=== PATIENT | female | born 1935 | race Caucasian/White ===

== ENCOUNTER 2016-09-24 09:23 | Inpatient (IN) | payer MEDICARE, BC ==
--- NOTE | 2016-09-24 09:38 | EDM.PDOC ---
ED HPI GENERAL MEDICAL PROBLEM - General Chief Complaint: Abdominal Pain Stated Complaint: VOMITING/ABDOMINAL PAIN Time Seen by Provider: 09/24/16 09:36 - History of Present Illness INITIAL COMMENTS - FREE TEXT/NARRATIVE: 80-year-old female presents to the emergency room with nausea and vomiting. This started this morning. Patient tried eating breakfast and this did not go too well and she vomited she had one or 2 episodes of what the caregiver believes is dry heaves. 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 Yesterday the patient was doing fine the caregiver reports the patient had some moaning and groaning earlier in the morning before attempting breakfast so she is assuming the patient had some pain before the nausea and vomiting started. At this point the patient wants the nausea and vomiting better , and at this moment is declining pain. Abdominal Pain Score (Numeric/FACES): 5 - Related Data Allergies Allergy/AdvReac Type Severity Reaction Status Date / Time cefadroxil hydrate Allergy Rash Verified 09/24/16 09:39 [From [facility]] venom-honey bee Allergy Swelling Verified 09/24/16 09:39 [bee venom (honey bee)] Home Meds: Home Meds Aspirin [Halfprin] 81 mg PO ACDINNER 09/16/15 [History] Donepezil HCl [Aricept] 10 mg PO BEDTIME 09/16/15 [History] Escitalopram Oxalate 20 mg PO DAILY 09/16/15 [History] Fenofibrate Nanocrystallized [Fenofibrate] 48 mg PO DAILY 09/16/15 [History] Methadone 0.5 tab PO DAILY 09/16/15 [History] Omeprazole 20 mg PO BID 09/16/15 [History] Rosuvastatin [Crestor] 10 mg PO BEDTIME 09/16/15 [History] amLODIPine [Norvasc] 1 tab PO DAILY 09/16/15 [History] metFORMIN [Glucophage XR] 500 mg PO ACDINNER 09/16/15 [History] Metoprolol/Hydrochlorothiazide [Metoprolol-HCTZ 50-25 MG] 1 tab PO DAILY [History] Potassium Chloride 40 meq PO DAILY 09/24/16 [History] Past Medical History HEENT History: Reports: Cataract Cardiovascular History: Reports: High Cholesterol Respiratory History: Reports: Bronchitis, Recurrent Other Respiratory History: finished julian 09/16/2015 Gastrointestinal History: Reports: Gastritis, GERD Genitourinary History: Reports: None 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 OB/BYN History: 4 pregnancies Musculoskeletal History: Reports: Arthritis, Osteoporosis Neurological History: Reports: Other (See Below) Other Neuro History: Dementia Psychiatric History: Reports: Dementia Endocrine/Metabolic History: Reports: Diabetes, Type II Oncologic (Cancer) History: Reports: Squamous Cell Carcinoma Other Oncologic History: chin lip area - Infectious Disease History Infectious Disease History: Reports: Measles, Mumps - Past Surgical History HEENT Surgical History: Reports: Adenoidectomy, Cataract Surgery, Tonsillectomy Female Surgical History: Reports: Hysterectomy, Salpingo-Oophorectomy Dermatological Surgical History: Reports: Skin Graft Social & Family History - Family History Family Medical History: Noncontributory HEENT: Reports: Cataract, Hearing Impairment, Impaired Vision Cardiac: Reports: None, Bypass Respiratory: Reports: Sleep Apnea GI: Reports: GERD Musculoskeletal: Reports: Arthritis, Osteoarthritis, Osteoporosis Psychiatric: Reports: Suicide Attempt, Other (See Below) Other Psychiatric Family History: son Endocrine/Metabolic: Reports: Diabetes, type II, Osteoporosis Oncologic: Reports: Lymphoma Other Oncologic Family History: dad and grandpa - Tobacco Use Smoking Status *Q: Former Smoker Used Tobacco, but Quit: Yes Month Tobacco Last Used: 1995 Second Hand Smoke Exposure: No - Recreational Drug Use Recreational Drug Use: No ED ROS GENERAL - Review of Systems Review Of Systems: See Below Constitutional: Reports: No Symptoms HEENT: Reports: No Symptoms Respiratory: Reports: No Symptoms Cardiovascular: Reports: No Symptoms GI/Abdominal: Reports: Abdominal Pain, Nausea, Vomiting. Denies: Constipation, Diarrhea : Reports: No Symptoms Musculoskeletal: Reports: No Symptoms Neurological: Reports: No Symptoms ED EXAM, GI/ABD - Physical Exam Exam: See Below Exam Limited By: No Limitations General Appearance: Alert, No Apparent Distress, Other (Her O2 saturation was noted to be a little bit low 88-92%) Head: Atraumatic, Normocephalic Neck: Normal Inspection, Supple, Non-Tender, Full Range of Motion. No: Lymphadenopathy (L), Lymphadenopathy (R) Respiratory/Chest: No Respiratory Distress, Lungs Clear Cardiovascular: Regular Rate, Rhythm, No Edema, Systolic Murmur, Other (She has a 2/6 systolic murmur heard best along the left upper sternal border) GI/Abdominal: Normal Bowel Sounds, Soft, Other (Patient has some upper abdominal discomfort no rigidity rebound or guarding noted) Rectal (Female) Exam: Normal Rectal Tone, Other (She has some scarring no prolapsed rectum no active hemorrhoids at this point stool no normal consistency and color) Back Exam: Normal Inspection. No: CVA Tenderness (L), CVA Tenderness (R) Extremities: Normal Inspection, No Pedal Edema Course - Vital Signs Last Recorded V/S: Last Vital Signs Temp 36.2 C 09/24/16 09:33 Pulse 84 09/24/16 09:33 Resp 13 09/24/16 09:33 BP 163/62 H 09/24/16 09:33 Pulse Ox 88 L 09/24/16 09:33 - Orders/Labs/Meds Orders: Active Orders 24 hr Category Date Time Status EKG Documentation Completion [RC] STAT Care 09/24/16 09:55 Active Sodium Chloride 0.9% [Normal Saline] 1,000 ml Med 09/24/16 10:00 Active IV ASDIRECTED Sodium Chloride 0.9% [Saline Flush] Med 09/24/16 12:35 Active 10 ml FLUSH ONETIME PRN Medication Orders Sodium Chloride (Normal Saline) 1,000 mls @ 125 mls/hr IV ASDIRECTED DEONNA Last Admin: 09/24/16 10:22 Dose: 125 mls/hr Sodium Chloride (Saline Flush) 10 ml FLUSH ONETIME PRN PRN Reason: IV FLUSH Last Admin: 09/24/16 13:17 Dose: 10 ml Labs: Laboratory Tests 09/24/16 09/24/16 09/24/16 Range/Units 10:05 10:05 10:17 WBC 9.92 (3.98-10.04) K/mm3 RBC 4.31 (3.98-5.22) M/mm3 Hgb 12.7 (11.2-15.7) gm/L Hct 37.3 (34.1-44.9) % MCV 86.5 (79.4-94.8) fl MCH 29.5 (25.6-32.2) pg MCHC 34.0 (32.2-35.5) g/dl RDW Std Deviation 40.9 (36.4-46.3) fL Plt Count 301 (182-369) K/mm3 MPV 9.2 L (9.4-12.3) fl Neutrophils % (Manual) 85 H (40-60) % Band Neutrophils % 2 (0-10) % Lymphocytes % (Manual) 12 L (20-40) % Atypical Lymphs % 0 % Monocytes % (Manual) 1 L (2-10) % Eosinophils % (Manual) 0 L (0.7-5.8) % Basophils % (Manual) 0 L (0.1-1.2) Platelet Estimate Adequate RBC Morph Comment Normal Sodium 139 (136-145) mEq/L Potassium 4.0 (3.5-5.1) mEq/L Chloride 102 (98-107) mEq/L Carbon Dioxide 28 (21-32) mEq/L Anion Gap 13.0 (5-15) BUN 17 (7-18) mg/dL Creatinine 0.8 (0.55-1.02) mg/dL Est Cr Clr Drug Dosing 38.94 mL/min Estimated GFR (MDRD) > 60 (>60) mL/min BUN/Creatinine Ratio 21.3 H (14-18) Glucose 149 H (83-115) mg/dL Calcium 9.1 (8.5-10.1) mg/dL Total Bilirubin 0.6 (0.2-1.0) mg/dL AST 44 H (15-37) U/L ALT 52 (14-59) U/L Alkaline Phosphatase 29 L (46-116) U/L Troponin I < 0.017 (0.00-0.056) ng/mL Total Protein 7.8 (6.4-8.2) g/dl Albumin 3.8 (3.4-5.0) g/dl Globulin 4.0 gm/dL Albumin/Globulin Ratio 1.0 (1-2) Lipase 114 (73-393) U/L Urine Color Yellow (Yellow) Urine Appearance Clear (Clear) Urine pH 6.0 (5.0-8.0) Ur Specific [place] 1.015 (1.005-1.030) Urine Protein 1+ H (Negative) Urine Glucose (UA) Negative (Negative) Urine Ketones Negative (Negative) Urine Occult Blood Negative (Negative) Urine Nitrite Negative (Negative) Urine Bilirubin Negative (Negative) Urine Urobilinogen 0.2 (0.2-1.0) Ur Leukocyte Esterase Trace H (Negative) Urine RBC Not seen (0-5) /hpf Urine WBC 0-5 (0-5) /hpf Ur Epithelial Cells 0-5 (0-5) /hpf Urine Bacteria Few (FEW) /hpf Urine Mucus Not seen (FEW) /hpf Meds: Medications Generic Name Dose Route Start Last Admin Trade Name Freq PRN Reason Stop Dose Admin Sodium Chloride 1,000 mls @ 125 mls/hr 09/24/16 10:00 09/24/16 10:22 Normal Saline IV 125 mls/hr ASDIRECTED DEONNA Administration Sodium Chloride 10 ml 09/24/16 12:35 09/24/16 13:17 Saline Flush FLUSH 10 ml ONETIME PRN Administration IV FLUSH Discontinued Medications Generic Name Dose Route Start Last Admin Trade Name Freq PRN Reason Stop Dose Admin Diatrizoate Meglum/Diatrizoate Sod 90 ml 09/24/16 12:35 09/24/16 13:16 Gastrografin 37% PO 09/24/16 12:36 90 ml ONETIME ONE Administration Sodium Chloride 500 mls @ 500 mls/hr 09/24/16 11:34 Normal Saline IV 09/24/16 12:33 .BOLUS ONE Iopamidol 100 ml 09/24/16 12:35 09/24/16 13:17 Isovue-300 (61%) IVPUSH 09/24/16 12:36 100 ml ONETIME ONE Administration Morphine Sulfate 2 mg 09/24/16 10:31 09/24/16 10:40 Morphine IVPUSH 09/24/16 10:32 2 mg ONETIME ONE Administration Morphine Sulfate Confirm 09/24/16 10:36 09/24/16 11:03 Morphine Administered 09/24/16 10:37 Not Given Dose 2 mg .ROUTE .STK-MED ONE Ondansetron HCl 4 mg 09/24/16 09:54 09/24/16 10:22 Zofran IVPUSH 09/24/16 09:55 4 mg ONETIME ONE Administration - Re-Assessments/Exams Free Text/Narrative Re-Assessment/Exam: 09/24/16 10:01 Labs ordered will start normal saline anticipating a possible abdominal pelvic CT. We'll check plain films KUB upright and an AP chest. We'll watch her O2 saturation. The patient has a heart murmur but no prior history. 09/24/16 11:33 Labs reviewed does far nondiagnostic exercise no free under the diaphragm no acute changes on the AP chest abdominal films show some stool in the right and left upper quadrants no obstruction at this point the patient still having some abdominal discomfort we'll check a CT scan 09/24/16 15:13 Patient has done well and is doing better however she still has some mild decreased O2 saturation. We are investigating possibilities of getting her discharged with some home O2 at times and room air she would drop to 80% at rest. Did do a rectal exam is a risk some concerns about prolapsed rectum that the nurse observed when the patient was having a BM. Patient has had a couple of BMs here normal consistency no blood noted. 09/24/16 15:36 At this time working on admission or observation for hypoxia 09/24/16 15:55 Case reviewed with our hospitalist the patient will be admitted for hypoxia. Departure - Departure Time of Disposition: 15:55 Disposition: Admitted As Inpatient 64 Clinical Impression: Hypoxia, COPD (chronic obstructive pulmonary disease), Abdominal pain - Discharge Information Referrals: Maxwell Smith MD [Primary Care Provider] - Forms: ED Department Discharge Additional Instructions: Return to the emergency room with any questions problems or worsening symptoms. Follow-up with your regular physician in the next week or so. Recheck heart murmur and oxygen saturation. - My Orders Last 24 Hours: My Active Orders 09/24/16 09:55 EKG Documentation Completion [RC] STAT 09/24/16 10:00 Sodium Chloride 0.9% [Normal Saline] 1,000 ml IV ASDIRECTED 09/24/16 12:35 Sodium Chloride 0.9% [Saline Flush] 10 ml FLUSH ONETIME PRN - Assessment/Plan Last 24 Hours: My Active Orders 09/24/16 09:55 EKG Documentation Completion [RC] STAT 09/24/16 10:00 Sodium Chloride 0.9% [Normal Saline] 1,000 ml IV ASDIRECTED 09/24/16 12:35 Sodium Chloride 0.9% [Saline Flush] 10 ml FLUSH ONETIME PRN
[2016-09-24] MEDS ORDERED: Ondansetron 4 MG/2 ML SDV IVPUSH ONE (09:54)
[2016-09-24] MEDS ORDERED: Sodium Chloride 0.9% 1,000 ML IV SCH (10:00)
[2016-09-24] MEDS ORDERED: Morphine 2 MG/ML Syringe IVPUSH ONE (10:31)
[2016-09-24] MEDS ORDERED: Morphine 2 MG/ML Syringe ONE (10:36)
[2016-09-24] MEDS ORDERED: Sodium Chloride 0.9% 500 ML IV ONE (11:34)
--- NOTE | 2016-09-24 12:13 | CR ---
Abdominal series: Supine and upright views of the abdomen were obtained as well as frontal view of the chest. Comparison: Previous chest x-ray of 09/17/15 is available [address] previous CT abdomen and pelvis exam of 09/17/13 is available. Heart size is slightly enlarged. Tortuous thoracic aorta is seen. Lungs are clear with no acute infiltrates. No free air is seen. Scattered gas within small bowel and colon is seen which at this point appears nonspecific. Calcifications are seen within the pelvis which are likely due to phleboliths. Mild degenerative change and scoliosis are present within the spine. Impression: 1. Findings as noted above. Nothing acute is appreciated. Diagnostic code #2
[2016-09-24] MEDS ORDERED: Diatrizoate Meglumine/Diatrizoate Sodium 37% 120 ML Bottle PO ONE (12:35)
[2016-09-24] MEDS ORDERED: Sodium Chloride 0.9% 10 ML Syringe FLUSH PRN (12:35)
[2016-09-24] MEDS ORDERED: Iopamidol 612 MG/ML 100 ML Bottle IVPUSH ONE (12:35)
--- NOTE | 2016-09-24 13:44 | CT ---
CT abdomen and pelvis Technique: Multiple axial sections were obtained from above the dome of the diaphragm inferiorly through the pubic symphysis. Intravenous and oral contrast was utilized. Delayed images were obtained through the bladder. Comparison: Previous abdominal series performed earlier on the same day. Previous abdominal CT of 09/17/13 is available. Findings: Dense calcification is seen within the upper right lobe of the liver in 2 locations. This is similar to prior exam. Atelectasis is noted posteriorly within both lung bases. Spleen appears within normal limits. Adrenal glands show no nodule. Kidneys show symmetric contrast enhancement without hydronephrosis or mass. Pancreas appears within normal limits. Gallbladder shows no calcified gallstones. Aorta shows atherosclerotic calcification which continues into the iliac vessels. No aneurysm is seen. No retroperitoneal adenopathy or mesenteric abnormalities are seen. No pelvic mass or adenopathy is seen. Loop of bowel within the left upper abdomen is slightly prominent in wall thickness but this is felt to be due to lack of distention and is incidental. Delayed images shows contrast within the distal ureters and within the bladder. Appendix is not definitely visualized. Bone window settings were reviewed showing diffuse degenerative change within the spine. Impression: 1. Incidental findings as noted above. Nothing acute is appreciated. Diagnostic code #2
--- NOTE | 2016-09-24 17:14 | PCM.HP ---
H&P History of Present Illness - General Date of Service: 09/24/16 Admit Problem/Dx: Admission Diagnosis/Problem Admission Diagnosis/Problem Hypoxia Source of Information: Patient, Family, Old Records, Provider, RN Notes Reviewed History Limitations: Reports: Other (Impaired Memory and Hearing) - History of Present Illness Initial Comments - Free Text/Narative: This is an 80-year-old elderly white female with past medical history of hearing and vision impairment, hyperlipidemia, gastritis, GERD, arthritis, osteoporosis, dementia, emphysema, history of obstructive sleep apnea and type 2 diabetes who comes in for evaluation of abdominal pain associated with nausea and vomiting and was found to be hypoxic with oxygen saturation as low as 80% at rest. Patient GI complaints started this morning. Patient also has a history of chronic constipation. She used to take stool softener but not anymore. Her last bowel movement was while she was in the emergency department. Patient is a poor historian given due to her underlying memory impairment. Her initial workup in the emergency department shows a fairly unremarkable CBC. Her chemistry is significant for glucose of 149, AST of 44, and alkaline phosphatase of 29. Her UA is unimpressive for urinary tract infection. Abdominal chest x-ray report reads nothing acute is appreciated. Abdominal/ pelvic CT scan shows no acute abnormal findings. Patient received initial treatment in the emergency department and her GI complaints seemed to have improved. However her O2 sat dropped to the low 80s on room air and therefore she is being admitted for hypoxia. Of note, the patient received morphine in the emergency department for pain management. Patient is DNR/DNI. Abdominal Pain Score (Numeric/FACES): 5 - Related Data Allergies/Adverse Reactions: Allergies Allergy/AdvReac Type Severity Reaction Status Date / Time cefadroxil hydrate Allergy Rash Verified 09/24/16 09:39 [place] [facility] [place] venom-honey bee Allergy Swelling Verified 09/24/16 09:39 [bee venom (honey bee)] Home Medications: Home Meds Aspirin [Halfprin] 81 mg PO ACDINNER 09/16/15 [History] Donepezil HCl [Aricept] 10 mg PO BEDTIME 09/16/15 [History] Escitalopram Oxalate 20 mg PO DAILY 09/16/15 [History] Fenofibrate Nanocrystallized [Fenofibrate] 48 mg PO DAILY 09/16/15 [History] Methadone 0.5 - 1 tab PO BEDTIME 09/16/15 [History] Omeprazole 20 mg PO BID 09/16/15 [History] Rosuvastatin [Crestor] 10 mg PO BEDTIME 09/16/15 [History] amLODIPine [Norvasc] 10 mg PO DAILY 09/16/15 [History] metFORMIN [Glucophage XR] 500 mg PO ACDINNER 09/16/15 [History] Budesonide/Formoterol Fumarate [Symbicort 80-4.5 Mcg Inhaler] 2 puff INH DAILY 09/24/16 [History] Docusate Sodium [Colace] 1 tab PO DAILY 09/24/16 [History] Lutein/Minerals/Vit A,C & E [Ocuvite] 1 mg PO DAILY 09/24/16 [History] Metoprolol/Hydrochlorothiazide [Metoprolol-HCTZ 50-25 MG] 1 tab PO BEDTIME 09/24 [History] Multivitamin [Multivitamins] 1 mg PO DAILY 09/24/16 [History] Potassium Chloride 2 tab PO DAILY 09/24/16 [History] Past Medical History HEENT History: Reports: Cataract Cardiovascular History: Reports: High Cholesterol Respiratory History: Reports: Bronchitis, Recurrent Other Respiratory History: finished [email or web address] 09/16/2015 Gastrointestinal History: Reports: Gastritis, GERD Genitourinary History: Reports: None 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 OB/BYN History: 4 pregnancies Musculoskeletal History: Reports: Arthritis, Osteoporosis Neurological History: Reports: Other (See Below) Other Neuro History: Dementia Psychiatric History: Reports: Dementia Endocrine/Metabolic History: Reports: Diabetes, Type II Oncologic (Cancer) History: Reports: Squamous Cell Carcinoma Other Oncologic History: chin lip area - Infectious Disease History Infectious Disease History: Reports: Measles, Mumps - Past Surgical History HEENT Surgical History: Reports: Adenoidectomy, Cataract Surgery, Tonsillectomy Female Surgical History: Reports: Hysterectomy, Salpingo-Oophorectomy Dermatological Surgical History: Reports: Skin Graft Social & Family History - Family History Family Medical History: Noncontributory HEENT: Reports: Cataract, Hearing Impairment, Impaired Vision Cardiac: Reports: None, Bypass Respiratory: Reports: Sleep Apnea GI: Reports: GERD Musculoskeletal: Reports: Arthritis, Osteoarthritis, Osteoporosis Psychiatric: Reports: Suicide Attempt, Other (See Below) Other Psychiatric Family History: son Endocrine/Metabolic: Reports: Diabetes, type II, Osteoporosis Oncologic: Reports: Lymphoma Other Oncologic Family History: dad and grandpa - Tobacco Use Smoking Status *Q: Former Smoker Used Tobacco, but Quit: Yes Month Tobacco Last Used: 1995 Second Hand Smoke Exposure: No - Caffeine Use Caffeine Use: Reports: Coffee Other Caffeine Use: daily - Recreational Drug Use Recreational Drug Use: No H&P Review of Systems - Review of Systems: Review Of Systems: See Below General: Denies: Fever, Chills, Malaise, Weakness, Fatigue HEENT: Reports: No Symptoms Pulmonary: Denies: Shortness of Breath Cardiovascular: Reports: No Symptoms Gastrointestinal: Reports: Abdominal Pain, Constipation, Nausea, Vomiting Genitourinary: Reports: No Symptoms Musculoskeletal: Reports: No Symptoms Skin: Denies: Cyanosis, Mottled, Pallor, Rash, Erythema, Wound Psychiatric: Denies: Depression, Anxiety, Agitation, Hallucinations, Suicidal Ideation Neurological: Reports: Confusion, Pre-Existing Deficit. Denies: Weakness, Gait Disturbance Hematologic/Lymphatic: Reports: No Symptoms Immunologic: Reports: No Symptoms Exam - Exam Exam: See Below - Vital Signs Vital Signs: Last Vital Signs Temp 36.2 C 09/24/16 09:33 Pulse 84 09/24/16 09:33 Resp 13 09/24/16 09:33 BP 163/62 H 09/24/16 09:33 Pulse Ox 88 L 09/24/16 09:33 Weight: 68.039 kg - Exam Quality Assessment: Supplemental Oxygen General: Alert, Cooperative. No: Mild Distress HEENT: Conjunctiva Clear, EACs Clear, EOMI, Hearing Intact, Mucosa Moist & [place] , Nares Patent, Normal Nasal Septum, Posterior Pharynx Clear, Pupils Equal, Contact Lenses Neck: Supple, Trachea Midline, +2 Carotid Pulse wo Bruit, Full Range of Motion Lungs: Clear to Auscultation, Normal Respiratory Effort Cardiovascular: Regular Rate, Regular Rhythm, Systolic Murmur Abdomen: Normal Bowel Sounds, Soft. No: Organomegaly, Tenderness (Female) Exam: Deferred Rectal (Female) Exam: Deferred Back Exam: Normal Inspection, Decreased Range of Motion Extremities: Normal Inspection, Normal Pulses. No: Edema Peripheral Pulses: 2+: Posterior Tibial (L), Posterior Tibial (R), Dorsalis Pedis (L), Dorsalis Pedis (R) Skin: Warm, Dry, Intact Neuro Extensive - Mental Status: Slow Response to Commands. No: Oriented x3, Normal Cognition, Memory Intact Neuro Extensive - Motor, Sensory, Reflexes: CN II-XII Intact (limited due to auditory impairment), Abnormal Gait Psychiatric: Alert, Normal Affect, Normal Mood - Patient Data Result Diagrams: 09/25/16 05:21 09/25/16 05:21 *Q Meaningful Use (ADM) - VTE *Q VTE Criteria *Q: - Stroke *Q Stroke Criteria *Q: - AMI *Q AMI Criteria *Q: Problem List Initiated/Reviewed/Updated: Yes Orders Last 24hrs: Medication Orders Sodium Chloride (Normal Saline) 1,000 mls @ 125 mls/hr IV ASDIRECTED DEONNA Last Admin: 09/24/16 10:22 Dose: 125 mls/hr Sodium Chloride (Saline Flush) 10 ml FLUSH ONETIME PRN PRN Reason: IV FLUSH Last Admin: 09/24/16 13:17 Dose: 10 ml Assessment/Plan Comment:: Assessment/Plan: Acute: Hypoxia - Not O2 home dependent - Risk Factors: Hx/o YAS and Emphysema (former smoker per family) - O2 dropped to low 80s in ED - Currently on supplemental O2 - She received IV Morphine in ED S/p Abdominal Associated with N/V - Now resolved - Abdominal CT scan showed no acute abnormal findings - Hx/o Constipation, she had a bowel movement in ED - Received IV Zofran and Morphine - She was having supper at the time of my examination in ED Chronic: HTN HLD GERD DM2 Dementia Depression ? Hx/o Emphysema (could not appreciate on CXR) ? Hx/o YAS Plan: Admit to the floor Routine AM Labs Resume Home Meds Colace 100 mg po daily Monitor Pulse Ox RT for hypoxia assessment: Asses O2 sat resting/ambulating and overnight if indicated PT/OT consult Fall Precaution SW/CM for d/c planning Additional orders as above Code Status: DNR/DNI
[2016-09-24] MEDS ORDERED: Metoprolol Tartrate 5 MG/5 ML SDV IVPUSH PRN (17:26)
[2016-09-24] MEDS ORDERED: hydrALAZINE 20 MG/ML SDV IVPUSH PRN (17:26)
[2016-09-24] MEDS ORDERED: Promethazine 12.5 MG in Sodium Chloride 0.9% 50 ML IV PRN (17:27)
[2016-09-24] MEDS ORDERED: HYDROmorphone 0.5 MG/0.5 ML Syringe IVPUSH PRN (17:27)
[2016-09-24] MEDS ORDERED: Polyethylene Glycol 3350 Powder 17 GM Packet PO PRN (17:27)
[2016-09-24] MEDS ORDERED: LORazepam 2 MG/ML MDV IV PRN (17:27)
[2016-09-24] MEDS ORDERED: Acetaminophen 325 MG Tab PO PRN (17:27)
[2016-09-24] MEDS ORDERED: Acetaminophen/HYDROcodone 325-5 MG Tab PO PRN (17:27)
[2016-09-24] MEDS ORDERED: Albuterol 0.083% 2.5 MG/3 ML Neb Soln NEB PRN (17:27)
[2016-09-24] MEDS ORDERED: Temazepam 7.5 MG Cap PO PRN (17:27)
[2016-09-24] MEDS ORDERED: Bisacodyl 5 MG Tab PO PRN (17:27)
[2016-09-24] MEDS ORDERED: Ondansetron 4 MG/2 ML SDV IV PRN (17:27)
[2016-09-24] MEDS ORDERED: Magnesium Sulfate/Water 2 GM in Premix Bag 1 BAG IV ONE (18:00)
[2016-09-24] MEDS ORDERED: Pneumococcal Polyvalent-23 Vaccine 0.5 ML SDV IM ONE (19:51)
[2016-09-24] MEDS ORDERED: Docusate Sodium 100 MG Cap PO SCH (21:00)
[2016-09-24] MEDS ORDERED: Methadone 10 MG Tab PO SCH (21:00)
[2016-09-24] MEDS ORDERED: Loperamide 2 MG Cap PO PRN (21:55)
[2016-09-24] MEDS: Pantoprazole 40 MG Tab.CR PO SCH (22:15)
[2016-09-24] MEDS: Donepezil 10 MG Tab PO SCH (22:16)
[2016-09-24] MEDS: Rosuvastatin 10 MG Tab PO SCH (22:16)
[2016-09-24] MEDS: Hydrochlorothiazide 25 MG Tab PO SCH (22:19)
[2016-09-24] MEDS: Metoprolol Succinate 50 MG Tab.ER PO SCH (22:19)
[2016-09-25] MEDS ORDERED: Docusate Sodium 100 MG Cap PO SCH (09:00)
[2016-09-25] MEDS ORDERED: Rosuvastatin 10 MG Tab PO SCH (09:00)
[2016-09-25] MEDS ORDERED: Hydrochlorothiazide 25 MG Tab PO SCH (09:00)
[2016-09-25] MEDS ORDERED: Metoprolol Succinate 50 MG Tab.ER PO SCH (09:00)
[2016-09-25] MEDS: Potassium Chloride 20 MEQ Tab.ER PO SCH (10:41)
[2016-09-25] MEDS: Pantoprazole 40 MG Tab.CR PO SCH ×2 (10:41→20:52)
[2016-09-25] MEDS: Fenofibrate 54 MG Tab PO SCH (10:42)
[2016-09-25] MEDS: amLODIPine 10 MG Tab PO SCH (10:42)
[2016-09-25] MEDS: Citalopram 20 MG Tab PO SCH (10:42)
[2016-09-25] MEDS ORDERED: Magnesium Sulfate/Water 50 ML ONE (11:07)
--- NOTE | 2016-09-25 11:08 | PCM.PN ---
- General Info Date of Service: 09/25/16 Admission Dx/Problem (Free Text): Admission Diagnosis/Problem Admission Diagnosis/Problem Hypoxia Subjective Update: Follow Up Functional Status: Reports: pain controlled, tolerating diet, ambulating, urinating. Denies: new symptoms - Review of Systems General: Denies: Fever, Weakness, Fatigue, Malaise, Chills HEENT: Reports: no symptoms Pulmonary: Denies: shortness of breath Cardiovascular: Denies: Chest Pain, Palpitations Gastrointestinal: Denies: Abdominal pain, Nausea, Vomiting Genitourinary: Reports: no symptoms Musculoskeletal: Reports: no symptoms Skin: Denies: cyanosis, jaundice, pruritis, rash Neurological: Reports: Confusion (baseline). Denies: Dizziness, Gait Disturbance Psychiatric: Denies: depression, anxiety, agitation, hallucinations Systems Review Comment:: No overnight or acute issues. She is relatively well. Her O2 sat is at 92% on RA. She has no new complaints. - Patient Data Vitals - most recent: Last Vital Signs Temp 36.8 C 09/25/16 09:09 Pulse 57 L 09/25/16 09:09 Resp 20 09/25/16 09:09 BP 135/53 L 09/25/16 09:09 Pulse Ox 92 L 09/25/16 09:09 Weight - most recent: 69.989 kg I&O - last 24 hours: Intake & Output 09/24/16 09/25/16 09/25/16 22:59 06:59 14:59 Intake Total 120 1100 Output Total 700 Balance 120 400 Lab Results last 24 hrs: Laboratory Results - last 24 hr 09/25/16 09/25/16 Range/Units 05:21 05:21 WBC 6.62 (3.98-10.04) K/mm3 RBC 3.96 L (3.98-5.22) M/mm3 Hgb 11.5 (11.2-15.7) gm/L Hct 35.6 (34.1-44.9) % MCV 89.9 (79.4-94.8) fl MCH 29.0 (25.6-32.2) pg MCHC 32.3 (32.2-35.5) g/dl RDW Std Deviation 43.3 (36.4-46.3) fL Plt Count 254 (182-369) K/mm3 MPV 9.2 L (9.4-12.3) fl Neut % (Auto) 53.5 (34.0-71.1) % Lymph % (Auto) 30.2 (19.3-51.7) % [place] % (Auto) 12.7 H (4.7-12.5) % Eos % (Auto) 2.9 (0.7-5.8) Baso % (Auto) 0.5 (0.1-1.2) % Neut # (Auto) 3.55 (1.56-6.13) K/mm3 Lymph # (Auto) 2.00 (1.18-3.74) K/mm3 [place] # (Auto) 0.84 H (0.24-0.36) K/mm3 Eos # (Auto) 0.19 (0.04-0.36) K/mm3 Baso # (Auto) 0.03 (0.01-0.08) K/mm3 Sodium 141 (136-145) mEq/L Potassium 3.8 (3.5-5.1) mEq/L Chloride 104 (98-107) mEq/L Carbon Dioxide 32 (21-32) mEq/L Anion Gap 8.8 (5-15) BUN 12 (7-18) mg/dL Creatinine 0.8 (0.55-1.02) mg/dL Est Cr Clr Drug Dosing 38.94 mL/min Estimated GFR (MDRD) > 60 (>60) mL/min BUN/Creatinine Ratio 15.0 (14-18) Glucose 114 (83-115) mg/dL Calcium 8.2 L (8.5-10.1) mg/dL Magnesium 1.8 (1.8-2.4) mg/dl Med Orders - Current: Current Medications Acetaminophen (Tylenol) 650 mg PO Q4H PRN PRN Reason: Pain (Mild 1-3)/fever Hydrocodone Bitart/Acetaminophen ([place] 325-5 Mg) 1 tab PO Q4H PRN PRN Reason: Pain (moderate 4-6) Albuterol (Proventil Neb Soln) 2.5 mg NEB Q2H PRN PRN Reason: Shortness Of Breath/wheezing Amlodipine Besylate (Norvasc) 10 mg PO DAILY [facility] Last Admin: 09/25/16 10:42 Dose: 10 mg Aspirin (Halfprin) 81 mg PO ACDINLAURA [facility] Bisacodyl (Dulcolax) 5 mg PO DAILY PRN PRN Reason: Constipation Citalopram Hydrobromide (Celexa) 40 mg PO DAILY [facility] Last Admin: 09/25/16 10:42 Dose: 40 mg Donepezil HCl (Aricept) 10 mg PO BEDTIME [facility] Last Admin: 09/24/16 22:16 Dose: 10 mg Fenofibrate (Fenofibrate) 54 mg PO DAILY [facility] Last Admin: 09/25/16 10:42 Dose: 54 mg Hydralazine HCl (Apresoline) 20 mg IVPUSH Q4H PRN PRN Reason: Hypertension Hydrochlorothiazide (Hydrochlorothiazide) 25 mg PO BEDTIME [facility] Last Admin: 09/24/16 22:19 Dose: 25 mg Hydromorphone HCl (Dilaudid) 0.25 mg IVPUSH Q4H PRN PRN Reason: Pain (severe 7-10) Promethazine HCl 12.5 mg/ (Sodium Chloride) 50.5 mls @ 100 mls/hr IV Q6H PRN PRN Reason: Nausea/Vomiting Loperamide HCl (Imodium) 4 mg PO Q6H PRN PRN Reason: Diarrhea Last Admin: 09/24/16 22:16 Dose: 4 mg Lorazepam (Ativan) 0.25 mg IV Q6H PRN PRN Reason: Anxiety Magnesium Sulfate (Pharmacy To Dose - Magnesium Replacement) 0 dose .XX ASDIRECTED PRN PRN Reason: RX TO MONITOR MAG LEVELS Metformin HCl (Glucophage) 250 mg PO BIDMEALS [facility] Methadone HCl (Methadone) 5 - 10 mg PO BEDTIME [facility] Metoprolol Succinate (Toprol Xl) 50 mg PO BEDTIME [facility] Last Admin: 09/24/16 22:19 Dose: 50 mg Metoprolol Tartrate (Lopressor) 5 mg IVPUSH Q4H PRN PRN Reason: Tachycardia Ondansetron HCl (Zofran) 4 mg IV Q6H PRN PRN Reason: Nausea/Vomiting Pantoprazole Sodium (Protonix) 40 mg PO BID [facility] Last Admin: 09/25/16 10:41 Dose: 40 mg Polyethylene Glycol (Miralax) 17 gm PO DAILY PRN PRN Reason: Constipation Potassium Chloride (Klor-Con M20) 40 meq PO DAILY [facility] Last Admin: 09/25/16 10:41 Dose: 40 meq Potassium Chloride (Pharmacy To Dose - Potassium Replacement) 0 dose .XX ASDIRECTED PRN PRN Reason: RX TO MONITOR K LEVELS Rosuvastatin Calcium (Crestor) 10 mg PO BEDTIME [facility] Last Admin: 09/24/16 22:16 Dose: 10 mg Senna/Docusate Sodium (Senna Plus) 1 tab PO BID PRN PRN Reason: Constipation Sodium Chloride (Saline Flush) 10 ml FLUSH ONETIME PRN PRN Reason: IV FLUSH Last Admin: 09/24/16 13:17 Dose: 10 ml Temazepam (Restoril) 7.5 mg PO BEDTIME PRN PRN Reason: Sleep Discontinued Medications Diatrizoate Meglum/Diatrizoate Sod (Gastrografin 37%) 90 ml PO ONETIME ONE Stop: 09/24/16 12:36 Last Admin: 09/24/16 13:16 Dose: 90 ml Docusate Sodium (Colace) 100 mg PO BID [facility] Docusate Sodium (Colace) 100 mg PO DAILY [facility] Sodium Chloride (Normal Saline) 1,000 mls @ 125 mls/hr IV ASDIRECTED [facility] Last Admin: 09/24/16 10:22 Dose: 125 mls/hr Sodium Chloride (Normal Saline) 500 mls @ 500 mls/hr IV .BOLUS ONE Stop: 09/24/16 12:33 Last Admin: 09/24/16 22:20 Dose: Not Given Magnesium Sulfate 2 gm/ Premix 50 mls @ 50 mls/hr IV ONETIME ONE Stop: 09/25/16 08:59 Iopamidol (Isovue-300 (61%)) 100 ml IVPUSH ONETIME ONE Stop: 09/24/16 12:36 Last Admin: 09/24/16 13:17 Dose: 100 ml Methadone HCl (Methadone) 5 - 10 mg PO BEDTIME [facility] Last Admin: 09/24/16 22:17 Dose: 5 mg Morphine Sulfate (Morphine) 2 mg IVPUSH ONETIME ONE Stop: 09/24/16 10:32 Last Admin: 09/24/16 10:40 Dose: 2 mg Morphine Sulfate (Morphine) Confirm Administered Dose 2 mg .ROUTE .STK-MED ONE Stop: 09/24/16 10:37 Last Admin: 09/24/16 11:03 Dose: Not Given Ondansetron HCl (Zofran) 4 mg IVPUSH ONETIME ONE Stop: 09/24/16 09:55 Last Admin: 09/24/16 10:22 Dose: 4 mg Pneumococcal Polyvalent Vaccine (Pneumovax 23) 0.5 ml IM .ONCE ONE Stop: 09/24/16 19:52 - Exam Quality Assessment: supplemental oxygen General: alert, cooperative, no acute distress HEENT: Pupils equal, Pupils reactive, EOMI, Mucous membr. moist/pink, Other ( Hard of Hearing) Neck: supple, trachea midline, no JVD, no thyromegaly Lungs: Normal respiratory effort, Decreased breath sounds Cardiovascular: Regular Rate, Regular Rhythm Abdomen: bowel sounds present, soft, no tenderness, no distension (Female) Exam: Deferred Back Exam: Normal Inspection, Decreased Range of Motion Extremities: no edema, normal pulses, no tenderness/swelling, no clubbing, no cyanosis, no calf tenderness Skin: warm, dry, intact Neurological: no new focal deficit Psy/Mental Status: alert, normal affect, normal mood - Problem List Review Problem List Initiated/Reviewed/Updated: Yes - My Orders Last 24 Hours: My Active Orders 09/24/16 17:26 Metoprolol Tartrate [Lopressor] 5 mg IVPUSH Q4H PRN hydrALAZINE [Apresoline] 20 mg IVPUSH Q4H PRN 09/24/16 17:27 Intake and Output [RC] 04,16 Oxygen Therapy [RC] PRN Pulse Oximetry [RC] CONTINUOUS Up With Assistance [RC] ASDIRECTED Up ad Sue [RC] ASDIRECTED VTE/DVT Education [RC] 09,21 Vital Signs [RC] Q6HR Consult to Case Management [CONS] Routine Consult to Medical Imaging Director [CONS] Routine Consult to Spiritual Care [CONS] Routine OT Evaluation and Treatment [CONS] Routine PT Evaluation and Treatment [CONS] Routine Respiratory Care Assess and Treatment [CONS] Routine Acetaminophen [Tylenol] 650 mg PO Q4H PRN Acetaminophen/HYDROcodone [[place] 325-5 MG] 1 tab PO Q4H PRN Albuterol [Proventil Neb Soln] 2.5 mg NEB Q2H PRN Bisacodyl [Dulcolax] 5 mg PO DAILY PRN Docusate Sodium/Sennosides [Senna Plus] 1 tab PO BID PRN HYDROmorphone [Dilaudid] 0.25 mg IVPUSH Q4H PRN LORazepam [Ativan] 0.25 mg IV Q6H PRN Ondansetron [Zofran] 4 mg IV Q6H PRN Polyethylene Glycol 3350 [MiraLAX] 17 gm PO DAILY PRN Promethazine [Phenergan] 12.5 mg Sodium Chloride 0.9% [Normal Saline] 50 ml IV Q6H Temazepam [Restoril] 7.5 mg PO BEDTIME PRN Sequential Compression Device [OM.PC] Per Unit Routine Resuscitation Status Routine 09/24/16 17:28 Antiembolic Devices [RC] QSHIFT 09/24/16 17:29 RT Aerosol Therapy [RC] ASDIRECTED 09/24/16 17:30 Magnesium Rep Pharmacy to Dose [Pharmacy to Dose - Magnesium Replacement] 0 dose .XX ASDIRECTED PRN Potassium Rep Pharmacy to Dose [Pharmacy to Dose - Potassium Replacement] 0 dose .XX ASDIRECTED PRN 09/24/16 20:55 Overnight Pulse Oximetry [Overnight Pulse Oximetry] [RC] Click To Edit 09/24/16 21:00 Donepezil [Aricept] 10 mg PO BEDTIME Hydrochlorothiazide 25 mg PO BEDTIME Metoprolol Succinate [Toprol XL] 50 mg PO BEDTIME Pantoprazole [ProTONIX] 40 mg PO BID Rosuvastatin [Crestor] 10 mg PO BEDTIME 09/24/16 21:55 Loperamide [Imodium] 4 mg PO Q6H PRN 09/24/16 Dinner Regular Diet [DIET] 09/25/16 09:00 Citalopram [Celexa] 40 mg PO DAILY Fenofibrate 54 mg PO DAILY Potassium Chloride [Klor-Con M20] 40 meq PO DAILY amLODIPine [Norvasc] 10 mg PO DAILY 09/25/16 16:00 Aspirin [Halfprin] 81 mg PO ACDINNER 09/25/16 21:00 Methadone 5 - 10 mg PO BEDTIME 09/26/16 07:00 metFORMIN [Glucophage] 250 mg PO BIDMEALS - Plan Plan:: Assessment/Plan: Acute: Hypoxia - Not O2 home dependent - Risk Factors: Hx/o YAS and Emphysema (former smoker per family) - O2 dropped to low 80s in ED - Currently on supplemental O2 at 2L NC - She received IV Morphine in ED - RT O2 study will be done either today or tonight Resolved: S/p Abdominal Associated with N/V - Now resolved - Abdominal CT scan showed no acute abnormal findings - Hx/o Constipation, she had a bowel movement in ED - Received IV Zofran and Morphine - She was having supper at the time of my examination in ED Chronic: HTN HLD GERD DM2 Dementia Depression ? Hx/o Emphysema (could not appreciate on CXR) ? Hx/o YAS Plan: She is clinically stable Routine AM Labs Monitor Pulse Ox RT for hypoxia assessment: Asses O2 sat resting/ambulating and overnight if indicated- will be done today and or tonight Continue PT/OT Fall Precaution SW/CM for d/c planning Additional orders as above Code Status: DNR/DNI Possible discontinue in AM
[2016-09-25] MEDS: Magnesium Sulfate/Water 2 GM in Premix Bag 1 BAG IV ONE ×3 (11:11→11:53)
[2016-09-25] MEDS ORDERED: Aspirin 81 MG Tab.EC PO SCH (16:00)
[2016-09-25] MEDS: Donepezil 10 MG Tab PO SCH (20:52)
[2016-09-25] MEDS: Rosuvastatin 10 MG Tab PO SCH (20:52)
[2016-09-25] MEDS: Hydrochlorothiazide 25 MG Tab PO SCH (20:53)
[2016-09-25] MEDS: Metoprolol Succinate 50 MG Tab.ER PO SCH (20:53)
[2016-09-25] MEDS ORDERED: METHADONE 10 MG PO SCH (21:00)
[2016-09-26] MEDS ORDERED: metFORMIN 500 MG Tab PO SCH (07:00)
--- NOTE | 2016-09-26 08:01 | PCM.DCSUM1 ---
Discharge Summary - Hospital Course Brief History: This is an 80-year-old elderly white female with past medical history of hearing and vision impairment, hyperlipidemia, gastritis, GERD, arthritis, osteoporosis, dementia, emphysema, history of obstructive sleep apnea and type 2 diabetes who comes in for evaluation of abdominal pain associated with nausea and vomiting and was found to be hypoxic with oxygen saturation as low as 80% at rest. - Discharge Data Discharge Date: 09/26/16 Discharge Disposition: Home, Self-Care 01 Condition: Good - Discharge Diagnosis/Problem(s) (1) Hypoxia SNOMED Code(s): 237600737, 912596247 ICD Code: R09.02 - HYPOXEMIA Status: Chronic (2) Abdominal pain SNOMED Code(s): 19277492 ICD Code: R10.9 - UNSPECIFIED ABDOMINAL PAIN Status: Resolved Qualifiers: Abdominal location: generalized Qualified Code(s): R10.84 - Generalized abdominal pain (3) Constipation SNOMED Code(s): 44977317 ICD Code: K59.00 - CONSTIPATION, UNSPECIFIED Status: Resolved Qualifiers: Constipation type: slow transit constipation Qualified Code(s): K59.01 - Slow transit constipation - Patient Summary/Data Operative Procedure(s) Performed: None Complications: None Consults: Consultations 09/24/16 17:27 Consult to Case Management [CONS] Routine Consult to Title Checker [CONS] Routine Consult to Spiritual Care [CONS] Routine OT Evaluation and Treatment [CONS] Routine PT Evaluation and Treatment [CONS] Routine Respiratory Care Assess and Treatment [CONS] Routine Recommended Follow-up Testing/Procedures: None Hospital Course: She was primarily admitted for medical management of hypoxemia. She presented to the emergency department with complaint of a abdominal pain. Her chief complaints resolved after she had a bowel movement. However she developed acute hypoxia with O2 sat in the low 80s as she was getting ready to leave the emergency department. Therefore she was admitted for further evaluation all her low O2 saturation. We felt this may be related to narcotics she received in the emergency department on top of her home maintenance dose of methadone . However she was admitted for further respiratory testing an observation. Her hospital course was uncomplicated. The rest of her medical illness remained stable during this admission. Patient is now stable for discharge. She will be discharged with supplemental O2 continuous 3-4 L: 3 L at rest and 4 L with ambulation/activity. She will also be discharged with Narcan to use when necessary for narcotic overdose. Instructions on how to use was given to her caregiver. Patient was advised to come off with her methadone therapy. She is to follow-up with your primary care assess scheduled. on the day of discharge, her PCP was called and updated regarding discharge care plan. - Patient Instructions Diet: Usual Diet as Tolerated, Diabetic Diet Activity: As Tolerated Driving: Do Not Drive Showering/Bathing: May Shower Notify Provider of: Fever, Nausea and/or Vomiting Other/Special Instructions: - Please take all medications as directed. - Use your supplemental O2 as directed. - Follow up with your family doctor as scheduled. - Call your doctor for any questions or concerns - Discharge Plan Prescriptions/Med Rec: Bisacodyl 10 mg RC BID PRN #15 supp.rect PRN Reason: Constipation Guaifenesin/Pseudoephedrne HCl [Mucinex D ER Tablet] 1 each PO BID PRN #60 tab.er.12h PRN Reason: Other Naloxone [Narcan] 0.4 mg IM ASDIRECTED #6 syringe Home Medications: Home Meds Aspirin [Halfprin] 81 mg PO ACDINNER 09/16/15 [History] Donepezil HCl [Aricept] 10 mg PO BEDTIME 09/16/15 [History] Escitalopram Oxalate 20 mg PO DAILY 09/16/15 [History] Fenofibrate Nanocrystallized [Fenofibrate] 48 mg PO DAILY 09/16/15 [History] Methadone 0.5 - 1 tab PO BEDTIME 09/16/15 [History] Omeprazole 20 mg PO BID 09/16/15 [History] Rosuvastatin [Crestor] 10 mg PO BEDTIME 09/16/15 [History] amLODIPine [Norvasc] 10 mg PO DAILY 09/16/15 [History] metFORMIN [Glucophage XR] 500 mg PO ACDINNER 09/16/15 [History] Budesonide/Formoterol Fumarate [Symbicort 80-4.5 Mcg Inhaler] 2 puff INH DAILY 09/24/16 [History] Lutein/Minerals/Vit A,C & E [Ocuvite] 1 mg PO DAILY 09/24/16 [History] Metoprolol/Hydrochlorothiazide [Metoprolol-HCTZ 50-25 MG] 1 tab PO BEDTIME 09/24 [History] Multivitamin [Multivitamins] 1 mg PO DAILY 09/24/16 [History] Potassium Chloride 2 tab PO DAILY 09/24/16 [History] Bisacodyl 10 mg RC BID PRN #15 supp.rect 09/26/16 [Rx] Docusate Sodium [Colace] 1 tab PO BID #0 09/26/16 [Rx] Guaifenesin/Pseudoephedrne HCl [Mucinex D ER Tablet] 1 each PO BID PRN #60 tab.er.12h 09/26/16 [Rx] Naloxone [Narcan] 0.4 mg IM ASDIRECTED #6 syringe 09/26/16 [Rx] Patient Handouts: Hypoxemia, Methadone tablets Referrals: Maxwell Smith MD [Primary Care Provider] - 10/03/16 11:00 am - Discharge Summary/Plan Comment DC Time >30 min.: No Discharge Summary/Plan Comment: Discharge to Home - General Info Date of Service: 09/26/16 Admission Dx/Problem (Free Text: Admission Diagnosis/Problem Admission Diagnosis/Problem Hypoxia Subjective Update: Follow Up Functional Status: Reports: pain controlled, tolerating diet, ambulating, urinating. Denies: new symptoms - Review of Systems General: Denies: Fever, Weakness, Fatigue, Malaise, Chills HEENT: Reports: no symptoms, other (Hard of Hearing) Pulmonary: Denies: shortness of breath Cardiovascular: Denies: Chest Pain, Palpitations, Dyspnea on Exertion Gastrointestinal: Denies: Abdominal pain, Nausea, Vomiting Genitourinary: Reports: no symptoms Musculoskeletal: Reports: no symptoms Skin: Reports: no symptoms Neurological: Reports: Confusion (baseline). Denies: Difficulty Walking, Weakness, Gait Disturbance Psychiatric: Denies: depression, anxiety, agitation, hallucinations Systems Review Comment: No overnight or acute issues. She is essentially well. She has no new complaints. - Patient Data Vitals - Most Recent: Last Vital Signs Temp 36.4 C 09/26/16 05:47 Pulse 55 L 09/26/16 05:57 Resp 18 09/26/16 05:47 BP 147/52 H 09/26/16 05:47 Pulse Ox 91 L 09/26/16 06:00 Weight - Most Recent: 69.717 kg I&O - Last 24 hours: Intake & Output 09/25/16 09/26/16 09/26/16 22:59 06:59 14:59 Intake Total 570 550 Output Total 650 6511 Balance -80 -9924 Med Orders - Current: Current Medications Acetaminophen (Tylenol) 650 mg PO Q4H PRN PRN Reason: Pain (Mild 1-3)/fever Hydrocodone Bitart/Acetaminophen ([place] 325-5 Mg) 1 tab PO Q4H PRN PRN Reason: Pain (moderate 4-6) Albuterol (Proventil Neb Soln) 2.5 mg NEB Q2H PRN PRN Reason: Shortness Of Breath/wheezing Amlodipine Besylate (Norvasc) 10 mg PO DAILY [facility] Last Admin: 09/25/16 10:42 Dose: 10 mg Aspirin (Halfprin) 81 mg PO ACDINNER [facility] Last Admin: 09/25/16 15:41 Dose: 81 mg Bisacodyl (Dulcolax) 5 mg PO DAILY PRN PRN Reason: Constipation Citalopram Hydrobromide (Celexa) 40 mg PO DAILY [facility] Last Admin: 09/25/16 10:42 Dose: 40 mg Donepezil HCl (Aricept) 10 mg PO BEDTIME [facility] Last Admin: 09/25/16 20:52 Dose: 10 mg Fenofibrate (Fenofibrate) 54 mg PO DAILY [facility] Last Admin: 09/25/16 10:42 Dose: 54 mg Hydralazine HCl (Apresoline) 20 mg IVPUSH Q4H PRN PRN Reason: Hypertension Hydrochlorothiazide (Hydrochlorothiazide) 25 mg PO BEDTIME [facility] Last Admin: 09/25/16 20:53 Dose: 25 mg Hydromorphone HCl (Dilaudid) 0.25 mg IVPUSH Q4H PRN PRN Reason: Pain (severe 7-10) Promethazine HCl 12.5 mg/ (Sodium Chloride) 50.5 mls @ 100 mls/hr IV Q6H PRN PRN Reason: Nausea/Vomiting Loperamide HCl (Imodium) 4 mg PO Q6H PRN PRN Reason: Diarrhea Last Admin: 09/24/16 22:16 Dose: 4 mg Lorazepam (Ativan) 0.25 mg IV Q6H PRN PRN Reason: Anxiety Magnesium Sulfate (Pharmacy To Dose - Magnesium Replacement) 0 dose .XX ASDIRECTED PRN PRN Reason: RX TO MONITOR MAG LEVELS Metformin HCl (Glucophage) 250 mg PO BIDMEALS [facility] Last Admin: 09/26/16 07:27 Dose: 250 mg Methadone HCl (Methadone) 5 - 10 mg PO BEDTIME [facility] Last Admin: 09/25/16 20:54 Dose: 5 mg Metoprolol Succinate (Toprol Xl) 50 mg PO BEDTIME [facility] Last Admin: 09/25/16 20:53 Dose: 50 mg Metoprolol Tartrate (Lopressor) 5 mg IVPUSH Q4H PRN PRN Reason: Tachycardia Ondansetron HCl (Zofran) 4 mg IV Q6H PRN PRN Reason: Nausea/Vomiting Pantoprazole Sodium (Protonix) 40 mg PO BID [facility] Last Admin: 09/25/16 20:52 Dose: 40 mg Polyethylene Glycol (Miralax) 17 gm PO DAILY PRN PRN Reason: Constipation Potassium Chloride (Klor-Con M20) 40 meq PO DAILY [facility] Last Admin: 09/25/16 10:41 Dose: 40 meq Potassium Chloride (Pharmacy To Dose - Potassium Replacement) 0 dose .XX ASDIRECTED PRN PRN Reason: RX TO MONITOR K LEVELS Rosuvastatin Calcium (Crestor) 10 mg PO BEDTIME [facility] Last Admin: 09/25/16 20:52 Dose: 10 mg Senna/Docusate Sodium (Senna Plus) 1 tab PO BID PRN PRN Reason: Constipation Sodium Chloride (Saline Flush) 10 ml FLUSH ONETIME PRN PRN Reason: IV FLUSH Last Admin: 09/24/16 13:17 Dose: 10 ml Temazepam (Restoril) 7.5 mg PO BEDTIME PRN PRN Reason: Sleep Discontinued Medications Diatrizoate Meglum/Diatrizoate Sod (Gastrografin 37%) 90 ml PO ONETIME ONE Stop: 09/24/16 12:36 Last Admin: 09/24/16 13:16 Dose: 90 ml Docusate Sodium (Colace) 100 mg PO BID [facility] Docusate Sodium (Colace) 100 mg PO DAILY [facility] Sodium Chloride (Normal Saline) 1,000 mls @ 125 mls/hr IV ASDIRECTED [facility] Last Admin: 09/24/16 10:22 Dose: 125 mls/hr Sodium Chloride (Normal Saline) 500 mls @ 500 mls/hr IV .BOLUS ONE Stop: 09/24/16 12:33 Last Admin: 09/24/16 22:20 Dose: Not Given Magnesium Sulfate 2 gm/ Premix 50 mls @ 50 mls/hr IV ONETIME ONE Stop: 09/25/16 08:59 Last Admin: 09/25/16 11:53 Dose: 50 mls/hr Magnesium Sulfate (Magnesium Sulfate 2 Gm In Water 50 Ml) Confirm Administered Dose 50 mls @ as directed .ROUTE .STK-MED ONE Stop: 09/25/16 11:08 Last Admin: 09/25/16 11:51 Dose: Not Given Iopamidol (Isovue-300 (61%)) 100 ml IVPUSH ONETIME ONE Stop: 09/24/16 12:36 Last Admin: 09/24/16 13:17 Dose: 100 ml Methadone HCl (Methadone) 5 - 10 mg PO BEDTIME [facility] Last Admin: 09/24/16 22:17 Dose: 5 mg Morphine Sulfate (Morphine) 2 mg IVPUSH ONETIME ONE Stop: 09/24/16 10:32 Last Admin: 09/24/16 10:40 Dose: 2 mg Morphine Sulfate (Morphine) Confirm Administered Dose 2 mg .ROUTE .STK-MED ONE Stop: 09/24/16 10:37 Last Admin: 09/24/16 11:03 Dose: Not Given Ondansetron HCl (Zofran) 4 mg IVPUSH ONETIME ONE Stop: 09/24/16 09:55 Last Admin: 09/24/16 10:22 Dose: 4 mg Pneumococcal Polyvalent Vaccine (Pneumovax 23) 0.5 ml IM .ONCE ONE Stop: 09/24/16 19:52 - Exam Quality Assessment: Reports: supplemental oxygen General: Reports: alert, oriented, cooperative, no acute distress HEENT: Reports: Pupils equal, Pupils reactive, EOMI, Mucous membr. moist/pink Neck: Reports: supple, trachea midline, no JVD Lungs: Reports: Clear to auscultation, Normal respiratory effort Cardiovascular: Reports: Regular Rate, Regular Rhythm Abdomen: Reports: bowel sounds present, soft, no tenderness, no distension (Female) Exam: Deferred Rectal (Female) Exam: Deferred Back Exam: Reports: Normal Inspection, Decreased Range of Motion Extremities: Reports: no edema, normal pulses, no tenderness/swelling, no clubbing, no cyanosis, no calf tenderness Skin: Reports: warm, dry, intact Neurological: Reports: no new focal deficit Psy/Mental Status: Reports: alert, normal affect, normal mood *Q Meaningful Use (DIS) - VTE *Q VTE Criteria *Q: - Stroke *Q Stroke Criteria *Q: - AMI *Q AMI Criteria *Q:
[2016-09-26 08:40] VITALS: BP 121/51
[2016-09-26] MEDS: Citalopram 20 MG Tab PO SCH (09:19)
[2016-09-26] MEDS: Potassium Chloride 20 MEQ Tab.ER PO SCH (09:19)
[2016-09-26] MEDS: Fenofibrate 54 MG Tab PO SCH (09:19)
[2016-09-26] MEDS: Pantoprazole 40 MG Tab.CR PO SCH (09:20)
[2016-09-26] MEDS: amLODIPine 10 MG Tab PO SCH (09:20)
== END 2016-09-26 12:55 | disposition home or self-care (01) | DRG 206 ==
LOC: JD.ED 09:23 → JD.MS 15:56
PROVIDERS: ADMIT Internal Medicine; ATTEND Internal Medicine
DX: R09.02 Hypoxemia (principal); J44.9 Chronic obstructive pulmonary disease, unspecified; R10.9 Unspecified abdominal pain; R11.2 Nausea with vomiting, unspecified; E78.00 Pure hypercholesterolemia, unspecified; I10 Essential (primary) hypertension; E78.5 Hyperlipidemia, unspecified; K21.9 Gastro-esophageal reflux disease without esophagitis; E11.9 Type 2 diabetes mellitus without complications; Z79.84 Long term (current) use of oral hypoglycemic drugs; K59.00 Constipation, unspecified; F03.90 Unspecified dementia, unspecified severity, without behavioral disturbance, psychotic disturbance, mood disturbance, and anxiety; F32.9 Major depressive disorder, single episode, unspecified; H91.90 Unspecified hearing loss, unspecified ear; M19.90 Unspecified osteoarthritis, unspecified site; M81.0 Age-related osteoporosis without current pathological fracture; Z66 Do not resuscitate; Z87.891 Personal history of nicotine dependence; Z79.82 Long term (current) use of aspirin; Z79.899 Other long term (current) drug therapy; Z88.1 Allergy status to other antibiotic agents; Z91.030 Bee allergy status
CPT/HCPCS: 36415; 74022; 74177; 80053; 81001; 83690; 84484; 85025; 93005; 96361; 96374; 96375; 99285; J2270; J2405; J7040; J7050; Q9963; Q9967; 80048; 83735; 94761; 94762; 97162-GP; 97165-GO; 97535-GO; 99284; A9270-GY; J3475

== ENCOUNTER 2016-10-14 22:17 | Emergency (ER) | payer MEDICARE, BC ==
[2016-10-14] MEDS ORDERED: Ondansetron 4 MG/2 ML SDV IVPUSH ONE (23:24)
[2016-10-14] MEDS ORDERED: Sodium Chloride 0.9% 1,000 ML IV ONE (23:24)
[2016-10-14] MEDS ORDERED: fentaNYL 100 MCG/2 ML SDV IVPUSH ONE (23:24)
--- NOTE | 2016-10-14 23:28 | EDM.PDOC ---
ED HPI GENERAL MEDICAL PROBLEM - General Chief Complaint: Abdominal Pain Stated Complaint: [facility] Time Seen by Provider: 10/14/16 22:29 Source of Information: Reports: Patient History Limitations: Reports: Altered Mental Status, Other (dementia) - History of Present Illness INITIAL COMMENTS - FREE TEXT/NARRATIVE: The patient is an 81-year-old female with chief complaint of abdominal pain, vomiting, and diarrhea for one day. She is here with her u.s. representative. According to her u.s. representative, she's been complaining of abdominal pain today. Her u.s. representative isn't sure how episodes of vomiting or diarrhea the patient has had. She was fine yesterday. No fever. She's been complaining of abdominal discomfort this evening. She's also had several loose stools. No urinary symptoms. No cough or difficulty breathing. The patient has dementia and is not able to provide any additional history for me. 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 She is currently taking 2.5 mg daily. Abdominal Pain Score (Numeric/FACES): 5 - Related Data Allergies Allergy/AdvReac Type Severity Reaction Status Date / Time cefadroxil hydrate Allergy Rash Verified 09/24/16 09:39 [From Duricef] venom-honey bee Allergy Swelling Verified 09/24/16 09:39 [bee venom (honey bee)] Home Meds: Home Meds Aspirin [Halfprin] 81 mg PO ACDINNER 09/16/15 [History] Donepezil HCl [Aricept] 10 mg PO BEDTIME 09/16/15 [History] Escitalopram Oxalate 20 mg PO DAILY 09/16/15 [History] Fenofibrate Nanocrystallized [Fenofibrate] 48 mg PO DAILY 09/16/15 [History] Methadone 0.5 - 1 tab PO BEDTIME 09/16/15 [History] Omeprazole 20 mg PO BID 09/16/15 [History] Rosuvastatin [Crestor] 10 mg PO BEDTIME 09/16/15 [History] amLODIPine [Norvasc] 10 mg PO DAILY 09/16/15 [History] metFORMIN [Glucophage XR] 500 mg PO ACDINNER 09/16/15 [History] Budesonide/Formoterol Fumarate [Symbicort 80-4.5 Mcg Inhaler] 2 puff INH DAILY 09/24/16 [History] Lutein/Minerals/Vit A,C & E [Ocuvite] 1 mg PO DAILY 09/24/16 [History] Metoprolol/Hydrochlorothiazide [Metoprolol-HCTZ 50-25 MG] 1 tab PO BEDTIME 09/24 [History] Multivitamin [Multivitamins] 1 mg PO DAILY 09/24/16 [History] Potassium Chloride 2 tab PO DAILY 09/24/16 [History] Bisacodyl 10 mg RC BID PRN #15 supp.rect 09/26/16 [Rx] Docusate Sodium [Colace] 1 tab PO BID #0 09/26/16 [Rx] Guaifenesin/Pseudoephedrne HCl [Mucinex D ER Tablet] 1 each PO BID PRN #60 tab.er.12h 09/26/16 [Rx] Naloxone [Narcan] 0.4 mg IM ASDIRECTED #6 syringe 09/26/16 [Rx] Past Medical History - Past Health History Medical/Surgical History: Denies Medical/Surgical History HEENT History: Reports: Cataract Other 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 OB/BYN History: 4 pregnancies Musculoskeletal History: Reports: Arthritis, Osteoporosis Neurological History: Reports: Other (See Below) Other Neuro History: Dementia Psychiatric History: Reports: Dementia Endocrine/Metabolic History: Reports: Diabetes, Type II Oncologic (Cancer) History: Reports: Squamous Cell Carcinoma Other Oncologic History: chin lip area - Infectious Disease History Infectious Disease History: Reports: Measles, Mumps - Past Surgical History HEENT Surgical History: Reports: Adenoidectomy, Cataract Surgery, Tonsillectomy Female Surgical History: Reports: Hysterectomy, Salpingo-Oophorectomy Dermatological Surgical History: Reports: Skin Graft Social & Family History - Family History Family Medical History: Noncontributory HEENT: Reports: Cataract, Hearing Impairment, Impaired Vision Cardiac: Reports: None, Bypass Respiratory: Reports: Sleep Apnea GI: Reports: GERD Musculoskeletal: Reports: Arthritis, Osteoarthritis, Osteoporosis Psychiatric: Reports: Suicide Attempt, Other (See Below) Other Psychiatric Family History: son Endocrine/Metabolic: Reports: Diabetes, type II, Osteoporosis Oncologic: Reports: Lymphoma Other Oncologic Family History: dad and grandpa - Tobacco Use Smoking Status *Q: Former Smoker Used Tobacco, but Quit: Yes Month Tobacco Last Used: 1995 Second Hand Smoke Exposure: No - Caffeine Use Caffeine Use: Reports: Coffee Other Caffeine Use: daily - Recreational Drug Use Recreational Drug Use: No ED ROS GENERAL - Review of Systems Review Of Systems: Unable To Obtain (dementia, not able to answer many of my questions) Constitutional: Denies: Fever Respiratory: Denies: Cough GI/Abdominal: Reports: Abdominal Pain, Diarrhea, Nausea, Vomiting ED EXAM, GI/ABD - Physical Exam Exam: See Below Exam Limited By: No Limitations General Appearance: Alert, Moderate Distress Ears: Normal External Exam Nose: Normal Inspection Throat/Mouth: Normal Inspection Head: Atraumatic, Normocephalic Neck: Normal Inspection, Supple, Non-Tender, Full Range of Motion Respiratory/Chest: No Respiratory Distress, Lungs Clear, Normal Breath Sounds, Chest Non-Tender Cardiovascular: Normal Peripheral Pulses, Regular Rate, Rhythm, No Murmur GI/Abdominal Exam: Soft, Other (diffusely tender, no rebound/guarding). No: Rebound Back Exam: Normal Inspection. No: CVA Tenderness (L), CVA Tenderness (R) Neurological: Alert, Disoriented Psychiatric: Anxious Skin Exam: Warm, Dry, Intact, Normal Color, No Rash Course - Vital Signs Last Recorded V/S: Last Vital Signs Temp 37.1 C 10/14/16 22:20 Pulse 86 10/14/16 22:20 Resp 18 10/14/16 22:20 BP 161/65 H 10/14/16 22:20 Pulse Ox 96 10/14/16 22:20 - Orders/Labs/Meds Orders: Active Orders 24 hr Category Date Time Status EKG 12 Lead [EKG Documentation Completion] [RC] STAT Care 10/14/16 23:28 Active Abdomen Pelvis w Cont [CT] Stat Exams 10/14/16 23:23 Taken Abdomen Series w Chest 1V [CR] Stat Exams 10/14/16 22:29 Taken CULTURE BLOOD [BC] Stat Lab 10/14/16 23:50 Received CULTURE BLOOD [BC] Stat Lab 10/14/16 23:59 Received Sodium Chloride 0.9% [Normal Saline] 100 ml Med 10/14/16 23:45 Active IV ASDIRECTED Blood Culture x2 Reflex Set [OM.PC] Stat Oth 10/14/16 23:23 Ordered Medication Orders Sodium Chloride (Normal Saline) 100 mls @ 60 mls/hr IV ASDIRECTED DEONNA Last Admin: 10/15/16 00:26 Dose: 60 mls/hr Labs: Laboratory Tests 10/14/16 10/14/16 10/14/16 Range/Units 22:50 22:50 22:50 WBC 12.46 H (3.98-10.04) K/mm3 RBC 4.24 (3.98-5.22) M/mm3 Hgb 12.5 (11.2-15.7) gm/L Hct 37.1 (34.1-44.9) % MCV 87.5 (79.4-94.8) fl MCH 29.5 (25.6-32.2) pg MCHC 33.7 (32.2-35.5) g/dl RDW Std Deviation 40.9 (36.4-46.3) fL Plt Count 286 (182-369) K/mm3 MPV 9.1 L (9.4-12.3) fl Neut % (Auto) 87.0 H (34.0-71.1) % Lymph % (Auto) 8.0 L (19.3-51.7) % Stevens % (Auto) 4.5 L (4.7-12.5) % Eos % (Auto) 0.1 L (0.7-5.8) Baso % (Auto) 0.2 (0.1-1.2) % Neut # (Auto) 10.84 H (1.56-6.13) K/mm3 Lymph # (Auto) 1.00 L (1.18-3.74) K/mm3 Stevens # (Auto) 0.56 H (0.24-0.36) K/mm3 Eos # (Auto) 0.01 L (0.04-0.36) K/mm3 Baso # (Auto) 0.03 (0.01-0.08) K/mm3 Manual Slide Review Abnormal smear Sodium 143 (136-145) mEq/L Potassium 3.8 (3.5-5.1) mEq/L Chloride 104 (98-107) mEq/L Carbon Dioxide 25 (21-32) mEq/L Anion Gap 17.8 H (5-15) BUN 17 (7-18) mg/dL Creatinine 0.9 (0.55-1.02) mg/dL Est Cr Clr Drug Dosing 34.02 mL/min Estimated GFR (MDRD) 60 (>60) mL/min BUN/Creatinine Ratio 18.9 H (14-18) Glucose 184 H (83-115) mg/dL Lactic Acid (0.4-2.0) mmol/L Calcium 8.9 (8.5-10.1) mg/dL Total Bilirubin 0.6 (0.2-1.0) mg/dL AST 33 (15-37) U/L ALT 43 (14-59) U/L Alkaline Phosphatase 34 L (46-116) U/L Troponin I < 0.017 (0.00-0.056) ng/mL Total Protein 8.1 (6.4-8.2) g/dl Albumin 3.9 (3.4-5.0) g/dl Globulin 4.2 gm/dL Albumin/Globulin Ratio 0.9 L (1-2) Lipase 117 (73-393) U/L Urine Color (Yellow) Urine Appearance (Clear) Urine pH (5.0-8.0) Ur Specific [place] (1.005-1.030) Urine Protein (Negative) Urine Glucose (UA) (Negative) Urine Ketones (Negative) Urine Occult Blood (Negative) Urine Nitrite (Negative) Urine Bilirubin (Negative) Urine Urobilinogen (0.2-1.0) Ur Leukocyte Esterase (Negative) Urine RBC (0-5) /hpf Urine WBC (0-5) /hpf Ur Epithelial Cells (0-5) /hpf Urine Bacteria (FEW) /hpf Urine Mucus (FEW) /hpf 10/14/16 10/15/16 Range/Units 23:50 01:00 WBC (3.98-10.04) K/mm3 RBC (3.98-5.22) M/mm3 Hgb (11.2-15.7) gm/L Hct (34.1-44.9) % MCV (79.4-94.8) fl MCH (25.6-32.2) pg MCHC (32.2-35.5) g/dl RDW Std Deviation (36.4-46.3) fL Plt Count (182-369) K/mm3 MPV (9.4-12.3) fl Neut % (Auto) (34.0-71.1) % Lymph % (Auto) (19.3-51.7) % Stevens % (Auto) (4.7-12.5) % Eos % (Auto) (0.7-5.8) Baso % (Auto) (0.1-1.2) % Neut # (Auto) (1.56-6.13) K/mm3 Lymph # (Auto) (1.18-3.74) K/mm3 Stevens # (Auto) (0.24-0.36) K/mm3 Eos # (Auto) (0.04-0.36) K/mm3 Baso # (Auto) (0.01-0.08) K/mm3 Manual Slide Review Sodium (136-145) mEq/L Potassium (3.5-5.1) mEq/L Chloride (98-107) mEq/L Carbon Dioxide (21-32) mEq/L Anion Gap (5-15) BUN (7-18) mg/dL Creatinine (0.55-1.02) mg/dL Est Cr Clr Drug Dosing mL/min Estimated GFR (MDRD) (>60) mL/min BUN/Creatinine Ratio (14-18) Glucose (83-115) mg/dL Lactic Acid 2.5 H (0.4-2.0) mmol/L Calcium (8.5-10.1) mg/dL Total Bilirubin (0.2-1.0) mg/dL AST (15-37) U/L ALT (14-59) U/L Alkaline Phosphatase (46-116) U/L Troponin I (0.00-0.056) ng/mL Total Protein (6.4-8.2) g/dl Albumin (3.4-5.0) g/dl Globulin gm/dL Albumin/Globulin Ratio (1-2) Lipase (73-393) U/L Urine Color Yellow (Yellow) Urine Appearance Clear (Clear) Urine pH 5.5 (5.0-8.0) Ur Specific [place] <=1.005 (1.005-1.030) Urine Protein Negative (Negative) Urine Glucose (UA) Negative (Negative) Urine Ketones Negative (Negative) Urine Occult Blood Negative (Negative) Urine Nitrite Negative (Negative) Urine Bilirubin Negative (Negative) Urine Urobilinogen 0.2 (0.2-1.0) Ur Leukocyte Esterase Negative (Negative) Urine RBC 0-5 (0-5) /hpf Urine WBC 0-5 (0-5) /hpf Ur Epithelial Cells Not seen (0-5) /hpf Urine Bacteria Rare (FEW) /hpf Urine Mucus Not seen (FEW) /hpf Meds: Medications Generic Name Dose Route Start Last Admin Trade Name Freq PRN Reason Stop Dose Admin Sodium Chloride 100 mls @ 60 mls/hr 10/14/16 23:45 10/15/16 00:26 Normal Saline IV 60 mls/hr ASDIRECTED DEONNA Administration Discontinued Medications Generic Name Dose Route Start Last Admin Trade Name Sudhakarq PRN Reason Stop Dose Admin Fentanyl 50 mcg 10/14/16 23:24 10/14/16 23:41 Sublimaze IVPUSH 10/14/16 23:25 50 mcg ONETIME ONE Administration Sodium Chloride 1,000 mls @ 1,000 mls/hr 10/14/16 23:24 10/14/16 23:41 Normal Saline IV 10/15/16 00:23 1,000 mls/hr ONETIME ONE Administration Iopamidol 125 ml 10/14/16 23:46 10/15/16 00:26 Isovue-370 (76%) IVPUSH 10/14/16 23:47 25 ml ONETIME ONE Administration Iopamidol 100 ml 10/14/16 23:46 10/15/16 00:26 Isovue-370 (76%) IVPUSH 10/14/16 23:47 100 ml ONETIME ONE Administration Ondansetron HCl 4 mg 10/14/16 23:24 10/14/16 23:44 Zofran IVPUSH 10/14/16 23:25 4 mg ONETIME ONE Administration Sodium Chloride 10 ml 10/14/16 23:46 10/15/16 00:26 Saline Flush FLUSH 10/14/16 23:47 10 ml ONETIME ONE Administration - Re-Assessments/Exams Free Text/Narrative Re-Assessment/Exam: 10/15/16 01:13 She is feeling better after 50 g of fentanyl, IV fluid, and Zofran. Labs show mildly elevated white blood cell count and lactate of 2.5. Awaiting CT scan results. 10/15/16 01:45 CT angio abd/pelvis shows no acute abnormality. Pt feeling much better. Police Commanding Officer states she noticed the patient gets severe abd pain everytime she give milk of magnesia for constipation. I suggested she try miralax instead adn f/u with PCP KRISTINE for further care. Discussed return precautions. Departure - Departure Time of Disposition: 01:43 Disposition: Home, Self-Care 01 Clinical Impression: Abdominal pain Qualifiers: Abdominal location: generalized Qualified Code(s): R10.84 - Generalized abdominal pain - Discharge Information Referrals: Maxwell Smith MD [Primary Care Provider] - Forms: ED Department Discharge Additional Instructions: 1. Follow up with Dr. Smith as soon as possible. 2. OK to take miralax for constipation in addition to colace 3. Return to the Emergency Department if you have severe abdominal pain, chest pain, difficulty breathing, or any other concerning symptoms - My Orders Last 24 Hours: My Active Orders 10/14/16 22:29 Abdomen Series w Chest 1V [CR] Stat 10/14/16 23:23 Abdomen Pelvis w Cont [CT] Stat Blood Culture x2 Reflex Set [OM.PC] Stat 10/14/16 23:28 EKG 12 Lead [EKG Documentation Completion] [RC] STAT 10/14/16 23:45 Sodium Chloride 0.9% [Normal Saline] 100 ml IV ASDIRECTED 10/14/16 23:50 CULTURE BLOOD [BC] Stat 10/14/16 23:59 CULTURE BLOOD [BC] Stat - Assessment/Plan Last 24 Hours: My Active Orders 10/14/16 22:29 Abdomen Series w Chest 1V [CR] Stat 10/14/16 23:23 Abdomen Pelvis w Cont [CT] Stat Blood Culture x2 Reflex Set [OM.PC] Stat 10/14/16 23:28 EKG 12 Lead [EKG Documentation Completion] [RC] STAT 10/14/16 23:45 Sodium Chloride 0.9% [Normal Saline] 100 ml IV ASDIRECTED 10/14/16 23:50 CULTURE BLOOD [BC] Stat 10/14/16 23:59 CULTURE BLOOD [BC] Stat
[2016-10-14] MEDS ORDERED: Sodium Chloride 0.9% 100 ML IV SCH (23:45)
[2016-10-14] MEDS ORDERED: Sodium Chloride 0.9% 10 ML Syringe FLUSH ONE (23:46)
[2016-10-14] MEDS ORDERED: Iopamidol 755 MG/ML 50 ML Bottle IVPUSH ONE (23:46)
[2016-10-14] MEDS ORDERED: Iopamidol 755 Mg/ML 100 ML Bottle IVPUSH ONE (23:46)
[2016-10-15 02:02] VITALS: BP 140/67
--- NOTE | 2016-10-15 08:36 | CT ---
CT abdomen and pelvis Technique: Multiple axial sections were obtained from above the dome of the diaphragm inferiorly through the pubic symphysis. Intravenous contrast was utilized. No oral contrast has been given. Delayed images were also obtained in the venous phase through the abdomen and pelvis. Comparison: Previous CT abdomen and pelvis exam of 09/17/13. Findings: Aorta shows diffuse atherosclerotic change without aneurysm. Atherosclerotic change continues into the iliac vessels. Celiac axis shows atherosclerotic change with mild to moderate narrowing. Superior mesenteric artery shows atherosclerotic plaque but shows no significant stenosis. Inferior mesenteric artery shows mild stenosis. Mild stenosis with diffuse plaque seen at the origin of both renal arteries. Atelectasis seen posteriorly within both lung bases. Calcified granulomas are seen within the dome of the right lobe of the liver. Liver shows no other focal parenchymal abnormality. Spleen appears within normal limits. Kidneys show contrast enhancement without hydronephrosis or mass. Adrenal glands show no nodule. Pancreas is within normal limits. Gallbladder shows no calcified gallstones. No retroperitoneal adenopathy or mesenteric abnormalities are seen. No pelvic mass or adenopathy is seen. No free fluid or inflammatory change is identified. Bone window settings show scattered degenerative change within the spine. Impression: 1. Atherosclerotic change as described above. [id number] areas of stenosis identified at the origin of the renal arteries and celiac axis. Superior mesenteric artery appears without significant stenosis. Mild stenosis of the inferior mesenteric artery is seen. 2. Other incidental findings. Nothing acute is identified. Diagnostic code #3 I agree with preliminary report issued by [employer] ([employer] preliminary report dictated on 10/15/16, 2:35 AM Central Time)
--- NOTE | 2016-10-15 08:36 | CR ---
Abdominal series: Supine and upright views of the abdomen were obtained as well as frontal view of the chest. Comparison: Previous abdominal x-ray of 09/24/16 and chest x-ray of 09/24/16. Scarring is noted within the left upper chest. Heart size appears within normal limits. Tortuous thoracic aorta is seen. Lungs show no acute infiltrates. Bowel gas pattern is normal. Vascular calcification is seen. No free air is seen. Scoliosis is present within the spine. Impression: 1. Nonspecific abdominal series with incidental findings. Diagnostic code #2
== END 2016-10-15 01:58 | disposition home or self-care (01) ==
LOC: JD.ED 22:17
DX: R10.84 Generalized abdominal pain (principal); E78.00 Pure hypercholesterolemia, unspecified; E11.9 Type 2 diabetes mellitus without complications; Z88.8 Allergy status to other drugs, medicaments and biological substances; Z91.030 Bee allergy status; Z79.82 Long term (current) use of aspirin; Z79.899 Other long term (current) drug therapy; Z79.84 Long term (current) use of oral hypoglycemic drugs; Z98.890 Other specified postprocedural states; Z98.49 Cataract extraction status, unspecified eye; Z90.710 Acquired absence of both cervix and uterus; Z87.891 Personal history of nicotine dependence
CPT/HCPCS: 36415; 74022; 74177; 80053; 81001; 83605; 83690; 84484; 85025; 87040; 93005; 96361; 96374; 96375; 99285; J2405; J3010; J7030; J7040; J7050; P9612; Q9967; 99284

== ENCOUNTER 2016-10-26 13:38 | Inpatient (IN) | payer MEDICARE, BC ==
[2016-10-26] MEDS ORDERED: Sodium Chloride 0.9% 500 ML IV ONE (14:32)
[2016-10-26] MEDS ORDERED: Ondansetron 4 MG/2 ML SDV IVPUSH ONE (14:32)
--- NOTE | 2016-10-26 17:50 | EDM.PDOC ---
ED HPI GENERAL MEDICAL PROBLEM - General Chief Complaint: Gastrointestinal Problem Stated Complaint: VOMITING/DIARRHEA Time Seen by Provider: 10/26/16 14:14 Source of Information: Reports: Patient History Limitations: Reports: No Limitations - History of Present Illness INITIAL COMMENTS - FREE TEXT/NARRATIVE: The patient is an 81-year-old female with a history of developmental delay or dementia who comes in with intractable vomiting. She has a history of chronic pain and was previously on methadone. This is been tapered slowly over the past several weeks. She is now only on this very small dose, approximately milligram a day. Meanwhile, she is been evaluated multiple times for vomiting and diarrhea. She has a history of partial gastrectomy due to gastric ulcers. This was a long time ago. Her caregiver reports that for the past several weeks, every time the patient eats she vomits. She also has a very urgent need to you defecate after eating as well. She's been incontinent of stool sometimes due to inability to get to the bathroom. Patient's caregiver states that she's had vomiting and diarrhea almost every day for the last several weeks. She is usually able to tolerate liquids. No fever. She intermittently has abdominal pain but doesn't really have abdominal pain today. No fever. She did see her primary doctor this week. Caregiver is frustrated and states that she doesn't know what else to do. No cough, chest pain, or respiratory symptoms. She has urinary frequency but no dysuria or hematuria. Middle Abdomen Pain Score (Numeric/FACES): 9 - Related Data Allergies Allergy/AdvReac Type Severity Reaction Status Date / Time cefadroxil hydrate Allergy Rash Verified 10/26/16 14:17 [From [facility] [place]] venom-honey bee Allergy Swelling Verified 10/26/16 14:17 [bee venom (honey bee)] Home Meds: Home Meds Aspirin [Halfprin] 81 mg PO ACDINNER 09/16/15 [History] Donepezil HCl [Aricept] 10 mg PO BEDTIME 09/16/15 [History] Escitalopram Oxalate 20 mg PO DAILY 09/16/15 [History] Fenofibrate Nanocrystallized [Fenofibrate] 48 mg PO DAILY 09/16/15 [History] Methadone 0.5 - 1 tab PO BEDTIME 09/16/15 [History] Omeprazole 20 mg PO BID 09/16/15 [History] Rosuvastatin [Crestor] 10 mg PO BEDTIME 09/16/15 [History] amLODIPine [Norvasc] 10 mg PO DAILY 09/16/15 [History] metFORMIN [Glucophage XR] 500 mg PO ACDINNER 09/16/15 [History] Budesonide/Formoterol Fumarate [Symbicort 80-4.5 Mcg Inhaler] 2 puff INH DAILY 09/24/16 [History] Lutein/Minerals/Vit A,C & E [Ocuvite] 1 mg PO DAILY 09/24/16 [History] Metoprolol/Hydrochlorothiazide [Metoprolol-HCTZ 50-25 MG] 1 tab PO BEDTIME 09/24 [History] Multivitamin [Multivitamins] 1 mg PO DAILY 09/24/16 [History] Potassium Chloride 2 tab PO DAILY 09/24/16 [History] Bisacodyl 10 mg RC BID PRN #15 supp.rect 09/26/16 [Rx] Docusate Sodium [Colace] 1 tab PO BID #0 09/26/16 [Rx] Guaifenesin/Pseudoephedrne HCl [Mucinex D ER Tablet] 1 each PO BID PRN #60 tab.er.12h 09/26/16 [Rx] Past Medical History - Past Health History Medical/Surgical History: Denies Medical/Surgical History HEENT History: Reports: Cataract Other HEENT History: deaf in left ear, [place]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: Reports: Other OB/BYN History: 4 pregnancies Musculoskeletal History: Reports: Arthritis, Osteoporosis Neurological History: Reports: Other (See Below) Other Neuro History: Dementia Psychiatric History: Reports: Dementia Endocrine/Metabolic History: Reports: Diabetes, Type II Hematologic History: Reports: None Oncologic (Cancer) History: Reports: None, Squamous Cell Carcinoma Other Oncologic History: chin lip area - Infectious Disease History Infectious Disease History: Reports: Measles, Mumps - Past Surgical History HEENT Surgical History: Reports: Adenoidectomy, Cataract Surgery, Tonsillectomy Female Surgical History: Reports: Hysterectomy, Salpingo-Oophorectomy Dermatological Surgical History: Reports: Skin Graft Social & Family History - Family History Family Medical History: Noncontributory HEENT: Reports: Cataract, Hearing Impairment, Impaired Vision Cardiac: Reports: None, Bypass Respiratory: Reports: Sleep Apnea GI: Reports: GERD Musculoskeletal: Reports: Arthritis, Osteoarthritis, Osteoporosis Psychiatric: Reports: Suicide Attempt, Other (See Below) Other Psychiatric Family History: son Endocrine/Metabolic: Reports: Diabetes, type II, Osteoporosis Oncologic: Reports: Lymphoma Other Oncologic Family History: dad and grandpa - Tobacco Use Smoking Status *Q: Never Smoker Used Tobacco, but Quit: Yes Month Tobacco Last Used: 1995 Second Hand Smoke Exposure: No - Caffeine Use Caffeine Use: Reports: Coffee Other Caffeine Use: daily - Recreational Drug Use Recreational Drug Use: No ED ROS GENERAL - Review of Systems Review Of Systems: See Below Constitutional: Denies: Fever Respiratory: Denies: Shortness of Breath Cardiovascular: Denies: Chest Pain GI/Abdominal: Reports: Diarrhea, Nausea, Vomiting. Denies: Abdominal Pain : Reports: Urgency. Denies: Dysuria Musculoskeletal: Reports: No Symptoms Skin: Reports: No Symptoms Neurological: Reports: No Symptoms Psychiatric: Reports: No Symptoms ED EXAM, GI/ABD - Physical Exam Exam: See Below Exam Limited By: No Limitations General Appearance: Alert, WD/WN, No Apparent Distress Eyes: Bilateral: Normal Appearance Ears: Normal External Exam Nose: Normal Inspection Throat/Mouth: Normal Inspection, Normal Voice, No Airway Compromise Head: Atraumatic, Normocephalic Neck: Normal Inspection, Supple, Non-Tender, Full Range of Motion Respiratory/Chest: No Respiratory Distress, Lungs Clear, Normal Breath Sounds Cardiovascular: Normal Peripheral Pulses, Regular Rate, Rhythm, No Murmur GI/Abdominal Exam: Soft, Other (Mild tenderness diffusely, no rebound or guarding) Back Exam: Normal Inspection Extremities: Normal Inspection Neurological: Alert, Normal Cognition Psychiatric: Normal Affect, Normal Mood Skin Exam: Warm, Dry, Intact, Normal Color, No Rash Course - Vital Signs Last Recorded V/S: Last Vital Signs Temp 36.2 C 10/26/16 14:10 Pulse 72 10/26/16 14:10 Resp 18 10/26/16 14:10 BP 158/75 H 10/26/16 14:10 Pulse Ox 94 L 10/26/16 14:10 - Orders/Labs/Meds Labs: Laboratory Tests 08/07/0910/26/16 10/26/16 Range/Units 15:14 15:14 15:20 WBC 8.53 (3.98-10.04) K/mm3 RBC 4.19 (3.98-5.22) M/mm3 Hgb 12.3 (11.2-15.7) gm/L Hct 36.5 (34.1-44.9) % MCV 87.1 (79.4-94.8) fl MCH 29.4 (25.6-32.2) pg MCHC 33.7 (32.2-35.5) g/dl RDW Std Deviation 41.6 (36.4-46.3) fL Plt Count 293 (182-369) K/mm3 MPV 9.3 L (9.4-12.3) fl Neut % (Auto) 67.4 (34.0-71.1) % Lymph % (Auto) 24.3 (19.3-51.7) % [place] % (Auto) 7.6 (4.7-12.5) % Eos % (Auto) 0.4 L (0.7-5.8) Baso % (Auto) 0.2 (0.1-1.2) % Neut # (Auto) 5.75 (1.56-6.13) K/mm3 Lymph # (Auto) 2.07 (1.18-3.74) K/mm3 [place] # (Auto) 0.65 H (0.24-0.36) K/mm3 Eos # (Auto) 0.03 L (0.04-0.36) K/mm3 Baso # (Auto) 0.02 (0.01-0.08) K/mm3 Sodium 138 (136-145) mEq/L Potassium 3.9 (3.5-5.1) mEq/L Chloride 102 (98-107) mEq/L Carbon Dioxide 29 (21-32) mEq/L Anion Gap 10.9 (5-15) BUN 10 (7-18) mg/dL Creatinine 0.8 (0.55-1.02) mg/dL Est Cr Clr Drug Dosing 38.27 mL/min Estimated GFR (MDRD) > 60 (>60) mL/min BUN/Creatinine Ratio 12.5 L (14-18) Glucose 140 H (83-115) mg/dL Calcium 9.2 (8.5-10.1) mg/dL Total Bilirubin 0.7 (0.2-1.0) mg/dL AST 26 (15-37) U/L ALT 35 (14-59) U/L Alkaline Phosphatase 33 L (46-116) U/L Total Protein 7.4 (6.4-8.2) g/dl Albumin 3.7 (3.4-5.0) g/dl Globulin 3.7 gm/dL Albumin/Globulin Ratio 1.0 (1-2) Lipase 106 (73-393) U/L Urine Color Yellow (Yellow) Urine Appearance Clear (Clear) Urine pH 7.0 (5.0-8.0) Ur Specific [place] 1.015 (1.005-1.030) Urine Protein Negative (Negative) Urine Glucose (UA) Negative (Negative) Urine Ketones Negative (Negative) Urine Occult Blood Negative (Negative) Urine Nitrite Negative (Negative) Urine Bilirubin Negative (Negative) Urine Urobilinogen 0.2 (0.2-1.0) Ur Leukocyte Esterase Negative (Negative) Urine RBC 0-5 (0-5) /hpf Urine WBC 0-5 (0-5) /hpf Ur Epithelial Cells 0-5 (0-5) /hpf Urine Bacteria Few (FEW) /hpf Urine Mucus Few (FEW) /hpf Meds: Medications Discontinued Medications Generic Name Dose Route Start Last Admin Trade Name Freq PRN Reason Stop Dose Admin Sodium Chloride 500 mls @ 1,000 mls/hr 10/26/16 14:32 10/26/16 15:28 Normal Saline IV 10/26/16 15:01 1,000 mls/hr ONETIME ONE Administration Metoclopramide HCl 10 mg 10/26/16 18:35 Reglan PO 10/26/16 18:36 ONETIME ONE Ondansetron HCl 4 mg 10/26/16 14:32 10/26/16 15:29 Zofran IVPUSH 10/26/16 14:33 4 mg ONETIME ONE Administration - Re-Assessments/Exams Free Text/Narrative Re-Assessment/Exam: 10/26/16 18:[address] Jose lord states that a barium swallow study and upper endoscopy would be helpful, but are unlikely to be obtained urgently over the weekend given the patient is stable and that this is been a somewhat chronic problem. Patient tolerated liquids in the emergency department but had vomiting again after given a piece of toast. Discussed with Dr. Tellez who agrees to admit her for further care. Departure - Departure Time of Disposition: 18:45 Disposition: Admitted As Inpatient 64 Clinical Impression: Intractable vomiting with nausea Qualifiers: Vomiting type: unspecified Qualified Code(s): R11.2 - Nausea with vomiting, unspecified Diarrhea Qualifiers: Diarrhea type: unspecified type Qualified Code(s): R19.7 - Diarrhea, unspecified - Discharge Information Forms: ED Department Discharge
[2016-10-26] MEDS ORDERED: Metoclopramide 10 MG Tab PO ONE (18:35)
[2016-10-26] MEDS ORDERED: Metoclopramide 10 MG/2 ML SDV IVPUSH ONE (18:41)
[2016-10-26] MEDS ORDERED: diphenhydrAMINE 50 MG/ML SDV IVPUSH ONE (18:47)
--- NOTE | 2016-10-26 20:19 | PCM.HP ---
H&P History of Present Illness - General Date of Service: 10/26/16 Admit Problem/Dx: Intractable Nausea and Vomiting Source of Information: Patient, Family, Old Records, Provider, RN Notes Reviewed , Significant Other History Limitations: Reports: Other (Baseline Dementia) - History of Present Illness Initial Comments - Free Text/Narative: This is an 81 yo elderly white female with past medical hx/o hearing and vision impairment, hypertension, diabetes type 2, hyperlipidemia, gastritis, GERD, osteoarthritis, osteoporosis, emphysema, history of list obstructive sleep apnea , hx/o chronic pain syndrome on Methadone, and dementia who presents to the emergency department with complaints of intractable nausea and vomiting. Her chief complaint is associated with on and off abdominal pain. Per caregiver , patient carries history of urinary and incontinence. She also has been having diarrhea almost every day for the last several weeks. Of note the patient is on Bisacodyl PRN and Colace 100 mg by mouth twice a day. Patient denies any systemic infection. No unusual diet or drink. She denies any sick contact. Patient is known to me from previous admissions. Her last admission was related to hypoxia after she received narcotic medications to alleviate her abdominal pain. Patient still on methadone for chronic pain syndrome. Per caregiver, she is on tapered dose. Patient is not being followed by a pain specialist. Her initial workup in the emergency department shows a CBC that is unremarkable. Her chemistry is remarkable for glucose of 140 and alkaline phosphatase of 33. Her UA is unremarkable to suggest urinary tract infection. Patient is being admitted for intractable nausea and vomiting. She is full code. Middle Abdomen Pain Score (Numeric/FACES): 9 - Related Data Allergies/Adverse Reactions: Allergies Allergy/AdvReac Type Severity Reaction Status Date / Time cefadroxil hydrate Allergy Rash Verified 10/26/16 14:17 [From [facility] [place]] venom-honey bee Allergy Swelling Verified 10/26/16 14:17 [bee venom (honey bee)] Home Medications: Home Meds Aspirin [Halfprin] 81 mg PO ACDINNER 09/16/15 [History] Donepezil HCl [Aricept] 10 mg PO BEDTIME 09/16/15 [History] Escitalopram Oxalate 20 mg PO DAILY 09/16/15 [History] Fenofibrate Nanocrystallized [Fenofibrate] 48 mg PO DAILY 09/16/15 [History] Methadone 0.5 - 1 tab PO BEDTIME 09/16/15 [History] Omeprazole 20 mg PO BID 09/16/15 [History] Rosuvastatin [Crestor] 10 mg PO BEDTIME 09/16/15 [History] amLODIPine [Norvasc] 10 mg PO DAILY 09/16/15 [History] metFORMIN [Glucophage XR] 500 mg PO ACDINNER 09/16/15 [History] Budesonide/Formoterol Fumarate [Symbicort 80-4.5 Mcg Inhaler] 2 puff INH DAILY 09/24/16 [History] Lutein/Minerals/Vit A,C & E [Ocuvite] 1 mg PO DAILY 09/24/16 [History] Metoprolol/Hydrochlorothiazide [Metoprolol-HCTZ 50-25 MG] 1 tab PO BEDTIME 09/24 [History] Multivitamin [Multivitamins] 1 mg PO DAILY 09/24/16 [History] Potassium Chloride 2 tab PO DAILY 09/24/16 [History] Bisacodyl 10 mg RC BID PRN #15 supp.rect 09/26/16 [Rx] Docusate Sodium [Colace] 1 tab PO BID #0 09/26/16 [Rx] Guaifenesin/Pseudoephedrne HCl [Mucinex D ER Tablet] 1 each PO BID PRN #60 tab.er.12h 09/26/16 [Rx] Past Medical History - Past Health History Medical/Surgical History: Denies Medical/Surgical History HEENT History: Reports: Cataract Other HEENT History: deaf in left ear, [place]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 OB/BYN History: 4 pregnancies Musculoskeletal History: Reports: Arthritis, Osteoporosis Neurological History: Reports: Other (See Below) Other Neuro History: Dementia Psychiatric History: Reports: Dementia Endocrine/Metabolic History: Reports: Diabetes, Type II Hematologic History: Reports: None Oncologic (Cancer) History: Reports: None, Squamous Cell Carcinoma Other Oncologic History: chin lip area - Infectious Disease History Infectious Disease History: Reports: Measles, Mumps - Past Surgical History HEENT Surgical History: Reports: Adenoidectomy, Cataract Surgery, Tonsillectomy Female Surgical History: Reports: Hysterectomy, Salpingo-Oophorectomy Dermatological Surgical History: Reports: Skin Graft Social & Family History - Family History Family Medical History: Noncontributory HEENT: Reports: Cataract, Hearing Impairment, Impaired Vision Cardiac: Reports: None, Bypass Respiratory: Reports: Sleep Apnea GI: Reports: GERD Musculoskeletal: Reports: Arthritis, Osteoarthritis, Osteoporosis Psychiatric: Reports: Suicide Attempt, Other (See Below) Other Psychiatric Family History: son Endocrine/Metabolic: Reports: Diabetes, type II, Osteoporosis Oncologic: Reports: Lymphoma Other Oncologic Family History: dad and grandpa - Tobacco Use Smoking Status *Q: Never Smoker Used Tobacco, but Quit: Yes Month Tobacco Last Used: 1995 Second Hand Smoke Exposure: No - Caffeine Use Caffeine Use: Reports: Coffee Other Caffeine Use: daily - Recreational Drug Use Recreational Drug Use: No H&P Review of Systems - Review of Systems: Review Of Systems: See Below Free Text/Narrative: Limited due to baseline Dementia General: Denies: Fever, Chills, Malaise, Weakness, Fatigue, Weight Loss HEENT: Reports: No Symptoms Pulmonary: Denies: Shortness of Breath Cardiovascular: Denies: Chest Pain Gastrointestinal: Reports: Diarrhea, Nausea, Vomiting. Denies: Abdominal Pain Genitourinary: Reports: No Symptoms Musculoskeletal: Reports: No Symptoms Skin: Reports: No Symptoms Psychiatric: Reports: Confusion Neurological: Denies: Difficulty Walking, Weakness, Gait Disturbance Hematologic/Lymphatic: Reports: No Symptoms Immunologic: Reports: No Symptoms Exam - Exam Exam: See Below - Vital Signs Vital Signs: Last Vital Signs Temp 36.2 C 10/26/16 14:10 Pulse 72 10/26/16 14:10 Resp 18 10/26/16 14:10 BP 158/75 H 10/26/16 14:10 Pulse Ox 94 L 10/26/16 14:10 Weight: 68.039 kg - Exam Quality Assessment: Supplemental Oxygen General: Alert, Cooperative, Mild Distress HEENT: Conjunctiva Clear, EACs Clear, Mucosa Moist & [place], Nares Patent, Normal Nasal Septum, Posterior Pharynx Clear, Pupils Equal, Pupils Reactive. No: Hearing Intact Neck: Supple, Trachea Midline, +2 Carotid Pulse wo Bruit Lungs: Normal Respiratory Effort, Decreased Breath Sounds Cardiovascular: Regular Rate, Regular Rhythm GI/Abdominal Exam: Normal Bowel Sounds, Soft, Non-Tender, No Organomegaly, No Distention, No Abnormal Bruit (Female) Exam: Deferred Rectal (Female) Exam: Deferred Back Exam: Normal Inspection, Decreased Range of Motion Extremities: Normal Inspection, Normal Range of Motion, Non-Tender, No Pedal Edema, Normal Capillary Refill Skin: Warm, Dry, Intact Neuro Extensive - Mental Status: Oriented x3, Normal Cognition, Memory Intact Neuro Extensive - Motor, Sensory, Reflexes: CN II-XII Intact, Normal Gait Psychiatric: Alert, Normal Affect, Normal Mood - Patient Data Result Diagrams: 10/27/16 05:57 10/27/16 05:57 *Q Meaningful Use (ADM) - VTE *Q VTE Criteria *Q: - Stroke *Q Stroke Criteria *Q: - AMI *Q AMI Criteria *Q: Problem List Initiated/Reviewed/Updated: Yes Assessment/Plan Comment:: Assessment/Plan: Acute: Intractable Nausea/Vomiting (Appears acute on chronic) - Unclear in etiology however she has had hx/o it in the past - Able to tolerate liquids but not solid - Risk Factors: GERD/Gastritis, DM, Chronic Opioid Use and +/- Metformin Side Effects - NPO except ice chips, sips of water and oral meds - Supportive Care and PRN anti-emesis - ED provider spoke to Dr. Conti: he recommends barium wallow and EGD - Procedures will unlikely be done over the weekend Watery Diarrhea - Patient in on Bisacodyl PRN and Colace BID prophylaxis for opioid-induced constipation - Hold above meds - NPO for now High Risk Polypharmacy Chronic: HTN HLD GERD DM2 Dementios Depression Hx/o COPD Hx/o YAS Plan: Admit to Med-Surg Resume Some Home Meds PT/OT consult GS consult: Dr. Conti Fall Precautions SW/CM for d/c planning Additional orders as above Code status: 1
[2016-10-26] MEDS ORDERED: LORazepam 2 MG/ML MDV IVPUSH ONE (21:36)
[2016-10-26] MEDS: Acetaminophen/Butalbital/Caffeine 325-50-40 MG Tab PO PRN (21:59)
[2016-10-26] MEDS: Temazepam 7.5 MG Cap PO PRN (21:59)
[2016-10-26] MEDS ORDERED: LORazepam 2 MG/ML MDV IV PRN (22:43)
[2016-10-26] MEDS ORDERED: Albuterol/Ipratropium 3.0-0.5 MG/3 ML Neb Soln NEB PRN (22:43)
[2016-10-26] MEDS ORDERED: Promethazine 12.5 MG in Sodium Chloride 0.9% 50 ML IV PRN (22:43)
[2016-10-26] MEDS ORDERED: Acetaminophen 650 MG Supp RECTAL PRN (22:43)
[2016-10-26] MEDS ORDERED: Docusate Sodium 100 MG Cap PO PRN (22:43)
[2016-10-26] MEDS ORDERED: Temazepam 7.5 MG Cap PO PRN (22:43)
[2016-10-26] MEDS ORDERED: Acetaminophen 325 MG Tab PO PRN (22:43)
[2016-10-26] MEDS ORDERED: LORazepam 2 MG/ML MDV IVPUSH PRN (22:43)
[2016-10-26] MEDS ORDERED: Polyethylene Glycol 3350 Powder 17 GM Packet PO PRN (22:43)
[2016-10-26] MEDS ORDERED: Bisacodyl 5 MG Tab PO PRN (22:43)
[2016-10-26] MEDS ORDERED: Acetaminophen/HYDROcodone 325-5 MG Tab PO PRN (22:43)
[2016-10-26] MEDS ORDERED: Metoprolol Tartrate 5 MG/5 ML SDV IVPUSH PRN (22:43)
[2016-10-26] MEDS ORDERED: PSEUDOEPHEDRNE HCL PO PRN (22:49)
[2016-10-26] MEDS ORDERED: GUAIFENESIN PO PRN (22:49)
[2016-10-27] MEDS: Dextrose 5%-0.9% NaCl 1,000 ML IV SCH ×3 (00:45→22:17)
--- NOTE | 2016-10-27 07:54 | PCM.PN ---
- General Info Date of Service: 10/27/16 Admission Dx/Problem (Free Text): Intractable Nausea and Vomiting Subjective Update: Follow Up - Review of Systems General: Denies: Fever, Weakness, Fatigue, Malaise, Chills HEENT: Reports: No Symptoms Pulmonary: Denies: Shortness of Breath Cardiovascular: Denies: Chest Pain, Palpitations, Dyspnea on Exertion, Edema, Lightheadedness Gastrointestinal: Denies: Abdominal Pain, Decreased Appetite, Difficulty Swallowing, Nausea, Vomiting Genitourinary: Reports: No Symptoms Musculoskeletal: Reports: No Symptoms Skin: Reports: No Symptoms Neurological: Reports: Confusion, Gait Disturbance. Denies: Difficulty Walking , Weakness Psychiatric: Denies: Depression, Anxiety, Agitation, Hallucinations Systems Review Comment:: No overnight or acute issues. She reports no GI symptoms. She has no new complaints. - Patient Data Vitals - Most Recent: Last Vital Signs Temp 36.9 C 10/27/16 04:00 Pulse 68 10/27/16 00:00 Resp 16 10/27/16 04:00 BP 119/50 L 10/27/16 04:00 Pulse Ox 93 L 10/27/16 04:00 Weight - Most Recent: 67.404 kg I&O - Last 24 Hours: Intake & Output 10/26/16 10/27/16 10/27/16 22:59 06:59 14:59 Intake Total 720 Output Total 400 Balance 320 Lab Results Last 24 Hours: Laboratory Results - last 24 hr 10/27/16 10/27/16 Range/Units 05:57 05:57 WBC 6.81 (3.98-10.04) K/mm3 RBC 3.95 L (3.98-5.22) M/mm3 Hgb 11.5 (11.2-15.7) gm/L Hct 35.5 (34.1-44.9) % MCV 89.9 (79.4-94.8) fl MCH 29.1 (25.6-32.2) pg MCHC 32.4 (32.2-35.5) g/dl RDW Std Deviation 43.5 (36.4-46.3) fL Plt Count 243 (182-369) K/mm3 MPV 9.2 L (9.4-12.3) fl Neut % (Auto) 53.3 (34.0-71.1) % Lymph % (Auto) 28.6 (19.3-51.7) % [place] % (Auto) 14.7 H (4.7-12.5) % Eos % (Auto) 2.8 (0.7-5.8) Baso % (Auto) 0.6 (0.1-1.2) % Neut # (Auto) 3.63 (1.56-6.13) K/mm3 Lymph # (Auto) 1.95 (1.18-3.74) K/mm3 [place] # (Auto) 1.00 H (0.24-0.36) K/mm3 Eos # (Auto) 0.19 (0.04-0.36) K/mm3 Baso # (Auto) 0.04 (0.01-0.08) K/mm3 Sodium 142 (136-145) mEq/L Potassium 3.7 (3.5-5.1) mEq/L Chloride 106 (98-107) mEq/L Carbon Dioxide 29 (21-32) mEq/L Anion Gap 10.7 (5-15) BUN 6 L (7-18) mg/dL Creatinine 0.6 (0.55-1.02) mg/dL Est Cr Clr Drug Dosing 51.03 mL/min Estimated GFR (MDRD) > 60 (>60) mL/min BUN/Creatinine Ratio 10.0 L (14-18) Glucose 151 H (83-115) mg/dL Calcium 8.1 L (8.5-10.1) mg/dL Magnesium 1.8 (1.8-2.4) mg/dl Med Orders - Current: Current Medications Acetaminophen (Tylenol) 650 mg PO Q4H PRN PRN Reason: Pain (Mild 1-3)/fever Acetaminophen (Tylenol) 650 mg RECTAL Q4H PRN PRN Reason: Pain (mild 1-3) Acetaminophen/Butalbital/Caffeine (Fioricet 325-50-40 Mg) 1 tab PO Q6H PRN PRN Reason: Headache Last Admin: 10/26/16 21:59 Dose: 1 tab Hydrocodone Bitart/Acetaminophen ([place] 325-5 Mg) 1 tab PO Q4H PRN PRN Reason: Pain (moderate 4-6) Albuterol/Ipratropium (Duoneb 3.0-0.5 Mg/3 Ml) 3 ml NEB Q4H PRN PRN Reason: Shortness Of Breath/wheezing Amlodipine Besylate (Norvasc) 10 mg PO DAILY [facility] Aspirin (Halfprin) 81 mg PO ACDINNER [facility] Bisacodyl (Dulcolax) 5 mg PO DAILY PRN PRN Reason: Constipation Citalopram Hydrobromide (Celexa) 40 mg PO DAILY [facility] Docusate Sodium (Colace) 100 mg PO BID PRN PRN Reason: Constipation Docusate Sodium (Colace) 100 mg PO BID [facility] Donepezil HCl (Aricept) 10 mg PO BEDTIME [facility] Hydralazine HCl (Apresoline) 10 mg IVPUSH Q4H PRN PRN Reason: Hypertension Hydrochlorothiazide (Hydrochlorothiazide) 25 mg PO BEDTIME [facility] Hydromorphone HCl (Dilaudid) 0.25 mg IVPUSH Q2H PRN PRN Reason: Pain (severe 7-10) Promethazine HCl 12.5 mg/ (Sodium Chloride) 50.5 mls @ 100 mls/hr IV Q6H PRN PRN Reason: Nausea/Vomiting Dextrose/Sodium Chloride (Dextrose 5%-Normal Saline) 1,000 mls @ 100 mls/hr IV ASDIRECTED [facility] Last Admin: 10/27/16 00:45 Dose: 100 mls/hr Lorazepam (Ativan) 2 mg IVPUSH Q4H PRN PRN Reason: Seizures Lorazepam (Ativan) 0.25 mg IV Q6H PRN PRN Reason: Agitation Magnesium Sulfate (Pharmacy To Dose - Magnesium Replacement) 1 dose .XX ASDIRECTED [facility] Metoprolol Tartrate (Lopressor) 5 mg IVPUSH Q4H PRN PRN Reason: Tachycardia Metoprolol Tartrate (Lopressor) 50 mg PO BEDTIME [facility] Mometasone Furoate/Formoterol Fumar (Dulera 100-5 Mcg) 0 puff IH DAILY [facility] Multivitamins (Thera) 1 each PO DAILY [facility] Non-Formulary Medication (Fenofibrate Nanocrystallized [Fenofibrate]) 48 mg PO DAILY [facility] Non-Formulary Medication (Guaifenesin/Pseudoephedrne Hcl) 1 each PO BID PRN PRN Reason: Other Non-Formulary Medication (Lutein/Minerals/Vit A,C & E) 1 mg PO DAILY [facility] Ondansetron HCl (Zofran) 4 mg IV Q6H PRN PRN Reason: Nausea/Vomiting Pantoprazole Sodium (Protonix) 20 mg PO BID [facility] Polyethylene Glycol (Miralax) 17 gm PO DAILY PRN PRN Reason: Constipation Potassium Chloride (Pharmacy To Dose - Potassium Replacement) 1 dose .XX ASDIRECTED [facility] Potassium Chloride (Klor-Con M20) 40 meq PO DAILY [facility] Rosuvastatin Calcium (Crestor) 10 mg PO BEDTIME [facility] Senna/Docusate Sodium (Senna Plus) 1 tab PO BID PRN PRN Reason: Constipation Temazepam (Restoril) 7.5 mg PO BEDTIME PRN PRN Reason: Insomnia Last Admin: 10/26/16 21:59 Dose: 7.5 mg Temazepam (Restoril) 7.5 mg PO BEDTIME PRN PRN Reason: Sleep Discontinued Medications Diphenhydramine HCl (Benadryl) 25 mg IVPUSH ONETIME ONE Stop: 10/26/16 18:48 Last Admin: 10/26/16 18:51 Dose: 25 mg Sodium Chloride (Normal Saline) 500 mls @ 1,000 mls/hr IV ONETIME ONE Stop: 10/26/16 15:01 Last Admin: 10/26/16 15:28 Dose: 1,000 mls/hr Lorazepam (Ativan) 0.25 mg IVPUSH ONETIME ONE Stop: 10/26/16 21:37 Last Admin: 10/26/16 21:59 Dose: 0.25 mg Metoclopramide HCl (Reglan) 10 mg PO ONETIME ONE Stop: 10/26/16 18:36 Metoclopramide HCl (Reglan) 10 mg IVPUSH ONETIME ONE Stop: 10/26/16 18:42 Last Admin: 10/26/16 18:55 Dose: 10 mg Ondansetron HCl (Zofran) 4 mg IVPUSH ONETIME ONE Stop: 10/26/16 14:33 Last Admin: 10/26/16 15:29 Dose: 4 mg - Exam General: Alert, Cooperative, No Acute Distress HEENT: Pupils Equal, Pupils Reactive, EOMI, Mucous Membr. Moist/[place] Neck: Supple, Trachea Midline, No JVD Lungs: Clear to Auscultation, Normal Respiratory Effort Cardiovascular: Regular Rate, Regular Rhythm GI/Abdominal Exam: Normal Bowel Sounds, Soft, Non-Tender, No Organomegaly, No Distention, No Abnormal Bruit, No Mass (Female) Exam: Deferred Back Exam: Normal Inspection, Decreased Range of Motion Extremities: Normal Inspection, Normal Range of Motion, Non-Tender, No Pedal Edema, Normal Capillary Refill Peripheral Pulses: 2+: Dorsalis Pedis (L), Dorsalis Pedis (R) Skin: Warm, Dry, Intact Neurological: No New Focal Deficit Psy/Mental Status: Alert, Normal Affect, Normal Mood - Problem List Review Problem List Initiated/Reviewed/Updated: Yes - My Orders Last 24 Hours: My Active Orders 10/26/16 20:35 Patient Status [ADT] Routine 10/26/16 21:37 Temazepam [Restoril] 7.5 mg PO BEDTIME PRN 10/26/16 21:38 C DIFFICILE BY PCR W/NAP1 [MOLEC] Routine Acetaminophen/Butalbital/Caff [Fioricet 325-50-40 MG] 1 tab PO Q6H PRN 10/26/16 22:43 Height and Weight [RC] 04 Up With Assistance [RC] ASDIRECTED Up ad Sue [RC] ASDIRECTED Acetaminophen [Tylenol] 650 mg PO Q4H PRN Acetaminophen [Tylenol] 650 mg RECTAL Q4H PRN Acetaminophen/HYDROcodone [[place] 325-5 MG] 1 tab PO Q4H PRN Albuterol/Ipratropium [DuoNeb 3.0-0.5 MG/3 ML] 3 ml NEB Q4H PRN Bisacodyl [Dulcolax] 5 mg PO DAILY PRN Docusate Sodium [Colace] 100 mg PO BID PRN Docusate Sodium/Sennosides [Senna Plus] 1 tab PO BID PRN HYDROmorphone [Dilaudid] 0.25 mg IVPUSH Q2H PRN LORazepam [Ativan] 0.25 mg IV Q6H PRN LORazepam [Ativan] 2 mg IVPUSH Q4H PRN Metoprolol Tartrate [Lopressor] 5 mg IVPUSH Q4H PRN Ondansetron [Zofran] 4 mg IV Q6H PRN Polyethylene Glycol 3350 [MiraLAX] 17 gm PO DAILY PRN Promethazine [Phenergan] 12.5 mg Sodium Chloride 0.9% [Normal Saline] 50 ml IV Q6H Temazepam [Restoril] 7.5 mg PO BEDTIME PRN hydrALAZINE [Apresoline] 10 mg IVPUSH Q4H PRN 10/26/16 22:44 Intake and Output [RC] 04,16 Oxygen Therapy [RC] PRN VTE/DVT Education [RC] BID Vital Signs [RC] 00,04,08,12,16,20 10/26/16 22:45 Magnesium Rep Pharmacy to Dose [Pharmacy to Dose - Magnesium Replacement] 1 dose .XX ASDIRECTED Potassium Rep Pharmacy to Dose [Pharmacy to Dose - Potassium Replacement] 1 dose .XX ASDIRECTED Sequential Compression Device [OM.PC] Per Unit Routine 10/26/16 22:46 Antiembolic Devices [RC] BID 10/26/16 22:47 RT Aerosol Therapy [RC] ASDIRECTED Consult to Case Management [CONS] Routine Consult to [employer] [CONS] Routine Consult to Spiritual Care [CONS] Routine OT Evaluation and Treatment [CONS] Routine PT Evaluation and Treatment [CONS] Routine Respiratory Care Assess and Treatment [CONS] Routine 10/26/16 22:49 Guaifenesin/Pseudoephedrne HCl 1 each PO BID PRN 10/26/16 23:00 Dextrose 5%-0.9% NaCl [Dextrose 5%-Normal Saline] 1,000 ml IV ASDIRECTED 10/26/16 23:04 Resuscitation Status Routine 10/26/16 Dinner Nothing per Oral Now Diet [DIET] 10/27/16 09:00 Citalopram [Celexa] 40 mg PO DAILY Docusate Sodium [Colace] 100 mg PO BID Fenofibrate Nanocrystallized [Fenofibrate] 48 mg PO DAILY Lutein/Minerals/Vit A,C & E 1 mg PO DAILY Mometasone/Formoterol [Dulera 100-5 MCG] 0 puff IH DAILY Multivitamins,Therapeutic [Thera] 1 each PO DAILY Pantoprazole [ProTONIX] 20 mg PO BID Potassium Chloride [Klor-Con M20] 40 meq PO DAILY amLODIPine [Norvasc] 10 mg PO DAILY 10/27/16 16:00 Aspirin [Halfprin] 81 mg PO ACDINNER 10/27/16 21:00 Donepezil [Aricept] 10 mg PO BEDTIME Hydrochlorothiazide 25 mg PO BEDTIME Metoprolol Tartrate [Lopressor] 50 mg PO BEDTIME Rosuvastatin [Crestor] 10 mg PO BEDTIME 10/28/16 05:11 BASIC METABOLIC PANEL,BMP [CHEM] AM CBC WITH AUTO DIFF [HEME] AM MAGNESIUM [CHEM] AM 10/29/16 05:11 BASIC METABOLIC PANEL,BMP [CHEM] AM CBC WITH AUTO DIFF [HEME] AM MAGNESIUM [CHEM] AM 10/30/16 05:11 BASIC METABOLIC PANEL,BMP [CHEM] AM CBC WITH AUTO DIFF [HEME] AM MAGNESIUM [CHEM] AM 10/31/16 05:11 CBC WITH AUTO DIFF [HEME] AM MAGNESIUM [CHEM] AM - Plan Plan:: Assessment/Plan: Acute: Intractable Nausea/Vomiting (Appears acute on chronic) - Unclear in etiology however she has had hx/o it in the past - Able to tolerate liquids but not solid - Risk Factors: GERD/Gastritis, DM, Chronic Opioid Use and +/- Metformin Side Effects - NPO except ice chips, sips of water and oral meds - Supportive Care and PRN anti-emesis - ED provider spoke to Dr. Conti: he recommends barium wallow and EGD - Procedures will unlikely be done over the weekend High Risk Polypharmacy Resolved: Watery Diarrhea - Patient in on Bisacodyl PRN and Colace BID prophylaxis for opioid-induced constipation - Hold above meds - NPO for now Chronic: HTN HLD GERD DM2 Dementios Depression Hx/o COPD Hx/o YAS Plan: She is clinically stable Routine AM Labs Continue PT/OT GS consult: Dr. Conti Fall Precautions SW/CM for d/c planning Additional orders as above Code status: 1 Awaiting further input from Dr. Conti. Spoke to him this morning.
[2016-10-27] MEDS: Multivitamins,Therapeutic Tab PO SCH (09:30)
[2016-10-27] MEDS: Citalopram 20 MG Tab PO SCH (09:30)
[2016-10-27] MEDS: Potassium Chloride 20 MEQ Tab.ER PO SCH (09:30)
[2016-10-27] MEDS: amLODIPine 10 MG Tab PO SCH (09:31)
[2016-10-27] MEDS: Docusate Sodium 100 MG Cap PO SCH ×2 (09:31→23:49)
[2016-10-27] MEDS: Pantoprazole 40 MG Tab.CR PO SCH ×2 (09:33→21:28)
[2016-10-27] MEDS: Formoterol/Mometasone 100-5 MCG 8.8 GM Inhaler IH SCH (09:44)
[2016-10-27] MEDS ORDERED: Magnesium Sulfate/Water 2 GM in Premix Bag 1 BAG IV ONE (09:45)
--- NOTE | 2016-10-27 11:06 | PCM.CONSN ---
- General Info Date of Service: 10/27/16 - Patient Data Vitals - Most Recent: Last Vital Signs Temp 98.8 F 10/27/16 08:00 Pulse 75 10/27/16 08:00 Resp 16 10/27/16 08:00 BP 123/91 H 10/27/16 09:32 Pulse Ox 88 L 10/27/16 09:45 Weight - Most Recent: 68.039 kg I&O - Last 24 Hours: Intake & Output 10/26/16 10/27/16 10/27/16 23:59 07:59 15:59 Intake Total 720 Output Total 400 Balance 320 Lab Results Last 24 Hours: Laboratory Results - last 24 hr 10/27/16 10/27/16 Range/Units 05:57 05:57 WBC 6.81 (3.98-10.04) K/mm3 RBC 3.95 L (3.98-5.22) M/mm3 Hgb 11.5 (11.2-15.7) gm/L Hct 35.5 (34.1-44.9) % MCV 89.9 (79.4-94.8) fl MCH 29.1 (25.6-32.2) pg MCHC 32.4 (32.2-35.5) g/dl RDW Std Deviation 43.5 (36.4-46.3) fL Plt Count 243 (182-369) K/mm3 MPV 9.2 L (9.4-12.3) fl Neut % (Auto) 53.3 (34.0-71.1) % Lymph % (Auto) 28.6 (19.3-51.7) % [place] % (Auto) 14.7 H (4.7-12.5) % Eos % (Auto) 2.8 (0.7-5.8) Baso % (Auto) 0.6 (0.1-1.2) % Neut # (Auto) 3.63 (1.56-6.13) K/mm3 Lymph # (Auto) 1.95 (1.18-3.74) K/mm3 [place] # (Auto) 1.00 H (0.24-0.36) K/mm3 Eos # (Auto) 0.19 (0.04-0.36) K/mm3 Baso # (Auto) 0.04 (0.01-0.08) K/mm3 Sodium 142 (136-145) mEq/L Potassium 3.7 (3.5-5.1) mEq/L Chloride 106 (98-107) mEq/L Carbon Dioxide 29 (21-32) mEq/L Anion Gap 10.7 (5-15) BUN 6 L (7-18) mg/dL Creatinine 0.6 (0.55-1.02) mg/dL Est Cr Clr Drug Dosing 51.03 mL/min Estimated GFR (MDRD) > 60 (>60) mL/min BUN/Creatinine Ratio 10.0 L (14-18) Glucose 151 H (83-115) mg/dL Calcium 8.1 L (8.5-10.1) mg/dL Magnesium 1.8 (1.8-2.4) mg/dl Med Orders - Current: Current Medications Acetaminophen (Tylenol) 650 mg PO Q4H PRN PRN Reason: Pain (Mild 1-3)/fever Acetaminophen (Tylenol) 650 mg RECTAL Q4H PRN PRN Reason: Pain (mild 1-3) Acetaminophen/Butalbital/Caffeine (Fioricet 325-50-40 Mg) 1 tab PO Q6H PRN PRN Reason: Headache Last Admin: 10/26/16 21:59 Dose: 1 tab Hydrocodone Bitart/Acetaminophen ([place] 325-5 Mg) 1 tab PO Q4H PRN PRN Reason: Pain (moderate 4-6) Albuterol/Ipratropium (Duoneb 3.0-0.5 Mg/3 Ml) 3 ml NEB Q4H PRN PRN Reason: Shortness Of Breath/wheezing Amlodipine Besylate (Norvasc) 10 mg PO DAILY [facility] Last Admin: 10/27/16 09:31 Dose: 10 mg Aspirin (Halfprin) 81 mg PO ACDINNER [facility] Bisacodyl (Dulcolax) 5 mg PO DAILY PRN PRN Reason: Constipation Citalopram Hydrobromide (Celexa) 40 mg PO DAILY [facility] Last Admin: 10/27/16 09:30 Dose: 40 mg Docusate Sodium (Colace) 100 mg PO BID PRN PRN Reason: Constipation Docusate Sodium (Colace) 100 mg PO BID [facility] Last Admin: 10/27/16 09:31 Dose: Not Given Donepezil HCl (Aricept) 10 mg PO BEDTIME [facility] Hydralazine HCl (Apresoline) 10 mg IVPUSH Q4H PRN PRN Reason: Hypertension Hydrochlorothiazide (Hydrochlorothiazide) 25 mg PO BEDTIME [facility] Hydromorphone HCl (Dilaudid) 0.25 mg IVPUSH Q2H PRN PRN Reason: Pain (severe 7-10) Promethazine HCl 12.5 mg/ (Sodium Chloride) 50.5 mls @ 100 mls/hr IV Q6H PRN PRN Reason: Nausea/Vomiting Dextrose/Sodium Chloride (Dextrose 5%-Normal Saline) 1,000 mls @ 100 mls/hr IV ASDIRECTED [facility] Last Admin: 10/27/16 11:01 Dose: 100 mls/hr Lorazepam (Ativan) 2 mg IVPUSH Q4H PRN PRN Reason: Seizures Lorazepam (Ativan) 0.25 mg IV Q6H PRN PRN Reason: Agitation Magnesium Sulfate (Pharmacy To Dose - Magnesium Replacement) 1 dose .XX ASDIRECTED [facility] Metoprolol Tartrate (Lopressor) 5 mg IVPUSH Q4H PRN PRN Reason: Tachycardia Metoprolol Tartrate (Lopressor) 50 mg PO BEDTIME [facility] Mometasone Furoate/Formoterol Fumar (Dulera 100-5 Mcg) 0 puff IH DAILY [facility] Last Admin: 10/27/16 09:44 Dose: 2 puff Multivitamins (Thera) 1 each PO DAILY [facility] Last Admin: 10/27/16 09:30 Dose: 1 each Non-Formulary Medication (Fenofibrate Nanocrystallized [Fenofibrate]) 48 mg PO DAILY [facility] Non-Formulary Medication (Guaifenesin/Pseudoephedrne Hcl) 1 each PO BID PRN PRN Reason: Other Non-Formulary Medication (Lutein/Minerals/Vit A,C & E) 1 mg PO DAILY [facility] Ondansetron HCl (Zofran) 4 mg IV Q6H PRN PRN Reason: Nausea/Vomiting Pantoprazole Sodium (Protonix) 20 mg PO BID [facility] Last Admin: 10/27/16 09:33 Dose: 20 mg Polyethylene Glycol (Miralax) 17 gm PO DAILY PRN PRN Reason: Constipation Potassium Chloride (Pharmacy To Dose - Potassium Replacement) 1 dose .XX ASDIRECTED [facility] Potassium Chloride (Klor-Con M20) 40 meq PO DAILY [facility] Last Admin: 10/27/16 09:30 Dose: 40 meq Rosuvastatin Calcium (Crestor) 10 mg PO BEDTIME [facility] Senna/Docusate Sodium (Senna Plus) 1 tab PO BID PRN PRN Reason: Constipation Temazepam (Restoril) 7.5 mg PO BEDTIME PRN PRN Reason: Insomnia Last Admin: 10/26/16 21:59 Dose: 7.5 mg Temazepam (Restoril) 7.5 mg PO BEDTIME PRN PRN Reason: Sleep Discontinued Medications Diphenhydramine HCl (Benadryl) 25 mg IVPUSH ONETIME ONE Stop: 10/26/16 18:48 Last Admin: 10/26/16 18:51 Dose: 25 mg Sodium Chloride (Normal Saline) 500 mls @ 1,000 mls/hr IV ONETIME ONE Stop: 10/26/16 15:01 Last Admin: 10/26/16 15:28 Dose: 1,000 mls/hr Magnesium Sulfate 2 gm/ Premix 50 mls @ 50 mls/hr IV ONETIME ONE Stop: 10/27/16 10:44 Last Admin: 10/27/16 11:01 Dose: 50 mls/hr Lorazepam (Ativan) 0.25 mg IVPUSH ONETIME ONE Stop: 10/26/16 21:37 Last Admin: 10/26/16 21:59 Dose: 0.25 mg Metoclopramide HCl (Reglan) 10 mg PO ONETIME ONE Stop: 10/26/16 18:36 Metoclopramide HCl (Reglan) 10 mg IVPUSH ONETIME ONE Stop: 10/26/16 18:42 Last Admin: 10/26/16 18:55 Dose: 10 mg Ondansetron HCl (Zofran) 4 mg IVPUSH ONETIME ONE Stop: 10/26/16 14:33 Last Admin: 10/26/16 15:29 Dose: 4 mg Consult PN Assessment/Plan Procedures: Procedures AIRWAY INHALATION TREATMENT (09/16/15) ASSAY OF CREATININE (09/17/13) ASSAY OF LACTIC ACID (10/14/16) ASSAY OF LIPASE (10/14/16) ASSAY OF MAGNESIUM (09/24/16) ASSAY OF TROPONIN QUANT (10/14/16) BLOOD CULTURE FOR BACTERIA (10/14/16) CHEST X-RAY 1 VIEW FRONTAL (09/16/15) CHEST X-RAY 2VW FRONTAL&LATL (09/16/15) COMPLETE CBC W/AUTO DIFF WBC (10/14/16) COMPREHEN METABOLIC PANEL (10/14/16) CT ABD & PELV W/CONTRAST (10/14/16) ELECTROCARDIOGRAM TRACING (10/14/16) EMERGENCY DEPT VISIT (10/14/16) EVALUATE PT USE OF INHALER (09/16/15) HYDRATE IV INFUSION ADD-ON (10/14/16) MEASURE BLOOD OXYGEN LEVEL (09/24/16) MEASURE BLOOD OXYGEN LEVEL (09/24/16) MEASURE BLOOD OXYGEN LEVEL (09/16/15) MEDICAL NUTRITION INDIV IN (05/14/14) METABOLIC PANEL TOTAL CA (09/24/16) OT EVAL LOW COMPLEX 30 MIN (09/24/16) PATH CONSULT INTRAOP 1 BLOC (09/22/13) PATH CONSULT INTRAOP ADDL (09/22/13) PT EVAL MOD COMPLEX 30 MIN (09/24/16) PT EVALUATION (09/16/15) ROUTINE VENIPUNCTURE (10/14/16) SELF CARE MNGMENT TRAINING (09/24/16) THER/PROPH/DIAG INJ IV PUSH (10/14/16) TISSUE EXAM BY PATHOLOGIST (09/22/13) TX/PRO/DX INJ NEW DRUG ADDON (10/14/16) URINALYSIS AUTO W/SCOPE (10/14/16) X-RAY EXAM OF ELBOW (09/16/15) X-RAY EXAM OF SHOULDER (09/16/15) X-RAY EXAM SERIES ABDOMEN (10/14/16) Problem List Initiated/Reviewed/Updated: Yes Plan: surgical consult dictated MARIA ELENA
--- NOTE | 2016-10-27 11:54 | CONS ---
CONSULTING PHYSICIAN: Jose Conti MD DATE OF CONSULTATION: 10/27/2016 HISTORY: An 81-year-old female who came into the emergency room with a history of nausea, vomiting, and diarrhea. This seems to have started about a month ago. She cannot take food and in talking to her caregiver, it comes up immediately any type. She also has an urgent need to defecate after eating and has diarrhea and incontinence of stool. Some times, she is unable to get to the bathroom. This problem has been going on for the last 4 weeks. It is associated with some intermittent abdominal pain in the epigastrium and abdominal bloating. No fever or chills. No vomiting up of blood and no hematochezia and hematemesis. The patient has had a gastric resection at least twice for gastric ulcers many years ago, probably about 30 to 40 years ago. ALLERGIES: Duricef and honey bees. PAST MEDICAL HISTORY: Some hypertension, some diabetes, and definitely some COPD and is on budesonide, and has had chronic back pain and has been on methadone for this. She has dementia and has had skin cancers. PAST SURGICAL HISTORY: She has had a cholecystectomy, appendectomy, hysterectomy, and gastric resection. REVIEW OF SYSTEMS: No chest pain, shortness of breath, cough, hoarseness, wheezing, fainting, weakness, numbness, and convulsions. She does have some nausea, vomiting, diarrhea, some abdominal pain, and abdominal bloating. SOCIAL HISTORY: She has never smoked and does not drink. PHYSICAL EXAMINATION: GENERAL: Reveals an alert and cooperative female. She does have some short- term memory problems. VITAL SIGNS: Blood pressure 150/75, respirations 18, pulse 72, and temperature 36. EYES: Sclerae white. Extraocular muscle motion normal. Oral cavity, healthy mucous membrane with mouth and tongue. NECK: Supple. No nodes. No thyromegaly. Trachea midline. LUNGS: Clear. No rales, rhonchi, fremitus, or dullness. HEART: Tones regular rate. No S3, S4, jugular venous distention. ABDOMEN: Two parallel surgical incisions in the upper abdomen. No tenderness noted except in the epigastric region. No ventral or inguinal hernias noted. No succussion splash or abdominal distention or liver or spleen noted. EXTREMITIES: Upper extremities, no angulation deformities. Lower extremities, negative and moves all 4. NEUROLOGIC: Sensorineural deficit, none. Cranial nerves 3 through 12 intact. SKIN: Warm and dry. PSYCH: Good, normal, but she has short-term memory problems. LABORATORY DATA: Hemoglobin 12 and platelet count normal. White count is normal. She has a normal creatinine of 0.8 with glomerular filtration rate of greater than 60. Her albumin, globulin, and total protein are all normal. ASSESSMENT: Nausea and vomiting with history of gastric resection for ulcers with abdominal distention, suspect gastric atony or gastric obstruction. Methadone certainly is not helping this problem and would recommend removing the methadone. We will place an NG tube and place her on 24-hour suction and do a saline load test and then an upper GI endoscopy on Saturday. Discussed this with the caregiver and they are in agreement. SHANKAR /[phone]
[2016-10-27] MEDS: Ondansetron 4 MG/2 ML SDV IV PRN (12:34)
[2016-10-27] MEDS: Acetaminophen/Butalbital/Caffeine 325-50-40 MG Tab PO PRN (13:37)
[2016-10-27] MEDS: Aspirin 81 MG Tab.EC PO SCH (17:24)
[2016-10-27] MEDS: Rosuvastatin 10 MG Tab PO SCH (21:28)
[2016-10-27] MEDS: Temazepam 7.5 MG Cap PO PRN (21:29)
[2016-10-27] MEDS: Donepezil 10 MG Tab PO SCH (21:29)
[2016-10-27] MEDS: Metoprolol Tartrate 50 MG Tab PO SCH (21:29)
[2016-10-27] MEDS: Hydrochlorothiazide 25 MG Tab PO SCH (21:29)
[2016-10-28] MEDS: Dextrose 5%-0.9% NaCl 1,000 ML IV SCH ×2 (06:50→16:43)
--- NOTE | 2016-10-28 07:50 | PCM.PN ---
- General Info Date of Service: 10/28/16 Admission Dx/Problem (Free Text): Intractable Nausea and Vomiting Subjective Update: Follow Up Functional Status: Reports: Pain Controlled, Ambulating, Urinating, New Symptoms. Denies: Tolerating Diet - Review of Systems General: Denies: Fever, Weakness, Fatigue, Malaise, Chills HEENT: Reports: No Symptoms Pulmonary: Denies: Shortness of Breath Cardiovascular: Denies: Chest Pain Gastrointestinal: Reports: Flatus. Denies: Abdominal Pain, Nausea, Vomiting Genitourinary: Reports: No Symptoms Musculoskeletal: Reports: No Symptoms Skin: Denies: Cyanosis, Rash Neurological: Reports: Confusion (baseline). Denies: Difficulty Walking, Weakness, Gait Disturbance Psychiatric: Denies: Depression, Anxiety, Agitation, Hallucinations Systems Review Comment:: Overnight patient got symptomatic. She vomited x1 and had 4 loose stools. She also had 2 large loose stools this am. She had tolerated her diet last evening. Her labs are fairly unremarkable. - Patient Data Vitals - Most Recent: Last Vital Signs Temp 36.7 C 10/28/16 04:00 Pulse 63 10/28/16 04:00 Resp 12 10/28/16 04:00 BP 130/89 10/28/16 04:00 Pulse Ox 92 L 10/28/16 04:00 Weight - Most Recent: 68.447 kg I&O - Last 24 Hours: Intake & Output 10/27/16 10/28/16 10/28/16 22:59 06:59 14:59 Intake Total 1150 1500 Output Total 1400 1850 Balance -250 -350 Lab Results Last 24 Hours: Laboratory Results - last 24 hr 10/27/16 10/28/16 10/28/16 Range/Units 17:30 06:20 06:20 WBC 6.74 (3.98-10.04) K/mm3 RBC 3.79 L (3.98-5.22) M/mm3 Hgb 10.9 L (11.2-15.7) gm/L Hct 34.4 (34.1-44.9) % MCV 90.8 (79.4-94.8) fl MCH 28.8 (25.6-32.2) pg MCHC 31.7 L (32.2-35.5) g/dl RDW Std Deviation 44.0 (36.4-46.3) fL Plt Count 244 (182-369) K/mm3 MPV 9.4 (9.4-12.3) fl Neut % (Auto) 62.9 (34.0-71.1) % Lymph % (Auto) 22.0 (19.3-51.7) % [place] % (Auto) 11.4 (4.7-12.5) % Eos % (Auto) 3.3 (0.7-5.8) Baso % (Auto) 0.3 (0.1-1.2) % Neut # (Auto) 4.24 (1.56-6.13) K/mm3 Lymph # (Auto) 1.48 (1.18-3.74) K/mm3 [place] # (Auto) 0.77 H (0.24-0.36) K/mm3 Eos # (Auto) 0.22 (0.04-0.36) K/mm3 Baso # (Auto) 0.02 (0.01-0.08) K/mm3 Sodium 143 (136-145) mEq/L Potassium 3.9 (3.5-5.1) mEq/L Chloride 107 (98-107) mEq/L Carbon Dioxide 28 (21-32) mEq/L Anion Gap 11.9 (5-15) BUN 2 L (7-18) mg/dL Creatinine 0.6 (0.55-1.02) mg/dL Est Cr Clr Drug Dosing 51.03 mL/min Estimated GFR (MDRD) > 60 (>60) mL/min BUN/Creatinine Ratio 3.3 L (14-18) Glucose 127 H (83-115) mg/dL Calcium 8.1 L (8.5-10.1) mg/dL Magnesium 1.9 (1.8-2.4) mg/dl C.difficile [id number] Presumptive negative C. difficile Tox (PCR) Negative Med Orders - Current: Current Medications Acetaminophen (Tylenol) 650 mg PO Q4H PRN PRN Reason: Pain (Mild 1-3)/fever Acetaminophen (Tylenol) 650 mg RECTAL Q4H PRN PRN Reason: Pain (mild 1-3) Acetaminophen/Butalbital/Caffeine (Fioricet 325-50-40 Mg) 1 tab PO Q6H PRN PRN Reason: Headache Last Admin: 10/27/16 13:37 Dose: 1 tab Hydrocodone Bitart/Acetaminophen ([place] 325-5 Mg) 1 tab PO Q4H PRN PRN Reason: Pain (moderate 4-6) Albuterol/Ipratropium (Duoneb 3.0-0.5 Mg/3 Ml) 3 ml NEB Q4H PRN PRN Reason: Shortness Of Breath/wheezing Amlodipine Besylate (Norvasc) 10 mg PO DAILY [facility] Last Admin: 10/27/16 09:31 Dose: 10 mg Aspirin (Halfprin) 81 mg PO ACDINNER [facility] Last Admin: 10/27/16 17:24 Dose: Not Given Bisacodyl (Dulcolax) 5 mg PO DAILY PRN PRN Reason: Constipation Citalopram Hydrobromide (Celexa) 40 mg PO DAILY [facility] Last Admin: 10/27/16 09:30 Dose: 40 mg Docusate Sodium (Colace) 100 mg PO BID PRN PRN Reason: Constipation Docusate Sodium (Colace) 100 mg PO BID [facility] Last Admin: 10/27/16 23:49 Dose: Not Given Donepezil HCl (Aricept) 10 mg PO BEDTIME [facility] Last Admin: 10/27/16 21:29 Dose: 10 mg Hydralazine HCl (Apresoline) 10 mg IVPUSH Q4H PRN PRN Reason: Hypertension Hydrochlorothiazide (Hydrochlorothiazide) 25 mg PO BEDTIME [facility] Last Admin: 10/27/16 21:29 Dose: 25 mg Hydromorphone HCl (Dilaudid) 0.25 mg IVPUSH Q2H PRN PRN Reason: Pain (severe 7-10) Promethazine HCl 12.5 mg/ (Sodium Chloride) 50.5 mls @ 100 mls/hr IV Q6H PRN PRN Reason: Nausea/Vomiting Dextrose/Sodium Chloride (Dextrose 5%-Normal Saline) 1,000 mls @ 100 mls/hr IV ASDIRECTED [facility] Last Admin: 10/28/16 06:50 Dose: 100 mls/hr Lorazepam (Ativan) 2 mg IVPUSH Q4H PRN PRN Reason: Seizures Lorazepam (Ativan) 0.25 mg IV Q6H PRN PRN Reason: Agitation Magnesium Sulfate (Pharmacy To Dose - Magnesium Replacement) 1 dose .XX ASDIRECTED [facility] Metoprolol Tartrate (Lopressor) 5 mg IVPUSH Q4H PRN PRN Reason: Tachycardia Metoprolol Tartrate (Lopressor) 50 mg PO BEDTIME [facility] Last Admin: 10/27/16 21:29 Dose: 50 mg Mometasone Furoate/Formoterol Fumar (Dulera 100-5 Mcg) 0 puff IH DAILY [facility] Last Admin: 10/27/16 09:44 Dose: 2 puff Multivitamins (Thera) 1 each PO DAILY [facility] Last Admin: 10/27/16 09:30 Dose: 1 each Non-Formulary Medication (Fenofibrate Nanocrystallized [Fenofibrate]) 48 mg PO DAILY [facility] Non-Formulary Medication (Guaifenesin/Pseudoephedrne Hcl) 1 each PO BID PRN PRN Reason: Other Non-Formulary Medication (Lutein/Minerals/Vit A,C & E) 1 mg PO DAILY [facility] Ondansetron HCl (Zofran) 4 mg IV Q6H PRN PRN Reason: Nausea/Vomiting Last Admin: 10/27/16 12:34 Dose: 4 mg Pantoprazole Sodium (Protonix) 20 mg PO BID [facility] Last Admin: 10/27/16 21:28 Dose: 20 mg Polyethylene Glycol (Miralax) 17 gm PO DAILY PRN PRN Reason: Constipation Potassium Chloride (Pharmacy To Dose - Potassium Replacement) 1 dose .XX ASDIRECTED [facility] Potassium Chloride (Klor-Con M20) 40 meq PO DAILY [facility] Last Admin: 10/27/16 09:30 Dose: 40 meq Rosuvastatin Calcium (Crestor) 10 mg PO BEDTIME [facility] Last Admin: 10/27/16 21:28 Dose: 10 mg Senna/Docusate Sodium (Senna Plus) 1 tab PO BID PRN PRN Reason: Constipation Temazepam (Restoril) 7.5 mg PO BEDTIME PRN PRN Reason: Insomnia Last Admin: 10/27/16 21:29 Dose: 7.5 mg Temazepam (Restoril) 7.5 mg PO BEDTIME PRN PRN Reason: Sleep Discontinued Medications Diphenhydramine HCl (Benadryl) 25 mg IVPUSH ONETIME ONE Stop: 10/26/16 18:48 Last Admin: 10/26/16 18:51 Dose: 25 mg Sodium Chloride (Normal Saline) 500 mls @ 1,000 mls/hr IV ONETIME ONE Stop: 10/26/16 15:01 Last Admin: 10/26/16 15:28 Dose: 1,000 mls/hr Magnesium Sulfate 2 gm/ Premix 50 mls @ 50 mls/hr IV ONETIME ONE Stop: 10/27/16 10:44 Last Admin: 10/27/16 11:01 Dose: 50 mls/hr Lorazepam (Ativan) 0.25 mg IVPUSH ONETIME ONE Stop: 10/26/16 21:37 Last Admin: 10/26/16 21:59 Dose: 0.25 mg Metoclopramide HCl (Reglan) 10 mg PO ONETIME ONE Stop: 10/26/16 18:36 Last Admin: 10/27/16 11:43 Dose: Not Given Metoclopramide HCl (Reglan) 10 mg IVPUSH ONETIME ONE Stop: 10/26/16 18:42 Last Admin: 10/26/16 18:55 Dose: 10 mg Ondansetron HCl (Zofran) 4 mg IVPUSH ONETIME ONE Stop: 10/26/16 14:33 Last Admin: 10/26/16 15:29 Dose: 4 mg - Problem List Review Problem List Initiated/Reviewed/Updated: Yes - My Orders Last 24 Hours: My Active Orders 10/27/16 08:32 Notify Provider Consults [RC] ASDIRECTED Consult to Physician [CONS] Routine 10/27/16 09:00 Citalopram [Celexa] 40 mg PO DAILY Docusate Sodium [Colace] 100 mg PO BID Fenofibrate Nanocrystallized [Fenofibrate] 48 mg PO DAILY Lutein/Minerals/Vit A,C & E 1 mg PO DAILY Mometasone/Formoterol [Dulera 100-5 MCG] 0 puff IH DAILY Multivitamins,Therapeutic [Thera] 1 each PO DAILY Pantoprazole [ProTONIX] 20 mg PO BID Potassium Chloride [Klor-Con M20] 40 meq PO DAILY amLODIPine [Norvasc] 10 mg PO DAILY 10/27/16 16:00 Aspirin [Halfprin] 81 mg PO ACDINNER 10/27/16 21:00 Donepezil [Aricept] 10 mg PO BEDTIME Hydrochlorothiazide 25 mg PO BEDTIME Metoprolol Tartrate [Lopressor] 50 mg PO BEDTIME Rosuvastatin [Crestor] 10 mg PO BEDTIME 10/29/16 05:11 BASIC METABOLIC PANEL,BMP [CHEM] AM CBC WITH AUTO DIFF [HEME] AM MAGNESIUM [CHEM] AM 10/30/16 05:11 BASIC METABOLIC PANEL,BMP [CHEM] AM CBC WITH AUTO DIFF [HEME] AM MAGNESIUM [CHEM] AM 10/31/16 05:11 CBC WITH AUTO DIFF [HEME] AM MAGNESIUM [CHEM] AM - Plan Plan:: Assessment/Plan: Acute: Intractable Nausea/Vomiting (Appears acute on chronic) - Unclear in etiology however she has had hx/o it in the past - Able to tolerate liquids but not solid - Risk Factors: GERD/Gastritis, DM, Chronic Opioid Use and +/- Metformin Side Effects - NPO except ice chips, sips of water and oral meds - Supportive Care and PRN anti-emesis - ED provider spoke to Dr. Conti: he recommends barium wallow and EGD - Procedures will unlikely be done over the weekend High Risk Polypharmacy Resolved: Watery Diarrhea - Patient in on Bisacodyl PRN and Colace BID prophylaxis for opioid-induced constipation - Hold above meds - NPO for now Chronic: HTN HLD GERD DM2 [place] Depression Hx/o COPD Hx/o YAS Plan: She is clinically stable Routine AM Labs Continue PT/OT GS consult: Dr. Conti Fall Precautions SW/CM for d/c planning Additional orders as above Code status: 1 Awaiting further input from Dr. Conti. Spoke to him this morning.
[2016-10-28] MEDS: Pantoprazole 40 MG Tab.CR PO SCH ×2 (08:04→20:48)
[2016-10-28] MEDS: Potassium Chloride 20 MEQ Tab.ER PO SCH (08:04)
[2016-10-28] MEDS: Docusate Sodium 100 MG Cap PO SCH ×2 (08:04→20:49)
[2016-10-28] MEDS: Multivitamins,Therapeutic Tab PO SCH (08:04)
[2016-10-28] MEDS: Citalopram 20 MG Tab PO SCH (08:04)
[2016-10-28] MEDS: amLODIPine 10 MG Tab PO SCH (08:05)
[2016-10-28] MEDS: Ondansetron 4 MG/2 ML SDV IV PRN (09:21)
[2016-10-28] MEDS: Formoterol/Mometasone 100-5 MCG 8.8 GM Inhaler IH SCH (09:43)
[2016-10-28] MEDS: Acetaminophen/Butalbital/Caffeine 325-50-40 MG Tab PO PRN (10:30)
[2016-10-28] MEDS ORDERED: Sodium Chloride 0.9% 10 ML Syringe FLUSH PRN (12:05)
--- NOTE | 2016-10-28 12:07 | PCM.CONSN ---
- General Info Date of Service: 10/28/16 - Review of Systems General: Reports: No Symptoms Gastrointestinal: Reports: No Symptoms, Diarrhea (four loose stools ), Other - Patient Data Vitals - Most Recent: Last Vital Signs Temp 98.1 F 10/28/16 04:00 Pulse 63 10/28/16 04:00 Resp 12 10/28/16 04:00 BP 149/60 H 10/28/16 08:05 Pulse Ox 88 L 10/28/16 09:44 Weight - Most Recent: 68.447 kg I&O - Last 24 Hours: Intake & Output 10/27/16 10/28/16 10/28/16 23:59 07:59 15:59 Intake Total 1150 1500 Output Total 1850 Balance 1150 -350 Lab Results Last 24 Hours: Laboratory Results - last 24 hr 10/27/16 10/28/16 10/28/16 Range/Units 17:30 06:20 06:20 WBC 6.74 (3.98-10.04) K/mm3 RBC 3.79 L (3.98-5.22) M/mm3 Hgb 10.9 L (11.2-15.7) gm/L Hct 34.4 (34.1-44.9) % MCV 90.8 (79.4-94.8) fl MCH 28.8 (25.6-32.2) pg MCHC 31.7 L (32.2-35.5) g/dl RDW Std Deviation 44.0 (36.4-46.3) fL Plt Count 244 (182-369) K/mm3 MPV 9.4 (9.4-12.3) fl Neut % (Auto) 62.9 (34.0-71.1) % Lymph % (Auto) 22.0 (19.3-51.7) % [place] % (Auto) 11.4 (4.7-12.5) % Eos % (Auto) 3.3 (0.7-5.8) Baso % (Auto) 0.3 (0.1-1.2) % Neut # (Auto) 4.24 (1.56-6.13) K/mm3 Lymph # (Auto) 1.48 (1.18-3.74) K/mm3 [place] # (Auto) 0.77 H (0.24-0.36) K/mm3 Eos # (Auto) 0.22 (0.04-0.36) K/mm3 Baso # (Auto) 0.02 (0.01-0.08) K/mm3 Sodium 143 (136-145) mEq/L Potassium 3.9 (3.5-5.1) mEq/L Chloride 107 (98-107) mEq/L Carbon Dioxide 28 (21-32) mEq/L Anion Gap 11.9 (5-15) BUN 2 L (7-18) mg/dL Creatinine 0.6 (0.55-1.02) mg/dL Est Cr Clr Drug Dosing 51.03 mL/min Estimated GFR (MDRD) > 60 (>60) mL/min BUN/Creatinine Ratio 3.3 L (14-18) Glucose 127 H (83-115) mg/dL Calcium 8.1 L (8.5-10.1) mg/dL Magnesium 1.9 (1.8-2.4) mg/dl C.difficile [id number] Presumptive negative C. difficile Tox (PCR) Negative Med Orders - Current: Current Medications Acetaminophen (Tylenol) 650 mg PO Q4H PRN PRN Reason: Pain (Mild 1-3)/fever Acetaminophen (Tylenol) 650 mg RECTAL Q4H PRN PRN Reason: Pain (mild 1-3) Acetaminophen/Butalbital/Caffeine (Fioricet 325-50-40 Mg) 1 tab PO Q6H PRN PRN Reason: Headache Last Admin: 10/28/16 10:30 Dose: 1 tab Hydrocodone Bitart/Acetaminophen ([place] 325-5 Mg) 1 tab PO Q4H PRN PRN Reason: Pain (moderate 4-6) Albuterol/Ipratropium (Duoneb 3.0-0.5 Mg/3 Ml) 3 ml NEB Q4H PRN PRN Reason: Shortness Of Breath/wheezing Amlodipine Besylate (Norvasc) 10 mg PO DAILY [facility] Last Admin: 10/28/16 08:05 Dose: 10 mg Aspirin (Halfprin) 81 mg PO ACDINNER [facility] Last Admin: 10/27/16 17:24 Dose: Not Given Bisacodyl (Dulcolax) 5 mg PO DAILY PRN PRN Reason: Constipation Citalopram Hydrobromide (Celexa) 40 mg PO DAILY [facility] Last Admin: 10/28/16 08:04 Dose: 40 mg Docusate Sodium (Colace) 100 mg PO BID PRN PRN Reason: Constipation Docusate Sodium (Colace) 100 mg PO BID [facility] Last Admin: 10/28/16 08:04 Dose: 100 mg Donepezil HCl (Aricept) 10 mg PO BEDTIME [facility] Last Admin: 10/27/16 21:29 Dose: 10 mg Hydralazine HCl (Apresoline) 10 mg IVPUSH Q4H PRN PRN Reason: Hypertension Hydrochlorothiazide (Hydrochlorothiazide) 25 mg PO BEDTIME [facility] Last Admin: 10/27/16 21:29 Dose: 25 mg Hydromorphone HCl (Dilaudid) 0.25 mg IVPUSH Q2H PRN PRN Reason: Pain (severe 7-10) Promethazine HCl 12.5 mg/ (Sodium Chloride) 50.5 mls @ 100 mls/hr IV Q6H PRN PRN Reason: Nausea/Vomiting Dextrose/Sodium Chloride (Dextrose 5%-Normal Saline) 1,000 mls @ 100 mls/hr IV ASDIRECTED [facility] Last Admin: 10/28/16 06:50 Dose: 100 mls/hr Lorazepam (Ativan) 2 mg IVPUSH Q4H PRN PRN Reason: Seizures Lorazepam (Ativan) 0.25 mg IV Q6H PRN PRN Reason: Agitation Magnesium Sulfate (Pharmacy To Dose - Magnesium Replacement) 1 dose .XX ASDIRECTED [facility] Metoprolol Tartrate (Lopressor) 5 mg IVPUSH Q4H PRN PRN Reason: Tachycardia Metoprolol Tartrate (Lopressor) 50 mg PO BEDTIME [facility] Last Admin: 10/27/16 21:29 Dose: 50 mg Mometasone Furoate/Formoterol Fumar (Dulera 100-5 Mcg) 0 puff IH DAILY [facility] Last Admin: 10/28/16 09:43 Dose: 2 puff Multivitamins (Thera) 1 each PO DAILY [facility] Last Admin: 10/28/16 08:04 Dose: 1 each Non-Formulary Medication (Fenofibrate Nanocrystallized [Fenofibrate]) 48 mg PO DAILY [facility] Non-Formulary Medication (Guaifenesin/Pseudoephedrne Hcl) 1 each PO BID PRN PRN Reason: Other Non-Formulary Medication (Lutein/Minerals/Vit A,C & E) 1 mg PO DAILY [facility] Ondansetron HCl (Zofran) 4 mg IV Q6H PRN PRN Reason: Nausea/Vomiting Last Admin: 10/28/16 09:21 Dose: 4 mg Pantoprazole Sodium (Protonix) 20 mg PO BID [facility] Last Admin: 10/28/16 08:04 Dose: 20 mg Polyethylene Glycol (Miralax) 17 gm PO DAILY PRN PRN Reason: Constipation Potassium Chloride (Pharmacy To Dose - Potassium Replacement) 1 dose .XX ASDIRECTED [facility] Potassium Chloride (Klor-Con M20) 40 meq PO DAILY [facility] Last Admin: 10/28/16 08:04 Dose: 40 meq Rosuvastatin Calcium (Crestor) 10 mg PO BEDTIME [facility] Last Admin: 10/27/16 21:28 Dose: 10 mg Senna/Docusate Sodium (Senna Plus) 1 tab PO BID PRN PRN Reason: Constipation Temazepam (Restoril) 7.5 mg PO BEDTIME PRN PRN Reason: Insomnia Last Admin: 10/27/16 21:29 Dose: 7.5 mg Temazepam (Restoril) 7.5 mg PO BEDTIME PRN PRN Reason: Sleep Discontinued Medications Diphenhydramine HCl (Benadryl) 25 mg IVPUSH ONETIME ONE Stop: 10/26/16 18:48 Last Admin: 10/26/16 18:51 Dose: 25 mg Sodium Chloride (Normal Saline) 500 mls @ 1,000 mls/hr IV ONETIME ONE Stop: 10/26/16 15:01 Last Admin: 10/26/16 15:28 Dose: 1,000 mls/hr Magnesium Sulfate 2 gm/ Premix 50 mls @ 50 mls/hr IV ONETIME ONE Stop: 10/27/16 10:44 Last Admin: 10/27/16 11:01 Dose: 50 mls/hr Lorazepam (Ativan) 0.25 mg IVPUSH ONETIME ONE Stop: 10/26/16 21:37 Last Admin: 10/26/16 21:59 Dose: 0.25 mg Metoclopramide HCl (Reglan) 10 mg PO ONETIME ONE Stop: 10/26/16 18:36 Last Admin: 10/27/16 11:43 Dose: Not Given Metoclopramide HCl (Reglan) 10 mg IVPUSH ONETIME ONE Stop: 10/26/16 18:42 Last Admin: 10/26/16 18:55 Dose: 10 mg Ondansetron HCl (Zofran) 4 mg IVPUSH ONETIME ONE Stop: 10/26/16 14:33 Last Admin: 10/26/16 15:29 Dose: 4 mg - Exam GI/Abdominal Exam: Normal Bowel Sounds, Soft, Non-Tender, No Organomegaly, No Distention, No Abnormal Bruit, No Mass, Pelvis Stable Consult PN Assessment/Plan Procedures: Procedures AIRWAY INHALATION TREATMENT (09/16/15) ASSAY OF CREATININE (09/17/13) ASSAY OF LACTIC ACID (10/14/16) ASSAY OF LIPASE (10/14/16) ASSAY OF MAGNESIUM (09/24/16) ASSAY OF TROPONIN QUANT (10/14/16) BLOOD CULTURE FOR BACTERIA (10/14/16) CHEST X-RAY 1 VIEW FRONTAL (09/16/15) CHEST X-RAY 2VW FRONTAL&LATL (09/16/15) COMPLETE CBC W/AUTO DIFF WBC (10/14/16) COMPREHEN METABOLIC PANEL (10/14/16) CT ABD & PELV W/CONTRAST (10/14/16) ELECTROCARDIOGRAM TRACING (10/14/16) EMERGENCY DEPT VISIT (10/14/16) EVALUATE PT USE OF INHALER (09/16/15) HYDRATE IV INFUSION ADD-ON (10/14/16) MEASURE BLOOD OXYGEN LEVEL (09/24/16) MEASURE BLOOD OXYGEN LEVEL (09/24/16) MEASURE BLOOD OXYGEN LEVEL (09/16/15) MEDICAL NUTRITION INDIV IN (05/14/14) METABOLIC PANEL TOTAL CA (09/24/16) OT EVAL LOW COMPLEX 30 MIN (09/24/16) PATH CONSULT INTRAOP 1 BLOC (09/22/13) PATH CONSULT INTRAOP ADDL (09/22/13) PT EVAL MOD COMPLEX 30 MIN (09/24/16) PT EVALUATION (09/16/15) ROUTINE VENIPUNCTURE (10/14/16) SELF CARE MNGMENT TRAINING (09/24/16) THER/PROPH/DIAG INJ IV PUSH (10/14/16) TISSUE EXAM BY PATHOLOGIST (09/22/13) TX/PRO/DX INJ NEW DRUG ADDON (10/14/16) URINALYSIS AUTO W/SCOPE (10/14/16) X-RAY EXAM OF ELBOW (09/16/15) X-RAY EXAM OF SHOULDER (09/16/15) X-RAY EXAM SERIES ABDOMEN (10/14/16) Problem List Initiated/Reviewed/Updated: Yes My Orders Last 24 Hours: My Active Orders 10/27/16 11:06 NG [Nasogastric Orogastric Tube Insertion] [OM.PC] Routine 10/27/16 11:28 Schedule Procedure [COMM] Routine 10/27/16 18:45 NG [Nasogastric Orogastric Tube Removal] [OM.PC] Routine 10/27/16 Dinner Clear Liquid Diet [DIET] 10/28/16 12:05 Sodium Chloride 0.9% [Saline Flush] 10 ml FLUSH ASDIRECTED PRN Convert IV to Saline Lock [OM.PC] Routine 10/28/16 Dinner Nothing per Oral After Midnight Diet [DIET] Soft Diet [DIET] 10/29/16 09:00 Verify Patient Consent Obtain [RC] ASDIRECTED Plan: doing well saline load test was neg C diff is neg ass stable plan advance diet saline lock IV and do EGD tomorrow
[2016-10-28] MEDS ORDERED: Magnesium Sulfate/Water 2 GM in Premix Bag 1 BAG IV ONE (13:45)
[2016-10-28] MEDS ORDERED: Sodium Chloride 0.9% 50 ML ONE (13:58)
[2016-10-28] MEDS ORDERED: diphenhydrAMINE 50 MG/ML SDV IVPUSH ONE (15:16)
[2016-10-28] MEDS ORDERED: Scopolamine 1.5 MG Transdermal Patch TOP ONE (15:17)
[2016-10-28] MEDS ORDERED: LORazepam 2 MG/ML MDV IVPUSH ONE (15:45)
[2016-10-28] MEDS ORDERED: HYDROmorphone 1 MG/ML Syringe IVPUSH ONE ×2 (16:16→16:34)
--- NOTE | 2016-10-28 16:27 | PCM.SN ---
- Free Text/Narrative Note: Patient started vomiting early this afternoon. She has been getting Zofran routinely without any improvement. Therefore, we tried Phenergan along with scopolamine patch. Unfortunately she reacted badly to the medications. Patient has been tremulous/shaking. She is also more distended than usual. Dr. Lauren has been notified about her symptoms. Will try to calm her down and possibly give her something to slow down her shakes. We may consider also narcotics since patient is on methadone.
[2016-10-28] MEDS: Aspirin 81 MG Tab.EC PO SCH (16:50)
--- NOTE | 2016-10-28 16:51 | CR ---
Abdomen: Supine view of the abdomen was obtained. Slight increased gas within the right colon and transverse colon is seen with left-sided the colon appearing collapsed. This can be seen normally. Calcifications are seen within pelvis compatible with phleboliths. Slight scoliosis and degenerative change is seen within the spine. Nasogastric tube is seen with tip lying slightly past the gastroesophageal junction. Impression: 1. Incidental findings as noted above. Diagnostic code #2
[2016-10-28] MEDS: LORazepam 0.5 MG Tab PO PRN (20:35)
[2016-10-28] MEDS: Hydrochlorothiazide 25 MG Tab PO SCH (23:45)
[2016-10-28] MEDS: Metoprolol Tartrate 50 MG Tab PO SCH (23:45)
[2016-10-28] MEDS: Donepezil 10 MG Tab PO SCH (23:45)
[2016-10-28] MEDS: Rosuvastatin 10 MG Tab PO SCH (23:45)
[2016-10-29] MEDS: Pantoprazole 40 MG Tab.CR PO SCH ×3 (00:55→21:31)
[2016-10-29] MEDS: Dextrose 5%-0.9% NaCl 1,000 ML IV SCH ×2 (02:39→16:55)
--- NOTE | 2016-10-29 08:33 | PCM.PREANE ---
Preanesthetic Assessment - Procedure Proposed Procedure: Diagnostic EGD - Anesthesia/Transfusion/Family Hx Anesthesia History: Prior Anesthesia Without Reaction Family History of Anesthesia Reaction: No Transfusion History: No Prior Transfusion(s) Additional History: Majority of information pulled from chart and son - Review of Systems General: No Symptoms Pulmonary: Shortness of Breath (COPD) Cardiovascular: Other (HTN, HLD) Gastrointestinal: No Symptoms Neurological: No Symptoms Other: Reports: Diabetes (DM2) - Physical Assessment NPO Status Date: 10/28/16 NPO Status Time: 12:00 Pulse: 55 O2 Sat by Pulse Oximetry: 93 Respiratory Rate: 18 Blood Pressure: 116/74 Temperature: 37.0 C Vital Signs: Last Vital Signs Temp 37.0 C 10/29/16 03:22 Pulse 55 L 10/29/16 03:22 Resp 18 10/29/16 03:22 BP 116/74 10/29/16 03:22 Pulse Ox 93 L 10/29/16 03:22 Height: 1.5 m Weight: 67.721 kg ASA Class: 3 Mental Status: Other (confused) Thyro-Mental Finger Breadths: 3 Mouth Opening Finger Breadths: 3 ROM/Head Extension: Full Lungs: Clear to Auscultation, Normal Respiratory Effort Cardiovascular: Regular Rate, Regular Rhythm - Lab Values: Laboratory Last Values WBC 7.49 K/mm3 (3.98-10.04) 10/29/16 05:52 RBC 3.80 M/mm3 (3.98-5.22) L 10/29/16 05:52 Hgb 11.2 gm/L (11.2-15.7) 10/29/16 05:52 Hct 35.0 % (34.1-44.9) 10/29/16 05:52 MCV 92.1 fl (79.4-94.8) 10/29/16 05:52 MCH 29.5 pg (25.6-32.2) 10/29/16 05:52 MCHC 32.0 g/dl (32.2-35.5) L 10/29/16 05:52 RDW Std Deviation 45.5 fL (36.4-46.3) 10/29/16 05:52 Plt Count 245 K/mm3 (182-369) 10/29/16 05:52 MPV 9.6 fl (9.4-12.3) 10/29/16 05:52 Neut % (Auto) 64.0 % (34.0-71.1) 10/29/16 05:52 Lymph % (Auto) 20.3 % (19.3-51.7) 10/29/16 05:52 [place] % (Auto) 13.2 % (4.7-12.5) H 10/29/16 05:52 Eos % (Auto) 2.1 (0.7-5.8) 10/29/16 05:52 Baso % (Auto) 0.3 % (0.1-1.2) 10/29/16 05:52 Neut # (Auto) 4.79 K/mm3 (1.56-6.13) 10/29/16 05:52 Lymph # (Auto) 1.52 K/mm3 (1.18-3.74) 10/29/16 05:52 [place] # (Auto) 0.99 K/mm3 (0.24-0.36) H 10/29/16 05:52 Eos # (Auto) 0.16 K/mm3 (0.04-0.36) 10/29/16 05:52 Baso # (Auto) 0.02 K/mm3 (0.01-0.08) 10/29/16 05:52 Sodium 144 mEq/L (136-145) 10/29/16 05:52 Potassium 3.7 mEq/L (3.5-5.1) 10/29/16 05:52 Chloride 108 mEq/L (98-107) H 10/29/16 05:52 Carbon Dioxide 30 mEq/L (21-32) 10/29/16 05:52 Anion Gap 9.7 (5-15) 10/29/16 05:52 BUN 4 mg/dL (7-18) L 10/29/16 05:52 Creatinine 0.6 mg/dL (0.55-1.02) 10/29/16 05:52 Est Cr Clr Drug Dosing 51.03 mL/min 10/29/16 05:52 Estimated GFR (MDRD) > 60 mL/min (>60) 10/29/16 05:52 BUN/Creatinine Ratio 6.7 (14-18) L 10/29/16 05:52 Glucose 133 mg/dL (83-115) H 10/29/16 05:52 Calcium 8.1 mg/dL (8.5-10.1) L 10/29/16 05:52 Magnesium 1.9 mg/dl (1.8-2.4) 10/29/16 05:52 Total Bilirubin 0.7 mg/dL (0.2-1.0) 10/26/16 15:14 AST 26 U/L (15-37) 10/26/16 15:14 ALT 35 U/L (14-59) 10/26/16 15:14 Alkaline Phosphatase 33 U/L (46-116) L 10/26/16 15:14 Total Protein 7.4 g/dl (6.4-8.2) 10/26/16 15:14 Albumin 3.7 g/dl (3.4-5.0) 10/26/16 15:14 Globulin 3.7 gm/dL 10/26/16 15:14 Albumin/Globulin Ratio 1.0 (1-2) 10/26/16 15:14 Lipase 106 U/L (73-393) 10/26/16 15:14 Urine Color Yellow (Yellow) 10/26/16 15:20 Urine Appearance Clear (Clear) 10/26/16 15:20 Urine pH 7.0 (5.0-8.0) 10/26/16 15:20 Ur Specific [place] 1.015 (1.005-1.030) 10/26/16 15:20 Urine Protein Negative (Negative) 10/26/16 15:20 Urine Glucose (UA) Negative (Negative) 10/26/16 15:20 Urine Ketones Negative (Negative) 10/26/16 15:20 Urine Occult Blood Negative (Negative) 10/26/16 15:20 Urine Nitrite Negative (Negative) 10/26/16 15:20 Urine Bilirubin Negative (Negative) 10/26/16 15:20 Urine Urobilinogen 0.2 (0.2-1.0) 10/26/16 15:20 Ur Leukocyte Esterase Negative (Negative) 10/26/16 15:20 Urine RBC 0-5 /hpf (0-5) 10/26/16 15:20 Urine WBC 0-5 /hpf (0-5) 10/26/16 15:20 Ur Epithelial Cells 0-5 /hpf (0-5) 08/04/17 15:20 Urine Bacteria Few /hpf (FEW) 10/26/16 15:20 Urine Mucus Few /hpf (FEW) 10/26/16 15:20 C.difficile [id number] Presumptive negative 10/27/16 17:30 C. difficile Tox (PCR) Negative 10/27/16 17:30 - Allergies Allergies/Adverse Reactions: Allergies Allergy/AdvReac Type Severity Reaction Status Date / Time venom-honey bee Allergy Swelling Verified 10/26/16 14:17 [bee venom (honey bee)] cefadroxil hydrate AdvReac Intermediate Rash Verified 10/29/16 07:33 [From Duricef] promethazine [From Phenergan] AdvReac Agitation Verified 10/29/16 07:06 - Blood Blood Available: No Product(s) Available: None - Anesthesia Plan Pre-Op Medication Ordered: None - Acknowledgements Anesthesia Type Planned: MAC Pt an Appropriate Candidate for the Planned Anesthesia: Yes Alternatives and Risks of Anesthesia Discussed w Pt/Guardian: Yes Pt/Guardian Understands and Agrees with Anesthesia Plan: Yes PreAnesthesia Questionnaire - Past Health History Medical/Surgical History: Denies Medical/Surgical History HEENT History: Reports: Cataract 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 OB/BYN History: 4 pregnancies Musculoskeletal History: Reports: Arthritis, Osteoporosis Neurological History: Reports: Other (See Below) Other Neuro History: Dementia Psychiatric History: Reports: Dementia Endocrine/Metabolic History: Reports: Diabetes, Type II Hematologic History: Reports: None Oncologic (Cancer) History: Reports: None, Squamous Cell Carcinoma Other Oncologic History: chin lip area - Infectious Disease History Infectious Disease History: Reports: Measles, Mumps - Past Surgical History HEENT Surgical History: Reports: Adenoidectomy, Cataract Surgery, Tonsillectomy Female Surgical History: Reports: Hysterectomy, Salpingo-Oophorectomy Dermatological Surgical History: Reports: Skin Graft - SUBSTANCE USE Smoking Status *Q: Never Smoker Tobacco Use Within Last Twelve Months: Cigarettes Second Hand Smoke Exposure: No Recreational Drug Use History: No - HOME MEDS Home Medications: Home Meds Aspirin [Halfprin] 81 mg PO ACDINNER 09/16/15 [History] Donepezil HCl [Aricept] 10 mg PO BEDTIME 09/16/15 [History] Escitalopram Oxalate 20 mg PO DAILY 09/16/15 [History] Fenofibrate Nanocrystallized [Fenofibrate] 48 mg PO DAILY 09/16/15 [History] Methadone 0.5 - 1 tab PO BEDTIME 09/16/15 [History] Omeprazole 20 mg PO BID 09/16/15 [History] Rosuvastatin [Crestor] 10 mg PO BEDTIME 09/16/15 [History] amLODIPine [Norvasc] 10 mg PO DAILY 09/16/15 [History] metFORMIN [Glucophage XR] 500 mg PO ACDINNER 09/16/15 [History] Metoprolol/Hydrochlorothiazide [Metoprolol-HCTZ 50-25 MG] 1 tab PO BEDTIME 09/24 [History] Potassium Chloride 40 meq PO DAILY 09/24/16 [History] Budesonide/Formoterol Fumarate [Symbicort 160-4.5 Mcg Inhaler] 2 puff INH BID [History] Calcium Carbonate [Calcium] 1 tab PO ACLUNCH 10/28/16 [History] LORazepam [Ativan] 0.5 mg PO BID PRN 10/28/16 [History] Lutein/Minerals/Vit A,C & E [Ocuvite] 1 tab PO DAILY 10/28/16 [History] Multivitamin [Daily Multiple Vitamin] 1 tab PO DAILY 10/28/16 [History] Vitamin E 400 units PO DAILY 10/28/16 [History] - CURRENT (IN HOUSE) MEDS Current Meds: Current Medications Acetaminophen (Tylenol) 650 mg PO Q4H PRN PRN Reason: Pain (Mild 1-3)/fever Acetaminophen (Tylenol) 650 mg RECTAL Q4H PRN PRN Reason: Pain (mild 1-3) Acetaminophen/Butalbital/Caffeine (Fioricet 325-50-40 Mg) 1 tab PO Q6H PRN PRN Reason: Headache Last Admin: 10/28/16 10:30 Dose: 1 tab Hydrocodone Bitart/Acetaminophen ([place] 325-5 Mg) 1 tab PO Q4H PRN PRN Reason: Pain (moderate 4-6) Albuterol/Ipratropium (Duoneb 3.0-0.5 Mg/3 Ml) 3 ml NEB Q4H PRN PRN Reason: Shortness Of Breath/wheezing Amlodipine Besylate (Norvasc) 10 mg PO DAILY [facility] Last Admin: 10/28/16 08:05 Dose: 10 mg Aspirin (Halfprin) 81 mg PO ACDINNER [facility] Last Admin: 10/28/16 16:50 Dose: Not Given Bisacodyl (Dulcolax) 5 mg PO DAILY PRN PRN Reason: Constipation Citalopram Hydrobromide (Celexa) 40 mg PO DAILY [facility] Last Admin: 10/28/16 08:04 Dose: 40 mg Docusate Sodium (Colace) 100 mg PO BID PRN PRN Reason: Constipation Docusate Sodium (Colace) 100 mg PO BID [facility] Last Admin: 10/28/16 20:49 Dose: Not Given Donepezil HCl (Aricept) 10 mg PO BEDTIME [facility] Last Admin: 10/28/16 23:45 Dose: 10 mg Fenofibrate (Fenofibrate) 54 mg PO DAILY [facility] Hydralazine HCl (Apresoline) 10 mg IVPUSH Q4H PRN PRN Reason: Hypertension Hydrochlorothiazide (Hydrochlorothiazide) 25 mg PO BEDTIME [facility] Last Admin: 10/28/16 23:45 Dose: 25 mg Hydromorphone HCl (Dilaudid) 0.25 mg IVPUSH Q2H PRN PRN Reason: Pain (severe 7-10) Dextrose/Sodium Chloride (Dextrose 5%-Normal Saline) 1,000 mls @ 100 mls/hr IV ASDIRECTED [facility] Last Admin: 10/29/16 02:39 Dose: 100 mls/hr Lorazepam (Ativan) 2 mg IVPUSH Q4H PRN PRN Reason: Seizures Lorazepam (Ativan) 0.25 mg IV Q6H PRN PRN Reason: Agitation Last Admin: 10/28/16 15:04 Dose: 0.25 mg Lorazepam (Ativan) 0.5 mg PO BID PRN PRN Reason: Anxiety Magnesium Sulfate (Pharmacy To Dose - Magnesium Replacement) 1 dose .XX ASDIRECTED [facility] Metoprolol Tartrate (Lopressor) 5 mg IVPUSH Q4H PRN PRN Reason: Tachycardia Metoprolol Tartrate (Lopressor) 50 mg PO BEDTIME [facility] Last Admin: 10/28/16 23:45 Dose: 50 mg Mometasone Furoate/Formoterol Fumar (Dulera 100-5 Mcg) 0 puff IH DAILY [facility] Last Admin: 10/28/16 09:43 Dose: 2 puff Multivitamins (Thera) 1 each PO DAILY [facility] Last Admin: 10/28/16 08:04 Dose: 1 each Ondansetron HCl (Zofran) 4 mg IV Q6H PRN PRN Reason: Nausea/Vomiting Last Admin: 10/28/16 09:21 Dose: 4 mg Pantoprazole Sodium (Protonix) 40 mg PO BID [facility] Last Admin: 10/29/16 00:55 Dose: Not Given Polyethylene Glycol (Miralax) 17 gm PO DAILY PRN PRN Reason: Constipation Potassium Chloride (Pharmacy To Dose - Potassium Replacement) 1 dose .XX ASDIRECTED [facility] Potassium Chloride (Klor-Con M20) 40 meq PO DAILY [facility] Last Admin: 10/28/16 08:04 Dose: 40 meq Rosuvastatin Calcium (Crestor) 10 mg PO BEDTIME [facility] Last Admin: 10/28/16 23:45 Dose: 10 mg Senna/Docusate Sodium (Senna Plus) 1 tab PO BID PRN PRN Reason: Constipation Sodium Chloride (Saline Flush) 10 ml FLUSH ASDIRECTED PRN PRN Reason: Keep Vein Open Temazepam (Restoril) 7.5 mg PO BEDTIME PRN PRN Reason: Insomnia Last Admin: 10/27/16 21:29 Dose: 7.5 mg Vit A/Vit C/Vit E/Selen/Cu/Zn/Lutei (Icaps Mv) 1 tab PO DAILY [facility] Discontinued Medications Diphenhydramine HCl (Benadryl) 25 mg IVPUSH ONETIME ONE Stop: 10/26/16 18:48 Last Admin: 10/26/16 18:51 Dose: 25 mg Diphenhydramine HCl (Benadryl) 25 mg IVPUSH ONETIME ONE Stop: 10/28/16 15:17 Last Admin: 10/28/16 15:24 Dose: 25 mg Hydromorphone HCl (Dilaudid) 0.5 mg IVPUSH ONETIME ONE Stop: 10/28/16 16:35 Last Admin: 10/28/16 16:46 Dose: 0.5 mg Sodium Chloride (Normal Saline) 500 mls @ 1,000 mls/hr IV ONETIME ONE Stop: 10/26/16 15:01 Last Admin: 10/26/16 15:28 Dose: 1,000 mls/hr Promethazine HCl 12.5 mg/ (Sodium Chloride) 50.5 mls @ 100 mls/hr IV Q6H PRN PRN Reason: Nausea/Vomiting Last Admin: 10/28/16 14:07 Dose: 100 mls/hr Dextrose/Sodium Chloride (Dextrose 5%-Normal Saline) 1,000 mls @ 100 mls/hr IV ASDIRECTED [facility] Last Admin: 10/28/16 06:50 Dose: 100 mls/hr Magnesium Sulfate 2 gm/ Premix 50 mls @ 50 mls/hr IV ONETIME ONE Stop: 10/27/16 10:44 Last Admin: 10/27/16 11:01 Dose: 50 mls/hr Magnesium Sulfate 2 gm/ Premix 50 mls @ 50 mls/hr IV ONETIME ONE Stop: 10/28/16 14:44 Last Admin: 10/28/16 14:56 Dose: 50 mls/hr Sodium Chloride (Normal Saline) Confirm Administered Dose 50 mls @ as directed .ROUTE .STK-MED ONE Stop: 10/28/16 13:59 Last Admin: 10/28/16 17:25 Dose: Not Given Lorazepam (Ativan) 0.25 mg IVPUSH ONETIME ONE Stop: 10/26/16 21:37 Last Admin: 10/26/16 21:59 Dose: 0.25 mg Lorazepam (Ativan) 1 mg IVPUSH ONETIME ONE Stop: 10/28/16 15:46 Last Admin: 10/28/16 15:57 Dose: 1 mg Metoclopramide HCl (Reglan) 10 mg PO ONETIME ONE Stop: 10/26/16 18:36 Last Admin: 10/27/16 11:43 Dose: Not Given Metoclopramide HCl (Reglan) 10 mg IVPUSH ONETIME ONE Stop: 10/26/16 18:42 Last Admin: 10/26/16 18:55 Dose: 10 mg Non-Formulary Medication (Guaifenesin/Pseudoephedrne Hcl) 1 each PO BID PRN PRN Reason: Other Ondansetron HCl (Zofran) 4 mg IVPUSH ONETIME ONE Stop: 10/26/16 14:33 Last Admin: 10/26/16 15:29 Dose: 4 mg Pantoprazole Sodium (Protonix) 20 mg PO BID [facility] Last Admin: 10/28/16 08:04 Dose: 20 mg Scopolamine (Transderm-Scop) 1.5 mg TOP ONETIME ONE Stop: 10/28/16 15:18 Last Admin: 10/28/16 15:27 Dose: 1.5 mg Temazepam (Restoril) 7.5 mg PO BEDTIME PRN PRN Reason: Sleep
--- NOTE | 2016-10-29 08:53 | PCM.PN ---
- General Info Date of Service: 10/29/16 Admission Dx/Problem (Free Text): Intractable Nausea and Vomiting Subjective Update: Follow Up Functional Status: Reports: Pain Controlled, Ambulating. Denies: Tolerating Diet, Urinating - Review of Systems General: Denies: Fever, Weakness, Fatigue, Malaise, Chills, Night Sweats HEENT: Reports: No Symptoms Pulmonary: Denies: Shortness of Breath Cardiovascular: Denies: Chest Pain Gastrointestinal: Denies: Abdominal Pain, Nausea, Vomiting Genitourinary: Reports: No Symptoms Musculoskeletal: Reports: No Symptoms Skin: Denies: Cyanosis, Jaundice Neurological: Reports: Confusion (baseline). Denies: Difficulty Walking, Weakness, Gait Disturbance Psychiatric: Denies: Anxiety, Agitation, Suicidal Ideation Systems Review Comment:: No significant overnight or acute issues. She is relatively stable. She has no new complaints. - Patient Data Vitals - Most Recent: Last Vital Signs Temp 37.6 C 10/29/16 08:36 Pulse 65 10/29/16 08:36 Resp 12 10/29/16 08:36 BP 128/63 10/29/16 08:36 Pulse Ox 97 10/29/16 08:36 Weight - Most Recent: 67.721 kg I&O - Last 24 Hours: Intake & Output 10/28/16 10/29/16 10/29/16 22:59 06:59 14:59 Intake Total 918 1138 Output Total 2340 900 Balance -1422 238 Lab Results Last 24 Hours: Laboratory Results - last 24 hr 10/28/16 10/29/16 10/29/16 Range/Units 18:20 05:52 05:52 WBC 7.49 (3.98-10.04) K/mm3 RBC 3.80 L (3.98-5.22) M/mm3 Hgb 11.2 (11.2-15.7) gm/L Hct 35.0 (34.1-44.9) % MCV 92.1 (79.4-94.8) fl MCH 29.5 (25.6-32.2) pg MCHC 32.0 L (32.2-35.5) g/dl RDW Std Deviation 45.5 (36.4-46.3) fL Plt Count 245 (182-369) K/mm3 MPV 9.6 (9.4-12.3) fl Neut % (Auto) 64.0 (34.0-71.1) % Lymph % (Auto) 20.3 (19.3-51.7) % [place] % (Auto) 13.2 H (4.7-12.5) % Eos % (Auto) 2.1 (0.7-5.8) Baso % (Auto) 0.3 (0.1-1.2) % Neut # (Auto) 4.79 (1.56-6.13) K/mm3 Lymph # (Auto) 1.52 (1.18-3.74) K/mm3 [place] # (Auto) 0.99 H (0.24-0.36) K/mm3 Eos # (Auto) 0.16 (0.04-0.36) K/mm3 Baso # (Auto) 0.02 (0.01-0.08) K/mm3 Sodium 144 144 (136-145) mEq/L Potassium 3.7 3.7 (3.5-5.1) mEq/L Chloride 110 H 108 H (98-107) mEq/L Carbon Dioxide 28 30 (21-32) mEq/L Anion Gap 9.7 9.7 (5-15) BUN 3 L 4 L (7-18) mg/dL Creatinine 0.7 0.6 (0.55-1.02) mg/dL Est Cr Clr Drug Dosing 43.74 51.03 mL/min Estimated GFR (MDRD) > 60 > 60 (>60) mL/min BUN/Creatinine Ratio 4.3 L 6.7 L (14-18) Glucose 130 H 133 H (83-115) mg/dL Calcium 8.2 L 8.1 L (8.5-10.1) mg/dL Magnesium 1.8 1.9 (1.8-2.4) mg/dl Med Orders - Current: Current Medications Acetaminophen (Tylenol) 650 mg PO Q4H PRN PRN Reason: Pain (Mild 1-3)/fever Acetaminophen (Tylenol) 650 mg RECTAL Q4H PRN PRN Reason: Pain (mild 1-3) Acetaminophen/Butalbital/Caffeine (Fioricet 325-50-40 Mg) 1 tab PO Q6H PRN PRN Reason: Headache Last Admin: 10/28/16 10:30 Dose: 1 tab Hydrocodone Bitart/Acetaminophen ([place] 325-5 Mg) 1 tab PO Q4H PRN PRN Reason: Pain (moderate 4-6) Albuterol/Ipratropium (Duoneb 3.0-0.5 Mg/3 Ml) 3 ml NEB Q4H PRN PRN Reason: Shortness Of Breath/wheezing Amlodipine Besylate (Norvasc) 10 mg PO DAILY [facility] Last Admin: 10/28/16 08:05 Dose: 10 mg Aspirin (Halfprin) 81 mg PO ACDINNER [facility] Last Admin: 10/28/16 16:50 Dose: Not Given Bisacodyl (Dulcolax) 5 mg PO DAILY PRN PRN Reason: Constipation Citalopram Hydrobromide (Celexa) 40 mg PO DAILY [facility] Last Admin: 10/28/16 08:04 Dose: 40 mg Docusate Sodium (Colace) 100 mg PO BID PRN PRN Reason: Constipation Docusate Sodium (Colace) 100 mg PO BID [facility] Last Admin: 10/28/16 20:49 Dose: Not Given Donepezil HCl (Aricept) 10 mg PO BEDTIME [facility] Last Admin: 10/28/16 23:45 Dose: 10 mg Fenofibrate (Fenofibrate) 54 mg PO DAILY [facility] Hydralazine HCl (Apresoline) 10 mg IVPUSH Q4H PRN PRN Reason: Hypertension Hydrochlorothiazide (Hydrochlorothiazide) 25 mg PO BEDTIME [facility] Last Admin: 10/28/16 23:45 Dose: 25 mg Hydromorphone HCl (Dilaudid) 0.25 mg IVPUSH Q2H PRN PRN Reason: Pain (severe 7-10) Dextrose/Sodium Chloride (Dextrose 5%-Normal Saline) 1,000 mls @ 100 mls/hr IV ASDIRECTED [facility] Last Admin: 10/29/16 02:39 Dose: 100 mls/hr Lorazepam (Ativan) 2 mg IVPUSH Q4H PRN PRN Reason: Seizures Lorazepam (Ativan) 0.25 mg IV Q6H PRN PRN Reason: Agitation Last Admin: 10/28/16 15:04 Dose: 0.25 mg Lorazepam (Ativan) 0.5 mg PO BID PRN PRN Reason: Anxiety Magnesium Sulfate (Pharmacy To Dose - Magnesium Replacement) 1 dose .XX ASDIRECTED [facility] Metoprolol Tartrate (Lopressor) 5 mg IVPUSH Q4H PRN PRN Reason: Tachycardia Metoprolol Tartrate (Lopressor) 50 mg PO BEDTIME [facility] Last Admin: 10/28/16 23:45 Dose: 50 mg Mometasone Furoate/Formoterol Fumar (Dulera 100-5 Mcg) 0 puff IH DAILY [facility] Last Admin: 10/28/16 09:43 Dose: 2 puff Multivitamins (Thera) 1 each PO DAILY [facility] Last Admin: 10/28/16 08:04 Dose: 1 each Ondansetron HCl (Zofran) 4 mg IV Q6H PRN PRN Reason: Nausea/Vomiting Last Admin: 10/28/16 09:21 Dose: 4 mg Pantoprazole Sodium (Protonix) 40 mg PO BID [facility] Last Admin: 10/29/16 00:55 Dose: Not Given Polyethylene Glycol (Miralax) 17 gm PO DAILY PRN PRN Reason: Constipation Potassium Chloride (Pharmacy To Dose - Potassium Replacement) 1 dose .XX ASDIRECTED [facility] Potassium Chloride (Klor-Con M20) 40 meq PO DAILY [facility] Last Admin: 10/28/16 08:04 Dose: 40 meq Rosuvastatin Calcium (Crestor) 10 mg PO BEDTIME [facility] Last Admin: 10/28/16 23:45 Dose: 10 mg Senna/Docusate Sodium (Senna Plus) 1 tab PO BID PRN PRN Reason: Constipation Sodium Chloride (Saline Flush) 10 ml FLUSH ASDIRECTED PRN PRN Reason: Keep Vein Open Temazepam (Restoril) 7.5 mg PO BEDTIME PRN PRN Reason: Insomnia Last Admin: 10/27/16 21:29 Dose: 7.5 mg Vit A/Vit C/Vit E/Selen/Cu/Zn/Lutei (Icaps Mv) 1 tab PO DAILY [facility] Discontinued Medications Diphenhydramine HCl (Benadryl) 25 mg IVPUSH ONETIME ONE Stop: 10/26/16 18:48 Last Admin: 10/26/16 18:51 Dose: 25 mg Diphenhydramine HCl (Benadryl) 25 mg IVPUSH ONETIME ONE Stop: 10/28/16 15:17 Last Admin: 10/28/16 15:24 Dose: 25 mg Hydromorphone HCl (Dilaudid) 0.5 mg IVPUSH ONETIME ONE Stop: 10/28/16 16:35 Last Admin: 10/28/16 16:46 Dose: 0.5 mg Sodium Chloride (Normal Saline) 500 mls @ 1,000 mls/hr IV ONETIME ONE Stop: 10/26/16 15:01 Last Admin: 10/26/16 15:28 Dose: 1,000 mls/hr Promethazine HCl 12.5 mg/ (Sodium Chloride) 50.5 mls @ 100 mls/hr IV Q6H PRN PRN Reason: Nausea/Vomiting Last Admin: 10/28/16 14:07 Dose: 100 mls/hr Dextrose/Sodium Chloride (Dextrose 5%-Normal Saline) 1,000 mls @ 100 mls/hr IV ASDIRECTED [facility] Last Admin: 10/28/16 06:50 Dose: 100 mls/hr Magnesium Sulfate 2 gm/ Premix 50 mls @ 50 mls/hr IV ONETIME ONE Stop: 10/27/16 10:44 Last Admin: 10/27/16 11:01 Dose: 50 mls/hr Magnesium Sulfate 2 gm/ Premix 50 mls @ 50 mls/hr IV ONETIME ONE Stop: 10/28/16 14:44 Last Admin: 10/28/16 14:56 Dose: 50 mls/hr Sodium Chloride (Normal Saline) Confirm Administered Dose 50 mls @ as directed .ROUTE .STK-MED ONE Stop: 10/28/16 13:59 Last Admin: 10/28/16 17:25 Dose: Not Given Lorazepam (Ativan) 0.25 mg IVPUSH ONETIME ONE Stop: 10/26/16 21:37 Last Admin: 10/26/16 21:59 Dose: 0.25 mg Lorazepam (Ativan) 1 mg IVPUSH ONETIME ONE Stop: 10/28/16 15:46 Last Admin: 10/28/16 15:57 Dose: 1 mg Metoclopramide HCl (Reglan) 10 mg PO ONETIME ONE Stop: 10/26/16 18:36 Last Admin: 10/27/16 11:43 Dose: Not Given Metoclopramide HCl (Reglan) 10 mg IVPUSH ONETIME ONE Stop: 10/26/16 18:42 Last Admin: 10/26/16 18:55 Dose: 10 mg Non-Formulary Medication (Guaifenesin/Pseudoephedrne Hcl) 1 each PO BID PRN PRN Reason: Other Ondansetron HCl (Zofran) 4 mg IVPUSH ONETIME ONE Stop: 10/26/16 14:33 Last Admin: 10/26/16 15:29 Dose: 4 mg Pantoprazole Sodium (Protonix) 20 mg PO BID [facility] Last Admin: 10/28/16 08:04 Dose: 20 mg Scopolamine (Transderm-Scop) 1.5 mg TOP ONETIME ONE Stop: 10/28/16 15:18 Last Admin: 10/28/16 15:27 Dose: 1.5 mg Temazepam (Restoril) 7.5 mg PO BEDTIME PRN PRN Reason: Sleep - Exam General: Alert, Cooperative, No Acute Distress HEENT: Pupils Equal, Pupils Reactive, Mucous Membr. Moist/[place] Neck: Supple, Trachea Midline, No JVD, No Thyromegaly Lungs: Normal Respiratory Effort, Decreased Breath Sounds Cardiovascular: Regular Rate, Regular Rhythm GI/Abdominal Exam: Normal Bowel Sounds, Soft, Non-Tender, No Organomegaly, No Distention, No Abnormal Bruit, No Mass (Female) Exam: Deferred Back Exam: Normal Inspection, Decreased Range of Motion Extremities: Normal Inspection, Normal Range of Motion, Non-Tender, No Pedal Edema, Normal Capillary Refill Peripheral Pulses: 2+: Dorsalis Pedis (L), Dorsalis Pedis (R) Skin: Warm, Dry, Intact Neurological: No New Focal Deficit Psy/Mental Status: Alert, Normal Affect, Normal Mood - Problem List Review Problem List Initiated/Reviewed/Updated: Yes - My Orders Last 24 Hours: My Active Orders 10/28/16 15:15 LORazepam [Ativan] 0.5 mg PO BID PRN 10/28/16 16:15 Dextrose 5%-0.9% NaCl [Dextrose 5%-Normal Saline] 1,000 ml IV ASDIRECTED 10/28/16 21:00 Pantoprazole [ProTONIX] 40 mg PO BID 10/29/16 09:00 Fenofibrate 54 mg PO DAILY 10/30/16 05:11 BASIC METABOLIC PANEL,BMP [CHEM] AM CBC WITH AUTO DIFF [HEME] AM MAGNESIUM [CHEM] AM 10/31/16 05:11 CBC WITH AUTO DIFF [HEME] AM MAGNESIUM [CHEM] AM - Plan Plan:: Assessment/Plan: Acute: Intractable Nausea/Vomiting (Appears acute on chronic) - Unclear in etiology however she has had hx/o it in the past - Able to tolerate liquids but not solid - Risk Factors: GERD/Gastritis, DM, Chronic Opioid Use and +/- Metformin Side Effects - NPO except ice chips, sips of water and oral meds - Supportive Care and PRN anti-emesis - ED provider spoke to Dr. Conti: recommends barium wallow and EGD - Procedures will unlikely be done over the weekend - EGD this am High Risk Polypharmacy Resolved: Watery Diarrhea - Patient in on Bisacodyl PRN and Colace BID prophylaxis for opioid-induced constipation - Hold above meds - NPO for now S/p Acute Dystonia - ADR to Phenergan Chronic: HTN HLD GERD DM2 Dementios Depression Hx/o COPD Hx/o YAS Plan: She remains clinically stable Routine AM Labs Continue PT/OT GS consult: Dr. Conti Fall Precautions SW/CM for d/c planning Additional orders as above Code status: 1
[2016-10-29] MEDS: Formoterol/Mometasone 100-5 MCG 8.8 GM Inhaler IH SCH (09:55)
[2016-10-29] MEDS: amLODIPine 10 MG Tab PO SCH (10:00)
[2016-10-29] MEDS: Citalopram 20 MG Tab PO SCH (10:00)
[2016-10-29] MEDS: Fenofibrate 54 MG Tab PO SCH (10:00)
[2016-10-29] MEDS: Multivitamins,Therapeutic Tab PO SCH (10:00)
[2016-10-29] MEDS: Potassium Chloride 20 MEQ Tab.ER PO SCH (10:00)
[2016-10-29] MEDS: Multivitamins with Minerals/Folic Acid/Lutein/Zeaxanth Tab PO SCH (10:00)
[2016-10-29] MEDS: Docusate Sodium 100 MG Cap PO SCH ×2 (10:00→21:31)
[2016-10-29] MEDS ORDERED: fentaNYL 100 MCG/2 ML SDV ONE (11:19)
[2016-10-29] MEDS ORDERED: Propofol 200 MG/20 ML SDV ONE (11:20)
--- NOTE | 2016-10-29 12:23 | PCM.OPNOTE ---
- General Post-Op/Procedure Note Date of Surgery/Procedure: 10/29/16 Operative Procedure(s): EGD with bx Pre Op Diagnosis: vomiting Post-Op Diagnosis: Same Anesthesia Technique: MAC Primary Surgeon: Jose Conti EBL in mLs: 0 Complications: None Condition: Good Free Text/Narrative:: Intake & Output 10/28/16 10/29/16 10/29/16 23:59 07:59 15:59 Intake Total 918 1138 Output Total 2460 900 Balance -1422 238
--- NOTE | 2016-10-29 12:36 | PCM48HPAN ---
Post Anesthesia Note - EVALUATION WITHIN 48HRS OF ANESTHETIC Vital Signs in Normal Range: Yes Patient Participated in Evaluation: Yes Respiratory Function Stable: Yes Airway Patent: Yes Cardiovascular Function Stable: Yes Hydration Status Stable: Yes Pain Control Satisfactory: Yes Nausea and Vomiting Control Satisfactory: Yes Mental Status Recovered: Yes
[2016-10-29] MEDS ORDERED: Lidocaine 1% 4 ML ONE (12:38)
--- NOTE | 2016-10-29 12:39 | PCM.POSTAN ---
POST ANESTHESIA ASSESSMENT - VITAL SIGNS Pulse Rate: 63 SaO2: 89 Resp Rate: 19 Blood Pressure: 119/46 Temperature: 36.2 C - RESPIRATORY Respiratory Status: Respiratory Rate WNL, Airway Patent, Supplemental Oxygen - CARDIOVASCULAR CV Status: Pulse Rate WNL, Blood Pressure Stable - GASTROINTESTINAL GI Status: No Symptoms - PAIN Pain Score: 0 - POST OP HYDRATION Hydration Status: Adequate & Stable
[2016-10-29] MEDS: Aspirin 81 MG Tab.EC PO SCH (17:50)
[2016-10-29] MEDS: Donepezil 10 MG Tab PO SCH (21:30)
[2016-10-29] MEDS: Metoprolol Tartrate 50 MG Tab PO SCH (21:30)
[2016-10-29] MEDS: Hydrochlorothiazide 25 MG Tab PO SCH (21:31)
[2016-10-29] MEDS: Rosuvastatin 10 MG Tab PO SCH (21:31)
[2016-10-29] MEDS: Temazepam 7.5 MG Cap PO PRN (23:02)
--- NOTE | 2016-10-30 07:38 | PCM.PN ---
- General Info Date of Service: 10/30/16 Admission Dx/Problem (Free Text): Intractable Nausea and Vomiting Subjective Update: Follow Up Functional Status: Reports: Pain Controlled, Ambulating, Urinating - Review of Systems General: Denies: Fever, Weakness, Fatigue, Malaise, Chills HEENT: Reports: No Symptoms Pulmonary: Denies: Shortness of Breath Cardiovascular: Denies: Chest Pain Gastrointestinal: Reports: Nausea. Denies: Abdominal Pain, Vomiting Genitourinary: Reports: No Symptoms Musculoskeletal: Reports: No Symptoms Skin: Reports: No Symptoms Neurological: Reports: Confusion (baseline). Denies: Difficulty Walking, Weakness, Gait Disturbance Psychiatric: Denies: Depression, Anxiety, Hallucinations Systems Review Comment:: No overnight or acute issues. She is nauseous this morning but she had her breakfast. Her Mg is 1.6 and K is 3.3. She has no new complaints. - Patient Data Vitals - Most Recent: Last Vital Signs Temp 37.1 C 10/30/16 03:20 Pulse 52 L 10/30/16 03:20 Resp 16 10/30/16 03:20 BP 144/48 H 10/30/16 03:20 Pulse Ox 98 10/30/16 03:20 Weight - Most Recent: 66.497 kg I&O - Last 24 Hours: Intake & Output 10/29/16 10/30/16 10/30/16 22:59 06:59 14:59 Intake Total 1360 700 Output Total 2300 3500 Balance -940 -2800 Lab Results Last 24 Hours: Laboratory Results - last 24 hr 10/30/16 10/30/16 10/30/16 Range/Units 04:59 04:59 04:59 WBC 6.68 (3.98-10.04) K/mm3 RBC 3.88 L (3.98-5.22) M/mm3 Hgb 11.5 (11.2-15.7) gm/L Hct 34.9 (34.1-44.9) % MCV 89.9 (79.4-94.8) fl MCH 29.6 (25.6-32.2) pg MCHC 33.0 (32.2-35.5) g/dl RDW Std Deviation 43.1 (36.4-46.3) fL Plt Count 257 (182-369) K/mm3 MPV 9.4 (9.4-12.3) fl Neut % (Auto) 58.4 (34.0-71.1) % Lymph % (Auto) 25.6 (19.3-51.7) % Cooper % (Auto) 11.7 (4.7-12.5) % Eos % (Auto) 3.6 (0.7-5.8) Baso % (Auto) 0.4 (0.1-1.2) % Neut # (Auto) 3.90 (1.56-6.13) K/mm3 Lymph # (Auto) 1.71 (1.18-3.74) K/mm3 Cooper # (Auto) 0.78 H (0.24-0.36) K/mm3 Eos # (Auto) 0.24 (0.04-0.36) K/mm3 Baso # (Auto) 0.03 (0.01-0.08) K/mm3 Sodium 142 (136-145) mEq/L Potassium 3.3 L (3.5-5.1) mEq/L Chloride 103 (98-107) mEq/L Carbon Dioxide 31 (21-32) mEq/L Anion Gap 11.3 (5-15) BUN 4 L (7-18) mg/dL Creatinine 0.7 (0.55-1.02) mg/dL Est Cr Clr Drug Dosing 43.74 mL/min Estimated GFR (MDRD) > 60 (>60) mL/min BUN/Creatinine Ratio 5.7 L (14-18) Glucose 106 (83-115) mg/dL Calcium 8.6 (8.5-10.1) mg/dL Magnesium 1.6 L (1.8-2.4) mg/dl Vitamin B12 533 (193-986) pg/ml Med Orders - Current: Current Medications Acetaminophen (Tylenol) 650 mg PO Q4H PRN PRN Reason: Pain (Mild 1-3)/fever Acetaminophen (Tylenol) 650 mg RECTAL Q4H PRN PRN Reason: Pain (mild 1-3) Acetaminophen/Butalbital/Caffeine (Fioricet 325-50-40 Mg) 1 tab PO Q6H PRN PRN Reason: Headache Last Admin: 10/28/16 10:30 Dose: 1 tab Hydrocodone Bitart/Acetaminophen ([place]ty 325-5 Mg) 1 tab PO Q4H PRN PRN Reason: Pain (moderate 4-6) Albuterol/Ipratropium (Duoneb 3.0-0.5 Mg/3 Ml) 3 ml NEB Q4H PRN PRN Reason: Shortness Of Breath/wheezing Amlodipine Besylate (Norvasc) 10 mg PO DAILY [facility] Last Admin: 10/29/16 10:00 Dose: Not Given Aspirin (Halfprin) 81 mg PO ACDINNER [facility] Last Admin: 10/29/16 17:50 Dose: 81 mg Bisacodyl (Dulcolax) 5 mg PO DAILY PRN PRN Reason: Constipation Citalopram Hydrobromide (Celexa) 40 mg PO DAILY [facility] Last Admin: 10/29/16 10:00 Dose: Not Given Docusate Sodium (Colace) 100 mg PO BID PRN PRN Reason: Constipation Docusate Sodium (Colace) 100 mg PO BID [facility] Last Admin: 10/29/16 21:31 Dose: Not Given Donepezil HCl (Aricept) 10 mg PO BEDTIME [facility] Last Admin: 10/29/16 21:30 Dose: 10 mg Fenofibrate (Fenofibrate) 54 mg PO DAILY [facility] Last Admin: 10/29/16 10:00 Dose: Not Given Hydralazine HCl (Apresoline) 10 mg IVPUSH Q4H PRN PRN Reason: Hypertension Hydrochlorothiazide (Hydrochlorothiazide) 25 mg PO BEDTIME [facility] Last Admin: 10/29/16 21:31 Dose: 25 mg Hydromorphone HCl (Dilaudid) 0.25 mg IVPUSH Q2H PRN PRN Reason: Pain (severe 7-10) Lorazepam (Ativan) 2 mg IVPUSH Q4H PRN PRN Reason: Seizures Lorazepam (Ativan) 0.25 mg IV Q6H PRN PRN Reason: Agitation Last Admin: 10/28/16 15:04 Dose: 0.25 mg Lorazepam (Ativan) 0.5 mg PO BID PRN PRN Reason: Anxiety Magnesium Sulfate (Pharmacy To Dose - Magnesium Replacement) 1 dose .XX ASDIRECTED [facility] Metoprolol Tartrate (Lopressor) 5 mg IVPUSH Q4H PRN PRN Reason: Tachycardia Metoprolol Tartrate (Lopressor) 50 mg PO BEDTIME [facility] Last Admin: 10/29/16 21:30 Dose: 50 mg Mometasone Furoate/Formoterol Fumar (Dulera 100-5 Mcg) 0 puff IH DAILY [facility] Last Admin: 10/29/16 09:55 Dose: 2 puff Multivitamins (Thera) 1 each PO DAILY [facility] Last Admin: 10/29/16 10:00 Dose: Not Given Ondansetron HCl (Zofran) 4 mg IV Q6H PRN PRN Reason: Nausea/Vomiting Last Admin: 10/28/16 09:21 Dose: 4 mg Pantoprazole Sodium (Protonix) 40 mg PO BID [facility] Last Admin: 10/29/16 21:31 Dose: 40 mg Polyethylene Glycol (Miralax) 17 gm PO DAILY PRN PRN Reason: Constipation Potassium Chloride (Pharmacy To Dose - Potassium Replacement) 1 dose .XX ASDIRECTED [facility] Potassium Chloride (Klor-Con M20) 40 meq PO DAILY [facility] Last Admin: 10/29/16 10:00 Dose: Not Given Rosuvastatin Calcium (Crestor) 10 mg PO BEDTIME [facility] Last Admin: 10/29/16 21:31 Dose: 10 mg Senna/Docusate Sodium (Senna Plus) 1 tab PO BID PRN PRN Reason: Constipation Sodium Chloride (Saline Flush) 10 ml FLUSH ASDIRECTED PRN PRN Reason: Keep Vein Open Temazepam (Restoril) 7.5 mg PO BEDTIME PRN PRN Reason: Insomnia Last Admin: 10/29/16 23:02 Dose: 7.5 mg Vit A/Vit C/Vit E/Selen/Cu/Zn/Lutei (Icaps Mv) 1 tab PO DAILY [facility] Last Admin: 10/29/16 10:00 Dose: Not Given Discontinued Medications Diphenhydramine HCl (Benadryl) 25 mg IVPUSH ONETIME ONE Stop: 10/26/16 18:48 Last Admin: 10/26/16 18:51 Dose: 25 mg Diphenhydramine HCl (Benadryl) 25 mg IVPUSH ONETIME ONE Stop: 10/28/16 15:17 Last Admin: 10/28/16 15:24 Dose: 25 mg Fentanyl (Sublimaze) Confirm Administered Dose 100 mcg .ROUTE .STK-MED ONE Stop: 10/29/16 11:20 Hydromorphone HCl (Dilaudid) 0.5 mg IVPUSH ONETIME ONE Stop: 10/28/16 16:35 Last Admin: 10/28/16 16:46 Dose: 0.5 mg Sodium Chloride (Normal Saline) 500 mls @ 1,000 mls/hr IV ONETIME ONE Stop: 10/26/16 15:01 Last Admin: 10/26/16 15:28 Dose: 1,000 mls/hr Promethazine HCl 12.5 mg/ (Sodium Chloride) 50.5 mls @ 100 mls/hr IV Q6H PRN PRN Reason: Nausea/Vomiting Last Admin: 10/28/16 14:07 Dose: 100 mls/hr Dextrose/Sodium Chloride (Dextrose 5%-Normal Saline) 1,000 mls @ 100 mls/hr IV ASDIRECTED [facility] Last Admin: 10/28/16 06:50 Dose: 100 mls/hr Magnesium Sulfate 2 gm/ Premix 50 mls @ 50 mls/hr IV ONETIME ONE Stop: 10/27/16 10:44 Last Admin: 10/27/16 11:01 Dose: 50 mls/hr Magnesium Sulfate 2 gm/ Premix 50 mls @ 50 mls/hr IV ONETIME ONE Stop: 10/28/16 14:44 Last Admin: 10/28/16 14:56 Dose: 50 mls/hr Sodium Chloride (Normal Saline) Confirm Administered Dose 50 mls @ as directed .ROUTE .STK-MED ONE Stop: 10/28/16 13:59 Last Admin: 10/28/16 17:25 Dose: Not Given Dextrose/Sodium Chloride (Dextrose 5%-Normal Saline) 1,000 mls @ 100 mls/hr IV ASDIRECTED [facility] Last Admin: 10/29/16 16:55 Dose: 100 mls/hr Lidocaine HCl (Xylocaine-Mpf 1%) Confirm Administered Dose 4 mls @ as directed .ROUTE .STK-MED ONE Stop: 10/29/16 12:39 Lorazepam (Ativan) 0.25 mg IVPUSH ONETIME ONE Stop: 10/26/16 21:37 Last Admin: 10/26/16 21:59 Dose: 0.25 mg Lorazepam (Ativan) 1 mg IVPUSH ONETIME ONE Stop: 10/28/16 15:46 Last Admin: 10/28/16 15:57 Dose: 1 mg Metoclopramide HCl (Reglan) 10 mg PO ONETIME ONE Stop: 10/26/16 18:36 Last Admin: 10/27/16 11:43 Dose: Not Given Metoclopramide HCl (Reglan) 10 mg IVPUSH ONETIME ONE Stop: 10/26/16 18:42 Last Admin: 10/26/16 18:55 Dose: 10 mg Non-Formulary Medication (Guaifenesin/Pseudoephedrne Hcl) 1 each PO BID PRN PRN Reason: Other Ondansetron HCl (Zofran) 4 mg IVPUSH ONETIME ONE Stop: 10/26/16 14:33 Last Admin: 10/26/16 15:29 Dose: 4 mg Pantoprazole Sodium (Protonix) 20 mg PO BID [facility] Last Admin: 10/28/16 08:04 Dose: 20 mg Propofol (Diprivan 20 Ml) Confirm Administered Dose 200 mg .ROUTE .STK-MED ONE Stop: 10/29/16 11:21 Scopolamine (Transderm-Scop) 1.5 mg TOP ONETIME ONE Stop: 10/28/16 15:18 Last Admin: 10/28/16 15:27 Dose: 1.5 mg Temazepam (Restoril) 7.5 mg PO BEDTIME PRN PRN Reason: Sleep - Exam General: Alert, Cooperative, No Acute Distress HEENT: Pupils Equal, Pupils Reactive, EOMI, Mucous Membr. Moist/[place] Neck: Supple, Trachea Midline, No JVD Lungs: Normal Respiratory Effort, Decreased Breath Sounds Cardiovascular: Regular Rate, Regular Rhythm GI/Abdominal Exam: Normal Bowel Sounds, Soft, Non-Tender, No Organomegaly, No Distention, No Abnormal Bruit, No Mass (Female) Exam: Deferred Back Exam: Normal Inspection, Decreased Range of Motion Extremities: Normal Inspection, Normal Range of Motion, Non-Tender, No Pedal Edema, Normal Capillary Refill Skin: Warm, Dry, Intact Neurological: No New Focal Deficit Psy/Mental Status: Alert, Normal Affect, Normal Mood - Problem List Review Problem List Initiated/Reviewed/Updated: Yes - My Orders Last 24 Hours: My Active Orders 10/29/16 09:00 Fenofibrate 54 mg PO DAILY 10/31/16 05:11 CBC WITH AUTO DIFF [HEME] AM MAGNESIUM [CHEM] AM - Plan Plan:: Assessment/Plan: Acute: Intractable Nausea/Vomiting (Appears acute on chronic), Improved - 2/2 Dumping Syndrome - Able to tolerate liquids but not solid - Risk Factors: GERD/Gastritis, Gastric Resection, DM, Chronic Opioid Use and +/- Metformin Side Effects - NPO except ice chips, sips of water and oral meds - Supportive Care and PRN anti-emesis - S/p EGD with benign findings - Still nauseous High Risk Polypharmacy Resolved: Watery Diarrhea - Patient in on Bisacodyl PRN and Colace BID prophylaxis for opioid-induced constipation - Hold above meds - NPO for now S/p Acute Dystonia - ADR to Phenergan Chronic: HTN HLD GERD DM2 Dementia Depression Hx/o COPD 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 Conti following Fall Precautions SW/CM for d/c planning Additional orders as above Code status: 1 If asymptomatic this afternoon, she could be safely discharged. If not, she stays. LOS > 96hrs due to persistent nausea. Consider barium swallow in am.
[2016-10-30] MEDS ORDERED: Magnesium Oxide 400 MG Tab PO ONE (08:30)
[2016-10-30] MEDS: Potassium Chloride 20 MEQ Tab.ER PO SCH ×3 (08:47→12:13)
[2016-10-30] MEDS: Docusate Sodium 100 MG Cap PO SCH ×2 (08:48→20:02)
[2016-10-30] MEDS: amLODIPine 10 MG Tab PO SCH (08:48)
[2016-10-30] MEDS: Citalopram 20 MG Tab PO SCH (08:48)
[2016-10-30] MEDS: Multivitamins,Therapeutic Tab PO SCH (08:48)
[2016-10-30] MEDS: Pantoprazole 40 MG Tab.CR PO SCH ×2 (08:49→20:03)
[2016-10-30] MEDS: Multivitamins with Minerals/Folic Acid/Lutein/Zeaxanth Tab PO SCH ×2 (08:49→08:50)
[2016-10-30] MEDS: Fenofibrate 54 MG Tab PO SCH (08:49)
[2016-10-30] MEDS: Formoterol/Mometasone 100-5 MCG 8.8 GM Inhaler IH SCH (09:08)
--- NOTE | 2016-10-30 09:11 | OR ---
DATE OF OPERATION: 10/29/2016 SURGEON: Jose Conti MD PREOPERATIVE DIAGNOSIS: Vomiting. POSTOPERATIVE DIAGNOSIS: Vomiting. OPERATION PERFORMED: Esophagogastroduodenoscopy with biopsy. FINDINGS: A gastric resection with Billroth I , which is widely patent without any obstruction, without any ulcerations and with good function of the antrum and contraction of the stomach. There was some redness in the gastric pouch. J- maneuver showed a small sliding hiatal hernia. GE junction is free of any acute disease located at 38 cm. The fundus and cardia did not show any pathology and the esophagus was viewed as scope was withdrawn was normal. ANESTHESIA: Procedure done under IV sedation. DESCRIPTION OF PROCEDURE: The patient was taken to the endoscopy room, placed in a supine position, connected to monitoring equipment, given IV sedation. Bite block was inserted and video Olympus gastroscope placed in a posterior oropharynx. Under direct vision, it was threaded, past the cricopharyngeus, down the esophagus, into the stomach. The stomach was insufflated and the scope passed through the pylorus to the second portion of the duodenum. Second portion of the duodenum was unremarkable. Duodenal bulb was gone as was the pyloric channel, the remaining portion of the antrum, body, and cardia and fundus. The stomach was viewed was remarkable only by some erythema, this was biopsied. No active ulcerations, obstructions, or bezoars were seen. J-maneuver showed a small sliding hiatal hernia. The scope withdrawn at the GE junction, located at 38 cm free of any acute disease, rest of the esophagus was seen and scope withdrawn was normal. The patient tolerated the procedure, sent to recovery room in a stable condition. Specimen, biopsies of the antrum were taken and sent to pathology for analysis. The patient tolerated the procedure, sent to recovery room in a stable condition and will be followed up as needed. ESTIMATED BLOOD LOSS: MMODAL /[id number]
[2016-10-30] MEDS: Ondansetron 4 MG/2 ML SDV IV PRN ×2 (10:41→17:50)
[2016-10-30] MEDS: Aspirin 81 MG Tab.EC PO SCH (16:20)
[2016-10-30] MEDS: hydrALAZINE 20 MG/ML SDV IVPUSH PRN (16:24)
[2016-10-30] MEDS: LORazepam 0.5 MG Tab PO PRN (19:57)
[2016-10-30] MEDS: Temazepam 7.5 MG Cap PO PRN (19:57)
[2016-10-30] MEDS: Hydrochlorothiazide 25 MG Tab PO SCH (20:02)
[2016-10-30] MEDS: Rosuvastatin 10 MG Tab PO SCH (20:03)
[2016-10-30] MEDS: Metoprolol Tartrate 50 MG Tab PO SCH (20:03)
[2016-10-30] MEDS: Donepezil 10 MG Tab PO SCH (20:03)
[2016-10-30] MEDS: HYDROmorphone 0.5 MG/0.5 ML Syringe IVPUSH PRN (20:14)
[2016-10-31] MEDS: HYDROmorphone 0.5 MG/0.5 ML Syringe IVPUSH PRN ×2 (03:04→21:24)
[2016-10-31] MEDS ORDERED: Magnesium Oxide 400 MG Tab PO ONE ×2 (08:30→13:30)
[2016-10-31] MEDS: Formoterol/Mometasone 100-5 MCG 8.8 GM Inhaler IH SCH (09:13)
[2016-10-31] MEDS ORDERED: Barium Sulfate 60% w/v Susp 355 ML Bottle PO ONE (09:54)
[2016-10-31] MEDS ORDERED: Barium Sulfate 60% w/w Esophageal Crm 454 GM Tube PO ONE (09:54)
[2016-10-31] MEDS ORDERED: Barium Sulfate 98% Powder for Susp 340 GM Bottle PO ONE (09:54)
--- NOTE | 2016-10-31 11:34 | PCM.PN ---
- General Info Date of Service: 10/31/16 Admission Dx/Problem (Free Text): Intractable Nausea and Vomiting Subjective Update: Follow Up Functional Status: Reports: Pain Controlled, Ambulating, Urinating. Denies: New Symptoms - Review of Systems General: Denies: Fever, Weakness, Fatigue, Malaise, Chills HEENT: Reports: No Symptoms Pulmonary: Denies: Shortness of Breath Gastrointestinal: Reports: Flatus. Denies: Abdominal Pain, Diarrhea, Difficulty Swallowing, Nausea, Vomiting Genitourinary: Reports: No Symptoms Musculoskeletal: Reports: No Symptoms Skin: Denies: Cyanosis, Rash Neurological: Reports: Confusion (baseline ). Denies: Difficulty Walking, Weakness, Gait Disturbance Psychiatric: Denies: Depression, Mood Lability, Anxiety, Agitation, Hallucinations, Suicidal Ideation Systems Review Comment:: No significant overnight or acute issues. She is scheduled for barium swallow study this morning. She has no new complaints. - Patient Data Vitals - Most Recent: Last Vital Signs Temp 37.0 C 10/31/16 07:52 Pulse 63 10/31/16 07:52 Resp 16 10/31/16 07:52 BP 114/83 10/31/16 07:52 Pulse Ox 91 L 10/31/16 09:14 Weight - Most Recent: 64.773 kg I&O - Last 24 Hours: Intake & Output 10/30/16 10/31/16 10/31/16 22:59 06:59 14:59 Intake Total 1040 500 Output Total 2425 975 Balance -1385 -475 Lab Results Last 24 Hours: Laboratory Results - last 24 hr 10/31/16 10/31/16 10/31/16 Range/Units 05:30 05:30 05:30 WBC 6.87 (3.98-10.04) K/mm3 RBC 4.06 (3.98-5.22) M/mm3 Hgb 12.1 (11.2-15.7) gm/L Hct 36.3 (34.1-44.9) % MCV 89.4 (79.4-94.8) fl MCH 29.8 (25.6-32.2) pg MCHC 33.3 (32.2-35.5) g/dl RDW Std Deviation 44.0 (36.4-46.3) fL Plt Count 283 (182-369) K/mm3 MPV 9.4 (9.4-12.3) fl Neut % (Auto) 54.6 (34.0-71.1) % Lymph % (Auto) 29.8 (19.3-51.7) % [place]illion % (Auto) 12.4 (4.7-12.5) % Eos % (Auto) 2.8 (0.7-5.8) Baso % (Auto) 0.3 (0.1-1.2) % Neut # (Auto) 3.75 (1.56-6.13) K/mm3 Lymph # (Auto) 2.05 (1.18-3.74) K/mm3 [place] # (Auto) 0.85 H (0.24-0.36) K/mm3 Eos # (Auto) 0.19 (0.04-0.36) K/mm3 Baso # (Auto) 0.02 (0.01-0.08) K/mm3 Sodium 141 (136-145) mEq/L Potassium 3.8 (3.5-5.1) mEq/L Chloride 104 (98-107) mEq/L Carbon Dioxide 30 (21-32) mEq/L Anion Gap 10.8 (5-15) BUN 12 (7-18) mg/dL Creatinine 0.8 (0.55-1.02) mg/dL Est Cr Clr Drug Dosing 38.27 mL/min Estimated GFR (MDRD) > 60 (>60) mL/min BUN/Creatinine Ratio 15.0 (14-18) Glucose 118 H (83-115) mg/dL Calcium 9.2 (8.5-10.1) mg/dL Magnesium 1.7 L (1.8-2.4) mg/dl Med Orders - Current: Current Medications Acetaminophen (Tylenol) 650 mg PO Q4H PRN PRN Reason: Pain (Mild 1-3)/fever Acetaminophen (Tylenol) 650 mg RECTAL Q4H PRN PRN Reason: Pain (mild 1-3) Acetaminophen/Butalbital/Caffeine (Fioricet 325-50-40 Mg) 1 tab PO Q6H PRN PRN Reason: Headache Last Admin: 10/28/16 10:30 Dose: 1 tab Hydrocodone Bitart/Acetaminophen (Lyman 325-5 Mg) 1 tab PO Q4H PRN PRN Reason: Pain (moderate 4-6) Albuterol/Ipratropium (Duoneb 3.0-0.5 Mg/3 Ml) 3 ml NEB Q4H PRN PRN Reason: Shortness Of Breath/wheezing Amlodipine Besylate (Norvasc) 10 mg PO DAILY [facility] Last Admin: 10/30/16 08:48 Dose: 10 mg Aspirin (Halfprin) 81 mg PO ACDINNER [facility] Last Admin: 10/30/16 16:20 Dose: 81 mg Bisacodyl (Dulcolax) 5 mg PO DAILY PRN PRN Reason: Constipation Citalopram Hydrobromide (Celexa) 40 mg PO DAILY [facility] Last Admin: 10/30/16 08:48 Dose: 40 mg Docusate Sodium (Colace) 100 mg PO BID PRN PRN Reason: Constipation Docusate Sodium (Colace) 100 mg PO BID [facility] Last Admin: 10/30/16 20:02 Dose: 100 mg Donepezil HCl (Aricept) 10 mg PO BEDTIME [facility] Last Admin: 10/30/16 20:03 Dose: 10 mg Fenofibrate (Fenofibrate) 54 mg PO DAILY [facility] Last Admin: 10/30/16 08:49 Dose: 54 mg Hydralazine HCl (Apresoline) 10 mg IVPUSH Q4H PRN PRN Reason: Hypertension Last Admin: 10/30/16 16:24 Dose: 10 mg Hydrochlorothiazide (Hydrochlorothiazide) 25 mg PO BEDTIME [facility] Last Admin: 10/30/16 20:02 Dose: 25 mg Hydromorphone HCl (Dilaudid) 0.25 mg IVPUSH Q2H PRN PRN Reason: Pain (severe 7-10) Last Admin: 10/31/16 03:04 Dose: 0.25 mg Lorazepam (Ativan) 2 mg IVPUSH Q4H PRN PRN Reason: Seizures Lorazepam (Ativan) 0.25 mg IV Q6H PRN PRN Reason: Agitation Last Admin: 10/28/16 15:04 Dose: 0.25 mg Lorazepam (Ativan) 0.5 mg PO BID PRN PRN Reason: Anxiety Last Admin: 10/30/16 19:57 Dose: 0.5 mg Magnesium Sulfate (Pharmacy To Dose - Magnesium Replacement) 1 dose .XX ASDIRECTED [facility] Metoprolol Tartrate (Lopressor) 5 mg IVPUSH Q4H PRN PRN Reason: Tachycardia Metoprolol Tartrate (Lopressor) 50 mg PO BEDTIME [facility] Last Admin: 10/30/16 20:03 Dose: 50 mg Mometasone Furoate/Formoterol Fumar (Dulera 100-5 Mcg) 0 puff IH DAILY [facility] Last Admin: 10/31/16 09:13 Dose: 2 puff Multivitamins (Thera) 1 each PO DAILY [facility] Last Admin: 10/30/16 08:48 Dose: 1 each Ondansetron HCl (Zofran) 4 mg IV Q6H PRN PRN Reason: Nausea/Vomiting Last Admin: 10/30/16 17:50 Dose: 4 mg Pantoprazole Sodium (Protonix) 40 mg PO BID [facility] Last Admin: 10/30/16 20:03 Dose: 40 mg Polyethylene Glycol (Miralax) 17 gm PO DAILY PRN PRN Reason: Constipation Potassium Chloride (Pharmacy To Dose - Potassium Replacement) 1 dose .XX ASDIRECTED [facility] Potassium Chloride (Klor-Con M20) 40 meq PO DAILY [facility] Last Admin: 10/30/16 10:58 Dose: 40 meq Rosuvastatin Calcium (Crestor) 10 mg PO BEDTIME [facility] Last Admin: 10/30/16 20:03 Dose: 10 mg Senna/Docusate Sodium (Senna Plus) 1 tab PO BID PRN PRN Reason: Constipation Sodium Chloride (Saline Flush) 10 ml FLUSH ASDIRECTED PRN PRN Reason: Keep Vein Open Temazepam (Restoril) 7.5 mg PO BEDTIME PRN PRN Reason: Insomnia Last Admin: 10/30/16 19:57 Dose: 7.5 mg Vit A/Vit C/Vit E/Selen/Cu/Zn/Lutei (Icaps Mv) 1 tab PO DAILY [facility] Last Admin: 10/30/16 08:50 Dose: 1 tab Discontinued Medications Barium Sulfate (E-Z-Hd) 340 gm PO ONETIME ONE Stop: 10/31/16 09:55 Last Admin: 10/31/16 10:05 Dose: 340 gm Barium Sulfate (E-Z-Paste) 454 gm PO ONETIME ONE Stop: 10/31/16 09:55 Last Admin: 10/31/16 10:06 Dose: 454 gm Barium Sulfate (Liquid E-Z Paque) 355 ml PO PREPRO ONE Stop: 10/31/16 09:55 Last Admin: 10/31/16 10:05 Dose: 355 ml Diphenhydramine HCl (Benadryl) 25 mg IVPUSH ONETIME ONE Stop: 10/26/16 18:48 Last Admin: 10/26/16 18:51 Dose: 25 mg Diphenhydramine HCl (Benadryl) 25 mg IVPUSH ONETIME ONE Stop: 10/28/16 15:17 Last Admin: 10/28/16 15:24 Dose: 25 mg Fentanyl (Sublimaze) Confirm Administered Dose 100 mcg .ROUTE .STK-MED ONE Stop: 10/29/16 11:20 Hydromorphone HCl (Dilaudid) 0.5 mg IVPUSH ONETIME ONE Stop: 10/28/16 16:35 Last Admin: 10/28/16 16:46 Dose: 0.5 mg Sodium Chloride (Normal Saline) 500 mls @ 1,000 mls/hr IV ONETIME ONE Stop: 10/26/16 15:01 Last Admin: 10/26/16 15:28 Dose: 1,000 mls/hr Promethazine HCl 12.5 mg/ (Sodium Chloride) 50.5 mls @ 100 mls/hr IV Q6H PRN PRN Reason: Nausea/Vomiting Last Admin: 10/28/16 14:07 Dose: 100 mls/hr Dextrose/Sodium Chloride (Dextrose 5%-Normal Saline) 1,000 mls @ 100 mls/hr IV ASDIRECTED [facility] Last Admin: 10/28/16 06:50 Dose: 100 mls/hr Magnesium Sulfate 2 gm/ Premix 50 mls @ 50 mls/hr IV ONETIME ONE Stop: 10/27/16 10:44 Last Admin: 10/27/16 11:01 Dose: 50 mls/hr Magnesium Sulfate 2 gm/ Premix 50 mls @ 50 mls/hr IV ONETIME ONE Stop: 10/28/16 14:44 Last Admin: 10/28/16 14:56 Dose: 50 mls/hr Sodium Chloride (Normal Saline) Confirm Administered Dose 50 mls @ as directed .ROUTE .STK-MED ONE Stop: 10/28/16 13:59 Last Admin: 10/28/16 17:25 Dose: Not Given Dextrose/Sodium Chloride (Dextrose 5%-Normal Saline) 1,000 mls @ 100 mls/hr IV ASDIRECTED [facility] Last Admin: 10/29/16 16:55 Dose: 100 mls/hr Lidocaine HCl (Xylocaine-Mpf 1%) Confirm Administered Dose 4 mls @ as directed .ROUTE .STK-MED ONE Stop: 10/29/16 12:39 Lorazepam (Ativan) 0.25 mg IVPUSH ONETIME ONE Stop: 10/26/16 21:37 Last Admin: 10/26/16 21:59 Dose: 0.25 mg Lorazepam (Ativan) 1 mg IVPUSH ONETIME ONE Stop: 10/28/16 15:46 Last Admin: 10/28/16 15:57 Dose: 1 mg Magnesium Oxide (Magnesium Oxide) 800 mg PO ONETIME ONE Stop: 10/30/16 08:31 Last Admin: 10/30/16 08:48 Dose: 800 mg Magnesium Oxide (Magnesium Oxide) 800 mg PO ONETIME ONE Stop: 10/31/16 08:31 Metoclopramide HCl (Reglan) 10 mg PO ONETIME ONE Stop: 10/26/16 18:36 Last Admin: 10/27/16 11:43 Dose: Not Given Metoclopramide HCl (Reglan) 10 mg IVPUSH ONETIME ONE Stop: 10/26/16 18:42 Last Admin: 10/26/16 18:55 Dose: 10 mg Non-Formulary Medication (Guaifenesin/Pseudoephedrne Hcl) 1 each PO BID PRN PRN Reason: Other Ondansetron HCl (Zofran) 4 mg IVPUSH ONETIME ONE Stop: 10/26/16 14:33 Last Admin: 10/26/16 15:29 Dose: 4 mg Pantoprazole Sodium (Protonix) 20 mg PO BID [facility] Last Admin: 10/28/16 08:04 Dose: 20 mg Potassium Chloride (Klor-Con M20) 40 meq PO Q4H DEONNA Stop: 10/30/16 12:16 Last Admin: 10/30/16 12:13 Dose: 40 meq Propofol (Diprivan 20 Ml) Confirm Administered Dose 200 mg .ROUTE .STK-MED ONE Stop: 10/29/16 11:21 Scopolamine (Transderm-Scop) 1.5 mg TOP ONETIME ONE Stop: 10/28/16 15:18 Last Admin: 10/28/16 15:27 Dose: 1.5 mg Temazepam (Restoril) 7.5 mg PO BEDTIME PRN PRN Reason: Sleep - Exam General: Alert, Oriented, Cooperative, No Acute Distress HEENT: Pupils Equal, Pupils Reactive, EOMI, Mucous Membr. Moist/[place] Neck: Supple, Trachea Midline, No JVD, No Thyromegaly Lungs: Normal Respiratory Effort, Decreased Breath Sounds Cardiovascular: Regular Rate, Regular Rhythm GI/Abdominal Exam: Normal Bowel Sounds, Soft, Non-Tender, No Organomegaly, No Distention, No Abnormal Bruit, No Mass (Female) Exam: Deferred Back Exam: Normal Inspection, Decreased Range of Motion Extremities: Normal Inspection, Normal Range of Motion, Non-Tender, No Pedal Edema, Normal Capillary Refill Peripheral Pulses: 2+: Dorsalis Pedis (L), Dorsalis Pedis (R) Skin: Warm, Dry, Intact Neurological: No New Focal Deficit Psy/Mental Status: Alert, Normal Affect, Normal Mood - Problem List Review Problem List Initiated/Reviewed/Updated: Yes - My Orders Last 24 Hours: My Active Orders 10/30/16 Dinner NPO After Midnight [Nothing per Oral After Midnight Diet] [DIET] 10/31/16 09:00 Modified Barium Swallow Study [Swallowing Function w Video] [CR] Routine - Plan Plan:: Assessment/Plan: Acute: Intractable Nausea/Vomiting (Appears acute on chronic) - 2/2 Dumping Syndrome - Able to tolerate liquids but not solid - Risk Factors: GERD/Gastritis, Gastric Resection, DM, Chronic Opioid Use and +/- Metformin Side Effects - NPO except ice chips, sips of water and oral meds - Supportive Care and PRN anti-emesis - S/p EGD with benign findings - Barium study this morning Hypomagnesemia - Mg 1.7 - 2/2 Inadequate Intake - Pharmacy to replete and monitor High Risk Polypharmacy Resolved: Watery Diarrhea - Patient in on Bisacodyl PRN and Colace BID prophylaxis for opioid-induced constipation - Hold above meds - NPO for now S/p Acute Dystonia - ADR to Phenergan Chronic: HTN HLD GERD DM2 Dementia Depression Hx/o COPD 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 Conti following Fall Precautions SW/CM for d/c planning Additional orders as above Code status: 1 Barium swallow test then start po meal. Will plan on d/c in am to make sure she is tolerating "dumping diet".
[2016-10-31] MEDS: Docusate Sodium 100 MG Cap PO SCH ×3 (13:22→20:01)
[2016-10-31] MEDS: Pantoprazole 40 MG Tab.CR PO SCH ×2 (13:22→20:01)
[2016-10-31] MEDS: Multivitamins with Minerals/Folic Acid/Lutein/Zeaxanth Tab PO SCH (13:22)
[2016-10-31] MEDS: amLODIPine 10 MG Tab PO SCH (13:22)
[2016-10-31] MEDS: Multivitamins,Therapeutic Tab PO SCH (13:22)
[2016-10-31] MEDS: Potassium Chloride 20 MEQ Tab.ER PO SCH (13:22)
[2016-10-31] MEDS: Citalopram 20 MG Tab PO SCH (13:23)
[2016-10-31] MEDS: Fenofibrate 54 MG Tab PO SCH (13:23)
[2016-10-31] MEDS: Aspirin 81 MG Tab.EC PO SCH (16:09)
[2016-10-31] MEDS: hydrALAZINE 20 MG/ML SDV IVPUSH PRN (16:10)
--- NOTE | 2016-10-31 19:06 | CR ---
RS DP Rehabilitative swallowing video procedure was performed in conjunction with the speech pathologist. Different consistencies of barium were given to the patient. Patient was able to swallow barium without difficulty. Small Zenker's diverticulum is seen. No aspiration occurred. Impression: 1. Findings as noted above. For other details, please see the speech pathologist's note. Diagnostic code #2
[2016-10-31] MEDS: Donepezil 10 MG Tab PO SCH (20:01)
[2016-10-31] MEDS: Metoprolol Tartrate 50 MG Tab PO SCH (20:01)
[2016-10-31] MEDS: Rosuvastatin 10 MG Tab PO SCH (20:02)
[2016-10-31] MEDS: Hydrochlorothiazide 25 MG Tab PO SCH (20:02)
[2016-11-01] MEDS: Formoterol/Mometasone 100-5 MCG 8.8 GM Inhaler IH SCH (08:47)
[2016-11-01] MEDS: Multivitamins,Therapeutic Tab PO SCH (09:15)
[2016-11-01] MEDS: Docusate Sodium 100 MG Cap PO SCH (09:16)
[2016-11-01] MEDS: Multivitamins with Minerals/Folic Acid/Lutein/Zeaxanth Tab PO SCH ×2 (09:16→15:04)
[2016-11-01] MEDS: Citalopram 20 MG Tab PO SCH (09:16)
[2016-11-01] MEDS: Pantoprazole 40 MG Tab.CR PO SCH (09:16)
[2016-11-01] MEDS: amLODIPine 10 MG Tab PO SCH (09:16)
[2016-11-01] MEDS: Fenofibrate 54 MG Tab PO SCH (09:17)
[2016-11-01] MEDS: Potassium Chloride 20 MEQ Tab.ER PO SCH (09:17)
[2016-11-01] MEDS ORDERED: Magnesium Sulfate/Water 2 GM in Premix Bag 1 BAG IV ONE (12:00)
[2016-11-01 12:39] VITALS: BP 141/97
--- NOTE | 2016-11-01 13:27 | PCM.DCSUM1 ---
Discharge Summary - Hospital Course Free Text/Narrative:: This is an 81 yo elderly white female with past medical hx/o hearing and vision impairment, hypertension, diabetes type 2, hyperlipidemia, gastritis, GERD, osteoarthritis, osteoporosis, emphysema, history of list obstructive sleep apnea , hx/o chronic pain syndrome on Methadone, and dementia who presents to the emergency department with complaints of intractable nausea and vomiting. Her chief complaint is associated with on and off abdominal pain. Per caregiver , patient carries history of urinary and incontinence. She also has been having diarrhea almost every day for the last several weeks. Of note the patient is on Bisacodyl PRN and Colace 100 mg by mouth twice a day. Patient denies any systemic infection. No unusual diet or drink. She denies any sick contact. Patient is known to me from previous admissions. Her last admission was related to hypoxia after she received narcotic medications to alleviate her abdominal pain. Patient still on methadone for chronic pain syndrome. Per caregiver, she is on tapered dose. Patient is not being followed by a pain specialist. Her initial workup in the emergency department shows a CBC that is unremarkable. Her chemistry is remarkable for glucose of 140 and alkaline phosphatase of 33. Her UA is unremarkable to suggest urinary tract infection. Patient is being admitted for intractable nausea and vomiting. She is full code. She was treated with antiemetics for her n/v. She continued to have n/v symptoms after eating. She underwent EGD with biopsy with Dr. Conti which was unremarkable. She underwent barium swallow with video study with SOCIAL MEDIA DESIGNER noting zenker's diverticulum. She had Reclaimer consult. She is discharged home today with caregiver. VSS, labs stable. She is to have GI eval and f/up with PCP within one week. - Discharge Data Discharge Date: 11/01/16 (admit date 10/28/16) Discharge Disposition: Home, Self-Care 01 Condition: Good - Discharge Diagnosis/Problem(s) (1) Zenkers diverticulum SNOMED Code(s): 753400301 ICD Code: K22.5 - DIVERTICULUM OF ESOPHAGUS, ACQUIRED Status: Acute Priority: High Current Visit: Yes (2) Intractable vomiting with nausea SNOMED Code(s): 636052984, 687885308 ICD Code: R11.2 - NAUSEA WITH VOMITING, UNSPECIFIED Status: Acute Priority: High Current Visit: Yes Qualifiers: Vomiting type: unspecified Qualified Code(s): R11.2 - Nausea with vomiting , unspecified (3) Abdominal pain SNOMED Code(s): 21214351 ICD Code: R10.9 - UNSPECIFIED ABDOMINAL PAIN Status: Acute Priority: High Current Visit: Yes Qualifiers: Abdominal location: generalized Qualified Code(s): R10.84 - Generalized abdominal pain - Patient Summary/Data Operative Procedure(s) Performed: EGD with bx Complications: None Consults: Consultations 10/26/16 22:47 Consult to Case Management [CONS] Routine Consult to Communication Clerk [CONS] Routine Consult to Spiritual Care [CONS] Routine OT Evaluation and Treatment [CONS] Routine PT Evaluation and Treatment [CONS] Routine Respiratory Care Assess and Treatment [CONS] Routine 10/27/16 08:32 Consult to Physician [CONS] Routine 10/29/16 12:23 Consult to Dietary [Consult to Reclaimer] [CONS] Routine Labs Pending at D/C: None Recommended Follow-up Testing/Procedures: Follow up with Gastroenterology for eval/tx of Zenker's Diverticulum Follow up with Dr. Smith, PCP within 5-7 days Planned Operative Procedure(s) after DC: None Hospital Course: As above - Patient Instructions Diet: Usual Diet as Tolerated (Dumping syndrome diet as discussed with corporation officer ) Activity: As Tolerated Driving: Do Not Drive (while taking Methadone or other pain medications) Showering/Bathing: May Shower Notify Provider of: Fever, Increased Pain, Nausea and/or Vomiting - Discharge Plan Prescriptions/Med Rec: Scopolamine [Transderm-Scop] 1.5 mg TOP Q72H PRN #5 patch PRN Reason: Nausea Home Medications: Home Meds Aspirin [Halfprin] 81 mg PO ACDINNER 09/16/15 [History] Donepezil HCl [Aricept] 10 mg PO BEDTIME 09/16/15 [History] Escitalopram Oxalate 20 mg PO DAILY 09/16/15 [History] Fenofibrate Nanocrystallized [Fenofibrate] 48 mg PO DAILY 09/16/15 [History] Omeprazole 20 mg PO BID 09/16/15 [History] Rosuvastatin [Crestor] 10 mg PO BEDTIME 09/16/15 [History] amLODIPine [Norvasc] 10 mg PO DAILY 09/16/15 [History] metFORMIN [Glucophage XR] 500 mg PO ACDINNER 09/16/15 [History] Metoprolol/Hydrochlorothiazide [Metoprolol-HCTZ 50-25 MG] 1 tab PO BEDTIME 09/24 [History] Potassium Chloride 40 meq PO DAILY 09/24/16 [History] Budesonide/Formoterol Fumarate [Symbicort 160-4.5 Mcg Inhaler] 2 puff INH BID [History] Calcium Carbonate [Calcium] 1 tab PO ACLUNCH 10/28/16 [History] LORazepam [Ativan] 0.5 mg PO BID PRN 10/28/16 [History] Lutein/Minerals/Vit A,C & E [Ocuvite] 1 tab PO DAILY 10/28/16 [History] Multivitamin [Daily Multiple Vitamin] 1 tab PO DAILY 10/28/16 [History] Vitamin E 400 units PO DAILY 10/28/16 [History] Acetaminophen [Tylenol] 650 mg PO Q4H PRN #0 tablet 11/01/16 [Rx] Scopolamine [Transderm-Scop] 1.5 mg TOP Q72H PRN #5 patch 11/01/16 [Rx] Patient Handouts: Nausea, Adult, Abdominal Pain, Adult, [id number] Forms: ED Department Discharge Referrals: Maxwell Smith MD [Primary Care Provider] - - Discharge Summary/Plan Comment DC Time >30 min.: Yes (40 min) - General Info Date of Service: 11/01/16 Admission Dx/Problem (Free Text: Intractable Nausea and Vomiting Tolerating meals now without n/v. No abd pain today reported and when I ask she states no pain. Functional Status: Reports: Pain Controlled, Tolerating Diet, Ambulating, Urinating. Denies: New Symptoms - Review of Systems General: Reports: No Symptoms HEENT: Reports: No Symptoms Pulmonary: Reports: No Symptoms Cardiovascular: Reports: No Symptoms Gastrointestinal: Reports: Abdominal Pain (improved to resolved), Nausea ( improved to resolved). Denies: Diarrhea, Vomiting Genitourinary: Reports: No Symptoms Musculoskeletal: Reports: Back Pain Skin: Reports: No Symptoms Neurological: Reports: No Symptoms Psychiatric: Reports: No Symptoms - Patient Data Vitals - Most Recent: Last Vital Signs Temp 97.9 F 11/01/16 12:17 Pulse 74 11/01/16 12:17 Resp 14 11/01/16 12:17 BP 141/97 H 11/01/16 12:17 Pulse Ox 91 L 11/01/16 12:17 Weight - Most Recent: 141 lb 9.6 oz I&O - Last 24 hours: Intake & Output 10/31/16 11/01/16 11/01/16 22:59 06:59 14:59 Intake Total 1140 350 120 Output Total 525 1150 Balance 615 -800 120 Lab Results - Last 24 hrs: Laboratory Results - last 24 hr 11/01/16 11/01/16 Range/Units 12:05 12:05 WBC 7.41 (3.98-10.04) K/mm3 RBC 4.59 (3.98-5.22) M/mm3 Hgb 13.5 (11.2-15.7) gm/L Hct 40.6 (34.1-44.9) % MCV 88.5 (79.4-94.8) fl MCH 29.4 (25.6-32.2) pg MCHC 33.3 (32.2-35.5) g/dl RDW Std Deviation 43.6 (36.4-46.3) fL Plt Count 319 (182-369) K/mm3 MPV 9.4 (9.4-12.3) fl Neut % (Auto) 55.6 (34.0-71.1) % Lymph % (Auto) 30.0 (19.3-51.7) % [place] % (Auto) 12.1 (4.7-12.5) % Eos % (Auto) 1.9 (0.7-5.8) Baso % (Auto) 0.4 (0.1-1.2) % Neut # (Auto) 4.12 (1.56-6.13) K/mm3 Lymph # (Auto) 2.22 (1.18-3.74) K/mm3 [place] # (Auto) 0.90 H (0.24-0.36) K/mm3 Eos # (Auto) 0.14 (0.04-0.36) K/mm3 Baso # (Auto) 0.03 (0.01-0.08) K/mm3 Sodium 137 (136-145) mEq/L Potassium 4.5 (3.5-5.1) mEq/L Chloride 100 (98-107) mEq/L Carbon Dioxide 28 (21-32) mEq/L Anion Gap 13.5 (5-15) BUN 16 (7-18) mg/dL Creatinine 0.9 (0.55-1.02) mg/dL Est Cr Clr Drug Dosing 34.02 mL/min Estimated GFR (MDRD) 60 (>60) mL/min BUN/Creatinine Ratio 17.8 (14-18) Glucose 126 H (83-115) mg/dL Calcium 10.0 (8.5-10.1) mg/dL Magnesium 2.1 (1.8-2.4) mg/dl Med Orders - Current: Current Medications Acetaminophen (Tylenol) 650 mg PO Q4H PRN PRN Reason: Pain (Mild 1-3)/fever Last Admin: 10/31/16 20:00 Dose: 650 mg Acetaminophen (Tylenol) 650 mg RECTAL Q4H PRN PRN Reason: Pain (mild 1-3) Acetaminophen/Butalbital/Caffeine (Fioricet 325-50-40 Mg) 1 tab PO Q6H PRN PRN Reason: Headache Last Admin: 10/28/16 10:30 Dose: 1 tab Hydrocodone Bitart/Acetaminophen ([place] 325-5 Mg) 1 tab PO Q4H PRN PRN Reason: Pain (moderate 4-6) Last Admin: 10/31/16 23:14 Dose: 1 tab Albuterol/Ipratropium (Duoneb 3.0-0.5 Mg/3 Ml) 3 ml NEB Q4H PRN PRN Reason: Shortness Of Breath/wheezing Amlodipine Besylate (Norvasc) 10 mg PO DAILY [facility] Last Admin: 11/01/16 09:16 Dose: 10 mg Aspirin (Halfprin) 81 mg PO ACDINNER [facility] Last Admin: 10/31/16 16:09 Dose: 81 mg Bisacodyl (Dulcolax) 5 mg PO DAILY PRN PRN Reason: Constipation Citalopram Hydrobromide (Celexa) 40 mg PO DAILY [facility] Last Admin: 11/01/16 09:16 Dose: 40 mg Docusate Sodium (Colace) 100 mg PO BID PRN PRN Reason: Constipation Docusate Sodium (Colace) 100 mg PO BID [facility] Last Admin: 11/01/16 09:16 Dose: 100 mg Donepezil HCl (Aricept) 10 mg PO BEDTIME [facility] Last Admin: 10/31/16 20:01 Dose: 10 mg Fenofibrate (Fenofibrate) 54 mg PO DAILY [facility] Last Admin: 11/01/16 09:17 Dose: 54 mg Hydralazine HCl (Apresoline) 10 mg IVPUSH Q4H PRN PRN Reason: Hypertension Last Admin: 10/31/16 16:10 Dose: 10 mg Hydrochlorothiazide (Hydrochlorothiazide) 25 mg PO BEDTIME [facility]ONNA Last Admin: 10/31/16 20:02 Dose: 25 mg Hydromorphone HCl (Dilaudid) 0.25 mg IVPUSH Q2H PRN PRN Reason: Pain (severe 7-10) Last Admin: 10/31/16 21:24 Dose: 0.25 mg Magnesium Sulfate 2 gm/ Premix 50 mls @ 25 mls/hr IV ONETIME ONE Stop: 11/01/16 13:59 Last Admin: 11/01/16 12:21 Dose: 25 mls/hr Lorazepam (Ativan) 0.5 mg PO BID PRN PRN Reason: Anxiety Last Admin: 10/30/16 19:57 Dose: 0.5 mg Magnesium Sulfate (Pharmacy To Dose - Magnesium Replacement) 1 dose .XX ASDIRECTED [facility] Metoprolol Tartrate (Lopressor) 5 mg IVPUSH Q4H PRN PRN Reason: Tachycardia Metoprolol Tartrate (Lopressor) 50 mg PO BEDTIME [facility] Last Admin: 10/31/16 20:01 Dose: 50 mg Mometasone Furoate/Formoterol Fumar (Dulera 100-5 Mcg) 0 puff IH DAILY [facility] Last Admin: 11/01/16 08:47 Dose: 2 puff Multivitamins (Thera) 1 each PO DAILY [facility] Last Admin: 11/01/16 09:15 Dose: 1 each Ondansetron HCl (Zofran) 4 mg IV Q6H PRN PRN Reason: Nausea/Vomiting Last Admin: 10/30/16 17:50 Dose: 4 mg Pantoprazole Sodium (Protonix) 40 mg PO BID [facility] Last Admin: 11/01/16 09:16 Dose: 40 mg Polyethylene Glycol (Miralax) 17 gm PO DAILY PRN PRN Reason: Constipation Potassium Chloride (Pharmacy To Dose - Potassium Replacement) 1 dose .XX ASDIRECTED [facility]ON[facility] Potassium Chloride (Klor-Con M20) 40 meq PO DAILY [facility] Last Admin: 11/01/16 09:17 Dose: 40 meq Rosuvastatin Calcium (Crestor) 10 mg PO BEDTIME [facility] Last Admin: 10/31/16 20:02 Dose: 10 mg Senna/Docusate Sodium (Senna Plus) 1 tab PO BID PRN PRN Reason: Constipation Sodium Chloride (Saline Flush) 10 ml FLUSH ASDIRECTED PRN PRN Reason: Keep Vein Open Temazepam (Restoril) 7.5 mg PO BEDTIME PRN PRN Reason: Insomnia Last Admin: 10/30/16 19:57 Dose: 7.5 mg Vit A/Vit C/Vit E/Selen/Cu/Zn/Lutei (Icaps Mv) 1 tab PO DAILY [facility] Last Admin: 11/01/16 09:16 Dose: 1 tab Discontinued Medications Barium Sulfate (E-Z-Hd) 340 gm PO ONETIME ONE Stop: 10/31/16 09:55 Last Admin: 10/31/16 10:05 Dose: 340 gm Barium Sulfate (E-Z-Paste) 454 gm PO ONETIME ONE Stop: 10/31/16 09:55 Last Admin: 10/31/16 10:06 Dose: 454 gm Barium Sulfate (Liquid E-Z Paque) 355 ml PO PREPRO ONE Stop: 10/31/16 09:55 Last Admin: 10/31/16 10:05 Dose: 355 ml Diphenhydramine HCl (Benadryl) 25 mg IVPUSH ONETIME ONE Stop: 10/26/16 18:48 Last Admin: 10/26/16 18:51 Dose: 25 mg Diphenhydramine HCl (Benadryl) 25 mg IVPUSH ONETIME ONE Stop: 10/28/16 15:17 Last Admin: 10/28/16 15:24 Dose: 25 mg Fentanyl (Sublimaze) Confirm Administered Dose 100 mcg .ROUTE .STK-MED ONE Stop: 10/29/16 11:20 Hydromorphone HCl (Dilaudid) 0.5 mg IVPUSH ONETIME ONE Stop: 10/28/16 16:35 Last Admin: 10/28/16 16:46 Dose: 0.5 mg Sodium Chloride (Normal Saline) 500 mls @ 1,000 mls/hr IV ONETIME ONE Stop: 10/26/16 15:01 Last Admin: 10/26/16 15:28 Dose: 1,000 mls/hr Promethazine HCl 12.5 mg/ (Sodium Chloride) 50.5 mls @ 100 mls/hr IV Q6H PRN PRN Reason: Nausea/Vomiting Last Admin: 10/28/16 14:07 Dose: 100 mls/hr Dextrose/Sodium Chloride (Dextrose 5%-Normal Saline) 1,000 mls [facility] Last Admin: 10/28/16 06:50 Dose: 100 mls/hr Magnesium Sulfate 2 gm/ Premix 50 mls @ 50 mls/hr IV ONETIME ONE Stop: 10/27/16 10:44 Last Admin: 10/27/16 11:01 Dose: 50 mls/hr Magnesium Sulfate 2 gm/ Premix 50 mls @ 50 mls/hr IV ONETIME ONE Stop: 10/28/16 14:44 Last Admin: 10/28/16 14:56 Dose: 50 mls/hr Sodium Chloride (Normal Saline) Confirm Administered Dose 50 mls @ as directed .ROUTE .STK-MED ONE Stop: 10/28/16 13:59 Last Admin: 10/28/16 17:25 Dose: Not Given Dextrose/Sodium Chloride (Dextrose 5%-Normal Saline) 1,000 mls @ 100 mls/hr IV [facility] Last Admin: 10/29/16 16:55 Dose: 100 mls/hr Lidocaine HCl (Xylocaine-Mpf 1%) Confirm Administered Dose 4 mls @ as directed .ROUTE .STK-MED ONE Stop: 10/29/16 12:39 Lorazepam (Ativan) 0.25 mg IVPUSH ONETIME ONE Stop: 10/26/16 21:37 Last Admin: 10/26/16 21:59 Dose: 0.25 mg Lorazepam (Ativan) 2 mg IVPUSH Q4H PRN PRN Reason: Seizures Lorazepam (Ativan) 0.25 mg IV Q6H PRN PRN Reason: Agitation Last Admin: 10/28/16 15:04 Dose: 0.25 mg Lorazepam (Ativan) 1 mg IVPUSH ONETIME ONE Stop: 10/28/16 15:46 Last Admin: 10/28/16 15:57 Dose: 1 mg Magnesium Oxide (Magnesium Oxide) 800 mg PO ONETIME ONE Stop: 10/30/16 08:31 Last Admin: 10/30/16 08:48 Dose: 800 mg Magnesium Oxide (Magnesium Oxide) 800 mg PO ONETIME ONE Stop: 10/31/16 13:31 Last Admin: 10/31/16 13:22 Dose: 800 mg Metoclopramide HCl (Reglan) 10 mg PO ONETIME ONE Stop: 10/26/16 18:36 Last Admin: 10/27/16 11:43 Dose: Not Given Metoclopramide HCl (Reglan) 10 mg IVPUSH ONETIME ONE Stop: 10/26/16 18:42 Last Admin: 10/26/16 18:55 Dose: 10 mg Non-Formulary Medication (Guaifenesin/Pseudoephedrne Hcl) 1 each PO BID PRN PRN Reason: Other Ondansetron HCl (Zofran) 4 mg IVPUSH ONETIME ONE Stop: 10/26/16 14:33 Last Admin: 10/26/16 15:29 Dose: 4 mg Pantoprazole Sodium (Protonix) 20 mg PO BID [facility] Last Admin: 10/28/16 08:04 Dose: 20 mg Potassium Chloride (Klor-Con M20) 40 meq PO Q4H [facility] Stop: 10/30/16 12:16 Last Admin: 10/30/16 12:13 Dose: 40 meq Propofol (Diprivan 20 Ml) Confirm Administered Dose 200 mg .ROUTE .STK-MED ONE Stop: 10/29/16 11:21 Scopolamine (Transderm-Scop) 1.5 mg TOP ONETIME ONE Stop: 10/28/16 15:18 Last Admin: 10/28/16 15:27 Dose: 1.5 mg Temazepam (Restoril) 7.5 mg PO BEDTIME PRN PRN Reason: Sleep - Exam Quality Assessment: Reports: DVT Prophylaxis General: Reports: Alert, Cooperative, No Acute Distress HEENT: Reports: Pupils Equal, EOMI, Mucous Membr. Moist/[place] Neck: Reports: Supple Lungs: Reports: Clear to Auscultation, Normal Respiratory Effort Cardiovascular: Reports: Regular Rate, Regular Rhythm GI/Abdominal Exam: Normal Bowel Sounds, Non-Tender (Female) Exam: Deferred Rectal (Female) Exam: Deferred Extremities: Normal Inspection Psy/Mental Status: Reports: Alert, Normal Affect, Normal Mood *Q Meaningful Use (DIS) - VTE *Q VTE Criteria *Q: - Stroke *Q Stroke Criteria *Q: - AMI *Q AMI Criteria *Q:
== END 2016-11-01 14:30 | disposition home or self-care (01) | DRG 392 ==
LOC: JD.ED 13:38 → JD.MS 20:11 → UNDOADMIN 20:11 → JD.MS 21:56 → UNDODISIN 11-01 14:30
PROVIDERS: ADMIT Internal Medicine; ATTEND Internal Medicine
PROC: 0DB68ZX Excision of Stomach, Via Natural or Artificial Opening Endoscopic, Diagnostic (ICD-10-PCS; principal; 2016-10-29)
DX: R11.2 Nausea with vomiting, unspecified (principal); K22.5 Diverticulum of esophagus, acquired; R62.50 Unspecified lack of expected normal physiological development in childhood; R19.7 Diarrhea, unspecified; R10.84 Generalized abdominal pain; G24.9 Dystonia, unspecified; K44.9 Diaphragmatic hernia without obstruction or gangrene; E83.42 Hypomagnesemia; I10 Essential (primary) hypertension; E11.9 Type 2 diabetes mellitus without complications; Z85.828 Personal history of other malignant neoplasm of skin; E78.5 Hyperlipidemia, unspecified; K21.9 Gastro-esophageal reflux disease without esophagitis; J44.9 Chronic obstructive pulmonary disease, unspecified; G47.33 Obstructive sleep apnea (adult) (pediatric); M54.9 Dorsalgia, unspecified; G89.29 Other chronic pain; F03.90 Unspecified dementia, unspecified severity, without behavioral disturbance, psychotic disturbance, mood disturbance, and anxiety; F32.9 Major depressive disorder, single episode, unspecified; H91.90 Unspecified hearing loss, unspecified ear; H54.7 Unspecified visual loss; Z79.899 Other long term (current) drug therapy; Z88.8 Allergy status to other drugs, medicaments and biological substances; Z90.3 Acquired absence of stomach [part of]
CPT/HCPCS: 36415; 51798; 80053; 81001; 83690; 85025; 96361; 96365; 96375; 99285; J1200; J2405; J2765; J7040; 00740; 74000; 74000-26; 74230; 74230-26; 80048; 82607; 82747; 83735; 87493; 88305; 88342; 92611-GN; 94640; 94664; 94760; 94761; 97112-GP; 97116-GP; 97162-GP; 97166-GO; 99222; 99231; 99232; 99239; 99284; A9270; A9270-GY; J0360; J1170; J2060; J2550; J2704; J3010; J3475; J7042; J7050

== ENCOUNTER 2016-11-02 10:46 | Emergency (ER) | payer MEDICARE, BC ==
[2016-11-02 11:02] VITALS: BP 180/71
[2016-11-02] MEDS ORDERED: HYDROmorphone 1 MG/ML Syringe IVPUSH ONE (11:39)
[2016-11-02] MEDS ORDERED: Ondansetron 4 MG/2 ML SDV IVPUSH ONE (11:40)
[2016-11-02] MEDS ORDERED: Sodium Chloride 0.9% 10 ML Syringe FLUSH PRN (11:40)
[2016-11-02] MEDS ORDERED: Sodium Chloride 0.9% 1,000 ML IV SCH (11:45)
--- NOTE | 2016-11-02 12:28 | EDM.PDOC ---
ED HPI GENERAL MEDICAL PROBLEM - General Chief Complaint: Gastrointestinal Problem Stated Complaint: NAUSEA Time Seen by Provider: 11/02/16 11:27 Source of Information: Reports: Family (daughter) History Limitations: Reports: Other (patient has dementia; history is provided by the patient's daughter) - History of Present Illness INITIAL COMMENTS - FREE TEXT/NARRATIVE: 81-year-old female is brought in by her daughter for evaluation and treatment of nausea and vomiting. History is provided by the daughter. The patient has dementia and is unable to provide a reliable history. Daughter reports that she has been struggling with nausea, vomiting, abdominal pain and diarrhea for the last month. This is her first third visit to the ER. Reports that she was discharged from the hospital only yesterday. Diagnosed with dumping syndrome and sent home with a scopolamine patch. Daughter reports since leaving the ER she has had nausea, upper abdominal pain and vomiting. She states that she has been constantly dry heaving and has vomited over 15 times since leaving the hospital yesterday. She has not had any diarrhea since leaving the hospital. Had one soft bowel movement today. She is complaining of pain across her upper abdomen that she rates as 8 out of 10. Denies any fevers, chest pain or shortness of breath. Her daughter feels that she is more weak than normal. Daughter denies any new foods, recent travel or any antibiotics. Unable to identify any trigger to the current nausea, vomiting and abdominal pain. Reports she had dumping syndrome several years ago which resolved. Past abdominal surgeries per the daughter include repair of bleeding ulcers, cholecystectomy and hysterectomy. Daughter also questions if she had a bowel obstruction at some point but cannot recall for certain. She was previously on 2 different stool softeners (bisacodyl and colace) but has only been on Colace once daily at bedtime since leaving the hospital. She was previously on methadone for chronic pain. She is now completely off her methadone. She is only on a scopolamine patch for the nausea presently. Patient is an 81 mg aspirin daily. Review of the patient's recent records show a ER visit on 10/14/16. She was treated successfully with IV fluids, Zofran and fentanyl. She was discharged home after that ER visit and instructed to follow-up with her primary care provider. She returned to the ER on 10/26/16. She was treated initially in the ER with fluids, Reglan and Zofran. She was admitted to the hospital for intractable nausea and vomiting. She had an upper endoscopy and an upper GI swallow. Diagnosed with intractable nausea and vomiting, abdominal pain and a Zenker's diverticula. She was instructed to follow-up with GI but has not yet done so. She was discharged on 11/01/16. Patient is a full code. Onset: Other (one month) Abdominal Pain Score (Numeric/FACES): 8 - Related Data Allergies Allergy/AdvReac Type Severity Reaction Status Date / Time venom-honey bee Allergy Swelling Verified 11/02/16 11:02 [bee venom (honey bee)] cefadroxil hydrate AdvReac Intermediate Rash Verified 11/02/16 11:02 [From Duricef] promethazine [From Phenergan] AdvReac Agitation Verified 11/02/16 11:02 Home Meds: Home Meds Aspirin [Halfprin] 81 mg PO ACDINNER 09/16/15 [History] Donepezil HCl [Aricept] 10 mg PO BEDTIME 09/16/15 [History] Escitalopram Oxalate 20 mg PO DAILY 09/16/15 [History] Fenofibrate Nanocrystallized [Fenofibrate] 48 mg PO DAILY 09/16/15 [History] Omeprazole 20 mg PO BID 09/16/15 [History] Rosuvastatin [Crestor] 10 mg PO BEDTIME 09/16/15 [History] amLODIPine [Norvasc] 10 mg PO DAILY 09/16/15 [History] metFORMIN [Glucophage XR] 500 mg PO ACDINNER 09/16/15 [History] Metoprolol/Hydrochlorothiazide [Metoprolol-HCTZ 50-25 MG] 1 tab PO BEDTIME 09/24 [History] Potassium Chloride 40 meq PO DAILY 09/24/16 [History] Budesonide/Formoterol Fumarate [Symbicort 160-4.5 Mcg Inhaler] 2 puff INH BID [History] Calcium Carbonate [Calcium] 1 tab PO ACLUNCH 10/28/16 [History] LORazepam [Ativan] 0.5 mg PO BID PRN 10/28/16 [History] Lutein/Minerals/Vit A,C & E [Ocuvite] 1 tab PO DAILY 10/28/16 [History] Multivitamin [Daily Multiple Vitamin] 1 tab PO DAILY 10/28/16 [History] Vitamin E 400 units PO DAILY 10/28/16 [History] Acetaminophen [Tylenol] 650 mg PO Q4H PRN #0 tablet 11/01/16 [Rx] Scopolamine [Transderm-Scop] 1.5 mg TOP Q72H PRN #5 patch 11/01/16 [Rx] Ondansetron [Zofran ODT] 4 mg PO Q8H PRN #20 tab.dis 11/02/16 [Rx] Past Medical History - Past Health History Medical/Surgical History: Denies Medical/Surgical History HEENT History: Reports: Cataract Other HEENT History: deaf in left ear, [place]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 [place]lear implants Cardiovascular History: Reports: High Cholesterol Respiratory History: Reports: Bronchitis, Recurrent Other Respiratory History: finished zpak 09/16/2015 Gastrointestinal History: Reports: Gastritis, GERD, Other (See Below) Other Gastrointestinal History: "dumping syndrome" Genitourinary History: Reports: None GUNNER'S MATE M History: Reports: Other OB/BYN History: 4 pregnancies Musculoskeletal History: Reports: Arthritis, Osteoporosis Neurological History: Reports: Other (See Below) Other Neuro History: Dementia Psychiatric History: Reports: Dementia Endocrine/Metabolic History: Reports: Diabetes, Type II Hematologic History: Reports: None Oncologic (Cancer) History: Reports: None, Squamous Cell Carcinoma Other Oncologic History: chin lip area - Infectious Disease History Infectious Disease History: Reports: Measles, Mumps - Past Surgical History HEENT Surgical History: Reports: Adenoidectomy, Cataract Surgery, Tonsillectomy Female Surgical History: Reports: Hysterectomy, Salpingo-Oophorectomy Dermatological Surgical History: Reports: Skin Graft Social & Family History - Family History Family Medical History: Noncontributory HEENT: Reports: Cataract, Hearing Impairment, Impaired Vision Cardiac: Reports: None, Bypass Respiratory: Reports: Sleep Apnea GI: Reports: GERD Musculoskeletal: Reports: Arthritis, Osteoarthritis, Osteoporosis Psychiatric: Reports: Suicide Attempt, Other (See Below) Other Psychiatric Family History: son Endocrine/Metabolic: Reports: Diabetes, type II, Osteoporosis Oncologic: Reports: Lymphoma Other Oncologic Family History: dad and grandpa - Tobacco Use Smoking Status *Q: Never Smoker Years of Tobacco use: 10 Packs/Tins Daily: 1 Used Tobacco, but Quit: Yes Month Tobacco Last Used: 1995 Second Hand Smoke Exposure: No - Caffeine Use Caffeine Use: Reports: Coffee Other Caffeine Use: daily - Recreational Drug Use Recreational Drug Use: No ED ROS GENERAL - Review of Systems Review Of Systems: See Below Constitutional: Reports: Weakness, Decreased Appetite. Denies: Fever Respiratory: Denies: Shortness of Breath Cardiovascular: Denies: Chest Pain GI/Abdominal: Reports: Abdominal Pain, Nausea, Vomiting. Denies: Diarrhea ( none since leaving the hospital) ED EXAM, GI/ABD - Physical Exam Exam: See Below Exam Limited By: No Limitations General Appearance: Alert, WD/WN, Mild Distress Respiratory/Chest: No Respiratory Distress, Lungs Clear, Normal Breath Sounds Cardiovascular: Normal Peripheral Pulses, Regular Rate, Rhythm, No Murmur GI/Abdominal Exam: Normal Bowel Sounds, Soft, Tender (RUQ and LUQ) Neurological: Alert, Oriented Psychiatric: Normal Affect, Normal Mood Skin Exam: Warm, Dry, Normal Color Course - Vital Signs Last Recorded V/S: Last Vital Signs Temp 36.3 C 11/02/16 10:55 Pulse 76 11/02/16 10:55 Resp 16 11/02/16 10:55 BP 180/71 H 11/02/16 10:55 Pulse Ox 96 11/02/16 10:55 - Orders/Labs/Meds Labs: Laboratory Tests 11/02/16 11/02/16 11/02/16 Range/Units 12:00 12:13 12:13 WBC 5.82 (3.98-10.04) K/mm3 RBC 4.48 (3.98-5.22) M/mm3 Hgb 13.3 (11.2-15.7) gm/L Hct 38.9 (34.1-44.9) % MCV 86.8 (79.4-94.8) fl MCH 29.7 (25.6-32.2) pg MCHC 34.2 (32.2-35.5) g/dl RDW Std Deviation 41.9 (36.4-46.3) fL Plt Count 296 (182-369) K/mm3 MPV 9.2 L (9.4-12.3) fl Neut % (Auto) 76.2 H (34.0-71.1) % Lymph % (Auto) 15.8 L (19.3-51.7) % [place] % (Auto) 7.6 (4.7-12.5) % Eos % (Auto) 0.2 L (0.7-5.8) Baso % (Auto) 0.2 (0.1-1.2) % Neut # (Auto) 4.44 (1.56-6.13) K/mm3 Lymph # (Auto) 0.92 L (1.18-3.74) K/mm3 [place] # (Auto) 0.44 H (0.24-0.36) K/mm3 Eos # (Auto) 0.01 L (0.04-0.36) K/mm3 Baso # (Auto) 0.01 (0.01-0.08) K/mm3 Sodium 137 (136-145) mEq/L Potassium 3.2 L (3.5-5.1) mEq/L Chloride 99 (98-107) mEq/L Carbon Dioxide 28 (21-32) mEq/L Anion Gap 13.2 (5-15) BUN 17 (7-18) mg/dL Creatinine 0.9 (0.55-1.02) mg/dL Est Cr Clr Drug Dosing 34.02 mL/min Estimated GFR (MDRD) 60 (>60) mL/min BUN/Creatinine Ratio 18.9 H (14-18) Glucose 145 H (83-115) mg/dL Calcium 9.5 (8.5-10.1) mg/dL Magnesium 1.7 L (1.8-2.4) mg/dl Total Bilirubin 0.8 (0.2-1.0) mg/dL AST 44 H (15-37) U/L ALT 47 (14-59) U/L Alkaline Phosphatase 32 L (46-116) U/L C-Reactive Protein < 0.2 (<1.0) mg/dL Total Protein 8.1 (6.4-8.2) g/dl Albumin 4.1 (3.4-5.0) g/dl Globulin 4.0 gm/dL Albumin/Globulin Ratio 1.0 (1-2) Lipase (73-393) U/L Urine Color Yellow (Yellow) Urine Appearance Clear (Clear) Urine pH 5.5 (5.0-8.0) Ur Specific [place] > or = 1.030 (1.005-1.030) Urine Protein 1+ H (Negative) Urine Glucose (UA) Negative (Negative) Urine Ketones Negative (Negative) Urine Occult Blood Negative (Negative) Urine Nitrite Negative (Negative) Urine Bilirubin Negative (Negative) Urine Urobilinogen 0.2 (0.2-1.0) Ur Leukocyte Esterase Negative (Negative) Urine RBC 0-5 (0-5) /hpf Urine WBC 0-5 (0-5) /hpf Ur Epithelial Cells 0-5 (0-5) /hpf Urine Bacteria Not seen (FEW) /hpf Urine Mucus Not seen (FEW) /hpf 11/02/16 Range/Units 12:13 WBC (3.98-10.04) K/mm3 RBC (3.98-5.22) M/mm3 Hgb (11.2-15.7) gm/L Hct (34.1-44.9) % MCV (79.4-94.8) fl MCH (25.6-32.2) pg MCHC (32.2-35.5) g/dl RDW Std Deviation (36.4-46.3) fL Plt Count (182-369) K/mm3 MPV (9.4-12.3) fl Neut % (Auto) (34.0-71.1) % Lymph % (Auto) (19.3-51.7) % [place] % (Auto) (4.7-12.5) % Eos % (Auto) (0.7-5.8) Baso % (Auto) (0.1-1.2) % Neut # (Auto) (1.56-6.13) K/mm3 Lymph # (Auto) (1.18-3.74) K/mm3 [place] # (Auto) (0.24-0.36) K/mm3 Eos # (Auto) (0.04-0.36) K/mm3 Baso # (Auto) (0.01-0.08) K/mm3 Sodium (136-145) mEq/L Potassium (3.5-5.1) mEq/L Chloride (98-107) mEq/L Carbon Dioxide (21-32) mEq/L Anion Gap (5-15) BUN (7-18) mg/dL Creatinine (0.55-1.02) mg/dL Est Cr Clr Drug Dosing mL/min Estimated GFR (MDRD) (>60) mL/min BUN/Creatinine Ratio (14-18) Glucose (83-115) mg/dL Calcium (8.5-10.1) mg/dL Magnesium (1.8-2.4) mg/dl Total Bilirubin (0.2-1.0) mg/dL AST (15-37) U/L ALT (14-59) U/L Alkaline Phosphatase (46-116) U/L C-Reactive Protein (<1.0) mg/dL Total Protein (6.4-8.2) g/dl Albumin (3.4-5.0) g/dl Globulin gm/dL Albumin/Globulin Ratio (1-2) Lipase 127 (73-393) U/L Urine Color (Yellow) Urine Appearance (Clear) Urine pH (5.0-8.0) Ur Specific [place] (1.005-1.030) Urine Protein (Negative) Urine Glucose (UA) (Negative) Urine Ketones (Negative) Urine Occult Blood (Negative) Urine Nitrite (Negative) Urine Bilirubin (Negative) Urine Urobilinogen (0.2-1.0) Ur Leukocyte Esterase (Negative) Urine RBC (0-5) /hpf Urine WBC (0-5) /hpf Ur Epithelial Cells (0-5) /hpf Urine Bacteria (FEW) /hpf Urine Mucus (FEW) /hpf Meds: Medications Discontinued Medications Generic Name Dose Route Start Last Admin Trade Name Sudhakarq PRN Reason Stop Dose Admin Hydromorphone HCl 0.25 mg 11/02/16 11:39 11/02/16 11:54 Dilaudid IVPUSH 11/02/16 11:40 0.25 mg ONETIME ONE Administration Sodium Chloride 1,000 mls @ 100 mls/hr 11/02/16 11:45 11/02/16 11:52 Normal Saline IV 100 mls/hr ASDIRECTED DEONNA Administration Lorazepam 0.5 mg 11/02/16 14:38 11/02/16 14:43 Ativan IVPUSH 11/02/16 14:39 0.5 mg ONETIME ONE Administration Metoclopramide HCl 5 mg 11/02/16 12:57 11/02/16 13:03 Reglan IVPUSH 11/02/16 12:58 5 mg ONETIME ONE Administration Ondansetron HCl 4 mg 11/02/16 11:40 11/02/16 11:53 Zofran IVPUSH 11/02/16 11:41 4 mg ONETIME ONE Administration Potassium Chloride 20 meq 11/02/16 14:02 11/02/16 14:11 Potassium Chloride Solution PO 11/02/16 14:03 20 meq ONETIME ONE Administration Sodium Chloride 10 ml 11/02/16 11:40 11/02/16 11:54 Saline Flush FLUSH 10 ml ASDIRECTED PRN Administration Keep Vein Open - Radiology Interpretation Free Text/Narrative:: flat and upright xrays shows contrast media in the abdomen from recent GI swallow. No air fluid lines. - Re-Assessments/Exams Free Text/Narrative Re-Assessment/Exam: 11/02/16 13:39 Labs have returned. I reviewed the lab results with the patient and her daughter. She has not taken her medications today and is on potassium but did not take this today. She has been able to take some ice chips. She did gag but has been able to keep them down. I feel we should try some sips of water. My plan is to consult GI for any further recommendations. I see no reason at this point for further imaging. 11/02/16 16:[address] Dasilva, GI at [facility] in [place] for about 20 minutes regarding this patient. I sent him the recent CT and upper GI swallow. He reviewed the images. Recommended obtaining a flat and upright to see if contrast is still present from the recent GI swallow. I sent him the images and he was to call back if he saw any additional concerns, which he did not call back. After a lengthy discussion he did not feel we were missing anything. [place] this is most likely narcotic withdrawl. I discussed this with the patient's daughter. She reports the fior off the methadone began in early September. She has been on methadone, she estimates for 15 years. She started having problems in mid September. I attempted to contact the patient's PCP, Dr. Boothe, regarding this patient. He has been refilling her methadone for her. Unfortunately, he is out for the weekend. I discussed the case with Dr. Connell. Recommended having her go back to 2.5mg daily. She has a follow-up appointment on Saturday with her PCP. She should follow-up with him for a further fior instructions. I discussed this with the patient's daughter. She is in agreement with this plan. Discharge instructions as documented. Departure - Departure Time of Disposition: 16:02 Disposition: Home, Self-Care 01 Condition: Fair Clinical Impression: Opioid withdrawal Abdominal pain Qualifiers: Abdominal location: generalized Qualified Code(s): R10.84 - Generalized abdominal pain Intractable vomiting with nausea Qualifiers: Vomiting type: unspecified Qualified Code(s): R11.2 - Nausea with vomiting, unspecified - Discharge Information Prescriptions: Ondansetron [Zofran ODT] 4 mg PO Q8H PRN #20 tab.dis PRN Reason: Nausea Instructions: Nausea, Adult, Abdominal Pain, Adult, [id number] Referrals: Maxwell Smith MD [Primary Care Provider] - Forms: ED Department Discharge Additional Instructions: Zofran as prescribed. 1 tab sublingual every 8 hours as needed for nausea. Restart your methadone. Recommend starting at 2.5 mg per day. Follow up with your primary care provider Saturday as planned. Clear liquids today. This weekend you may advance to a more bland diet such as soup broth, crackers, bananas, etc. as tolerated. Please return to the ER if your symptoms change or worsen.
[2016-11-02] MEDS ORDERED: Metoclopramide 10 MG/2 ML SDV IVPUSH ONE (12:57)
[2016-11-02] MEDS ORDERED: Potassium Chloride 10% 20 MEQ/15 ML Soln 15 ML UD Cup PO ONE (14:02)
[2016-11-02] MEDS ORDERED: LORazepam 2 MG/ML MDV IVPUSH ONE (14:38)
--- NOTE | 2016-11-02 15:06 | CR ---
Abdomen: Supine and upright views of the abdomen were obtained. Comparison: Previous abdominal x-ray of 09/24/16. Small amount of contrast is seen within the right side of the colon from previous RSVP study of 10/31/16. Bowel gas pattern appears normal. Scoliosis and degenerative change is seen within the spine. Calcifications compatible with phleboliths are seen within the pelvis. Slight vascular calcification is noted. No free air is seen. Slight atelectasis is noted within the left lung base. Impression: 1. Incidental findings as described above. Diagnostic code #2
== END 2016-11-02 16:17 | disposition home or self-care (01) ==
LOC: JD.ED 10:46
DX: R11.2 Nausea with vomiting, unspecified (principal); R10.84 Generalized abdominal pain; F11.23 Opioid dependence with withdrawal; E78.00 Pure hypercholesterolemia, unspecified; K21.9 Gastro-esophageal reflux disease without esophagitis; E11.9 Type 2 diabetes mellitus without complications; M19.90 Unspecified osteoarthritis, unspecified site; M81.0 Age-related osteoporosis without current pathological fracture; F03.90 Unspecified dementia, unspecified severity, without behavioral disturbance, psychotic disturbance, mood disturbance, and anxiety; Z85.828 Personal history of other malignant neoplasm of skin; Z98.49 Cataract extraction status, unspecified eye; Z98.890 Other specified postprocedural states; Z90.710 Acquired absence of both cervix and uterus; Z87.891 Personal history of nicotine dependence; Z79.84 Long term (current) use of oral hypoglycemic drugs; Z79.899 Other long term (current) drug therapy; Z88.8 Allergy status to other drugs, medicaments and biological substances; Z91.030 Bee allergy status; Z88.1 Allergy status to other antibiotic agents; Z79.82 Long term (current) use of aspirin
CPT/HCPCS: 36415; 74020; 80053; 81001; 83690; 83735; 85025; 86140; 96361; 96374; 96375; 99284; A9270; J1170; J2060; J2405; J2765; J7040; J7050

== ENCOUNTER 2017-03-15 13:06 | Emergency (ER) | payer MEDICARE, BC ==
[2017-03-15 13:26] VITALS: BP 148/65
[2017-03-15] MEDS ORDERED: Sodium Chloride 0.9% 1,000 ML IV ONE (14:00)
[2017-03-15] MEDS ORDERED: Sodium Chloride 0.9% 10 ML Syringe FLUSH PRN (14:00)
[2017-03-15] MEDS ORDERED: HYDROmorphone 0.5 MG/0.5 ML Syringe IVPUSH ONE (14:04)
[2017-03-15] MEDS ORDERED: Ondansetron 4 MG/2 ML SDV IVPUSH ONE (14:04)
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
--- NOTE | 2017-03-15 15:06 | CR ---
Abdominal series: Supine and upright views of the abdomen were obtained as well as frontal view of the chest. Comparison: Prior abdominal x-ray of 11/02/16 and abdominal series of 10/14/16. Heart size at the upper limits of normal. Mild tortuosity of the thoracic aorta. Linear scarring is noted within the left midlung which is stable. Lungs otherwise are clear. No free air is seen. Small bowel gas noted which is minimally prominent. Gas noted within the colon. Calcifications within the pelvis which are felt to be due to phleboliths. Mild scoliosis and minimal degenerative change is seen within the spine. Impression: 1. Several slightly prominent loops of small bowel gas. Difficult to completely exclude partial or early complete small bowel obstruction. Follow-up study could be obtained in 24 hours to further evaluate. 2. Other incidental findings. Diagnostic code #3
[2017-03-15] MEDS ORDERED: Diatrizoate Meglumine/Diatrizoate Sodium 37% 120 ML Bottle PO ONE (15:15)
[2017-03-15] MEDS ORDERED: Iopamidol 612 MG/ML 100 ML Bottle IVPUSH ONE (15:15)
[2017-03-15] MEDS ORDERED: Sodium Chloride 0.9% 10 ML Syringe FLUSH ONE (15:15)
--- NOTE | 2017-03-15 17:14 | CT ---
CT abdomen and pelvis Technique: Multiple axial sections were obtained above the dome of the diaphragm inferiorly through the pubic symphysis. Intravenous and oral contrast has been given. Delayed images were also obtained through the bladder. Comparison: Prior abdominal x-ray performed earlier on the same day, previous CT abdomen and pelvis exam of 10/15/16 is available. Visualized lung bases shows nothing acute. Calcification is seen either within the dome of the liver or within the adjacent diaphragm which is stable. Liver shows no focal parenchymal abnormality. Spleen appears within normal limits. Adrenal glands show no nodule. Kidneys show symmetric contrast enhancement without hydronephrosis or mass. Pancreas appears within normal limits. Gallbladder contains no gallstones. Aorta shows atherosclerotic change which continues into the iliac vessels. No aneurysm is seen. No retroperitoneal adenopathy is noted. No mesenteric abnormalities are seen. No pelvic mass or adenopathy is seen. Slightly dilated small bowel is seen. Contrast is identified within the terminal ileum and within the colon. Several scattered areas of mild bowel wall thickening are seen within the small bowel. Appendix not visualized. Is Delayed images shows contrast within distal ureters and within the bladder. Bone window settings were reviewed showing scattered degenerative change within the spine. Impression: 1. Slightly dilated small bowel. Scattered areas of small bowel wall thickening are seen. Findings are felt compatible with enteritis. No complete obstruction is seen as contrast is seen within the terminal ileum and within the colon. 2. Other incidental findings as noted above. Diagnostic code #3
== END 2017-03-15 18:54 | disposition home or self-care (01) ==
LOC: JD.ED 13:06
DX: K52.9 Noninfective gastroenteritis and colitis, unspecified (principal); E11.9 Type 2 diabetes mellitus without complications; Z79.82 Long term (current) use of aspirin; Z79.899 Other long term (current) drug therapy; Z91.030 Bee allergy status; Z88.8 Allergy status to other drugs, medicaments and biological substances; Z87.891 Personal history of nicotine dependence; Z79.84 Long term (current) use of oral hypoglycemic drugs
CPT/HCPCS: 36415; 74022; 74177; 80053; 81001; 83690; 83735; 84484; 85025; 86140; 87804; 93005; 96361; 96374; 96375; 99285; J1170; J2405; J7040; J7050; Q9963; Q9967; 99284-25

== ENCOUNTER 2017-04-15 07:08 | Day surgery (SDC) | payer MEDICARE, BC ==
[~2017-04-15 07:08] MED LIST: Bacitracin Oint 15 GM Tube ONE; Lactated Ringers 1,000 ML IV SCH; Lidocaine 1% 30 ML SDV ONE; Lidocaine 1% 4 ML ONE; Lidocaine 1% with EPINEPHrine 1:100,000 20 ML MDV ONE; Lidocaine 1%/Sod Bicarbonate in NS 8.4% 1 ML Syringe IV PRN; Propofol 200 MG/20 ML SDV ONE; Sodium Chloride 0.9% 10 ML Syringe FLUSH PRN; fentaNYL 100 MCG/2 ML SDV ONE
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
[2017-04-15] MEDS ORDERED: Albuterol 0.083% 2.5 MG/3 ML Neb Soln ONE (08:03)
[2017-04-15] MEDS ORDERED: Albuterol 0.083% 2.5 MG/3 ML Neb Soln NEB ONE ×2 (08:10→11:00)
[2017-04-15] MEDS ORDERED: Ondansetron 4 MG/2 ML SDV IVPUSH PRN (08:48)
[2017-04-15] MEDS ORDERED: Ketamine 500 mg/10 ML MDV ONE (08:49)
[2017-04-15] MEDS ORDERED: Propofol 200 MG/20 ML SDV ONE (09:30)
--- NOTE | 2017-04-15 09:58 | PCM.OPNOTE ---
- General Post-Op/Procedure Note Date of Surgery/Procedure: 04/15/17 Operative Procedure(s): excsion of basal cell of the tragus of left ear with Frozens section control Pre Op Diagnosis: basal cell of the left tragus Post-Op Diagnosis: Same Anesthesia Technique: MAC Primary Surgeon: Jose Conti EBL in mLs: 0 Complications: None Condition: Good
--- NOTE | 2017-04-15 10:06 | PCM.POSTAN ---
POST ANESTHESIA ASSESSMENT - MENTAL STATUS Mental Status: Somnolent - VITAL SIGNS Pulse Rate: 72 SaO2: 88 Resp Rate: 14 Blood Pressure: 144/55 Temperature: 97.8 F - RESPIRATORY Respiratory Status: Respiratory Rate WNL, Airway Patent, Supplemental Oxygen - CARDIOVASCULAR CV Status: Pulse Rate WNL, Blood Pressure Stable - GASTROINTESTINAL GI Status: No Symptoms - PAIN Pain Score: 0 - POST OP HYDRATION Hydration Status: Adequate & Stable
--- NOTE | 2017-04-15 11:08 | PCM48HPAN ---
Post Anesthesia Note - EVALUATION WITHIN 48HRS OF ANESTHETIC Vital Signs in Normal Range: Yes Patient Participated in Evaluation: Yes Respiratory Function Stable: Yes (neb repeated. exp wheezes audible. Sats up 94% ) Airway Patent: Yes Cardiovascular Function Stable: Yes Hydration Status Stable: Yes Pain Control Satisfactory: Yes Nausea and Vomiting Control Satisfactory: Yes Mental Status Recovered: Yes
[2017-04-15 12:05] VITALS: BP 121/65
--- NOTE | 2017-04-15 12:43 | OR ---
DATE OF OPERATION: 04/15/2017 SURGEON: Jose Conti MD PREOPERATIVE DIAGNOSIS: Basal cell carcinoma, tragus of the right ear. POSTOPERATIVE DIAGNOSIS: Basal cell carcinoma, tragus of the right ear. OPERATION PERFORMED: Excision of tragus under frozen section control and primary closure. ANESTHESIA: Done under local anesthetic and IV sedation. ESTIMATED BLOOD LOSS: Zero mL. DESCRIPTION OF PROCEDURE: The patient was taken to the operating room and placed in a supine position. The area in question had been marked, prepped with Betadine, and draped off in a sterile fashion. The lesion on the tragus was identified and margins were marked and measured. The lesion was elliptically incised. The lesion margin measured 2 x 1.5 cm. Medial side of the tragus was marked with a black silk suture, sent for frozen section and showed that the margin was involved on the medial side. Then, additional specimen was taken on that side, in which the tumor side was inked and sent as permanent section. The skin edges were then undermined, and the deep tissues were brought together with interrupted 5-0 Vicryl suture. Burow's triangles were taken out at either end and the skin was closed with interrupted 4-0 Prolene suture. The dressing of bacitracin ointment was placed. The patient tolerated the procedure and was sent to recovery room in a stable condition. Of note is that, an ear block was placed using about 1% Xylocaine with epinephrine. MMODAL /[id number] MTDD
--- NOTE | 2017-05-01 17:45 | OR ---
DATE OF OPERATION: 04/15/2017 SURGEON: Jose Conti MD ADDENDUM: OPERATION PERFORMED: Excision of tragus under frozen section control and layered closure. MMODAL /[id number]
--- NOTE | 2017-05-01 17:48 | OR ---
DATE OF OPERATION: 04/15/2017 SURGEON: Jose Conti MD ADDENDUM: Correction on the postoperative procedure note. POSTOPERATIVE PROCEDURE: Excision of basal cell carcinoma of the tragus of the right ear with frozen section control. MMODAL /[id number]
== END 2017-04-15 11:50 | disposition home or self-care (01) ==
LOC: JD.SDS 07:08
PROVIDERS: ATTEND Surgery
DX: C44.212 Basal cell carcinoma of skin of right ear and external auricular canal (principal); F03.90 Unspecified dementia, unspecified severity, without behavioral disturbance, psychotic disturbance, mood disturbance, and anxiety; H91.92 Unspecified hearing loss, left ear; E78.00 Pure hypercholesterolemia, unspecified; I10 Essential (primary) hypertension; K21.9 Gastro-esophageal reflux disease without esophagitis; K91.1 Postgastric surgery syndromes; M19.90 Unspecified osteoarthritis, unspecified site; M81.0 Age-related osteoporosis without current pathological fracture; E11.9 Type 2 diabetes mellitus without complications; E78.5 Hyperlipidemia, unspecified; F11.21 Opioid dependence, in remission; Z85.118 Personal history of other malignant neoplasm of bronchus and lung; Z87.891 Personal history of nicotine dependence; Z79.82 Long term (current) use of aspirin; Z79.84 Long term (current) use of oral hypoglycemic drugs; Z79.899 Other long term (current) drug therapy; Z91.030 Bee allergy status; Z88.1 Allergy status to other antibiotic agents; Z88.8 Allergy status to other drugs, medicaments and biological substances; Z96.21 Cochlear implant status; Z90.49 Acquired absence of other specified parts of digestive tract; Z90.710 Acquired absence of both cervix and uterus; Z98.49 Cataract extraction status, unspecified eye; Z98.890 Other specified postprocedural states
CPT/HCPCS: 11642; 12051; 82962; 94640; A9270; J3010; J7120; 00300; 88305; J2001; J2704

== ENCOUNTER 2017-05-01 16:07 | Inpatient (IN) | payer MEDICARE, BC ==
[2017-05-01] MEDS ORDERED: Ondansetron 4 MG/2 ML SDV IVPUSH ONE (16:13)
[2017-05-01] MEDS ORDERED: methylPREDNISolone Sodium Succinate 125 MG/2 ML SDV IVPUSH ONE (16:14)
[2017-05-01] MEDS ORDERED: Albuterol/Ipratropium 3.0-0.5 MG/3 ML Neb Soln NEB ONE ×2 (16:14→18:24)
[2017-05-01] MEDS: Sodium Chloride 0.9% 10 ML Syringe FLUSH PRN (16:27)
--- NOTE | 2017-05-01 17:11 | CR ---
Chest: Portable view of the chest was obtained. Comparison: Prior chest x-ray of 10/14/16. Slight scarring is seen within the left mid lung. Mild atelectasis is noted within the right mid to lower lung. Heart size is slightly enlarged. Tortuous thoracic aorta is seen. Bony structures are osteopenic. Impression: 1. Incidental findings as noted above. Nothing acute is suspected. Diagnostic code #2
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
[2017-05-01] MEDS ORDERED: Polyethylene Glycol 3350 Powder 17 GM Packet PO PRN (22:45)
[2017-05-01] MEDS ORDERED: Morphine 2 MG/ML Syringe IVPUSH PRN (22:45)
[2017-05-01] MEDS ORDERED: Ondansetron 4 MG/2 ML SDV IV PRN (22:45)
[2017-05-01] MEDS ORDERED: Bisacodyl 5 MG Tab PO PRN (22:45)
[2017-05-01] MEDS ORDERED: Acetaminophen 325 MG Tab PO PRN (22:45)
[2017-05-01] MEDS ORDERED: Ondansetron 4 MG Tab.DIS PO PRN (22:45)
[2017-05-01] MEDS ORDERED: Acetaminophen/HYDROcodone 325-5 MG Tab PO PRN (22:45)
[2017-05-01] MEDS ORDERED: Docusate Sodium 100 MG Cap PO PRN (22:45)
[2017-05-01] MEDS ORDERED: hydrALAZINE 20 MG/ML SDV IVPUSH PRN (22:50)
[2017-05-01] MEDS ORDERED: Metoprolol Tartrate 5 MG/5 ML SDV IVPUSH PRN (22:50)
[2017-05-01] MEDS ORDERED: Magnesium Sulfate/Water 2 GM in Premix Bag 1 BAG IV ONE (22:54)
[2017-05-01] MEDS ORDERED: Doxycycline 100 MG in Sodium Chloride 0.9% 100 ML IV SCH (23:00)
--- NOTE | 2017-05-01 23:11 | PCM.HP ---
H&P History of Present Illness - General Date of Service: 05/01/17 Admit Problem/Dx: Admission Diagnosis/Problem Admission Diagnosis/Problem COPD, Moderate chronic obstructive pulmonary disease Source of Information: Patient, Family, Old Records, Provider, RN, RN Notes Reviewed History Limitations: Reports: No Limitations - History of Present Illness Initial Comments - Free Text/Narative: Maria A Parsons is an 36 yo female who presents to our ED today (05/01/17) with a cough and shortness of breath which is been ongoing for a few days. She denies fever, chills, abdominal pain, nausea, vomiting. She has COPD and feels like this may be an exacerbation. No edema or pain in her legs. She quit smoking a few years ago. She does have some chest pain. He was brought in by EMS and on their arrival they noted audible wheezing and oxygen saturation in the low 80s. She was placed on oxygen and an albuterol nebulizer was given on the way in. In the ED temperature was 99.4. Pulse 85. Respirations 18. Blood pressure 135 /65. Oxygen saturation 92%. The lead EKG was obtained and shows a normal sinus rhythm at 78 bpm with no ectopy noted. Labs were obtained: 30 BC is just slightly elevated at 11.98. Hemoglobin 12.3. Hematocrit 36.8. She is normocytic. Platelets are good at 264,000. Neutrophils are normal at 55.8%. Sodium was good at 140. Potassium 3.8. Chloride 103. Carbon dioxide 27. Anion gap is 13.8. BUN is slightly high at 20. Creatinine 0.8. EGFR greater than 60. Glucose is high at 1:30. Calcium 8.6. Total bilirubin 0.4. AST is slightly high at 49, ALT 37, alkaline phosphatase 38. Troponin is negative at less than 0.017. CRP is negative at 0.2. Protein is 7.5. Albumin slightly low at 3.3. She was given a couple DuoNeb's along with 125 mg Solu-Medrol and 4 mg Zofran. CXR was obtained and interpreted by Dr. Sanders as showing scarring within the left mid lung. Mild atelectasis noted within the right mid to lower lung. Heart size slightly enlarged. Tortuous thoracic aorta is seen. Bony structures are osteopenic. Nothing acute is appreciated. 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 She is a former smoker. She is subsequently admitted to the medical floor with telemetry. CODE STATUS is CPR only, she does not want intubation. Her PCP is Dr. Smith at [facility] in [place]. - Related Data Allergies/Adverse Reactions: Allergies Allergy/AdvReac Type Severity Reaction Status Date / Time venom-honey bee Allergy Swelling Verified 04/12/17 10:41 [bee venom (honey bee)] cefadroxil hydrate AdvReac Intermediate Rash Verified 04/12/17 10:41 [From Duricef] Home Medications: Home Meds Aspirin [Halfprin] 81 mg PO ACDINNER 09/16/15 [History] Donepezil HCl [Aricept] 10 mg PO BEDTIME 09/16/15 [History] Escitalopram Oxalate 20 mg PO DAILY 09/16/15 [History] Fenofibrate Nanocrystallized [Fenofibrate] 48 mg PO DAILY 09/16/15 [History] Omeprazole 20 mg PO BID 09/16/15 [History] Rosuvastatin [Crestor] 10 mg PO BEDTIME 09/16/15 [History] amLODIPine [Norvasc] 10 mg PO DAILY 09/16/15 [History] metFORMIN [Glucophage XR] 500 mg PO ACDINNER 09/16/15 [History] Metoprolol/Hydrochlorothiazide [Metoprolol-HCTZ 50-25 MG] 1 tab PO BEDTIME 09/24 [History] Potassium Chloride 40 meq PO BID 09/24/16 [History] Methadone 0.125 mg PO BEDTIME 03/15/17 [History] Mirtazapine [Remeron] 15 mg PO BEDTIME 03/15/17 [History] Past Medical History - Past Health History Medical/Surgical History: Denies Medical/Surgical History HEENT History: Reports: Cataract Other HEENT History: deaf in left ear, [place] right. Cochelear implants Cardiovascular History: Reports: High Cholesterol, Hypertension Respiratory History: Reports: Bronchitis, Recurrent, COPD Other Respiratory History: finished zpak 09/16/2015 Gastrointestinal History: Reports: Gastritis, GERD, Hemorrhoids, Other (See Below) Other Gastrointestinal History: "dumping syndrome" Genitourinary History: Reports: None CLINICAL RESOURCE COORDINATOR History: Reports: Other OB/BYN History: 4 pregnancies Musculoskeletal History: Reports: Arthritis, Fracture, Osteoporosis Other Musculoskeletal History: right leg break long ago Neurological History: Reports: Other (See Below) Other Neuro History: Dementia Psychiatric History: Reports: Dementia Endocrine/Metabolic History: Reports: Diabetes, Type II Other Endocrine/Metabolic History: does not check sugars at home Hematologic History: Reports: None Immunologic History: Reports: None Oncologic (Cancer) History: Reports: Squamous Cell Carcinoma Other Oncologic History: chin lip area Dermatologic History: Reports: None - Infectious Disease History Infectious Disease History: Reports: Measles, Mumps - Past Surgical History Head Surgeries/Procedures: Reports: None HEENT Surgical History: Reports: Adenoidectomy, Cataract Surgery, Tonsillectomy Other HEENT Surgeries/Procedures: wears glasses Cardiovascular Surgical History: Reports: None Respiratory Surgical History: Reports: None GI Surgical History: Reports: Cholecystectomy, EGD, Other (See Below) Other GI Surgeries/Procedures: bowl resection for dumping syndrom Female Surgical History: Reports: Hysterectomy, Salpingo-Oophorectomy Endocrine Surgical History: Reports: None Neurological Surgical History: Reports: None Musculoskeletal Surgical History: Reports: None Oncologic Surgical History: Reports: None Dermatological Surgical History: Reports: Skin Graft Social & Family History - Family History Family Medical History: Noncontributory HEENT: Reports: Cataract, Hearing Impairment, Impaired Vision Cardiac: Reports: None, Bypass Respiratory: Reports: Sleep Apnea GI: Reports: GERD Musculoskeletal: Reports: Arthritis, Osteoarthritis, Osteoporosis Psychiatric: Reports: Suicide Attempt, Other (See Below) Other Psychiatric Family History: son Endocrine/Metabolic: Reports: Diabetes, type II, Osteoporosis Oncologic: Reports: Lymphoma Other Oncologic Family History: dad and grandpa - Tobacco Use Smoking Status *Q: Former Smoker Years of Tobacco use: 1 Packs/Tins Daily: 0.2 Used Tobacco, but Quit: Yes Month Tobacco Last Used: many many years ago Second Hand Smoke Exposure: No - Caffeine Use Caffeine Use: Reports: Coffee Other Caffeine Use: daily - Alcohol Use Days Per Week of Alcohol Use: 0 - Recreational Drug Use Recreational Drug Use: No H&P Review of Systems - Review of Systems: Review Of Systems: See Below General: Reports: No Symptoms. Denies: Fever, Chills, Malaise, Weakness, Fatigue, Night Sweats, Diaphoresis, Decreased Appetite HEENT: Reports: No Symptoms. Denies: Ear Pain, Eye Pain, Headaches, Hearing Changes, Rhinitis, Sinus Congestion, Sore Throat, Vertigo, Visual Changes Pulmonary: Reports: Shortness of Breath, Wheezing, Cough (mild). Denies: Pleuritic Chest Pain, Sputum Cardiovascular: Reports: Chest Pain, Dyspnea on Exertion. Denies: Palpitations , Edema, Lightheadedness Gastrointestinal: Reports: Diarrhea (chronic from "dumping syndrome" - no worse than baseline). Denies: Abdominal Pain, Constipation, Hematemesis, Hematochezia , Melena, Nausea, Vomiting Genitourinary: Reports: No Symptoms. Denies: Dysuria, Frequency, Burning, Pain , Urgency Musculoskeletal: Reports: No Symptoms Skin: Reports: No Symptoms Psychiatric: Reports: No Symptoms Neurological: Reports: Confusion (very mild baseline). Denies: Headache, Numbness, Seizure, Tremors, Trouble Speaking, Weakness, Change in Speech Hematologic/Lymphatic: Reports: No Symptoms Immunologic: Reports: No Symptoms Exam - Exam Exam: See Below - Vital Signs Vital Signs: Last Vital Signs Temp 99.0 F 05/01/17 20:17 Pulse 84 05/01/17 20:17 Resp 24 H 05/01/17 20:17 BP 147/55 H 05/01/17 20:17 Pulse Ox 92 L 05/01/17 20:17 Weight: 159 lb 12.8 oz - Exam Quality Assessment: Supplemental Oxygen General: Alert, Oriented, Cooperative. No: Mild Distress HEENT: PERRLA, Hearing Intact, Mucosa Moist & [place], Nares Patent, Normal Nasal Septum, Posterior Pharynx Clear, Conjunctiva Clear, EOMI, EACs Clear, TMs Clear Neck: Supple, Trachea Midline Lungs: Normal Respiratory Effort, Decreased Breath Sounds, Wheezing (obvious expiratory wheezing while standing near patient ). No: Crackles, Rales, Rhonchi , Rub, Stridor Cardiovascular: Regular Rate, Regular Rhythm GI/Abdominal Exam: Normal Bowel Sounds, Soft, Non-Tender, No Organomegaly, No Distention, No Abnormal Bruit, No Mass, Pelvis Stable (Female) Exam: Deferred Rectal (Female) Exam: Deferred Back Exam: Normal Inspection, Full Range of Motion Extremities: Normal Inspection, Normal Range of Motion, Non-Tender, No Pedal Edema, Normal Capillary Refill Peripheral Pulses: 3+: Radial (L), Radial (R), Posterior Tibial (L), Posterior Tibial (R), Dorsalis Pedis (L), Dorsalis Pedis (R) Skin: Warm, Dry, Intact Neurological: Cranial Nerves Intact (grossly) Neuro Extensive - Mental Status: Alert, Oriented x3, Normal Mood/Affect, Normal Cognition, Other (some mild baseline confusion) Psychiatric: Alert, Normal Affect, Normal Mood - Patient Data Result Diagrams: 05/01/17 16:55 05/01/17 16:55 *Q Meaningful Use (ADM) - VTE *Q VTE Criteria *Q: - Stroke *Q Stroke Criteria *Q: - AMI *Q AMI Criteria *Q: - Problem List (1) COPD exacerbation SNOMED Code(s): 273658053 ICD Code: J44.1 - CHRONIC OBSTRUCTIVE PULMONARY DISEASE W (ACUTE) EXACERBATION Status: Acute Priority: High Current Visit: Yes (2) Hypoxia SNOMED Code(s): 627931708 ICD Code: R09.02 - HYPOXEMIA Status: Acute Priority: High Current Visit : Yes (3) Arthritis SNOMED Code(s): 0425164 ICD Code: M19.90 - UNSPECIFIED OSTEOARTHRITIS, UNSPECIFIED SITE Status: Chronic Priority: Low Current Visit: No (4) Age related osteoporosis SNOMED Code(s): 742789577 ICD Code: M81.0 - AGE-RELATED OSTEOPOROSIS W/O CURRENT PATHOLOGICAL FRACTURE Status: Chronic Priority: Low Current Visit: No Qualifiers: Presence of current pathological fracture: unspecified Qualified Code(s): M81.0 - Age-related osteoporosis without current pathological fracture (5) History of bowel resection SNOMED Code(s): 968295158 ICD Code: Z98.890 - OTHER SPECIFIED POSTPROCEDURAL STATES; Z90.49 - ACQUIRED ABSENCE OF OTHER SPECIFIED PARTS OF DIGESTIVE TRACT Status: Chronic Priority : Low Current Visit: No (6) Dumping syndrome SNOMED Code(s): 66701710 ICD Code: K91.1 - POSTGASTRIC SURGERY SYNDROMES Status: Chronic Priority : Low Current Visit: No (7) GERD (gastroesophageal reflux disease) SNOMED Code(s): 758197448 ICD Code: K21.9 - GASTRO-ESOPHAGEAL REFLUX DISEASE WITHOUT ESOPHAGITIS Status: Chronic Priority: Low Current Visit: No Qualifiers: Esophagitis presence: esophagitis presence not specified Qualified Code(s) : K21.9 - Gastro-esophageal reflux disease without esophagitis (8) Type II diabetes mellitus SNOMED Code(s): 62201442 ICD Code: E11.9 - TYPE 2 DIABETES MELLITUS WITHOUT COMPLICATIONS Status: Chronic Priority: Low Current Visit: Yes Qualifiers: Diabetes mellitus complication status: without complication Diabetes mellitus scientist propagator insulin use: without scientist propagator use Qualified Code(s): E11.9 - Type 2 diabetes mellitus without complications (9) Hyperlipemia SNOMED Code(s): 47254803 ICD Code: E78.5 - HYPERLIPIDEMIA, UNSPECIFIED Status: Chronic Priority: Low Current Visit: No Qualifiers: Hyperlipidemia type: unspecified Qualified Code(s): E78.5 - Hyperlipidemia , unspecified (10) Hypomagnesemia SNOMED Code(s): 259847517 ICD Code: E83.42 - HYPOMAGNESEMIA Status: Acute Priority: Medium Current Visit: Yes Problem List Initiated/Reviewed/Updated: Yes Orders Last 24hrs: Active Orders 24 hr Category Date Time Status Patient Status [ADT] Routine ADT 05/01/17 22:44 Active Antiembolic Devices [RC] PER UNIT ROUTINE Care 05/01/17 22:47 Active Cardiac Monitoring [RC] CONTINUOUS Care 05/01/17 22:46 Active Height and Weight [RC] DAILY Care 05/01/17 22:45 Active Intake and Output [RC] QSHIFT Care 05/01/17 22:46 Active RT Aerosol Therapy [RC] ASDIRECTED Care 05/01/17 22:47 Active Up With Assistance [RC] ASDIRECTED Care 05/01/17 22:45 Active VTE/DVT Education [RC] PER UNIT ROUTINE Care 05/01/17 22:45 Active Vital Signs [RC] Q4H Care 05/01/17 22:45 Active Consult to Case Management [CONS] Routine Cons 05/01/17 22:45 Active OT Evaluation and Treatment [CONS] Routine Cons 05/01/17 22:45 Active PT Evaluation and Treatment [CONS] Routine Cons 05/01/17 22:45 Active Respiratory Care Assess and Treatment [CONS] Routine Cons 05/01/17 22:45 Active ADA Diabetic [[employer] Diet] [DIET Diet 05/01/17 Dinner Active ] BASIC METABOLIC PANEL,BMP [CHEM] AM Lab 05/02/17 05:11 Ordered BASIC METABOLIC PANEL,BMP [CHEM] AM Lab 05/03/17 05:11 Ordered BASIC METABOLIC PANEL,BMP [CHEM] AM Lab 05/04/17 05:11 Ordered BASIC METABOLIC PANEL,BMP [CHEM] AM Lab 05/05/17 05:11 Ordered CBC WITH AUTO DIFF [HEME] AM Lab 05/02/17 05:11 Ordered CBC WITH AUTO DIFF [HEME] AM Lab 05/03/17 05:11 Ordered CBC WITH AUTO DIFF [HEME] AM Lab 05/04/17 05:11 Ordered CBC WITH AUTO DIFF [HEME] AM Lab 05/05/17 05:11 Ordered MAGNESIUM [CHEM] AM Lab 05/02/17 05:11 Ordered MAGNESIUM [CHEM] AM Lab 05/03/17 05:11 Ordered MAGNESIUM [CHEM] AM Lab 05/04/17 05:11 Ordered MAGNESIUM [CHEM] AM Lab 05/05/17 05:11 Ordered Acetaminophen [Tylenol] Med 05/01/17 22:45 Ordered 650 mg PO Q4H PRN Acetaminophen/HYDROcodone [[place] 325-5 MG] Med 05/01/17 22:45 Ordered 1 tab PO Q4H PRN Albuterol/Ipratropium [DuoNeb 3.0-0.5 MG/3 ML] Med 05/02/17 03:00 Ordered 3 ml NEB Q6HRRT Bisacodyl [Dulcolax] Med 05/01/17 22:45 Ordered 5 mg PO DAILY PRN Docusate Sodium [Colace] Med 05/01/17 22:45 Ordered 100 mg PO BID PRN Docusate Sodium/Sennosides [Senna Plus] Med 05/01/17 22:45 Ordered 1 tab PO BID PRN Doxycycline [Vibramycin] 100 mg Med 05/01/17 23:00 Ordered Sodium Chloride 0.9% [Normal Saline] 100 ml IV Q12HR Enoxaparin [Lovenox] Med 05/02/17 09:00 Ordered 40 mg SUBCUT DAILY Magnesium Sulfate/Water [Magnesium Sulfate 2 GM in Med 05/01/17 22:54 Ordered Water 50 ML] 2 gm Premix Bag 1 bag IV ONETIME Metoprolol Tartrate [Lopressor] Med 05/01/17 22:50 Ordered 5 mg IVPUSH Q4H PRN Morphine Med 05/01/17 22:45 Ordered 0.5 mg IVPUSH Q2H PRN Ondansetron [Zofran ODT] Med 05/01/17 22:45 Ordered 4 mg PO Q6H PRN Ondansetron [Zofran] Med 05/01/17 22:45 Ordered 4 mg IV Q6H PRN Polyethylene Glycol 3350 [MiraLAX] Med 05/01/17 22:45 Ordered 17 gm PO DAILY PRN hydrALAZINE [Apresoline] Med 05/01/17 22:50 Ordered 10 mg IVPUSH Q6H PRN methylPREDNISolone Sod Succ [Solu-MEDROL] Med 05/01/17 23:00 Ordered 40 mg IVPUSH Q8H Antiembolic Hose [OM.PC] Per Unit Routine Oth 05/01/17 22:46 Ordered Resuscitation Status Routine Resus Stat 05/01/17 20:49 Ordered Medication Orders Acetaminophen (Tylenol) 650 mg PO Q4H PRN PRN Reason: Pain (Mild 1-3)/fever Hydrocodone Bitart/Acetaminophen ([place] 325-5 Mg) 1 tab PO Q4H PRN PRN Reason: Pain (moderate 4-6) Albuterol/Ipratropium (Duoneb 3.0-0.5 Mg/3 Ml) 3 ml NEB Q6HRRT DEONNA Bisacodyl (Dulcolax) 5 mg PO DAILY PRN PRN Reason: Constipation Docusate Sodium (Colace) 100 mg PO BID PRN PRN Reason: Constipation Enoxaparin Sodium (Lovenox) 40 mg SUBCUT DAILY DEONNA Hydralazine HCl (Apresoline) 10 mg IVPUSH Q6H PRN PRN Reason: Hypertension Magnesium Sulfate 2 gm/ Premix 50 mls @ 25 mls/hr IV ONETIME ONE Stop: 05/02/17 00:53 Doxycycline Hyclate 100 mg/ (Sodium Chloride) 100 mls @ 100 mls/hr IV Q12HR DEONNA Methylprednisolone Sodium Succinate (Solu-Medrol) 40 mg IVPUSH Q8H DEONNA Metoprolol Tartrate (Lopressor) 5 mg IVPUSH Q4H PRN PRN Reason: Tachycardia Morphine Sulfate (Morphine) 0.5 mg IVPUSH Q2H PRN PRN Reason: Pain (severe 7-10) Stop: 05/02/17 22:46 Ondansetron HCl (Zofran Odt) 4 mg PO Q6H PRN PRN Reason: nausea, able to take PO Ondansetron HCl (Zofran) 4 mg IV Q6H PRN PRN Reason: Nausea/Vomiting Polyethylene Glycol (Miralax) 17 gm PO DAILY PRN PRN Reason: Constipation Senna/Docusate Sodium (Senna Plus) 1 tab PO BID PRN PRN Reason: Constipation Sodium Chloride (Saline Flush) 10 ml FLUSH ASDIRECTED PRN PRN Reason: Keep Vein Open Last Admin: 05/01/17 16:27 Dose: 10 ml Assessment/Plan Comment:: I/P: Acute: COPD exacerbation -SOB with expiratory wheezing and mild non-productive cough -Denies any fever, chills, or other infectious symptoms -WBC 11.98, CRP 0.2 -CXR shows no infiltrates -Duoneb/albuterol as ordered -Doxycycline (azithromycin contraindicated with home meds) -125mg Solumedrol given in ED - Switch to 40mg TID -IS/RT -O2 as needed, attempt to wean - No home O2 at baseline Hypomagnesemia -Magnesium 1.7 in ED -Supplement and monitor Chronic: Left ear deafness Cochlear implants HLD - home meds HTN - home meds and PRN BB, hydralazine GERD - home PPI Dumping syndrome with prior bowel resection Arthritis Osteoporosis Dementia Type II DM Hx/o lung cancer 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 Smith at [facility] here in [place].
[2017-05-01] MEDS ORDERED: 50% Dextrose in Water 50 ML Syringe IVPUSH PRN (23:22)
[2017-05-01] MEDS: methylPREDNISolone Sodium Succinate 40 MG/1 ML SDV IVPUSH SCH (23:29)
[2017-05-02] MEDS: Insulin Aspart 100 Units/ML 3 ML Pen SUBCUT SCH ×6 (00:58→23:06)
[2017-05-02] MEDS: Albuterol/Ipratropium 3.0-0.5 MG/3 ML Neb Soln NEB SCH ×4 (02:37→20:07)
[2017-05-02] MEDS: metFORMIN 500 MG Tab PO SCH ×2 (06:19→16:31)
[2017-05-02] MEDS: Pantoprazole 40 MG Tab.CR PO SCH ×2 (06:19→16:29)
[2017-05-02] MEDS ORDERED: Potassium Chloride 20 MEQ Tab.ER PO SCH (07:00)
[2017-05-02] MEDS ORDERED: Hydrochlorothiazide 25 MG Tab PO SCH (09:00)
[2017-05-02] MEDS: Citalopram 20 MG Tab PO SCH (09:14)
[2017-05-02] MEDS: amLODIPine 10 MG Tab PO SCH (09:15)
[2017-05-02] MEDS: methylPREDNISolone Sodium Succinate 40 MG/1 ML SDV IVPUSH SCH ×2 (09:16→16:36)
[2017-05-02] MEDS: Enoxaparin 30 MG/0.3 ML Syringe SUBCUT SCH (09:16)
[2017-05-02] MEDS: Azithromycin 500 MG in Sodium Chloride 0.9% 250 ML IV SCH (09:56)
[2017-05-02] MEDS: Fenofibrate 54 MG Tab PO SCH (09:56)
--- NOTE | 2017-05-02 11:38 | PCM.PN ---
- General Info Date of Service: 05/02/17 Functional Status: Reports: Urinating - Review of Systems General: Reports: Weakness HEENT: Reports: No Symptoms Pulmonary: Reports: Shortness of Breath, Cough Cardiovascular: Reports: No Symptoms Gastrointestinal: Reports: Diarrhea Genitourinary: Reports: No Symptoms Musculoskeletal: Reports: No Symptoms Skin: Reports: No Symptoms Neurological: Reports: No Symptoms Psychiatric: Reports: No Symptoms - Patient Data Vitals - Most Recent: Last Vital Signs Temp 36.5 C 05/02/17 08:34 Pulse 75 05/02/17 08:25 Resp 15 05/02/17 08:25 BP 131/57 L 05/02/17 09:15 Pulse Ox 91 L 05/02/17 09:10 Weight - Most Recent: 72.484 kg I&O - Last 24 Hours: Intake & Output 05/01/17 05/02/17 05/02/17 22:59 06:59 14:59 Intake Total 150 360 Balance 150 360 Lab Results Last 24 Hours: Laboratory Results - last 24 hr 05/02/17 05/02/17 05/02/17 Range/Units 00:50 06:15 06:15 WBC 9.90 (3.98-10.04) K/mm3 RBC 4.27 (3.98-5.22) M/mm3 Hgb 12.1 (11.2-15.7) gm/L Hct 38.7 (34.1-44.9) % MCV 90.6 (79.4-94.8) fl MCH 28.3 (25.6-32.2) pg MCHC 31.3 L (32.2-35.5) g/dl RDW Std Deviation 43.2 (36.4-46.3) fL Plt Count 244 (182-369) K/mm3 MPV 9.8 (9.4-12.3) fl Neut % (Auto) 87.1 H (34.0-71.1) % Lymph % (Auto) 10.2 L (19.3-51.7) % [place] % (Auto) 1.9 L (4.7-12.5) % Eos % (Auto) 0.2 L (0.7-5.8) Baso % (Auto) 0.1 (0.1-1.2) % Neut # (Auto) 8.62 H (1.56-6.13) K/mm3 Lymph # (Auto) 1.01 L (1.18-3.74) K/mm3 [place] # (Auto) 0.19 L (0.24-0.36) K/mm3 Eos # (Auto) 0.02 L (0.04-0.36) K/mm3 Baso # (Auto) 0.01 (0.01-0.08) K/mm3 Manual Slide Review Normal smear Sodium 141 (136-145) mEq/L Potassium 5.5 H (3.5-5.1) mEq/L Chloride 104 (98-107) mEq/L Carbon Dioxide 28 (21-32) mEq/L Anion Gap 14.5 (5-15) BUN 32 H (7-18) mg/dL Creatinine 1.1 H (0.55-1.02) mg/dL Est Cr Clr Drug Dosing 27.83 mL/min Estimated GFR (MDRD) 47 (>60) mL/min BUN/Creatinine Ratio 29.1 H (14-18) Glucose 210 H (83-115) mg/dL POC Glucose 306 H (83-110) mg/dL Calcium 8.8 (8.5-10.1) mg/dL Magnesium 2.8 H (1.8-2.4) mg/dl Mycoplasma pneumon IgM (NEGATIVE) 05/02/17 05/02/17 Range/Units 06:21 08:10 WBC (3.98-10.04) K/mm3 RBC (3.98-5.22) M/mm3 Hgb (11.2-15.7) gm/L Hct (34.1-44.9) % MCV (79.4-94.8) fl MCH (25.6-32.2) pg MCHC (32.2-35.5) g/dl RDW Std Deviation (36.4-46.3) fL Plt Count (182-369) K/mm3 MPV (9.4-12.3) fl Neut % (Auto) (34.0-71.1) % Lymph % (Auto) (19.3-51.7) % [place] % (Auto) (4.7-12.5) % Eos % (Auto) (0.7-5.8) Baso % (Auto) (0.1-1.2) % Neut # (Auto) (1.56-6.13) K/mm3 Lymph # (Auto) (1.18-3.74) K/mm3 [place] # (Auto) (0.24-0.36) K/mm3 Eos # (Auto) (0.04-0.36) K/mm3 Baso # (Auto) (0.01-0.08) K/mm3 Manual Slide Review Sodium (136-145) mEq/L Potassium (3.5-5.1) mEq/L Chloride (98-107) mEq/L Carbon Dioxide (21-32) mEq/L Anion Gap (5-15) BUN (7-18) mg/dL Creatinine (0.55-1.02) mg/dL Est Cr Clr Drug Dosing mL/min Estimated GFR (MDRD) (>60) mL/min BUN/Creatinine Ratio (14-18) Glucose (83-115) mg/dL POC Glucose 280 H (83-110) mg/dL Calcium (8.5-10.1) mg/dL Magnesium (1.8-2.4) mg/dl Mycoplasma pneumon IgM Negative (NEGATIVE) Med Orders - Current: Current Medications Acetaminophen (Tylenol) 650 mg PO Q4H PRN PRN Reason: Pain (Mild 1-3)/fever Hydrocodone Bitart/Acetaminophen ([place] 325-5 Mg) 1 tab PO Q4H PRN PRN Reason: Pain (moderate 4-6) Albuterol/Ipratropium (Duoneb 3.0-0.5 Mg/3 Ml) 3 ml NEB Q6HRRT [facility] Last Admin: 05/02/17 09:10 Dose: 3 ml Amlodipine Besylate (Norvasc) 10 mg PO DAILY [facility] Last Admin: 05/02/17 09:15 Dose: 10 mg Aspirin (Halfprin) 81 mg PO ACDINNER [facility] Bisacodyl (Dulcolax) 5 mg PO DAILY PRN PRN Reason: Constipation Citalopram Hydrobromide (Celexa) 40 mg PO DAILY [facility] Last Admin: 05/02/17 09:14 Dose: 40 mg Dextrose/Water (Dextrose 50% In Water) 50 ml IVPUSH ASDIRECTED PRN PRN Reason: Hypoglycemia Docusate Sodium (Colace) 100 mg PO BID PRN PRN Reason: Constipation Donepezil HCl (Aricept) 10 mg PO BEDTIME [facility] Enoxaparin Sodium (Lovenox) 30 mg SUBCUT DAILY [facility] Last Admin: 05/02/17 09:16 Dose: 30 mg Fenofibrate (Fenofibrate) 54 mg PO DAILY [facility] Last Admin: 05/02/17 09:56 Dose: 54 mg Hydralazine HCl (Apresoline) 10 mg IVPUSH Q6H PRN PRN Reason: Hypertension Hydrochlorothiazide (Hydrochlorothiazide) 25 mg PO BEDTIME [facility] Azithromycin 500 mg/ Sodium (Chloride) 250 mls @ 250 mls/hr IV Q24H [facility] Last Admin: 05/02/17 09:56 Dose: 250 mls/hr Insulin Aspart (Novolog) 0 unit SUBCUT QIDACANDBED [facility] PRN Reason: Protocol Metformin HCl (Glucophage) 250 mg PO BIDMEALS [facility] Last Admin: 05/02/17 06:19 Dose: 250 mg Methadone HCl (Methadone) 1.25 mg PO BEDTIME [facility] Methylprednisolone Sodium Succinate (Solu-Medrol) 40 mg IVPUSH Q8H [facility] Last Admin: 05/02/17 09:16 Dose: 40 mg Metoprolol Tartrate (Lopressor) 5 mg IVPUSH Q4H PRN PRN Reason: Tachycardia Metoprolol Tartrate (Lopressor) 50 mg PO BEDTIME [facility] Mirtazapine (Remeron) 15 mg PO BEDTIME [facility] Morphine Sulfate (Morphine) 0.5 mg IVPUSH Q2H PRN PRN Reason: Pain (severe 7-10) Stop: 05/02/17 22:46 Ondansetron HCl (Zofran Odt) 4 mg PO Q6H PRN PRN Reason: nausea, able to take PO Ondansetron HCl (Zofran) 4 mg IV Q6H PRN PRN Reason: Nausea/Vomiting Pantoprazole Sodium (Protonix) 40 mg PO BIDAC [facility] Last Admin: 05/02/17 06:19 Dose: 40 mg Polyethylene Glycol (Miralax) 17 gm PO DAILY PRN PRN Reason: Constipation Rosuvastatin Calcium (Crestor) 10 mg PO BEDTIME [facility] Senna/Docusate Sodium (Senna Plus) 1 tab PO BID PRN PRN Reason: Constipation Sodium Chloride (Saline Flush) 10 ml FLUSH ASDIRECTED PRN PRN Reason: Keep Vein Open Last Admin: 05/01/17 16:27 Dose: 10 ml Discontinued Medications Albuterol/Ipratropium (Duoneb 3.0-0.5 Mg/3 Ml) 3 ml NEB ONETIME ONE Stop: 05/01/17 16:15 Last Admin: 05/01/17 16:33 Dose: 3 ml Albuterol/Ipratropium (Duoneb 3.0-0.5 Mg/3 Ml) 3 ml NEB ONETIME ONE Stop: 05/01/17 18:25 Last Admin: 05/01/17 18:32 Dose: 3 ml Magnesium Sulfate 2 gm/ Premix 50 mls @ 25 mls/hr IV ONETIME ONE Stop: 05/02/17 00:53 Last Admin: 05/01/17 23:28 Dose: 25 mls/hr Doxycycline Hyclate 100 mg/ (Sodium Chloride) 100 mls @ 100 mls/hr IV Q12H [facility] Last Admin: 05/01/17 23:28 Dose: 100 mls/hr Insulin Aspart (Novolog) 0 unit SUBCUT QIDACANDBED [facility] PRN Reason: Protocol Last Admin: 05/02/17 09:17 Dose: 3 units Methylprednisolone Sodium Succinate (Solu-Medrol) 125 mg IVPUSH ONETIME ONE Stop: 05/01/17 16:15 Last Admin: 05/01/17 16:26 Dose: 125 mg Ondansetron HCl (Zofran) 4 mg IVPUSH ONETIME ONE Stop: 05/01/17 16:14 Last Admin: 05/01/17 16:25 Dose: 4 mg Potassium Chloride (Klor-Con M20) 40 meq PO BIDMEALS [facility] Last Admin: 05/02/17 06:19 Dose: 40 meq - Exam Quality Assessment: DVT Prophylaxis General: Alert, Oriented HEENT: Pupils Equal, Pupils Reactive, EOMI Neck: Trachea Midline, No JVD Lungs: Normal Respiratory Effort, Decreased Breath Sounds Cardiovascular: Regular Rate GI/Abdominal Exam: Normal Bowel Sounds, Soft, Non-Tender, No Organomegaly, No Distention (Female) Exam: Deferred Back Exam: Normal Inspection Extremities: Normal Inspection Skin: Warm Neurological: No New Focal Deficit Psy/Mental Status: Alert, Normal Affect, Normal Mood - Problem List Review Problem List Initiated/Reviewed/Updated: Yes - My Orders Last 24 Hours: My Active Orders 05/02/17 11:30 Insulin Aspart [NovoLOG] See Protocol SUBCUT QIDACANDBED 05/03/17 06:00 CXR [Chest 2V] [CR] Routine - Plan Plan:: I/P: Acute: COPD exacerbation -SOB with expiratory wheezing and mild non-productive cough -Denies any fever, chills, or other infectious symptoms -WBC 11.98, CRP 0.2 -CXR shows no infiltrates -Duoneb/albuterol as ordered -Doxycycline (azithromycin contraindicated with home meds) -125mg Solumedrol given in ED - Switch to 40mg TID -IS/RT -O2 as needed, attempt to wean - No home O2 at baseline Hypomagnesemia -Magnesium 1.7 in ED -Supplement and monitor Chronic: Left ear deafness Cochlear implants HLD - home meds HTN - home meds and PRN BB, hydralazine GERD - home PPI Dumping syndrome with prior bowel resection Arthritis Osteoporosis Dementia Type II DM Hx/o lung cancer 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 Smith at [facility] here in [place].
[2017-05-02] MEDS ORDERED: Aspirin 81 MG Tab.EC PO SCH (16:00)
[2017-05-02] MEDS: Hydrochlorothiazide 25 MG Tab PO SCH (16:29)
[2017-05-02] MEDS: Metoprolol Tartrate 50 MG Tab PO SCH (16:29)
[2017-05-02] MEDS: Rosuvastatin 10 MG Tab PO SCH (20:42)
[2017-05-02] MEDS: Mirtazapine 15 MG Tab PO SCH (20:42)
[2017-05-02] MEDS: Donepezil 10 MG Tab PO SCH (20:43)
[2017-05-02] MEDS: Methadone 5 MG Tab PO SCH (20:47)
[2017-05-03] MEDS: methylPREDNISolone Sodium Succinate 40 MG/1 ML SDV IVPUSH SCH ×4 (00:09→18:51)
[2017-05-03] MEDS: Albuterol/Ipratropium 3.0-0.5 MG/3 ML Neb Soln NEB SCH ×4 (02:24→22:48)
[2017-05-03] MEDS: metFORMIN 500 MG Tab PO SCH ×2 (06:23→17:24)
[2017-05-03] MEDS: Pantoprazole 40 MG Tab.CR PO SCH ×2 (06:24→15:21)
[2017-05-03] MEDS: Fenofibrate 54 MG Tab PO SCH (07:59)
[2017-05-03] MEDS: Hydrochlorothiazide 25 MG Tab PO SCH (07:59)
[2017-05-03] MEDS: Enoxaparin 30 MG/0.3 ML Syringe SUBCUT SCH (08:00)
[2017-05-03] MEDS: Citalopram 20 MG Tab PO SCH (08:00)
[2017-05-03] MEDS: Insulin Aspart 100 Units/ML 3 ML Pen SUBCUT SCH ×6 (08:03→23:44)
[2017-05-03] MEDS: Metoprolol Tartrate 50 MG Tab PO SCH (08:04)
[2017-05-03] MEDS: amLODIPine 10 MG Tab PO SCH (08:04)
[2017-05-03] MEDS: Azithromycin 500 MG in Sodium Chloride 0.9% 250 ML IV SCH (08:15)
--- NOTE | 2017-05-03 09:35 | CR ---
Chest: Two views of the chest were obtained. Comparison: Prior chest x-ray of 05/01/17. Stable scarring within the left midlung. Heart size at the upper limits of normal. Tortuous thoracic aorta is seen. Minimal atelectasis seen within the left base. Pulmonary vessels appear to be slightly congested. Lungs otherwise are clear. Bony structures are within normal limits for the patient's age. Impression: 1. Mild left lower lobe atelectasis. Slight pulmonary vascular congestion is suggested. 2. Other incidental findings. Diagnostic code #3
--- NOTE | 2017-05-03 11:26 | PCM.PN ---
- General Info Date of Service: 05/03/17 Functional Status: Reports: Tolerating Diet - Review of Systems General: Reports: Weakness HEENT: Reports: No Symptoms Pulmonary: Reports: Shortness of Breath Cardiovascular: Reports: No Symptoms Gastrointestinal: Reports: No Symptoms Genitourinary: Reports: No Symptoms Musculoskeletal: Reports: No Symptoms Skin: Reports: No Symptoms Neurological: Reports: No Symptoms Psychiatric: Reports: No Symptoms - Patient Data Vitals - Most Recent: Last Vital Signs Temp 36.2 C 05/03/17 08:01 Pulse 67 05/03/17 08:04 Resp 16 05/03/17 08:01 BP 150/96 H 05/03/17 08:04 Pulse Ox 90 L 05/03/17 09:34 Weight - Most Recent: 74.208 kg I&O - Last 24 Hours: Intake & Output 05/02/17 05/03/17 05/03/17 22:59 06:59 14:59 Intake Total 1240 Output Total 500 750 Balance 740 -750 Lab Results Last 24 Hours: Laboratory Results - last 24 hr 05/02/17 05/02/17 05/03/17 Range/Units 11:16 16:09 00:05 WBC (3.98-10.04) K/mm3 RBC (3.98-5.22) M/mm3 Hgb (11.2-15.7) gm/L Hct (34.1-44.9) % MCV (79.4-94.8) fl MCH (25.6-32.2) pg MCHC (32.2-35.5) g/dl RDW Std Deviation (36.4-46.3) fL Plt Count (182-369) K/mm3 MPV (9.4-12.3) fl Neut % (Auto) (34.0-71.1) % Lymph % (Auto) (19.3-51.7) % [place] % (Auto) (4.7-12.5) % Eos % (Auto) (0.7-5.8) Baso % (Auto) (0.1-1.2) % Neut # (Auto) (1.56-6.13) K/mm3 Lymph # (Auto) (1.18-3.74) K/mm3 [place] # (Auto) (0.24-0.36) K/mm3 Eos # (Auto) (0.04-0.36) K/mm3 Baso # (Auto) (0.01-0.08) K/mm3 Sodium (136-145) mEq/L Potassium (3.5-5.1) mEq/L Chloride (98-107) mEq/L Carbon Dioxide (21-32) mEq/L Anion Gap (5-15) BUN (7-18) mg/dL Creatinine (0.55-1.02) mg/dL Est Cr Clr Drug Dosing mL/min Estimated GFR (MDRD) (>60) mL/min BUN/Creatinine Ratio (14-18) Glucose (83-115) mg/dL POC Glucose 307 H 170 H 183 H (83-110) mg/dL Calcium (8.5-10.1) mg/dL Magnesium (1.8-2.4) mg/dl 05/03/17 05/03/17 05/03/17 Range/Units 06:20 06:20 06:22 WBC 12.16 H (3.98-10.04) K/mm3 RBC 3.97 L (3.98-5.22) M/mm3 Hgb 11.3 (11.2-15.7) gm/L Hct 36.0 (34.1-44.9) % MCV 90.7 (79.4-94.8) fl MCH 28.5 (25.6-32.2) pg MCHC 31.4 L (32.2-35.5) g/dl RDW Std Deviation 43.8 (36.4-46.3) fL Plt Count 137 L (182-369) K/mm3 MPV 10.2 (9.4-12.3) fl Neut % (Auto) 82.4 H (34.0-71.1) % Lymph % (Auto) 10.0 L (19.3-51.7) % [place] % (Auto) 5.2 (4.7-12.5) % Eos % (Auto) 1.7 (0.7-5.8) Baso % (Auto) 0.0 L (0.1-1.2) % Neut # (Auto) 10.03 H (1.56-6.13) K/mm3 Lymph # (Auto) 1.21 (1.18-3.74) K/mm3 [place] # (Auto) 0.63 H (0.24-0.36) K/mm3 Eos # (Auto) 0.21 (0.04-0.36) K/mm3 Baso # (Auto) 0.00 L (0.01-0.08) K/mm3 Sodium 139 (136-145) mEq/L Potassium 5.1 (3.5-5.1) mEq/L Chloride 102 (98-107) mEq/L Carbon Dioxide 27 (21-32) mEq/L Anion Gap 15.1 H (5-15) BUN 32 H (7-18) mg/dL Creatinine 0.9 (0.55-1.02) mg/dL Est Cr Clr Drug Dosing 34.02 mL/min Estimated GFR (MDRD) 60 (>60) mL/min BUN/Creatinine Ratio 35.6 H (14-18) Glucose 190 H (83-115) mg/dL POC Glucose 199 H (83-110) mg/dL Calcium 8.8 (8.5-10.1) mg/dL Magnesium 2.6 H (1.8-2.4) mg/dl [place] Results Last 24 Hours: Microbiology 05/02/17 08:55 Streptococcus pneumoniae Antigen (M - Final Urine Med Orders - Current: Current Medications Acetaminophen (Tylenol) 650 mg PO Q4H PRN PRN Reason: Pain (Mild 1-3)/fever Hydrocodone Bitart/Acetaminophen ([place] 325-5 Mg) 1 tab PO Q4H PRN PRN Reason: Pain (moderate 4-6) Last Admin: 05/03/17 00:08 Dose: 1 tab Albuterol/Ipratropium (Duoneb 3.0-0.5 Mg/3 Ml) 3 ml NEB Q6HRRT [facility] Last Admin: 05/03/17 09:33 Dose: 3 ml Amlodipine Besylate (Norvasc) 10 mg PO DAILY [facility] Last Admin: 05/03/17 08:04 Dose: 10 mg Aspirin (Halfprin) 81 mg PO ACDINNER [facility] Last Admin: 05/02/17 16:29 Dose: 81 mg Aspirin (Aspirin) 81 mg PO DAILY [facility] Bisacodyl (Dulcolax) 5 mg PO DAILY PRN PRN Reason: Constipation Budesonide/Formoterol Fumarate (Symbicort 160-4.5 Mcg) gm INH BEDTIME [facility] Citalopram Hydrobromide (Celexa) 40 mg PO DAILY [facility] Last Admin: 05/03/17 08:00 Dose: 40 mg Dextrose/Water (Dextrose 50% In Water) 50 ml IVPUSH ASDIRECTED PRN PRN Reason: Hypoglycemia Docusate Sodium (Colace) 100 mg PO BID PRN PRN Reason: Constipation Donepezil HCl (Aricept) 10 mg PO BEDTIME [facility] Last Admin: 05/02/17 20:43 Dose: 10 mg Enoxaparin Sodium (Lovenox) 40 mg SUBCUT DAILY [facility] Fenofibrate (Fenofibrate) 54 mg PO DAILY [facility] Last Admin: 05/03/17 07:59 Dose: 54 mg Hydralazine HCl (Apresoline) 10 mg IVPUSH Q6H PRN PRN Reason: Hypertension Hydrochlorothiazide (Hydrochlorothiazide) 25 mg PO DAILY [facility] Last Admin: 05/03/17 07:59 Dose: 25 mg Doxycycline Hyclate 100 mg/ (Sodium Chloride) 100 mls @ 100 mls/hr IV Q12HR [facility] Insulin Aspart (Novolog) 0 unit SUBCUT QIDACANDBED [facility] PRN Reason: Protocol Last Admin: 05/03/17 08:03 Dose: 2 units Metformin HCl (Glucophage) 250 mg PO BIDMEALS [facility] Last Admin: 05/03/17 06:23 Dose: 250 mg Methadone HCl (Methadone) 1.25 mg PO BEDTIME [facility] Last Admin: 05/02/17 20:47 Dose: 1.25 mg Methylprednisolone Sodium Succinate (Solu-Medrol) 40 mg IVPUSH Q8H [facility] Last Admin: 05/03/17 08:01 Dose: 40 mg Metoprolol Tartrate (Lopressor) 5 mg IVPUSH Q4H PRN PRN Reason: Tachycardia Metoprolol Tartrate (Lopressor) 50 mg PO DAILY [facility] Last Admin: 05/03/17 08:04 Dose: 50 mg Mirtazapine (Remeron) 15 mg PO BEDTIME [facility] Last Admin: 05/02/17 20:42 Dose: 15 mg Ondansetron HCl (Zofran Odt) 4 mg PO Q6H PRN PRN Reason: nausea, able to take PO Ondansetron HCl (Zofran) 4 mg IV Q6H PRN PRN Reason: Nausea/Vomiting Pantoprazole Sodium (Protonix) 40 mg PO BIDAC [facility] Last Admin: 05/03/17 06:24 Dose: 40 mg Polyethylene Glycol (Miralax) 17 gm PO DAILY PRN PRN Reason: Constipation Rosuvastatin Calcium (Crestor) 10 mg PO BEDTIME [facility] Last Admin: 05/02/17 20:42 Dose: 10 mg Senna/Docusate Sodium (Senna Plus) 1 tab PO BID PRN PRN Reason: Constipation Sodium Chloride (Saline Flush) 10 ml FLUSH ASDIRECTED PRN PRN Reason: Keep Vein Open Last Admin: 05/01/17 16:27 Dose: 10 ml Discontinued Medications Albuterol/Ipratropium (Duoneb 3.0-0.5 Mg/3 Ml) 3 ml NEB ONETIME ONE Stop: 05/01/17 16:15 Last Admin: 05/01/17 16:33 Dose: 3 ml Albuterol/Ipratropium (Duoneb 3.0-0.5 Mg/3 Ml) 3 ml NEB ONETIME ONE Stop: 05/01/17 18:25 Last Admin: 05/01/17 18:32 Dose: 3 ml Enoxaparin Sodium (Lovenox) 30 mg SUBCUT DAILY [facility] Last Admin: 05/03/17 08:00 Dose: 30 mg Magnesium Sulfate 2 gm/ Premix 50 mls @ 25 mls/hr IV ONETIME ONE Stop: 05/02/17 00:53 Last Admin: 05/01/17 23:28 Dose: 25 mls/hr Doxycycline Hyclate 100 mg/ (Sodium Chloride) 100 mls @ 100 mls/hr IV Q12H [facility] Last Admin: 05/01/17 23:28 Dose: 100 mls/hr Azithromycin 500 mg/ Sodium (Chloride) 250 mls @ 250 mls/hr IV Q24H [facility] Last Admin: 05/03/17 08:15 Dose: 250 mls/hr Insulin Aspart (Novolog) 0 unit SUBCUT QIDACANDBED [facility] PRN Reason: Protocol Last Admin: 05/02/17 14:17 Dose: Not Given Methylprednisolone Sodium Succinate (Solu-Medrol) 125 mg IVPUSH ONETIME ONE Stop: 05/01/17 16:15 Last Admin: 05/01/17 16:26 Dose: 125 mg Morphine Sulfate (Morphine) 0.5 mg IVPUSH Q2H PRN PRN Reason: Pain (severe 7-10) Stop: 05/02/17 22:46 Ondansetron HCl (Zofran) 4 mg IVPUSH ONETIME ONE Stop: 05/01/17 16:14 Last Admin: 05/01/17 16:25 Dose: 4 mg Potassium Chloride (Klor-Con M20) 40 meq PO BIDMEALS [facility] Last Admin: 05/02/17 06:19 Dose: 40 meq - Exam Quality Assessment: Supplemental Oxygen, DVT Prophylaxis General: Alert, Oriented, Cooperative, No Acute Distress HEENT: Pupils Equal, Pupils Reactive, EOMI Neck: Trachea Midline, No JVD Lungs: Normal Respiratory Effort, Decreased Breath Sounds Cardiovascular: Regular Rate, Regular Rhythm GI/Abdominal Exam: Normal Bowel Sounds, Soft, Non-Tender, No Organomegaly, No Distention (Female) Exam: Deferred Back Exam: Normal Inspection Extremities: Normal Inspection Skin: Warm Neurological: No New Focal Deficit Psy/Mental Status: Alert, Normal Affect, Normal Mood - Problem List Review Problem List Initiated/Reviewed/Updated: Yes - My Orders Last 24 Hours: My Active Orders 05/02/17 11:30 Insulin Aspart [NovoLOG] See Protocol SUBCUT QIDACANDBED 05/03/17 11:19 INFLUENZA A,B, H1N1 BY PCR [[facility]] Routine 05/03/17 21:00 Budesonide/Formoterol [Symbicort 160-4.5 MCG] 2 puff INH BEDTIME Doxycycline [Vibramycin] 100 mg Sodium Chloride 0.9% [Normal Saline] 100 ml IV Q12HR 05/04/17 09:00 Aspirin 81 mg PO DAILY Enoxaparin [Lovenox] 40 mg SUBCUT DAILY - Plan Plan:: I/P: Acute: COPD exacerbation -SOB with expiratory wheezing and mild non-productive cough -Denies any fever, chills, or other infectious symptoms -WBC-->elevated -CXR pulmonary congestion, mild -Duoneb/albuterol -Doxycycline started today -Solumedrol-->resume higher dose -IS/RT -O2 as needed, attempt to wean - No home O2 at baseline Hypomagnesemia -Magnesium 1.7 in ED -Supplement and monitor Chronic: Left ear deafness Cochlear implants HLD - home meds HTN - home meds and PRN BB, hydralazine GERD - home PPI Dumping syndrome with prior bowel resection Arthritis Osteoporosis Dementia Type II DM Hx/o lung cancer 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 Smith at [facility] here in [place].
[2017-05-03] MEDS ORDERED: hydrALAZINE 20 MG/ML SDV IVPUSH PRN (11:29)
[2017-05-03] MEDS: Saccharomyces Boulardii (Probiotic) 250 MG Cap PO SCH (12:23)
[2017-05-03] MEDS: Methadone 5 MG Tab PO SCH (20:43)
[2017-05-03] MEDS: Donepezil 10 MG Tab PO SCH (20:47)
[2017-05-03] MEDS: Rosuvastatin 10 MG Tab PO SCH (20:47)
[2017-05-03] MEDS: Mirtazapine 15 MG Tab PO SCH (20:48)
[2017-05-03] MEDS: Doxycycline 100 MG in Sodium Chloride 0.9% 100 ML IV SCH (20:51)
[2017-05-03] MEDS ORDERED: Budesonide/Formoterol 160-4.5 MCG/Puff 6 GM Inhaler INH SCH (21:00)
[2017-05-03] MEDS: Formoterol/Mometasone 200-5 MCG 8.8 GM Inhaler IH SCH (22:57)
[2017-05-04] MEDS: Albuterol/Ipratropium 3.0-0.5 MG/3 ML Neb Soln NEB SCH ×4 (02:14→22:03)
[2017-05-04] MEDS: methylPREDNISolone Sodium Succinate 125 MG/2 ML SDV IVPUSH SCH ×2 (04:34→11:44)
[2017-05-04] MEDS: Pantoprazole 40 MG Tab.CR PO SCH ×2 (06:21→17:01)
[2017-05-04] MEDS: metFORMIN 500 MG Tab PO SCH ×2 (06:21→17:01)
[2017-05-04] MEDS: Hydrochlorothiazide 25 MG Tab PO SCH (08:37)
[2017-05-04] MEDS: Citalopram 20 MG Tab PO SCH (08:37)
[2017-05-04] MEDS: Aspirin 81 MG Tab.Chew PO SCH (08:37)
[2017-05-04] MEDS: Fenofibrate 54 MG Tab PO SCH (08:37)
[2017-05-04] MEDS: amLODIPine 10 MG Tab PO SCH (08:37)
[2017-05-04] MEDS: Saccharomyces Boulardii (Probiotic) 250 MG Cap PO SCH (08:38)
[2017-05-04] MEDS: Metoprolol Tartrate 50 MG Tab PO SCH (08:38)
[2017-05-04] MEDS: Enoxaparin 40 MG/0.4 ML Syringe SUBCUT SCH (08:40)
[2017-05-04] MEDS: Insulin Aspart 100 Units/ML 3 ML Pen SUBCUT SCH ×4 (08:41→21:43)
[2017-05-04] MEDS: Doxycycline 100 MG in Sodium Chloride 0.9% 100 ML IV SCH ×2 (08:48→21:45)
--- NOTE | 2017-05-04 13:49 | PCM.PN ---
- General Info Date of Service: 05/04/17 Subjective Update: Patient is willing to walk, and has agreed to walk three times daily. Functional Status: Reports: Tolerating Diet, Ambulating, Urinating - Review of Systems General: Reports: Weakness HEENT: Reports: No Symptoms Pulmonary: Reports: Shortness of Breath Cardiovascular: Reports: No Symptoms Gastrointestinal: Reports: No Symptoms Genitourinary: Reports: No Symptoms Musculoskeletal: Reports: No Symptoms Skin: Reports: No Symptoms Neurological: Reports: No Symptoms Psychiatric: Reports: No Symptoms - Patient Data Vitals - Most Recent: Last Vital Signs Temp 36.7 C 05/04/17 07:32 Pulse 65 05/04/17 12:06 Resp 20 05/04/17 12:06 BP 120/83 05/04/17 12:06 Pulse Ox 95 05/04/17 12:06 Weight - Most Recent: 74.253 kg I&O - Last 24 Hours: Intake & Output 05/03/17 05/04/17 05/04/17 22:59 06:59 14:59 Intake Total 1830 500 Output Total 400 1000 Balance 1430 -500 Lab Results Last 24 Hours: Laboratory Results - last 24 hr 05/03/17 05/03/17 05/04/17 Range/Units 17:02 21:45 06:14 WBC 9.09 (3.98-10.04) K/mm3 RBC 3.62 L (3.98-5.22) M/mm3 Hgb 10.5 L (11.2-15.7) gm/L Hct 32.6 L (34.1-44.9) % MCV 90.1 (79.4-94.8) fl MCH 29.0 (25.6-32.2) pg MCHC 32.2 (32.2-35.5) g/dl RDW Std Deviation 42.4 (36.4-46.3) fL Plt Count 266 (182-369) K/mm3 MPV 9.9 (9.4-12.3) fl Neut % (Auto) 85.6 H (34.0-71.1) % Lymph % (Auto) 9.5 L (19.3-51.7) % [place] % (Auto) 4.3 L (4.7-12.5) % Eos % (Auto) 0 L (0.7-5.8) Baso % (Auto) 0.0 L (0.1-1.2) % Neut # (Auto) 7.79 H (1.56-6.13) K/mm3 Lymph # (Auto) 0.86 L (1.18-3.74) K/mm3 [place] # (Auto) 0.39 H (0.24-0.36) K/mm3 Eos # (Auto) 0.00 L (0.04-0.36) K/mm3 Baso # (Auto) 0.00 L (0.01-0.08) K/mm3 Manual Slide Review Abnormal smear Sodium (136-145) mEq/L Potassium (3.5-5.1) mEq/L Chloride (98-107) mEq/L Carbon Dioxide (21-32) mEq/L Anion Gap (5-15) BUN (7-18) mg/dL Creatinine (0.55-1.02) mg/dL Est Cr Clr Drug Dosing mL/min Estimated GFR (MDRD) (>60) mL/min BUN/Creatinine Ratio (14-18) Glucose (83-115) mg/dL POC Glucose 208 H 185 H (83-110) mg/dL Calcium (8.5-10.1) mg/dL Magnesium (1.8-2.4) mg/dl 05/04/17 Range/Units 06:14 WBC (3.98-10.04) K/mm3 RBC (3.98-5.22) M/mm3 Hgb (11.2-15.7) gm/L Hct (34.1-44.9) % MCV (79.4-94.8) fl MCH (25.6-32.2) pg MCHC (32.2-35.5) g/dl RDW Std Deviation (36.4-46.3) fL Plt Count (182-369) K/mm3 MPV (9.4-12.3) fl Neut % (Auto) (34.0-71.1) % Lymph % (Auto) (19.3-51.7) % [place] % (Auto) (4.7-12.5) % Eos % (Auto) (0.7-5.8) Baso % (Auto) (0.1-1.2) % Neut # (Auto) (1.56-6.13) K/mm3 Lymph # (Auto) (1.18-3.74) K/mm3 [place] # (Auto) (0.24-0.36) K/mm3 Eos # (Auto) (0.04-0.36) K/mm3 Baso # (Auto) (0.01-0.08) K/mm3 Manual Slide Review Sodium 140 (136-145) mEq/L Potassium 4.2 (3.5-5.1) mEq/L Chloride 102 (98-107) mEq/L Carbon Dioxide 30 (21-32) mEq/L Anion Gap 12.2 (5-15) BUN 33 H (7-18) mg/dL Creatinine 1.0 (0.55-1.02) mg/dL Est Cr Clr Drug Dosing 30.62 mL/min Estimated GFR (MDRD) 53 (>60) mL/min BUN/Creatinine Ratio 33.0 H (14-18) Glucose 187 H (83-115) mg/dL POC Glucose (83-110) mg/dL Calcium 8.5 (8.5-10.1) mg/dL Magnesium 2.4 (1.8-2.4) mg/dl [place] Results Last 24 Hours: Microbiology 05/02/17 18:45 Respiratory Virus Panel (PCR) ([facility]) - Final Nasopharyngeal Swab 05/03/17 15:20 Influenza Type A Antigen Screen - Final Nasopharyngeal Swab - Nare, Right NEGATIVE INFLUENZA A VIRUS AG Influenza Type B Antigen Screen - Final NEGATIVE INFLUENZA B VIRUS AG 05/02/17 08:55 Streptococcus pneumoniae Antigen (M - Final Urine Med Orders - Current: Current Medications Acetaminophen (Tylenol) 650 mg PO Q4H PRN PRN Reason: Pain (Mild 1-3)/fever Hydrocodone Bitart/Acetaminophen ([place] 325-5 Mg) 1 tab PO Q4H PRN PRN Reason: Pain (moderate 4-6) Last Admin: 05/03/17 00:08 Dose: 1 tab Albuterol/Ipratropium (Duoneb 3.0-0.5 Mg/3 Ml) 3 ml NEB Q6HRRT [facility] Last Admin: 05/04/17 09:05 Dose: 3 ml Amlodipine Besylate (Norvasc) 10 mg PO DAILY [facility] Last Admin: 05/04/17 08:37 Dose: 10 mg Aspirin (Aspirin) 81 mg PO DAILY [facility] Last Admin: 05/04/17 08:37 Dose: 81 mg Bisacodyl (Dulcolax) 5 mg PO DAILY PRN PRN Reason: Constipation Citalopram Hydrobromide (Celexa) 40 mg PO DAILY [facility] Last Admin: 05/04/17 08:37 Dose: 40 mg Dextrose/Water (Dextrose 50% In Water) 50 ml IVPUSH ASDIRECTED PRN PRN Reason: Hypoglycemia Docusate Sodium (Colace) 100 mg PO BID PRN PRN Reason: Constipation Donepezil HCl (Aricept) 10 mg PO BEDTIME [facility] Last Admin: 05/03/17 20:47 Dose: 10 mg Enoxaparin Sodium (Lovenox) 40 mg SUBCUT DAILY [facility] Last Admin: 05/04/17 08:40 Dose: 40 mg Fenofibrate (Fenofibrate) 54 mg PO DAILY [facility] Last Admin: 05/04/17 08:37 Dose: 54 mg Hydralazine HCl (Apresoline) 20 mg IVPUSH Q6H PRN PRN Reason: Hypertension Hydrochlorothiazide (Hydrochlorothiazide) 25 mg PO DAILY [facility] Last Admin: 05/04/17 08:37 Dose: 25 mg Doxycycline Hyclate 100 mg/ (Sodium Chloride) 100 mls @ 100 mls/hr IV Q12HR [facility] Last Admin: 05/04/17 08:48 Dose: 100 mls/hr Insulin Aspart (Novolog) 0 unit SUBCUT QIDACANDBED [facility] PRN Reason: Protocol Last Admin: 05/04/17 11:44 Dose: 6 units Metformin HCl (Glucophage) 500 mg PO BIDMEALS [facility] Last Admin: 05/04/17 06:21 Dose: 500 mg Methadone HCl (Methadone) 1.25 mg PO BEDTIME [facility] Last Admin: 05/03/17 20:43 Dose: 1.25 mg Methylprednisolone Sodium Succinate (Solu-Medrol) 125 mg IVPUSH Q8H [facility] Last Admin: 05/04/17 11:44 Dose: 125 mg Metoprolol Tartrate (Lopressor) 5 mg IVPUSH Q4H PRN PRN Reason: Tachycardia Metoprolol Tartrate (Lopressor) 50 mg PO DAILY [facility] Last Admin: 05/04/17 08:38 Dose: 50 mg Mirtazapine (Remeron) 15 mg PO BEDTIME [facility] Last Admin: 05/03/17 20:48 Dose: 15 mg Mometasone Furoate/Formoterol Fumar (Dulera 200-5 Mcg) 0 puff IH BEDTIME [facility] Last Admin: 05/03/17 22:57 Dose: 2 puff Ondansetron HCl (Zofran Odt) 4 mg PO Q6H PRN PRN Reason: nausea, able to take PO Ondansetron HCl (Zofran) 4 mg IV Q6H PRN PRN Reason: Nausea/Vomiting Pantoprazole Sodium (Protonix) 40 mg PO BIDAC [facility] Last Admin: 05/04/17 06:21 Dose: 40 mg Polyethylene Glycol (Miralax) 17 gm PO DAILY PRN PRN Reason: Constipation Rosuvastatin Calcium (Crestor) 10 mg PO BEDTIME [facility] Last Admin: 05/03/17 20:47 Dose: 10 mg Saccharomyces Boulardii (Florastor) 500 mg PO DAILY [facility] Last Admin: 05/04/17 08:38 Dose: 500 mg Sodium Chloride (Saline Flush) 10 ml FLUSH ASDIRECTED PRN PRN Reason: Keep Vein Open Last Admin: 05/01/17 16:27 Dose: 10 ml Discontinued Medications Albuterol/Ipratropium (Duoneb 3.0-0.5 Mg/3 Ml) 3 ml NEB ONETIME ONE Stop: 05/01/17 16:15 Last Admin: 05/01/17 16:33 Dose: 3 ml Albuterol/Ipratropium (Duoneb 3.0-0.5 Mg/3 Ml) 3 ml NEB ONETIME ONE Stop: 05/01/17 18:25 Last Admin: 05/01/17 18:32 Dose: 3 ml Aspirin (Halfprin) 81 mg PO ACDINNER [facility] Last Admin: 05/02/17 16:29 Dose: 81 mg Budesonide/Formoterol Fumarate (Symbicort 160-4.5 Mcg) gm INH BEDTIME [facility] Enoxaparin Sodium (Lovenox) 30 mg SUBCUT DAILY [facility] Last Admin: 05/03/17 08:00 Dose: 30 mg Hydralazine HCl (Apresoline) 10 mg IVPUSH Q6H PRN PRN Reason: Hypertension Magnesium Sulfate 2 gm/ Premix 50 mls @ 25 mls/hr IV ONETIME ONE Stop: 05/02/17 00:53 Last Admin: 05/01/17 23:28 Dose: 25 mls/hr Doxycycline Hyclate 100 mg/ (Sodium Chloride) 100 mls @ 100 mls/hr IV Q12H [facility] Last Admin: 05/01/17 23:28 Dose: 100 mls/hr Azithromycin 500 mg/ Sodium (Chloride) 250 mls @ 250 mls/hr IV Q24H [facility] Last Admin: 05/03/17 08:15 Dose: 250 mls/hr Insulin Aspart (Novolog) 0 unit SUBCUT QIDACANDBED [facility] PRN Reason: Protocol Last Admin: 05/02/17 14:17 Dose: Not Given Insulin Aspart (Novolog) 0 unit SUBCUT QIDACANDBED [facility] PRN Reason: Protocol Last Admin: 05/03/17 23:44 Dose: Not Given Metformin HCl (Glucophage) 250 mg PO BIDMEALS [facility] Last Admin: 05/03/17 06:23 Dose: 250 mg Methylprednisolone Sodium Succinate (Solu-Medrol) 125 mg IVPUSH ONETIME ONE Stop: 05/01/17 16:15 Last Admin: 05/01/17 16:26 Dose: 125 mg Methylprednisolone Sodium Succinate (Solu-Medrol) 40 mg IVPUSH Q8H [facility] Last Admin: 05/03/17 08:01 Dose: 40 mg Methylprednisolone Sodium Succinate (Solu-Medrol) 125 mg IVPUSH Q8H [facility] Last Admin: 05/03/17 18:51 Dose: 125 mg Morphine Sulfate (Morphine) 0.5 mg IVPUSH Q2H PRN PRN Reason: Pain (severe 7-10) Stop: 05/02/17 22:46 Ondansetron HCl (Zofran) 4 mg IVPUSH ONETIME ONE Stop: 05/01/17 16:14 Last Admin: 05/01/17 16:25 Dose: 4 mg Potassium Chloride (Klor-Con M20) 40 meq PO BIDMEALS [facility] Last Admin: 05/02/17 06:19 Dose: 40 meq Senna/Docusate Sodium (Senna Plus) 1 tab PO BID PRN PRN Reason: Constipation - Exam Quality Assessment: Supplemental Oxygen, DVT Prophylaxis General: Alert, Oriented, Cooperative, No Acute Distress HEENT: Pupils Equal, Pupils Reactive, EOMI Neck: Supple, Trachea Midline, No JVD Lungs: Normal Respiratory Effort, Decreased Breath Sounds Cardiovascular: Regular Rate, Regular Rhythm GI/Abdominal Exam: Normal Bowel Sounds, Soft, Non-Tender, No Organomegaly, No Distention (Female) Exam: Deferred Back Exam: Normal Inspection Extremities: Normal Inspection Skin: Warm Neurological: No New Focal Deficit Psy/Mental Status: Alert, Normal Affect, Normal Mood - Problem List Review Problem List Initiated/Reviewed/Updated: Yes - My Orders Last 24 Hours: My Active Orders 05/03/17 15:50 INFLUENZA A,B, H1N1 BY PCR [MREF] Routine 05/03/17 21:00 Doxycycline [Vibramycin] 100 mg Sodium Chloride 0.9% [Normal Saline] 100 ml IV Q12HR Mometasone/Formoterol [Dulera 200-5 MCG] 0 puff IH BEDTIME 05/04/17 04:00 methylPREDNISolone Sod Succ [Solu-MEDROL] 125 mg IVPUSH Q8H 05/04/17 09:00 Aspirin 81 mg PO DAILY Enoxaparin [Lovenox] 40 mg SUBCUT DAILY - Plan Plan:: I/P: Acute: COPD exacerbation -SOB with expiratory wheezing and mild non-productive cough -Denies any fever, chills, or other infectious symptoms -WBC-->elevated -CXR pulmonary congestion, mild -Duoneb/albuterol -Doxycycline started today -Solumedrol-->resume higher dose--start taper today. 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 Smith at [facility] here in [place]. LOS>96 hours with slow response to respiratory treatment with hypoxia.
[2017-05-04] MEDS: Rosuvastatin 10 MG Tab PO SCH (21:39)
[2017-05-04] MEDS: Donepezil 10 MG Tab PO SCH (21:39)
[2017-05-04] MEDS: Methadone 5 MG Tab PO SCH (21:40)
[2017-05-04] MEDS: Mirtazapine 15 MG Tab PO SCH (21:40)
[2017-05-04] MEDS: Formoterol/Mometasone 200-5 MCG 8.8 GM Inhaler IH SCH (22:02)
[2017-05-05] MEDS: methylPREDNISolone Sodium Succinate 125 MG/2 ML SDV IVPUSH SCH ×3 (00:26→22:34)
[2017-05-05] MEDS: Albuterol/Ipratropium 3.0-0.5 MG/3 ML Neb Soln NEB SCH ×4 (03:14→22:17)
[2017-05-05] MEDS: Pantoprazole 40 MG Tab.CR PO SCH ×2 (05:02→17:01)
[2017-05-05] MEDS: Insulin Aspart 100 Units/ML 3 ML Pen SUBCUT SCH ×4 (08:13→22:32)
[2017-05-05] MEDS: metFORMIN 500 MG Tab PO SCH ×2 (08:13→17:01)
[2017-05-05] MEDS: Aspirin 81 MG Tab.Chew PO SCH (08:14)
[2017-05-05] MEDS: Saccharomyces Boulardii (Probiotic) 250 MG Cap PO SCH (08:15)
[2017-05-05] MEDS: Hydrochlorothiazide 25 MG Tab PO SCH (08:15)
[2017-05-05] MEDS: Citalopram 20 MG Tab PO SCH (08:15)
[2017-05-05] MEDS: Fenofibrate 54 MG Tab PO SCH (08:15)
[2017-05-05] MEDS: Metoprolol Tartrate 50 MG Tab PO SCH (08:15)
[2017-05-05] MEDS: Doxycycline 100 MG in Sodium Chloride 0.9% 100 ML IV SCH (08:16)
[2017-05-05] MEDS: amLODIPine 10 MG Tab PO SCH (08:16)
[2017-05-05] MEDS: Enoxaparin 40 MG/0.4 ML Syringe SUBCUT SCH (08:16)
--- NOTE | 2017-05-05 14:49 | PCM.PN ---
- General Info Date of Service: 05/05/17 Functional Status: Reports: Tolerating Diet, Ambulating, Urinating - Review of Systems General: Reports: No Symptoms HEENT: Reports: No Symptoms Pulmonary: Reports: No Symptoms Cardiovascular: Reports: No Symptoms Gastrointestinal: Reports: No Symptoms Genitourinary: Reports: No Symptoms Musculoskeletal: Reports: No Symptoms Skin: Reports: No Symptoms Neurological: Reports: No Symptoms Psychiatric: Reports: No Symptoms - Patient Data Vitals - Most Recent: Last Vital Signs Temp 36.6 C 05/05/17 11:36 Pulse 63 05/05/17 11:36 Resp 16 05/05/17 11:36 BP 145/68 H 05/05/17 11:36 Pulse Ox 94 L 05/05/17 14:42 Weight - Most Recent: 74.797 kg I&O - Last 24 Hours: Intake & Output 05/04/17 05/05/17 05/05/17 22:59 06:59 14:59 Intake Total 1620 800 180 Output Total 900 300 Balance 720 500 180 Lab Results Last 24 Hours: Laboratory Results - last 24 hr 05/04/17 05/04/17 05/04/17 Range/Units 06:23 10:49 17:33 WBC (3.98-10.04) K/mm3 RBC (3.98-5.22) M/mm3 Hgb (11.2-15.7) gm/L Hct (34.1-44.9) % MCV (79.4-94.8) fl MCH (25.6-32.2) pg MCHC (32.2-35.5) g/dl RDW Std Deviation (36.4-46.3) fL Plt Count (182-369) K/mm3 MPV (9.4-12.3) fl Neut % (Auto) (34.0-71.1) % Lymph % (Auto) (19.3-51.7) % [place] % (Auto) (4.7-12.5) % Eos % (Auto) (0.7-5.8) Baso % (Auto) (0.1-1.2) % Neut # (Auto) (1.56-6.13) K/mm3 Lymph # (Auto) (1.18-3.74) K/mm3 [place] # (Auto) (0.24-0.36) K/mm3 Eos # (Auto) (0.04-0.36) K/mm3 Baso # (Auto) (0.01-0.08) K/mm3 Manual Slide Review Sodium (136-145) mEq/L Potassium (3.5-5.1) mEq/L Chloride (98-107) mEq/L Carbon Dioxide (21-32) mEq/L Anion Gap (5-15) BUN (7-18) mg/dL Creatinine (0.55-1.02) mg/dL Est Cr Clr Drug Dosing mL/min Estimated GFR (MDRD) (>60) mL/min BUN/Creatinine Ratio (14-18) Glucose (83-115) mg/dL POC Glucose 202 H 274 H 272 H (83-110) mg/dL Calcium (8.5-10.1) mg/dL Magnesium (1.8-2.4) mg/dl 05/04/17 05/05/17 05/05/17 Range/Units 21:41 06:06 06:50 WBC 7.74 (3.98-10.04) K/mm3 RBC 3.68 L (3.98-5.22) M/mm3 Hgb 10.6 L (11.2-15.7) gm/L Hct 32.6 L (34.1-44.9) % MCV 88.6 (79.4-94.8) fl MCH 28.8 (25.6-32.2) pg MCHC 32.5 (32.2-35.5) g/dl RDW Std Deviation 42.0 (36.4-46.3) fL Plt Count 275 (182-369) K/mm3 MPV 9.9 (9.4-12.3) fl Neut % (Auto) 84.2 H (34.0-71.1) % Lymph % (Auto) 8.3 L (19.3-51.7) % [place] % (Auto) 6.5 (4.7-12.5) % Eos % (Auto) 0.1 L (0.7-5.8) Baso % (Auto) 0.0 L (0.1-1.2) % Neut # (Auto) 6.52 H (1.56-6.13) K/mm3 Lymph # (Auto) 0.64 L (1.18-3.74) K/mm3 [place] # (Auto) 0.50 H (0.24-0.36) K/mm3 Eos # (Auto) 0.01 L (0.04-0.36) K/mm3 Baso # (Auto) 0.00 L (0.01-0.08) K/mm3 Manual Slide Review Abnormal smear Sodium (136-145) mEq/L Potassium (3.5-5.1) mEq/L Chloride (98-107) mEq/L Carbon Dioxide (21-32) mEq/L Anion Gap (5-15) BUN (7-18) mg/dL Creatinine (0.55-1.02) mg/dL Est Cr Clr Drug Dosing mL/min Estimated GFR (MDRD) (>60) mL/min BUN/Creatinine Ratio (14-18) Glucose (83-115) mg/dL POC Glucose 199 H 211 H (83-110) mg/dL Calcium (8.5-10.1) mg/dL Magnesium (1.8-2.4) mg/dl 05/05/17 05/05/17 Range/Units 06:50 11:03 WBC (3.98-10.04) K/mm3 RBC (3.98-5.22) M/mm3 Hgb (11.2-15.7) gm/L Hct (34.1-44.9) % MCV (79.4-94.8) fl MCH (25.6-32.2) pg MCHC (32.2-35.5) g/dl RDW Std Deviation (36.4-46.3) fL Plt Count (182-369) K/mm3 MPV (9.4-12.3) fl Neut % (Auto) (34.0-71.1) % Lymph % (Auto) (19.3-51.7) % [place] % (Auto) (4.7-12.5) % Eos % (Auto) (0.7-5.8) Baso % (Auto) (0.1-1.2) % Neut # (Auto) (1.56-6.13) K/mm3 Lymph # (Auto) (1.18-3.74) K/mm3 [place] # (Auto) (0.24-0.36) K/mm3 Eos # (Auto) (0.04-0.36) K/mm3 Baso # (Auto) (0.01-0.08) K/mm3 Manual Slide Review Sodium 141 (136-145) mEq/L Potassium 3.4 L (3.5-5.1) mEq/L Chloride 102 (98-107) mEq/L Carbon Dioxide 30 (21-32) mEq/L Anion Gap 12.4 (5-15) BUN 29 H (7-18) mg/dL Creatinine 1.0 (0.55-1.02) mg/dL Est Cr Clr Drug Dosing 30.62 mL/min Estimated GFR (MDRD) 53 (>60) mL/min BUN/Creatinine Ratio 29.0 H (14-18) Glucose 210 H (83-115) mg/dL POC Glucose 202 H (83-110) mg/dL Calcium 8.4 L (8.5-10.1) mg/dL Magnesium 2.0 (1.8-2.4) mg/dl Med Orders - Current: Current Medications Acetaminophen (Tylenol) 650 mg PO Q4H PRN PRN Reason: Pain (Mild 1-3)/fever Hydrocodone Bitart/Acetaminophen ([place] 325-5 Mg) 1 tab PO Q4H PRN PRN Reason: Pain (moderate 4-6) Last Admin: 05/03/17 00:08 Dose: 1 tab Albuterol/Ipratropium (Duoneb 3.0-0.5 Mg/3 Ml) 3 ml NEB Q6HRRT [facility] Last Admin: 05/05/17 14:42 Dose: 3 ml Amlodipine Besylate (Norvasc) 10 mg PO DAILY [facility] Last Admin: 05/05/17 08:16 Dose: 10 mg Aspirin (Aspirin) 81 mg PO DAILY [facility] Last Admin: 05/05/17 08:14 Dose: 81 mg Bisacodyl (Dulcolax) 5 mg PO DAILY PRN PRN Reason: Constipation Citalopram Hydrobromide (Celexa) 40 mg PO DAILY [facility] Last Admin: 05/05/17 08:15 Dose: 40 mg Dextrose/Water (Dextrose 50% In Water) 50 ml IVPUSH ASDIRECTED PRN PRN Reason: Hypoglycemia Docusate Sodium (Colace) 100 mg PO BID PRN PRN Reason: Constipation Donepezil HCl (Aricept) 10 mg PO BEDTIME [facility] Last Admin: 05/04/17 21:39 Dose: 10 mg Enoxaparin Sodium (Lovenox) 40 mg SUBCUT DAILY [facility] Last Admin: 05/05/17 08:16 Dose: 40 mg Fenofibrate (Fenofibrate) 54 mg PO DAILY [facility] Last Admin: 05/05/17 08:15 Dose: 54 mg Hydralazine HCl (Apresoline) 20 mg IVPUSH Q6H PRN PRN Reason: Hypertension Hydrochlorothiazide (Hydrochlorothiazide) 25 mg PO DAILY [facility] Last Admin: 05/05/17 08:15 Dose: 25 mg Doxycycline Hyclate 100 mg/ (Sodium Chloride) 100 mls @ 100 mls/hr IV Q12HR [facility] Last Admin: 05/05/17 08:16 Dose: 100 mls/hr Insulin Aspart (Novolog) 0 unit SUBCUT QIDACANDBED [facility] PRN Reason: Protocol Last Admin: 05/05/17 11:58 Dose: 4 units Metformin HCl (Glucophage) 500 mg PO BIDMEALS [facility] Last Admin: 05/05/17 08:13 Dose: 500 mg Methadone HCl (Methadone) 1.25 mg PO BEDTIME [facility] Last Admin: 05/04/17 21:40 Dose: 1.25 mg Methylprednisolone Sodium Succinate (Solu-Medrol) 125 mg IVPUSH Q12H [facility] Last Admin: 05/05/17 11:59 Dose: 125 mg Metoprolol Tartrate (Lopressor) 5 mg IVPUSH Q4H PRN PRN Reason: Tachycardia Metoprolol Tartrate (Lopressor) 50 mg PO DAILY [facility] Last Admin: 05/05/17 08:15 Dose: 50 mg Mirtazapine (Remeron) 15 mg PO BEDTIME [facility] Last Admin: 05/04/17 21:40 Dose: 15 mg Mometasone Furoate/Formoterol Fumar (Dulera 200-5 Mcg) 0 puff IH BEDTIME [facility] Last Admin: 05/04/17 22:02 Dose: 2 puff Ondansetron HCl (Zofran Odt) 4 mg PO Q6H PRN PRN Reason: nausea, able to take PO Ondansetron HCl (Zofran) 4 mg IV Q6H PRN PRN Reason: Nausea/Vomiting Pantoprazole Sodium (Protonix) 40 mg PO BIDAC [facility] Last Admin: 05/05/17 05:02 Dose: 40 mg Polyethylene Glycol (Miralax) 17 gm PO DAILY PRN PRN Reason: Constipation Rosuvastatin Calcium (Crestor) 10 mg PO BEDTIME [facility] Last Admin: 05/04/17 21:39 Dose: 10 mg Saccharomyces Boulardii (Florastor) 500 mg PO DAILY [facility] Last Admin: 05/05/17 08:15 Dose: 500 mg Sodium Chloride (Saline Flush) 10 ml FLUSH ASDIRECTED PRN PRN Reason: Keep Vein Open Last Admin: 05/01/17 16:27 Dose: 10 ml Discontinued Medications Albuterol/Ipratropium (Duoneb 3.0-0.5 Mg/3 Ml) 3 ml NEB ONETIME ONE Stop: 05/01/17 16:15 Last Admin: 05/01/17 16:33 Dose: 3 ml Albuterol/Ipratropium (Duoneb 3.0-0.5 Mg/3 Ml) 3 ml NEB ONETIME ONE Stop: 05/01/17 18:25 Last Admin: 05/01/17 18:32 Dose: 3 ml Aspirin (Halfprin) 81 mg PO ACDINNER [facility] Last Admin: 05/02/17 16:29 Dose: 81 mg Budesonide/Formoterol Fumarate (Symbicort 160-4.5 Mcg) gm INH BEDTIME [facility] Enoxaparin Sodium (Lovenox) 30 mg SUBCUT DAILY [facility] Last Admin: 05/03/17 08:00 Dose: 30 mg Hydralazine HCl (Apresoline) 10 mg IVPUSH Q6H PRN PRN Reason: Hypertension Magnesium Sulfate 2 gm/ Premix 50 mls @ 25 mls/hr IV ONETIME ONE Stop: 05/02/17 00:53 Last Admin: 05/01/17 23:28 Dose: 25 mls/hr Doxycycline Hyclate 100 mg/ (Sodium Chloride) 100 mls @ 100 mls/hr IV Q12H [facility] Last Admin: 05/01/17 23:28 Dose: 100 mls/hr Azithromycin 500 mg/ Sodium (Chloride) 250 mls @ 250 mls/hr IV Q24H [facility], [facility]1983 Last Admin: 05/03/17 08:15 Dose: 250 mls/hr Insulin Aspart (Novolog) 0 unit SUBCUT QIDACANDBED [facility]MERLY [facility], 1928–1983 PRN Reason: Protocol Last Admin: 05/02/17 14:17 Dose: Not Given Insulin Aspart (Novolog) 0 unit SUBCUT QIDACANDBED [facility], 1928–1983 PRN Reason: Protocol Last Admin: 05/03/17 23:44 Dose: Not Given Metformin HCl (Glucophage) 250 mg PO BIDMEALS [facility], 1928–1983 Last Admin: 05/03/17 06:23 Dose: 250 mg Methylprednisolone Sodium Succinate (Solu-Medrol) 125 mg IVPUSH ONETIME ONE Stop: 05/01/17 16:15 Last Admin: 05/01/17 16:26 Dose: 125 mg Methylprednisolone Sodium Succinate (Solu-Medrol) 40 mg IVPUSH Q8H [facility], [facility]1983 Last Admin: 05/03/17 08:01 Dose: 40 mg Methylprednisolone Sodium Succinate (Solu-Medrol) 125 mg IVPUSH Q8H [facility]1983 Last Admin: 05/03/17 18:51 Dose: 125 mg Methylprednisolone Sodium Succinate (Solu-Medrol) 125 mg IVPUSH Q8H [facility] Last Admin: 05/04/17 11:44 Dose: 125 mg Morphine Sulfate (Morphine) 0.5 mg IVPUSH Q2H PRN PRN Reason: Pain (severe 7-10) Stop: 05/02/17 22:46 Ondansetron HCl (Zofran) 4 mg IVPUSH ONETIME ONE Stop: 05/01/17 16:14 Last Admin: 05/01/17 16:25 Dose: 4 mg Potassium Chloride (Klor-Con M20) 40 meq PO BIDMEALS [facility], [facility]1983 Last Admin: 05/02/17 06:19 Dose: 40 meq Senna/Docusate Sodium (Senna Plus) 1 tab PO BID PRN PRN Reason: Constipation - Exam Quality Assessment: Supplemental Oxygen, DVT Prophylaxis General: Alert, Oriented, Cooperative, No Acute Distress HEENT: Pupils Equal, Pupils Reactive, EOMI Neck: Trachea Midline, No JVD Lungs: Normal Respiratory Effort, Decreased Breath Sounds Cardiovascular: Regular Rate, Regular Rhythm GI/Abdominal Exam: Normal Bowel Sounds, Soft, Non-Tender, No Organomegaly, No Distention (Female) Exam: Deferred Back Exam: Normal Inspection Extremities: Normal Inspection Skin: Warm Neurological: No New Focal Deficit, Normal Gait, Normal Speech Psy/Mental Status: Alert, Normal Affect, Normal Mood - Problem List Review Problem List Initiated/Reviewed/Updated: Yes - My Orders Last 24 Hours: My Active Orders 05/04/17 15:30 Ambulate [RC] PER UNIT ROUTINE 05/04/17 23:30 methylPREDNISolone Sod Succ [Solu-MEDROL] 125 mg IVPUSH Q12H 05/05/17 11:26 Patient Status [ADT] Routine - Plan Plan:: I/P: Acute: COPD exacerbation -SOB with expiratory wheezing and mild non-productive cough -Denies any fever, chills, or other infectious symptoms -WBC-->elevated -CXR pulmonary congestion, mild -Duoneb/albuterol -Doxycycline, complete 5 day course at DC -Solumedrol-->resume higher dose--start taper today; complete 5 day taper at DC. -IS/RT -O2 as needed, attempt to wean --check activity/rest requirement. Hypomagnesemia -Magnesium 1.7 in ED -Supplement and monitor Chronic: Left ear deafness Cochlear implants HLD - home meds HTN - home meds and PRN BB, hydralazine GERD - home PPI Dumping syndrome with prior bowel resection Arthritis Osteoporosis Dementia Type II DM Hx/o lung cancer 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 Smith at [facility] here in [place]. LOS>96 hours with slow response to respiratory treatment with hypoxia.
[2017-05-05] MEDS: Methadone 5 MG Tab PO SCH (21:24)
[2017-05-05] MEDS: Doxycycline 100 MG Cap PO SCH (21:28)
[2017-05-05] MEDS: Mirtazapine 15 MG Tab PO SCH (21:28)
[2017-05-05] MEDS: Donepezil 10 MG Tab PO SCH (21:28)
[2017-05-05] MEDS: Rosuvastatin 10 MG Tab PO SCH ×2 (21:29→22:31)
[2017-05-05] MEDS: Formoterol/Mometasone 200-5 MCG 8.8 GM Inhaler IH SCH (22:16)
[2017-05-06] MEDS: Albuterol/Ipratropium 3.0-0.5 MG/3 ML Neb Soln NEB SCH ×2 (03:27→09:25)
--- NOTE | 2017-05-06 06:32 | PCM.DCSUM1 ---
Discharge Summary - Hospital Course HPI Initial Comments: Maria A Parsons is an 36 yo female who presents to our ED on 05/01/17 with a cough and shortness of breath which has been ongoing for a few days. She denies fever , chills, abdominal pain, nausea, vomiting. She has COPD and feels like this may be an exacerbation. No edema or pain in her legs. She quit smoking a few years ago. She does have some chest pain. He was brought in by EMS and on their arrival they noted audible wheezing and oxygen saturation in the low 80s. She was placed on oxygen and an albuterol nebulizer was given on the way in. In the ED temperature was 99.4. Pulse 85. Respirations 18. Blood pressure 135 /65. Oxygen saturation 92%. The lead EKG was obtained and shows a normal sinus rhythm at 78 bpm with no ectopy noted. Labs were obtained: 30 BC is just slightly elevated at 11.98. Hemoglobin 12.3. Hematocrit 36.8. She is normocytic. Platelets are good at 264,000. Neutrophils are normal at 55.8%. Sodium was good at 140. Potassium 3.8. Chloride 103. Carbon dioxide 27. Anion gap is 13.8. BUN is slightly high at 20. Creatinine 0.8. EGFR greater than 60. Glucose is high at 1:30. Calcium 8.6. Total bilirubin 0.4. AST is slightly high at 49, ALT 37, alkaline phosphatase 38. Troponin is negative at less than 0.017. CRP is negative at 0.2. Protein is 7.5. Albumin slightly low at 3.3. She was given a couple DuoNeb's along with 125 mg Solu-Medrol and 4 mg Zofran. CXR was obtained and interpreted by Dr. Sanders as showing scarring within the left mid lung. Mild atelectasis noted within the right mid to lower lung. Heart size slightly enlarged. Tortuous thoracic aorta is seen. Bony structures are osteopenic. Nothing acute is appreciated. 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 She is a former smoker. She is subsequently admitted to the medical floor with telemetry. CODE STATUS is CPR only, she does not want intubation. Her PCP is Dr. Smith at [facility] in [place]. - Discharge Data Discharge Date: 05/06/17 (Admit Date: 05/01/17) Discharge Disposition: Home, Self-Care 01 Condition: Good - Discharge Diagnosis/Problem(s) (1) COPD exacerbation SNOMED Code(s): 205915075 ICD Code: J44.1 - CHRONIC OBSTRUCTIVE PULMONARY DISEASE W (ACUTE) EXACERBATION Status: Acute Priority: High Current Visit: Yes (2) Hypoxia SNOMED Code(s): 504612247 ICD Code: R09.02 - HYPOXEMIA Status: Acute Priority: High Current Visit : Yes (3) Arthritis SNOMED Code(s): 7422653 ICD Code: M19.90 - UNSPECIFIED OSTEOARTHRITIS, UNSPECIFIED SITE Status: Chronic Priority: Low Current Visit: No (4) Age related osteoporosis SNOMED Code(s): 275530077 ICD Code: M81.0 - AGE-RELATED OSTEOPOROSIS W/O CURRENT PATHOLOGICAL FRACTURE Status: Chronic Priority: Low Current Visit: No Qualifiers: Presence of current pathological fracture: unspecified Qualified Code(s): M81.0 - Age-related osteoporosis without current pathological fracture (5) History of bowel resection SNOMED Code(s): 789330246 ICD Code: Z98.890 - OTHER SPECIFIED POSTPROCEDURAL STATES; Z90.49 - ACQUIRED ABSENCE OF OTHER SPECIFIED PARTS OF DIGESTIVE TRACT Status: Chronic Priority : Low Current Visit: No (6) Dumping syndrome SNOMED Code(s): 20382856 ICD Code: K91.1 - POSTGASTRIC SURGERY SYNDROMES Status: Chronic Priority : Low Current Visit: No (7) GERD (gastroesophageal reflux disease) SNOMED Code(s): 849320745 ICD Code: K21.9 - GASTRO-ESOPHAGEAL REFLUX DISEASE WITHOUT ESOPHAGITIS Status: Chronic Priority: Low Current Visit: No Qualifiers: Esophagitis presence: esophagitis presence not specified Qualified Code(s) : K21.9 - Gastro-esophageal reflux disease without esophagitis (8) Type II diabetes mellitus SNOMED Code(s): 50888446 ICD Code: E11.9 - TYPE 2 DIABETES MELLITUS WITHOUT COMPLICATIONS Status: Chronic Priority: Low Current Visit: Yes Qualifiers: Diabetes mellitus complication status: without complication Diabetes mellitus skilled nursing insulin use: without skilled nursing use Qualified Code(s): E11.9 - Type 2 diabetes mellitus without complications (9) Hyperlipemia SNOMED Code(s): 91391494 ICD Code: E78.5 - HYPERLIPIDEMIA, UNSPECIFIED Status: Chronic Priority: Low Current Visit: No Qualifiers: Hyperlipidemia type: unspecified Qualified Code(s): E78.5 - Hyperlipidemia , unspecified (10) Hypomagnesemia SNOMED Code(s): 133744645 ICD Code: E83.42 - HYPOMAGNESEMIA Status: Acute Priority: Medium Current Visit: Yes - Patient Summary/Data Consults: Consultations 05/01/17 22:45 Consult to Case Management [CONS] Routine OT Evaluation and Treatment [CONS] Routine PT Evaluation and Treatment [CONS] Routine Respiratory Care Assess and Treatment [CONS] Routine Recommended Follow-up Testing/Procedures: Follow-up with your PCP, Dr. Smith within 7-10 days of discharge. Follow-up with animal eviscerator. Hospital Course: I/P: Acute: COPD exacerbation -SOB with expiratory wheezing and mild non-productive cough -Denies any fever, chills, or other infectious symptoms -WBC-->elevated -CXR pulmonary congestion, mild -Duoneb/albuterol -Doxycycline, complete 5 day course at DC -Solumedrol-->resume higher dose--start taper today; complete 5 day taper at DC. -IS/RT -O2 as needed, attempt to wean --check activity/rest requirement. Resolved: Hypomagnesemia -Magnesium 1.7 in ED -Supplement and monitor Chronic: Left ear deafness Cochlear implants HLD - home meds HTN - home meds and PRN BB, hydralazine GERD - home PPI Dumping syndrome with prior bowel resection Arthritis Osteoporosis Dementia Type II DM Hx/o lung cancer 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 Smith at [facility] here in [place]. LOS>96 hours with slow response to respiratory treatment with hypoxia. Overall Maria A did well. Her viral panel came back positive for RSV. She will be discharged today on a 5 day steroid taper, 5 day doxycycline taper, and home O2 with activity. - Patient Instructions Diet: Heart Healthy Diet, Diabetic Diet Activity: As Tolerated Driving: Do Not Drive (today ) Showering/Bathing: May Shower Notify Provider of: Fever, Increased Pain, Nausea and/or Vomiting (increasing sob) - Discharge Plan Prescriptions/Med Rec: Doxycycline Calcium [IMW: Doxycycline] 100 mg PO BID #10 capsule Prednisone [IJD: Prednisone] 10 mg PO DAILY #10 tab Saccharomyces Boulardii [Florastor] 500 mg PO DAILY #30 cap Home Medications: Home Meds Aspirin [Halfprin] 81 mg PO ACDINNER 09/16/15 [History] Donepezil HCl [Aricept] 10 mg PO BEDTIME 09/16/15 [History] Escitalopram Oxalate 20 mg PO DAILY 09/16/15 [History] Fenofibrate Nanocrystallized [Fenofibrate] 48 mg PO DAILY 09/16/15 [History] Omeprazole 20 mg PO BID 09/16/15 [History] Rosuvastatin [Crestor] 10 mg PO BEDTIME 09/16/15 [History] amLODIPine [Norvasc] 10 mg PO DAILY 09/16/15 [History] metFORMIN [Glucophage XR] 500 mg PO ACDINNER 09/16/15 [History] Metoprolol/Hydrochlorothiazide [Metoprolol-HCTZ 50-25 MG] 1 tab PO BEDTIME 09/24 [History] Potassium Chloride 40 meq PO DAILY 09/24/16 [History] Mirtazapine [Remeron] 15 mg PO BEDTIME 03/15/17 [History] Aspirin 81 mg PO DAILY 05/02/17 [History] Budesonide/Formoterol Fumarate [Symbicort 160-4.5 Mcg Inhaler] 2 puff IH BEDTIME 05/02/17 [History] Calcium Carbonate [Calcium] 500 mg PO 1800 05/02/17 [History] LORazepam 0.5 mg PO BID PRN 05/02/17 [History] Lutein/Minerals/Vit A,C & E [Ocuvite] 1 tab PO DAILY 05/02/17 [History] Methadone 1.25 mg PO DAILY 05/02/17 [History] Multivitamin [Multi-Vitamin Daily] 1 tab PO DAILY 05/02/17 [History] Vitamin E 400 unit PO DAILY 05/02/17 [History] Doxycycline Calcium [IMW: Doxycycline] 100 mg PO BID #10 capsule 05/06/17 [Rx] Prednisone [IJD: Prednisone] 10 mg PO DAILY #10 tab 05/06/17 [Rx] Saccharomyces Boulardii [Florastor] 500 mg PO DAILY #30 cap 05/06/17 [Rx] Forms: ED Department Discharge Referrals: Maxwell Smith MD [Primary Care Provider] - 05/08/17 10:00 am (Appointment is with Tsering Latham (Dr Smith's Nurse Practitioner). Primary doctor hospital follow-up appointment. Please request referral to animal eviscerator if provider thinks this is needed.) - Discharge Summary/Plan Comment DC Time >30 min.: Yes (40 minutes ) - General Info Date of Service: 05/06/17 Admission Dx/Problem (Free Text: Admission Diagnosis/Problem Admission Diagnosis/Problem COPD, Moderate chronic obstructive pulmonary disease Functional Status: Reports: Pain Controlled, Tolerating Diet, Ambulating, Urinating. Denies: New Symptoms - Review of Systems General: Reports: No Symptoms HEENT: Reports: No Symptoms Pulmonary: Reports: No Symptoms Cardiovascular: Reports: No Symptoms Gastrointestinal: Reports: Abdominal Pain (mild, although she states she has not had a BM today ) Genitourinary: Reports: No Symptoms Musculoskeletal: Reports: No Symptoms Skin: Reports: No Symptoms Neurological: Reports: No Symptoms Psychiatric: Reports: No Symptoms - Patient Data Vitals - Most Recent: Last Vital Signs Temp 98.6 F 05/06/17 03:05 Pulse 72 05/06/17 03:05 Resp 20 05/06/17 03:05 BP 135/80 05/06/17 03:05 Pulse Ox 92 L 05/06/17 03:29 Weight - Most Recent: 164 lb 4.8 oz I&O - Last 24 hours: Intake & Output 05/05/17 05/05/17 05/06/17 14:59 22:59 06:59 Intake Total 180 1280 800 Balance 180 1280 800 Lab Results - Last 24 hrs: Laboratory Results - last 24 hr 05/05/17 05/05/17 05/05/17 Range/Units 06:50 06:50 11:03 WBC 7.74 (3.98-10.04) K/mm3 RBC 3.68 L (3.98-5.22) M/mm3 Hgb 10.6 L (11.2-15.7) gm/L Hct 32.6 L (34.1-44.9) % MCV 88.6 (79.4-94.8) fl MCH 28.8 (25.6-32.2) pg MCHC 32.5 (32.2-35.5) g/dl RDW Std Deviation 42.0 (36.4-46.3) fL Plt Count 275 (182-369) K/mm3 MPV 9.9 (9.4-12.3) fl Neut % (Auto) 84.2 H (34.0-71.1) % Lymph % (Auto) 8.3 L (19.3-51.7) % [place] % (Auto) 6.5 (4.7-12.5) % Eos % (Auto) 0.1 L (0.7-5.8) Baso % (Auto) 0.0 L (0.1-1.2) % Neut # (Auto) 6.52 H (1.56-6.13) K/mm3 Lymph # (Auto) 0.64 L (1.18-3.74) K/mm3 [place] # (Auto) 0.50 H (0.24-0.36) K/mm3 Eos # (Auto) 0.01 L (0.04-0.36) K/mm3 Baso # (Auto) 0.00 L (0.01-0.08) K/mm3 Manual Slide Review Abnormal smear Sodium 141 (136-145) mEq/L Potassium 3.4 L (3.5-5.1) mEq/L Chloride 102 (98-107) mEq/L Carbon Dioxide 30 (21-32) mEq/L Anion Gap 12.4 (5-15) BUN 29 H (7-18) mg/dL Creatinine 1.0 (0.55-1.02) mg/dL Est Cr Clr Drug Dosing 30.62 mL/min Estimated GFR (MDRD) 53 (>60) mL/min BUN/Creatinine Ratio 29.0 H (14-18) Glucose 210 H (83-115) mg/dL POC Glucose 202 H (83-110) mg/dL Calcium 8.4 L (8.5-10.1) mg/dL Magnesium 2.0 (1.8-2.4) mg/dl 05/05/17 05/05/17 Range/Units 16:42 21:11 WBC (3.98-10.04) K/mm3 RBC (3.98-5.22) M/mm3 Hgb (11.2-15.7) gm/L Hct (34.1-44.9) % MCV (79.4-94.8) fl MCH (25.6-32.2) pg MCHC (32.2-35.5) g/dl RDW Std Deviation (36.4-46.3) fL Plt Count (182-369) K/mm3 MPV (9.4-12.3) fl Neut % (Auto) (34.0-71.1) % Lymph % (Auto) (19.3-51.7) % [place] % (Auto) (4.7-12.5) % Eos % (Auto) (0.7-5.8) Baso % (Auto) (0.1-1.2) % Neut # (Auto) (1.56-6.13) K/mm3 Lymph # (Auto) (1.18-3.74) K/mm3 [place] # (Auto) (0.24-0.36) K/mm3 Eos # (Auto) (0.04-0.36) K/mm3 Baso # (Auto) (0.01-0.08) K/mm3 Manual Slide Review Sodium (136-145) mEq/L Potassium (3.5-5.1) mEq/L Chloride (98-107) mEq/L Carbon Dioxide (21-32) mEq/L Anion Gap (5-15) BUN (7-18) mg/dL Creatinine (0.55-1.02) mg/dL Est Cr Clr Drug Dosing mL/min Estimated GFR (MDRD) (>60) mL/min BUN/Creatinine Ratio (14-18) Glucose (83-115) mg/dL POC Glucose 165 H 199 H (83-110) mg/dL Calcium (8.5-10.1) mg/dL Magnesium (1.8-2.4) mg/dl Med Orders - Current: Current Medications Acetaminophen (Tylenol) 650 mg PO Q4H PRN PRN Reason: Pain (Mild 1-3)/fever Hydrocodone Bitart/Acetaminophen ([place] 325-5 Mg) 1 tab PO Q4H PRN PRN Reason: Pain (moderate 4-6) Last Admin: 05/03/17 00:08 Dose: 1 tab Albuterol/Ipratropium (Duoneb 3.0-0.5 Mg/3 Ml) 3 ml NEB Q6HRRT [facility] Last Admin: 05/06/17 03:27 Dose: 3 ml Amlodipine Besylate (Norvasc) 10 mg PO DAILY [facility] Last Admin: 05/05/17 08:16 Dose: 10 mg Aspirin (Aspirin) 81 mg PO DAILY [facility] Last Admin: 05/05/17 08:14 Dose: 81 mg Bisacodyl (Dulcolax) 5 mg PO DAILY PRN PRN Reason: Constipation Citalopram Hydrobromide (Celexa) 40 mg PO DAILY [facility] Last Admin: 05/05/17 08:15 Dose: 40 mg Dextrose/Water (Dextrose 50% In Water) 50 ml IVPUSH ASDIRECTED PRN PRN Reason: Hypoglycemia Docusate Sodium (Colace) 100 mg PO BID PRN PRN Reason: Constipation Donepezil HCl (Aricept) 10 mg PO BEDTIME [facility] Last Admin: 05/05/17 21:28 Dose: 10 mg Doxycycline Hyclate (Vibramycin) 100 mg PO BID [facility] Last Admin: 05/05/17 21:28 Dose: 100 mg Enoxaparin Sodium (Lovenox) 40 mg SUBCUT DAILY [facility] Last Admin: 05/05/17 08:16 Dose: 40 mg Fenofibrate (Fenofibrate) 54 mg PO DAILY [facility] Last Admin: 05/05/17 08:15 Dose: 54 mg Hydralazine HCl (Apresoline) 20 mg IVPUSH Q6H PRN PRN Reason: Hypertension Hydrochlorothiazide (Hydrochlorothiazide) 25 mg PO DAILY [facility] Last Admin: 05/05/17 08:15 Dose: 25 mg Insulin Aspart (Novolog) 0 unit SUBCUT QIDACANDBED [facility] PRN Reason: Protocol Last Admin: 05/05/17 22:32 Dose: 2 units Metformin HCl (Glucophage) 500 mg PO BIDMEALS [facility] Last Admin: 05/05/17 17:01 Dose: 500 mg Methadone HCl (Methadone) 1.25 mg PO BEDTIME [facility] Last Admin: 05/05/17 21:24 Dose: 1.25 mg Methylprednisolone Sodium Succinate (Solu-Medrol) 125 mg IVPUSH Q12H [facility] Last Admin: 05/05/17 22:34 Dose: 125 mg Metoprolol Tartrate (Lopressor) 5 mg IVPUSH Q4H PRN PRN Reason: Tachycardia Metoprolol Tartrate (Lopressor) 50 mg PO DAILY [facility] Last Admin: 05/05/17 08:15 Dose: 50 mg Mirtazapine (Remeron) 15 mg PO BEDTIME [facility] Last Admin: 05/05/17 21:28 Dose: 15 mg Mometasone Furoate/Formoterol Fumar (Dulera 200-5 Mcg) 0 puff IH BEDTIME [facility] Last Admin: 05/05/17 22:16 Dose: 2 puff Ondansetron HCl (Zofran Odt) 4 mg PO Q6H PRN PRN Reason: nausea, able to take PO Ondansetron HCl (Zofran) 4 mg IV Q6H PRN PRN Reason: Nausea/Vomiting Pantoprazole Sodium (Protonix) 40 mg PO BIDAC [facility] Last Admin: 05/05/17 17:01 Dose: 40 mg Polyethylene Glycol (Miralax) 17 gm PO DAILY PRN PRN Reason: Constipation Rosuvastatin Calcium (Crestor) 10 mg PO BEDTIME [facility] Last Admin: 05/05/17 22:31 Dose: 10 mg Saccharomyces Boulardii (Florastor) 500 mg PO DAILY [facility] Last Admin: 05/05/17 08:15 Dose: 500 mg Sodium Chloride (Saline Flush) 10 ml FLUSH ASDIRECTED PRN PRN Reason: Keep Vein Open Last Admin: 05/01/17 16:27 Dose: 10 ml Discontinued Medications Albuterol/Ipratropium (Duoneb 3.0-0.5 Mg/3 Ml) 3 ml NEB ONETIME ONE Stop: 05/01/17 16:15 Last Admin: 05/01/17 16:33 Dose: 3 ml Albuterol/Ipratropium (Duoneb 3.0-0.5 Mg/3 Ml) 3 ml NEB ONETIME ONE Stop: 05/01/17 18:25 Last Admin: 05/01/17 18:32 Dose: 3 ml Aspirin (Halfprin) 81 mg PO ACDINNER [facility] Last Admin: 05/02/17 16:29 Dose: 81 mg Budesonide/Formoterol Fumarate (Symbicort 160-4.5 Mcg) gm INH BEDTIME [facility] Enoxaparin Sodium (Lovenox) 30 mg SUBCUT DAILY [facility] Last Admin: 05/03/17 08:00 Dose: 30 mg Hydralazine HCl (Apresoline) 10 mg IVPUSH Q6H PRN PRN Reason: Hypertension Magnesium Sulfate 2 gm/ Premix 50 mls @ 25 mls/hr IV ONETIME ONE Stop: 05/02/17 00:53 Last Admin: 05/01/17 23:28 Dose: 25 mls/hr Doxycycline Hyclate 100 mg/ (Sodium Chloride) 100 mls @ 100 mls/hr IV Q12H [facility] Last Admin: 05/01/17 23:28 Dose: 100 mls/hr Azithromycin 500 mg/ Sodium (Chloride) 250 mls @ 250 mls/hr IV Q24H [facility] Last Admin: 05/03/17 08:15 Dose: 250 mls/hr Doxycycline Hyclate 100 mg/ (Sodium Chloride) 100 mls @ 100 mls/hr IV Q12HR [facility] Last Admin: 05/05/17 08:16 Dose: 100 mls/hr Insulin Aspart (Novolog) 0 unit SUBCUT QIDACANDBED [facility] PRN Reason: Protocol Last Admin: 05/02/17 14:17 Dose: Not Given Insulin Aspart (Novolog) 0 unit SUBCUT QIDACANDBED [facility] PRN Reason: Protocol Last Admin: 05/03/17 23:44 Dose: Not Given Metformin HCl (Glucophage) 250 mg PO BIDMEALS [facility] Last Admin: 05/03/17 06:23 Dose: 250 mg Methylprednisolone Sodium Succinate (Solu-Medrol) 125 mg IVPUSH ONETIME ONE Stop: 05/01/17 16:15 Last Admin: 05/01/17 16:26 Dose: 125 mg Methylprednisolone Sodium Succinate (Solu-Medrol) 40 mg IVPUSH Q8H [facility] Last Admin: 05/03/17 08:01 Dose: 40 mg Methylprednisolone Sodium Succinate (Solu-Medrol) 125 mg IVPUSH Q8H [facility] Last Admin: 05/03/17 18:51 Dose: 125 mg Methylprednisolone Sodium Succinate (Solu-Medrol) 125 mg IVPUSH Q8H [facility] Last Admin: 05/04/17 11:44 Dose: 125 mg Morphine Sulfate (Morphine) 0.5 mg IVPUSH Q2H PRN PRN Reason: Pain (severe 7-10) Stop: 05/02/17 22:46 Ondansetron HCl (Zofran) 4 mg IVPUSH ONETIME ONE Stop: 05/01/17 16:14 Last Admin: 05/01/17 16:25 Dose: 4 mg Potassium Chloride (Klor-Con M20) 40 meq PO BIDMEALS [facility] Last Admin: 05/02/17 06:19 Dose: 40 meq Senna/Docusate Sodium (Senna Plus) 1 tab PO BID PRN PRN Reason: Constipation - Exam Quality Assessment: Reports: Supplemental Oxygen General: Reports: Alert, Oriented, Cooperative, No Acute Distress HEENT: Reports: Pupils Equal, Pupils Reactive, EOMI, Mucous Membr. Moist/[place] Neck: Reports: Supple, Trachea Midline, No JVD Lungs: Reports: Clear to Auscultation, Normal Respiratory Effort, Decreased Breath Sounds Cardiovascular: Reports: Regular Rate, Regular Rhythm GI/Abdominal Exam: Normal Bowel Sounds, Soft, Non-Tender, No Organomegaly, No Distention, No Abnormal Bruit, No Mass, Pelvis Stable (Female) Exam: Deferred Rectal (Female) Exam: Deferred Back Exam: Reports: Normal Inspection Extremities: Normal Inspection, Normal Range of Motion, Non-Tender, No Pedal Edema, Normal Capillary Refill Skin: Reports: Warm, Dry, Intact Neurological: Reports: No New Focal Deficit Psy/Mental Status: Reports: Alert, Normal Affect, Normal Mood *Q Meaningful Use (DIS) - VTE *Q VTE Criteria *Q: - Stroke *Q Stroke Criteria *Q: - AMI *Q AMI Criteria *Q:
[2017-05-06] MEDS: metFORMIN 500 MG Tab PO SCH (06:44)
[2017-05-06] MEDS: Pantoprazole 40 MG Tab.CR PO SCH (06:44)
[2017-05-06] MEDS: Insulin Aspart 100 Units/ML 3 ML Pen SUBCUT SCH ×2 (07:38→12:14)
[2017-05-06] MEDS ORDERED: methylPREDNISolone Sodium Succinate 40 MG/1 ML SDV IVPUSH SCH (09:00)
[2017-05-06] MEDS: Aspirin 81 MG Tab.Chew PO SCH (09:30)
[2017-05-06] MEDS: Citalopram 20 MG Tab PO SCH (09:30)
[2017-05-06] MEDS: Saccharomyces Boulardii (Probiotic) 250 MG Cap PO SCH (09:31)
[2017-05-06] MEDS: Hydrochlorothiazide 25 MG Tab PO SCH (09:32)
[2017-05-06] MEDS: Metoprolol Tartrate 50 MG Tab PO SCH (09:32)
[2017-05-06] MEDS: Enoxaparin 40 MG/0.4 ML Syringe SUBCUT SCH (09:36)
[2017-05-06] MEDS: Fenofibrate 54 MG Tab PO SCH (09:36)
[2017-05-06] MEDS: Doxycycline 100 MG Cap PO SCH (09:36)
[2017-05-06] MEDS: amLODIPine 10 MG Tab PO SCH (09:36)
[2017-05-06] MEDS: Sodium Chloride 0.9% 10 ML Syringe FLUSH PRN (09:43)
[2017-05-06 11:53] VITALS: BP 151/67
== END 2017-05-06 14:30 | disposition home or self-care (01) | DRG 192 ==
LOC: JD.ED 16:07 → JD.MS 19:50
PROVIDERS: ADMIT Internal Medicine; ATTEND Internal Medicine
DX: J44.1 Chronic obstructive pulmonary disease with (acute) exacerbation (principal); R09.02 Hypoxemia; M19.90 Unspecified osteoarthritis, unspecified site; E78.00 Pure hypercholesterolemia, unspecified; I10 Essential (primary) hypertension; M81.0 Age-related osteoporosis without current pathological fracture; Z90.49 Acquired absence of other specified parts of digestive tract; K91.1 Postgastric surgery syndromes; C34.90 Malignant neoplasm of unspecified part of unspecified bronchus or lung; K21.9 Gastro-esophageal reflux disease without esophagitis; E11.9 Type 2 diabetes mellitus without complications; E78.5 Hyperlipidemia, unspecified; E83.42 Hypomagnesemia; H91.92 Unspecified hearing loss, left ear; Z85.118 Personal history of other malignant neoplasm of bronchus and lung; F03.90 Unspecified dementia, unspecified severity, without behavioral disturbance, psychotic disturbance, mood disturbance, and anxiety; H91.91 Unspecified hearing loss, right ear; Z87.891 Personal history of nicotine dependence; Z88.1 Allergy status to other antibiotic agents; Z91.030 Bee allergy status; Z79.84 Long term (current) use of oral hypoglycemic drugs; Z79.82 Long term (current) use of aspirin; Z79.899 Other long term (current) drug therapy
CPT/HCPCS: 36415; 71045; 80053; 83735; 84484; 85025; 86140; 87804 ×2; 93005; 94640 ×2; 96374; 96375; 99285; J2405; J2930; J7050; 71046; 71046-26; 80048; 82962; 86738; 87486; 87502; 87503; 87581; 87633; 87798; 87899; 93010; 94664; 94761; 97116-GP; 97161-GP; 97165-GO; 99223; 99231; 99232; 99239; A9270; A9270-GY; J0456; J1650; J2920; J3475; J7030

== ENCOUNTER → 2017-07-01 | Day surgery (SDC) | payer MEDICARE, BC ==
[~2017-07-01] MED LIST changes: +Albuterol 0.083% 2.5 MG/3 ML Neb Soln NEB ONE; -Bacitracin Oint 15 GM Tube ONE; -Lidocaine 1% 30 ML SDV ONE; -Lidocaine 1% 4 ML ONE; +Lidocaine 1% 6 ML ONE; -Lidocaine 1% with EPINEPHrine 1:100,000 20 ML MDV ONE; +Lidocaine 1%/Sod Bicarbonate in NS 8.4% 1 ML Syringe IDERM PRN; -Lidocaine 1%/Sod Bicarbonate in NS 8.4% 1 ML Syringe IV PRN
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
--- NOTE | 2017-07-01 09:13 | PCM.OPNOTE ---
- General Post-Op/Procedure Note Date of Surgery/Procedure: 07/01/17 Operative Procedure(s): colonoscopy to cecum Pre Op Diagnosis: change in bowel habits Post-Op Diagnosis: Same Anesthesia Technique: MAC Primary Surgeon: Jose Conti EBL in mLs: 0 Complications: None Condition: Good
--- NOTE | 2017-07-01 09:16 | PCM48HPAN ---
Post Anesthesia Note - EVALUATION WITHIN 48HRS OF ANESTHETIC Vital Signs in Normal Range: Yes Patient Participated in Evaluation: Yes Respiratory Function Stable: Yes Airway Patent: Yes Cardiovascular Function Stable: Yes Hydration Status Stable: Yes Pain Control Satisfactory: Yes Nausea and Vomiting Control Satisfactory: Yes Mental Status Recovered: Yes Pulse Rate: 71 SaO2: 93 (on 6 LPM nasal cannula) Resp Rate: 10 Temperature: 36.6 C Blood Pressure: 138/67 Pulse Rate: 71
--- NOTE | 2017-07-02 07:55 | OR ---
DATE OF OPERATION: 07/01/2017 SURGEON: Jose Conti MD PREOPERATIVE DIAGNOSIS: Change in bowel habits. POSTOPERATIVE DIAGNOSIS: Change in bowel habits. OPERATION PERFORMED: Colonoscopy to the cecum. FINDINGS: Rectal prolapse. There were no angiodysplasias, neoplasias, large tumor masses, ulcerations, or diverticulum. ANESTHESIA: Procedure done under IV sedation. DESCRIPTION OF PROCEDURE: The patient was taken to the endoscopy room, placed in a supine position, connected to monitoring equipment, given IV sedation, and placed in the left lateral position. The perianal area showed some dilatation of the anus with presenting rectum with thickening and induration on the rectum, all consistent with rectal prolapse. Rectal exam was unremarkable, other than the looseness of the anal canal. Video Olympus colonoscope was then introduced into the rectum and threaded up without problem to the cecum, where the appendicular orifice was noted. Prep was excellent. [place] cleansing score grade A throughout the colon. The scope was slowly withdrawn showing the cecum, ascending colon, transverse colon, descending colon, sigmoid colon, and rectum. The rectum demonstrated the above findings consistent with rectal prolapse. The patient tolerated the procedure and was sent to recovery room in a stable condition. ESTIMATED BLOOD LOSS: MMODAL /[id number]
[2017-07-05 11:39] VITALS: BP 140/75
== END | disposition home or self-care (01) ==
LOC: JD.SDS 07:25
PROVIDERS: ATTEND Surgery
DX: R19.4 Change in bowel habit (principal); F03.90 Unspecified dementia, unspecified severity, without behavioral disturbance, psychotic disturbance, mood disturbance, and anxiety; F11.20 Opioid dependence, uncomplicated; F41.9 Anxiety disorder, unspecified; E11.9 Type 2 diabetes mellitus without complications; E78.5 Hyperlipidemia, unspecified; M81.0 Age-related osteoporosis without current pathological fracture; Z79.82 Long term (current) use of aspirin; Z79.84 Long term (current) use of oral hypoglycemic drugs; Z79.899 Other long term (current) drug therapy; Z88.1 Allergy status to other antibiotic agents; Z88.8 Allergy status to other drugs, medicaments and biological substances; Z91.030 Bee allergy status; Z90.710 Acquired absence of both cervix and uterus; Z90.89 Acquired absence of other organs; Z98.49 Cataract extraction status, unspecified eye; Z98.890 Other specified postprocedural states; Z87.891 Personal history of nicotine dependence
CPT/HCPCS: 45378; 82962; 87046; 87328; 87329; 87493; 89055; 94640; J3010; J7120; 00811; 87427; J2001; J2704

== ENCOUNTER 2017-08-06 13:14 | Emergency (ER) | payer MEDICARE, BC ==
[2017-08-06 13:33] VITALS: BP 172/53
[2017-08-06] MEDS ORDERED: Albuterol 0.083% 2.5 MG/3 ML Neb Soln NEB ONE (13:36)
[2017-08-06] MEDS ORDERED: Furosemide 40 MG/4 ML VIAL IVPUSH ONE (13:36)
[2017-08-06] MEDS ORDERED: Sodium Chloride 0.9% 10 ML Syringe FLUSH PRN (13:36)
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
--- NOTE | 2017-08-06 14:41 | CR ---
Chest: Portable view of the chest was obtained. Comparison: Prior chest x-ray of 05/03/17. Heart is slightly enlarged. Tortuous thoracic aorta is seen. Slight scarring is seen within the left mid chest and left lower chest. Lungs otherwise are clear without acute parenchymal change. Bony structures are grossly intact. Impression: 1. Findings as noted above. Nothing acute seen on portable chest x-ray. Diagnostic code #2
[2017-08-06] MEDS ORDERED: Acetaminophen 325 MG Tab PO ONE (16:46)
== END 2017-08-06 17:10 | disposition home or self-care (01) ==
LOC: JD.ED 13:14
DX: R07.89 Other chest pain (principal); R60.0 Localized edema; E78.00 Pure hypercholesterolemia, unspecified; I10 Essential (primary) hypertension; E11.9 Type 2 diabetes mellitus without complications; Z91.030 Bee allergy status; Z79.82 Long term (current) use of aspirin; Z79.899 Other long term (current) drug therapy; Z79.84 Long term (current) use of oral hypoglycemic drugs; Z90.710 Acquired absence of both cervix and uterus
CPT/HCPCS: 36415; 71045; 80053; 83880; 84484; 85025; 86140; 93005; 94640; 96374; 99285; J1940; J7050

== ENCOUNTER 2017-09-14 18:11 | Emergency (ER) | payer MEDICARE, BC ==
[2017-09-14 18:30] VITALS: BP 172/70
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
[2017-09-14] MEDS ORDERED: Acetaminophen/HYDROcodone 325-5 MG Tab PO ONE (20:15)
--- NOTE | 2017-09-16 07:48 | CR ---
Left knee: Four views of the left knee were obtained. Comparison: No prior knee exam is available. Spur is noted off superior patella at the attachment of the quadriceps tendon. Soft tissue swelling is noted anteriorly. Mild medial joint space narrowing is seen. Slightly deformed lateral tibial plateau is seen and difficult to completely exclude a lateral tibial plateau fracture. Impression: 1. Slightly deformed lateral tibial plateau and difficult to completely exclude lateral tibial plateau fracture. Please correlate if patient has acute symptoms to this area, CT could be considered to either rule in or rule out this possibility if clinically indicated. 2. Soft tissue swelling and minimal degenerative change. Diagnostic code #3
--- NOTE | 2017-09-16 08:54 | US ---
Left lower extremity deep venous ultrasound: Duplex and color flow imaging was obtained of the left common femoral vein, superficial femoral vein, proximal greater saphenous vein, popliteal, posterior tibial and peroneal veins. Right common femoral vein was also evaluated. Posterior tibial and peroneal veins not well seen but no indirect evidence of deep venous thrombosis is appreciated. Other veins show normal phasic flow, augmentation and compression. Impression: 1. Less than optimal visualization of the calf veins on the left side. Nothing appreciated to indicate deep venous thrombosis within left lower extremity or within the right common femoral vein. Diagnostic code #2 I agree with preliminary report issued by [facility] ([facility] preliminary report dictated on 09/14/17, 11:37 PM Central Time)
== END 2017-09-14 22:35 | disposition home or self-care (01) ==
LOC: JD.ED 18:11
DX: S80.02XA Contusion of left knee, initial encounter (principal); E78.00 Pure hypercholesterolemia, unspecified; I10 Essential (primary) hypertension; Z79.899 Other long term (current) drug therapy; Z79.82 Long term (current) use of aspirin; Z79.84 Long term (current) use of oral hypoglycemic drugs
CPT/HCPCS: 36415; 73562; 80053; 85025; 85379; 93971; 99284; A9270; 99283

== ENCOUNTER 2018-08-04 11:04 | Inpatient (IN) | payer MEDICARE, BC ==
[2018-08-04] MEDS ORDERED: Sodium Chloride 0.9% 10 ML Syringe FLUSH PRN (11:15)
[2018-08-04] MEDS ORDERED: Albuterol/Ipratropium 3.0-0.5 MG/3 ML Neb Soln NEB ONE (11:16)
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
[2018-08-04] MEDS ORDERED: cefTRIAXone 1 GM in Sodium Chloride 0.9% 100 ML IV ONE (12:20)
--- NOTE | 2018-08-04 12:24 | CR ---
Chest: Portable view of the chest was obtained. Comparison: Prior chest x-ray of 08/06/17. Increased density within the left retrocardiac region is seen. Area of atelectasis is noted within the left mid lung. Right lung clear. Heart is enlarged. Tortuous thoracic aorta is seen. Bony structures are grossly intact. Impression: 1. Increased density with left retrocardiac region either due to atelectasis or pneumonia. 2. Area of atelectasis seen within the left midlung. 3. Cardiomegaly. Diagnostic code #3
[2018-08-04] MEDS ORDERED: Naloxone 2 MG/2 ML Syringe IVPUSH ONE (13:36)
[2018-08-04] MEDS ORDERED: Albuterol 0.083% 2.5 MG/3 ML Neb Soln NEB ONE (14:42)
[2018-08-04] MEDS ORDERED: Furosemide 40 MG/4 ML VIAL IVPUSH ONE (14:51)
[2018-08-04] MEDS ORDERED: methylPREDNISolone Sodium Succinate 125 MG/2 ML SDV IVPUSH ONE (14:51)
--- NOTE | 2018-08-04 15:09 | CT ---
Head CT Technique: Multiple axial sections through the brain were obtained. Intravenous contrast was not utilized. Comparison: No previous intracranial imaging. Findings: Ventricles along with basal cisterns and sulci over the convexities are moderately prominent. Mild diminished density is noted within portions of the periventricular white matter which is compatible with small vessel ischemic demyelination change. No other abnormal parenchymal densities are seen. No evidence of intracranial hemorrhage. No midline shift or mass effect is seen. Bone window settings were reviewed which show mild mucosal thickening within the anterior ethmoid sinuses and left frontal sinus. Slight mucosal thickening is noted within the left mastoid sinus. Atherosclerotic calcification is seen within the right vertebral vessel and within the carotid siphon. Impression: 1. Senescent change as noted above. Minimal sinus findings which are likely incidental. 2. No acute intracranial abnormality is identified. Diagnostic code #2
[2018-08-04] MEDS ORDERED: Ondansetron 4 MG/2 ML SDV IV PRN (16:21)
[2018-08-04] MEDS ORDERED: HYDROmorphone 1 MG/ML Syringe IVPUSH PRN (16:21)
[2018-08-04] MEDS ORDERED: Lactated Ringers 1,000 ML IV SCH (16:30)
[2018-08-04] MEDS ORDERED: Cefepime 1 GM in Premix Bag 1 BAG IV SCH (17:00)
[2018-08-04] MEDS ORDERED: Levofloxacin/Dextrose 5%-Water 750 MG in Premix Bag 1 BAG IV SCH (17:00)
[2018-08-04] MEDS: methylPREDNISolone Sodium Succinate 40 MG/1 ML SDV IVPUSH SCH ×2 (18:46→23:09)
[2018-08-04] MEDS: Insulin Lispro 100 Units/ML 3 ML Vial SUBCUT SCH ×2 (18:57→22:00)
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
[2018-08-04] MEDS: Metoprolol Tartrate 50 MG Tab PO SCH (20:40)
[2018-08-05] MEDS: methylPREDNISolone Sodium Succinate 40 MG/1 ML SDV IVPUSH SCH ×4 (04:53→22:02)
[2018-08-05] MEDS ORDERED: HYDROmorphone 0.5 MG/0.5 ML Syringe IVPUSH PRN (07:02)
[2018-08-05] MEDS: Lactated Ringers 1,000 ML IV SCH ×2 (07:24→20:40)
[2018-08-05] MEDS: Insulin Lispro 100 Units/ML 3 ML Vial SUBCUT SCH ×4 (07:25→22:02)
--- NOTE | 2018-08-05 08:50 | PCM.PN ---
- General Info Date of Service: 08/05/18 Admission Dx/Problem (Free Text): Admission Diagnosis/Problem Admission Diagnosis/Problem Respiratory failure with hypoxia and hypercapnia Subjective Update: Patient did well last night. BiPAP was increased to 8/15 and her FiO2 was dropped to 8 L. Her current blood gas : pH 7.36, PCO2 67.7, PO2 58.0, HCO3 37.2 , O2 saturation 88.9. Patient is resting comfortably. Afebrile. Functional Status: Reports: Pain Controlled - Review of Systems General: Reports: No Symptoms. Denies: Fever HEENT: Reports: No Symptoms Pulmonary: Reports: Shortness of Breath Cardiovascular: Reports: No Symptoms. Denies: Chest Pain, Lightheadedness Gastrointestinal: Reports: No Symptoms - Patient Data Vitals - Most Recent: Last Vital Signs Temp 97.8 F 08/05/18 04:00 Pulse 68 08/05/18 08:10 Resp 15 08/05/18 04:00 BP 139/59 L 08/05/18 04:00 Pulse Ox 98 08/05/18 08:10 Weight - Most Recent: 177 lb 3.2 oz I&O - Last 24 Hours: Intake & Output 08/04/18 08/05/18 08/05/18 22:59 06:59 14:59 Intake Total 20 1026 Output Total 250 150 Balance -230 876 Lab Results Last 24 Hours: Laboratory Results - last 24 hr 08/04/18 08/04/18 08/04/18 Range/Units 11:36 11:36 11:36 WBC 7.00 (3.98-10.04) K/mm3 RBC 3.88 L (3.98-5.22) M/mm3 Hgb 11.5 (11.2-15.7) gm/L Hct 37.4 (34.1-44.9) % MCV 96.4 H (79.4-94.8) fl MCH 29.6 (25.6-32.2) pg MCHC 30.7 L (32.2-35.5) g/dl RDW Std Deviation 46.2 (36.4-46.3) fL Plt Count 232 (182-369) K/mm3 MPV 9.4 (9.4-12.3) fl Neut % (Auto) (34.0-71.1) % Lymph % (Auto) (19.3-51.7) % [place] % (Auto) (4.7-12.5) % Eos % (Auto) (0.7-5.8) Baso % (Auto) (0.1-1.2) % Neut # (Auto) (1.56-6.13) K/mm3 Lymph # (Auto) (1.18-3.74) K/mm3 [place] # (Auto) (0.24-0.36) K/mm3 Eos # (Auto) (0.04-0.36) K/mm3 Baso # (Auto) (0.01-0.08) K/mm3 Neutrophils % (Manual) 84 H (40-60) % Band Neutrophils % 0 (0-10) % Lymphocytes % (Manual) 13 L (20-40) % Atypical Lymphs % 0 % Monocytes % (Manual) 3 (2-10) % Eosinophils % (Manual) 0 L (0.7-5.8) % Basophils % (Manual) 0 L (0.1-1.2) Platelet Estimate Adequate Plt Morphology Comment Normal Polychromasia 2+ moderate Basophilic Stippling Few RBC Morph Comment Not Reportable D-Dimer, Quantitative (0.19-0.50) mg/L Puncture Site ABG pH (7.35-7.45) ABG pCO2 (35.0-45.0) mmHg ABG pO2 (80.0-100.0) mmHg ABG HCO3 (22.0-26.0) meq/L ABG O2 Saturation (96.0-97.0) % ABG Base Excess (-2-2.0) Michele Test A-a Gradient mmHg O2 Delivery Device Oxygen Flow Rate FiO2 (21.00-100.00) % PEEP cmH20 Pressure Support cmH2O Sodium 139 (136-145) mEq/L Potassium 5.0 (3.5-5.1) mEq/L Chloride 101 (98-107) mEq/L Carbon Dioxide 38 H (21-32) mEq/L Anion Gap 5.0 (5-15) BUN 20 H (7-18) mg/dL Creatinine 0.8 (0.55-1.02) mg/dL Est Cr Clr Drug Dosing 41.40 mL/min Estimated GFR (MDRD) > 60 (>60) mL/min BUN/Creatinine Ratio 25.0 H (14-18) Glucose 152 H (83-115) mg/dL POC Glucose (83-110) mg/dL Lactic Acid (0.4-2.0) mmol/L Calcium 8.8 (8.5-10.1) mg/dL Phosphorus (2.6-4.7) mg/dL Magnesium (1.8-2.4) mg/dl Total Bilirubin 0.3 (0.2-1.0) mg/dL AST 30 (15-37) U/L ALT 30 (14-59) U/L Alkaline Phosphatase 36 L (46-116) U/L Troponin I 0.018 (0.00-0.056) ng/mL C-Reactive Protein < 0.2 (<1.0) mg/dL NT-Pro-B Natriuret Pep 377 (0-450) pg/mL Total Protein 7.5 (6.4-8.2) g/dl Albumin 3.2 L (3.4-5.0) g/dl Globulin 4.3 gm/dL Albumin/Globulin Ratio 0.7 L (1-2) Urine Color (Yellow) Urine Appearance (Clear) Urine pH (5.0-8.0) Ur Specific [place] (1.005-1.030) Urine Protein (Negative) Urine Glucose (UA) (Negative) Urine Ketones (Negative) Urine Occult Blood (Negative) Urine Nitrite (Negative) Urine Bilirubin (Negative) Urine Urobilinogen (0.2-1.0) Ur Leukocyte Esterase (Negative) Urine RBC (0-5) /hpf Urine WBC (0-5) /hpf Urine Bacteria (FEW) /hpf Hyaline Casts (0-5) /lpf Urine Mucus (FEW) /hpf 08/04/18 08/04/18 08/04/18 Range/Units 11:36 11:36 13:10 WBC (3.98-10.04) K/mm3 RBC (3.98-5.22) M/mm3 Hgb (11.2-15.7) gm/L Hct (34.1-44.9) % MCV (79.4-94.8) fl MCH (25.6-32.2) pg MCHC (32.2-35.5) g/dl RDW Std Deviation (36.4-46.3) fL Plt Count (182-369) K/mm3 MPV (9.4-12.3) fl Neut % (Auto) (34.0-71.1) % Lymph % (Auto) (19.3-51.7) % [place] % (Auto) (4.7-12.5) % Eos % (Auto) (0.7-5.8) Baso % (Auto) (0.1-1.2) % Neut # (Auto) (1.56-6.13) K/mm3 Lymph # (Auto) (1.18-3.74) K/mm3 [place] # (Auto) (0.24-0.36) K/mm3 Eos # (Auto) (0.04-0.36) K/mm3 Baso # (Auto) (0.01-0.08) K/mm3 Neutrophils % (Manual) (40-60) % Band Neutrophils % (0-10) % Lymphocytes % (Manual) (20-40) % Atypical Lymphs % % Monocytes % (Manual) (2-10) % Eosinophils % (Manual) (0.7-5.8) % Basophils % (Manual) (0.1-1.2) Platelet Estimate Plt Morphology Comment Polychromasia Basophilic Stippling RBC Morph Comment D-Dimer, Quantitative 0.44 (0.19-0.50) mg/L Puncture Site ABG pH (7.35-7.45) ABG pCO2 (35.0-45.0) mmHg ABG pO2 (80.0-100.0) mmHg ABG HCO3 (22.0-26.0) meq/L ABG O2 Saturation (96.0-97.0) % ABG Base Excess (-2-2.0) Michele Test A-a Gradient mmHg O2 Delivery Device Oxygen Flow Rate FiO2 (21.00-100.00) % PEEP cmH20 Pressure Support cmH2O Sodium (136-145) mEq/L Potassium (3.5-5.1) mEq/L Chloride (98-107) mEq/L Carbon Dioxide (21-32) mEq/L Anion Gap (5-15) BUN (7-18) mg/dL Creatinine (0.55-1.02) mg/dL Est Cr Clr Drug Dosing mL/min Estimated GFR (MDRD) (>60) mL/min BUN/Creatinine Ratio (14-18) Glucose (83-115) mg/dL POC Glucose (83-110) mg/dL Lactic Acid 0.7 (0.4-2.0) mmol/L Calcium (8.5-10.1) mg/dL Phosphorus (2.6-4.7) mg/dL Magnesium (1.8-2.4) mg/dl Total Bilirubin (0.2-1.0) mg/dL AST (15-37) U/L ALT (14-59) U/L Alkaline Phosphatase (46-116) U/L Troponin I (0.00-0.056) ng/mL C-Reactive Protein (<1.0) mg/dL NT-Pro-B Natriuret Pep (0-450) pg/mL Total Protein (6.4-8.2) g/dl Albumin (3.4-5.0) g/dl Globulin gm/dL Albumin/Globulin Ratio (1-2) Urine Color Yellow (Yellow) Urine Appearance Clear (Clear) Urine pH 5.5 (5.0-8.0) Ur Specific [place] > or = 1.030 (1.005-1.030) Urine Protein 2+ H (Negative) Urine Glucose (UA) Negative (Negative) Urine Ketones Negative (Negative) Urine Occult Blood Negative (Negative) Urine Nitrite Negative (Negative) Urine Bilirubin Negative (Negative) Urine Urobilinogen 0.2 (0.2-1.0) Ur Leukocyte Esterase Negative (Negative) Urine RBC 0-5 (0-5) /hpf Urine WBC 0-5 (0-5) /hpf Urine Bacteria Rare (FEW) /hpf Hyaline Casts 0-5 (0-5) /lpf Urine Mucus Moderate H (FEW) /hpf 08/04/18 08/04/18 08/04/18 Range/Units 13:52 16:05 18:53 WBC (3.98-10.04) K/mm3 RBC (3.98-5.22) M/mm3 Hgb (11.2-15.7) gm/L Hct (34.1-44.9) % MCV (79.4-94.8) fl MCH (25.6-32.2) pg MCHC (32.2-35.5) g/dl RDW Std Deviation (36.4-46.3) fL Plt Count (182-369) K/mm3 MPV (9.4-12.3) fl Neut % (Auto) (34.0-71.1) % Lymph % (Auto) (19.3-51.7) % [place] % (Auto) (4.7-12.5) % Eos % (Auto) (0.7-5.8) Baso % (Auto) (0.1-1.2) % Neut # (Auto) (1.56-6.13) K/mm3 Lymph # (Auto) (1.18-3.74) K/mm3 [place] # (Auto) (0.24-0.36) K/mm3 Eos # (Auto) (0.04-0.36) K/mm3 Baso # (Auto) (0.01-0.08) K/mm3 Neutrophils % (Manual) (40-60) % Band Neutrophils % (0-10) % Lymphocytes % (Manual) (20-40) % Atypical Lymphs % % Monocytes % (Manual) (2-10) % Eosinophils % (Manual) (0.7-5.8) % Basophils % (Manual) (0.1-1.2) Platelet Estimate Plt Morphology Comment Polychromasia Basophilic Stippling RBC Morph Comment D-Dimer, Quantitative (0.19-0.50) mg/L Puncture Site Lt radial Lt radial ABG pH 7.33 L 7.32 L (7.35-7.45) ABG pCO2 74.7 H* 78.0 H* (35.0-45.0) mmHg ABG pO2 65.0 L 58.0 L (80.0-100.0) mmHg ABG HCO3 37.9 H 38.9 H (22.0-26.0) meq/L ABG O2 Saturation 92.9 L 88.5 L (96.0-97.0) % ABG Base Excess 9.9 H 10.6 H (-2-2.0) Michele Test Positive Positive A-a Gradient 123 229 mmHg O2 Delivery Device Venturi mask Bipap Oxygen Flow Rate 8.0 10.0 FiO2 60.00 (21.00-100.00) % PEEP cmH20 Pressure Support cmH2O Sodium (136-145) mEq/L Potassium (3.5-5.1) mEq/L Chloride (98-107) mEq/L Carbon Dioxide (21-32) mEq/L Anion Gap (5-15) BUN (7-18) mg/dL Creatinine (0.55-1.02) mg/dL Est Cr Clr Drug Dosing mL/min Estimated GFR (MDRD) (>60) mL/min BUN/Creatinine Ratio (14-18) Glucose (83-115) mg/dL POC Glucose 185 H (83-110) mg/dL Lactic Acid (0.4-2.0) mmol/L Calcium (8.5-10.1) mg/dL Phosphorus (2.6-4.7) mg/dL Magnesium (1.8-2.4) mg/dl Total Bilirubin (0.2-1.0) mg/dL AST (15-37) U/L ALT (14-59) U/L Alkaline Phosphatase (46-116) U/L Troponin I (0.00-0.056) ng/mL C-Reactive Protein (<1.0) mg/dL NT-Pro-B Natriuret Pep (0-450) pg/mL Total Protein (6.4-8.2) g/dl Albumin (3.4-5.0) g/dl Globulin gm/dL Albumin/Globulin Ratio (1-2) Urine Color (Yellow) Urine Appearance (Clear) Urine pH (5.0-8.0) Ur Specific [place] (1.005-1.030) Urine Protein (Negative) Urine Glucose (UA) (Negative) Urine Ketones (Negative) Urine Occult Blood (Negative) Urine Nitrite (Negative) Urine Bilirubin (Negative) Urine Urobilinogen (0.2-1.0) Ur Leukocyte Esterase (Negative) Urine RBC (0-5) /hpf Urine WBC (0-5) /hpf Urine Bacteria (FEW) /hpf Hyaline Casts (0-5) /lpf Urine Mucus (FEW) /hpf 08/04/18 08/04/18 08/05/18 Range/Units 18:55 21:52 05:15 WBC 6.45 (3.98-10.04) K/mm3 RBC 3.82 L (3.98-5.22) M/mm3 Hgb 11.0 L (11.2-15.7) gm/L Hct 36.5 (34.1-44.9) % MCV 95.5 H (79.4-94.8) fl MCH 28.8 (25.6-32.2) pg MCHC 30.1 L (32.2-35.5) g/dl RDW Std Deviation 44.6 (36.4-46.3) fL Plt Count 244 (182-369) K/mm3 MPV 10.4 (9.4-12.3) fl Neut % (Auto) 83.3 H (34.0-71.1) % Lymph % (Auto) 14.1 L (19.3-51.7) % [place] % (Auto) 2.2 L (4.7-12.5) % Eos % (Auto) 0 L (0.7-5.8) Baso % (Auto) 0.2 (0.1-1.2) % Neut # (Auto) 5.38 (1.56-6.13) K/mm3 Lymph # (Auto) 0.91 L (1.18-3.74) K/mm3 [place] # (Auto) 0.14 L (0.24-0.36) K/mm3 Eos # (Auto) 0.00 L (0.04-0.36) K/mm3 Baso # (Auto) 0.01 (0.01-0.08) K/mm3 Neutrophils % (Manual) (40-60) % Band Neutrophils % (0-10) % Lymphocytes % (Manual) (20-40) % Atypical Lymphs % % Monocytes % (Manual) (2-10) % Eosinophils % (Manual) (0.7-5.8) % Basophils % (Manual) (0.1-1.2) Platelet Estimate Plt Morphology Comment Polychromasia Basophilic Stippling RBC Morph Comment D-Dimer, Quantitative (0.19-0.50) mg/L Puncture Site Rt radial ABG pH 7.36 (7.35-7.45) ABG pCO2 70.7 H* (35.0-45.0) mmHg ABG pO2 66.0 L (80.0-100.0) mmHg ABG HCO3 38.5 H (22.0-26.0) meq/L ABG O2 Saturation 93.4 L (96.0-97.0) % ABG Base Excess 10.7 H (-2-2.0) Michele Test Positive A-a Gradient 486 mmHg O2 Delivery Device Bipap Oxygen Flow Rate 15.0 FiO2 (21.00-100.00) % PEEP cmH20 Pressure Support cmH2O Sodium (136-145) mEq/L Potassium (3.5-5.1) mEq/L Chloride (98-107) mEq/L Carbon Dioxide (21-32) mEq/L Anion Gap (5-15) BUN (7-18) mg/dL Creatinine (0.55-1.02) mg/dL Est Cr Clr Drug Dosing mL/min Estimated GFR (MDRD) (>60) mL/min BUN/Creatinine Ratio (14-18) Glucose (83-115) mg/dL POC Glucose 197 H (83-110) mg/dL Lactic Acid (0.4-2.0) mmol/L Calcium (8.5-10.1) mg/dL Phosphorus (2.6-4.7) mg/dL Magnesium (1.8-2.4) mg/dl Total Bilirubin (0.2-1.0) mg/dL AST (15-37) U/L ALT (14-59) U/L Alkaline Phosphatase (46-116) U/L Troponin I (0.00-0.056) ng/mL C-Reactive Protein (<1.0) mg/dL NT-Pro-B Natriuret Pep (0-450) pg/mL Total Protein (6.4-8.2) g/dl Albumin (3.4-5.0) g/dl Globulin gm/dL Albumin/Globulin Ratio (1-2) Urine Color (Yellow) Urine Appearance (Clear) Urine pH (5.0-8.0) Ur Specific [place] (1.005-1.030) Urine Protein (Negative) Urine Glucose (UA) (Negative) Urine Ketones (Negative) Urine Occult Blood (Negative) Urine Nitrite (Negative) Urine Bilirubin (Negative) Urine Urobilinogen (0.2-1.0) Ur Leukocyte Esterase (Negative) Urine RBC (0-5) /hpf Urine WBC (0-5) /hpf Urine Bacteria (FEW) /hpf Hyaline Casts (0-5) /lpf Urine Mucus (FEW) /hpf 08/05/18 08/05/18 08/05/18 Range/Units 05:15 05:17 06:00 WBC (3.98-10.04) K/mm3 RBC (3.98-5.22) M/mm3 Hgb (11.2-15.7) gm/L Hct (34.1-44.9) % MCV (79.4-94.8) fl MCH (25.6-32.2) pg MCHC (32.2-35.5) g/dl RDW Std Deviation (36.4-46.3) fL Plt Count (182-369) K/mm3 MPV (9.4-12.3) fl Neut % (Auto) (34.0-71.1) % Lymph % (Auto) (19.3-51.7) % [place] % (Auto) (4.7-12.5) % Eos % (Auto) (0.7-5.8) Baso % (Auto) (0.1-1.2) % Neut # (Auto) (1.56-6.13) K/mm3 Lymph # (Auto) (1.18-3.74) K/mm3 [place] # (Auto) (0.24-0.36) K/mm3 Eos # (Auto) (0.04-0.36) K/mm3 Baso # (Auto) (0.01-0.08) K/mm3 Neutrophils % (Manual) (40-60) % Band Neutrophils % (0-10) % Lymphocytes % (Manual) (20-40) % Atypical Lymphs % % Monocytes % (Manual) (2-10) % Eosinophils % (Manual) (0.7-5.8) % Basophils % (Manual) (0.1-1.2) Platelet Estimate Plt Morphology Comment Polychromasia Basophilic Stippling RBC Morph Comment D-Dimer, Quantitative (0.19-0.50) mg/L Puncture Site Rt radial ABG pH 7.36 (7.35-7.45) ABG pCO2 67.7 H (35.0-45.0) mmHg ABG pO2 58.0 L (80.0-100.0) mmHg ABG HCO3 37.2 H (22.0-26.0) meq/L ABG O2 Saturation 88.9 L (96.0-97.0) % ABG Base Excess 9.9 H (-2-2.0) Michele Test Positive A-a Gradient mmHg O2 Delivery Device Bipap Oxygen Flow Rate FiO2 0.00 L (21.00-100.00) % PEEP 8.0 cmH20 Pressure Support 15.0 cmH2O Sodium 142 (136-145) mEq/L Potassium 4.7 (3.5-5.1) mEq/L Chloride 101 (98-107) mEq/L Carbon Dioxide 36 H (21-32) mEq/L Anion Gap 9.7 (5-15) BUN 28 H (7-18) mg/dL Creatinine 1.0 (0.55-1.02) mg/dL Est Cr Clr Drug Dosing 33.12 mL/min Estimated GFR (MDRD) 53 (>60) mL/min BUN/Creatinine Ratio 28.0 H (14-18) Glucose 198 H (83-115) mg/dL POC Glucose 193 H (83-110) mg/dL Lactic Acid (0.4-2.0) mmol/L Calcium 8.4 L (8.5-10.1) mg/dL Phosphorus 5.0 H (2.6-4.7) mg/dL Magnesium 1.9 (1.8-2.4) mg/dl Total Bilirubin 0.3 (0.2-1.0) mg/dL AST 28 (15-37) U/L ALT 28 (14-59) U/L Alkaline Phosphatase 33 L (46-116) U/L Troponin I < 0.017 (0.00-0.056) ng/mL C-Reactive Protein (<1.0) mg/dL NT-Pro-B Natriuret Pep (0-450) pg/mL Total Protein 7.3 (6.4-8.2) g/dl Albumin 3.0 L (3.4-5.0) g/dl Globulin 4.3 gm/dL Albumin/Globulin Ratio 0.7 L (1-2) Urine Color (Yellow) Urine Appearance (Clear) Urine pH (5.0-8.0) Ur Specific [place] (1.005-1.030) Urine Protein (Negative) Urine Glucose (UA) (Negative) Urine Ketones (Negative) Urine Occult Blood (Negative) Urine Nitrite (Negative) Urine Bilirubin (Negative) Urine Urobilinogen (0.2-1.0) Ur Leukocyte Esterase (Negative) Urine RBC (0-5) /hpf Urine WBC (0-5) /hpf Urine Bacteria (FEW) /hpf Hyaline Casts (0-5) /lpf Urine Mucus (FEW) /hpf Med Orders - Current: Current Medications Albuterol (Proventil Neb Soln) 2.5 mg NEB Q4HR PRN PRN Reason: Shortness of Breath Amlodipine Besylate (Norvasc) 10 mg PO DAILY [facility] Aspirin (Aspirin) 81 mg PO DAILY [facility] Citalopram Hydrobromide (Celexa) 20 mg PO DAILY [facility] Enoxaparin Sodium (Lovenox) 40 mg SUBCUT DAILY [facility] Hydromorphone HCl (Dilaudid) 0.5 mg IVPUSH Q2H PRN PRN Reason: Pain (severe 7-10) Levofloxacin/Dextrose 750 mg/ (Premix) 150 mls @ 100 mls/hr IV Q48H [facility] Cefepime HCl 1 gm/ Premix 50 mls @ 100 mls/hr IV Q12H [facility] Vancomycin HCl 1 gm/ Sodium (Chloride) 250 mls @ 250 mls/hr IV DAILY@1900 [facility] Last Admin: 08/04/18 20:40 Dose: 250 mls/hr Lactated Ringer's (Ringers, Lactated) 1,000 mls @ 75 mls/hr IV ASDIRECTED [facility] Last Admin: 08/05/18 07:24 Dose: 75 mls/hr Insulin Human Lispro (Humalog) 0 unit SUBCUT QIDACANDBED [facility]; Protocol Last Admin: 08/05/18 07:25 Dose: 1 unit Methylprednisolone Sodium Succinate (Solu-Medrol) 60 mg IVPUSH Q6H [facility] Last Admin: 08/05/18 04:53 Dose: 60 mg Metoprolol Tartrate (Lopressor) 50 mg PO Q12H [facility] Last Admin: 08/04/18 20:40 Dose: 50 mg Ondansetron HCl (Zofran) 4 mg IV Q4H PRN PRN Reason: Nausea/Vomiting Sodium Chloride (Saline Flush) 10 ml FLUSH ASDIRECTED PRN PRN Reason: Keep Vein Open Last Admin: 08/04/18 11:33 Dose: 10 ml Vancomycin HCl (Pharmacy To Dose - Vancomycin) 0 dose .XX ASDIRECTED PRN PRN Reason: RX TO DOSE VANCO Discontinued Medications Albuterol (Proventil Neb Soln) 2.5 mg NEB ONETIME ONE Stop: 08/04/18 14:43 Last Admin: 08/04/18 15:06 Dose: 2.5 mg Albuterol/Ipratropium (Duoneb 3.0-0.5 Mg/3 Ml) 3 ml NEB ONETIME ONE Stop: 08/04/18 11:17 Last Admin: 08/04/18 11:58 Dose: 3 ml Furosemide (Lasix) 40 mg IVPUSH NOW ONE Stop: 08/04/18 14:52 Last Admin: 08/04/18 15:01 Dose: 40 mg Hydromorphone HCl (Dilaudid) 0.5 mg IVPUSH Q2H PRN PRN Reason: Pain (severe 7-10) Ceftriaxone Sodium 1 gm/ (Sodium Chloride) 100 mls @ 200 mls/hr IV ONETIME ONE Stop: 08/04/18 12:49 Last Infusion: 08/04/18 12:55 Dose: 200 mls/hr Lactated Ringer's (Ringers, Lactated) 1,000 mls @ 125 mls/hr IV ASDIRECTED [facility] Last Admin: 08/04/18 20:40 Dose: 125 mls/hr Cefepime HCl 1 gm/ Premix 50 mls @ 100 mls/hr IV Q8H [facility] Last Admin: 08/04/18 21:17 Dose: Not Given Levofloxacin/Dextrose 750 mg/ (Premix) 150 mls @ 100 mls/hr IV Q24H [facility] Last Admin: 08/04/18 21:17 Dose: Not Given Vancomycin HCl 1 gm/ Sodium (Chloride) 250 mls @ 250 mls/hr IV Q24H [facility] Methylprednisolone Sodium Succinate (Solu-Medrol) 125 mg IVPUSH ONETIME ONE Stop: 08/04/18 14:52 Last Admin: 08/04/18 15:01 Dose: 125 mg Naloxone HCl (Narcan) 1 mg IVPUSH ONETIME ONE Stop: 08/04/18 13:37 Last Admin: 08/04/18 13:51 Dose: 1 mg - Exam Quality Assessment: Supplemental Oxygen, Urine Catheter General: Moderate Distress, Lethargic, Other (On BiPAP) HEENT: Pupils Equal, Pupils Reactive Neck: Supple Lungs: Decreased Breath Sounds, Other (Increased respiratory effort and rate) Cardiovascular: Regular Rate, Regular Rhythm Extremities: Normal Inspection, Normal Range of Motion, No Pedal Edema Neurological: No New Focal Deficit - Problem List & Annotations (1) Pneumonia SNOMED Code(s): 975797392 Code(s): J18.9 - PNEUMONIA, UNSPECIFIED ORGANISM Status: Acute Current Visit: Yes (2) Respiratory failure SNOMED Code(s): 475922398 Code(s): J96.90 - RESPIRATORY FAILURE, UNSP, UNSP W HYPOXIA OR HYPERCAPNIA Status: Acute Current Visit: Yes Qualifiers: Chronicity: acute Respiratory failure complication: hypoxia and hypercapnia Qualified Code(s): J96.01 - Acute respiratory failure with hypoxia ; J96.02 - Acute respiratory failure with hypercapnia (3) COPD exacerbation SNOMED Code(s): 546414940 Code(s): J44.1 - CHRONIC OBSTRUCTIVE PULMONARY DISEASE W (ACUTE) EXACERBATION Status: Acute Priority: High Current Visit: No - Problem List Review Problem List Initiated/Reviewed/Updated: Yes - My Orders Last 24 Hours: My Active Orders 08/04/18 16:17 Admission Status [Patient Status] [ADT] Routine 08/04/18 16:21 Bedrest Bedside Commode [RC] ASDIRECTED VTE/DVT Education [RC] DAILY Vital Signs [RC] Q4HR Consult to Spiritual Care [CONS] Routine Respiratory Care Assess and Treatment [CONS] Routine Ondansetron [Zofran] 4 mg IV Q4H PRN Resuscitation Status Routine 08/04/18 16:40 Albuterol [Proventil Neb Soln] 2.5 mg NEB Q4HR PRN 08/04/18 16:45 Pharmacy to Dose - Vancomycin 0 dose .XX ASDIRECTED PRN 08/04/18 16:56 Blood Glucose Check, Bedside [RC] QIDACANDBED 08/04/18 17:00 Insulin Lispro [HumaLOG] See Protocol SUBCUT QIDACANDBED methylPREDNISolone Sod Succ [Solu-MEDROL] 60 mg IVPUSH Q6H 08/04/18 19:17 Urinary Catheter Assessment [RC] Q4HR 08/04/18 19:30 Insert [place] Catheter [Insert Urinary Catheter] [OM.PC] Q24H 08/04/18 20:15 Vancomycin 1 gm Sodium Chloride 0.9% [Normal Saline] 250 ml IV DAILY@1900 08/04/18 20:18 RT BiPAP/CPAP [RC] ASDIRECTED 08/04/18 21:00 Metoprolol Tartrate [Lopressor] 50 mg PO Q12H 08/04/18 Dinner Nothing per Oral Now Diet [DIET] 08/05/18 03:30 Lactated Ringers [Ringers, Lactated] 1,000 ml IV ASDIRECTED 08/05/18 05:11 Chest 1V Frontal [CR] AM 08/05/18 07:02 HYDROmorphone [Dilaudid] 0.5 mg IVPUSH Q2H PRN 08/05/18 08:00 Cefepime [Maxipime in D5W 1 GM/50 ML] 1 gm Premix Bag 1 bag IV Q12H Levofloxacin/Dextrose 5%-Water [Levaquin in D5W 750 MG/150 ML] 750 mg Premix Bag 1 bag IV Q48H 08/05/18 08:24 METH-RESIST S.AUR,MRSA BY PCR [MOLEC] Routine 08/05/18 09:00 Aspirin 81 mg PO DAILY Citalopram [Celexa] 20 mg PO DAILY Enoxaparin [Lovenox] 40 mg SUBCUT DAILY amLODIPine [Norvasc] 10 mg PO DAILY 08/06/18 05:10 PRO B-TYPE NATRIUR PEPT,BNPPRO [CHEM] Routine 08/06/18 05:11 C-REACTIVE PROTEIN [CHEM] AM CBC WITH AUTO DIFF [HEME] AM CMP [COMPREHENSIVE METABOLIC PN,CMP] [CHEM] AM GLYCOSYLATED HEMOGLOBIN,HGBA1C [CHEM] AM LIPID PANEL [CHEM] AM MAGNESIUM [CHEM] AM PHOSPHORUS [CHEM] AM 08/06/18 18:30 VANCOMYCIN TROUGH [CHEM] Timed - Plan Plan:: Respiratory failure * monitor patient in the ICU. * Continue on BiPAP. Current settings are 8/15 on 8 L O2. * Titrate BiPAP settings as necessary * Patient is a DNR and DNI. I discussed with her that if she worsens she will likely if she is not intubated. Patient was clear that she did not want to be intubated after being asked on at least 3 occasions. She also does not want resuscitation. Family is in agreement. Pneumonia * Patient was given Rocephin 1 g in the emergency room. * Patient will be started on vancomycin (pharmacy to dose), levofloxacin 750 mg daily, and cefepime 1 gm every 24 hours. * Blood cultures * CBC significant change COPD exacerbation * Solu-Medrol 60 mg IV every 6 hours. * Albuterol nebulizer every 2 hours when necessary and DuoNeb every 6 hours when necessary Diabetes * Patient is nothing by mouth. SSI. She is only on metformin at home. CHF * BNP was only 377 * BNP in the morning * monitor I's and O's closely. * Hold Lasix at this time. * Restart hypertensive medication. Chronic medical problems include hypertension, congestive heart failure, dementia. I had a long discussion with her family. Patient is in critical condition and has a very high likelihood of mortality. They're in agreement that we should not intubate or resuscitate. If she is unable to tolerate the higher level of pressures in her BiPAP and we may need to consider comfort care. Family understands. Patient was very consistent with her answering that she does not want to be resuscitated or intubated. This is also consistent with the documentation available to me.
[2018-08-05] MEDS: Levofloxacin/Dextrose 5%-Water 750 MG in Premix Bag 1 BAG IV SCH (08:55)
[2018-08-05] MEDS: Cefepime 1 GM in Premix Bag 1 BAG IV SCH ×2 (08:55→20:39)
[2018-08-05] MEDS: Metoprolol Tartrate 50 MG Tab PO SCH ×3 (09:14→20:50)
[2018-08-05] MEDS: Aspirin 81 MG Tab.Chew PO SCH (09:15)
[2018-08-05] MEDS: amLODIPine 10 MG Tab PO SCH (09:15)
[2018-08-05] MEDS: Enoxaparin 40 MG/0.4 ML Syringe SUBCUT SCH (09:16)
[2018-08-05] MEDS: Citalopram 20 MG Tab PO SCH (09:16)
--- NOTE | 2018-08-05 10:16 | CR ---
Chest: Frontal view of the chest was obtained. Comparison: Prior chest x-ray of 08/04/18. Decreased atelectasis within left midlung. Slight parenchymal density remains within the left base. Right lung is clear. Heart size appears slightly prominent. Upper mediastinum is stable. Bony structures are unchanged. Impression: 1. Slight parenchymal density remains within the left lung base. Differential as previously described. 2. Slightly improved atelectasis within left midlung. 3. Nothing acute is otherwise seen. Diagnostic code #3
[2018-08-05] MEDS: Albuterol 0.083% 2.5 MG/3 ML Neb Soln NEB PRN (17:12)
--- NOTE | 2018-08-05 19:57 | CR ---
Chest: Portable view of the chest was obtained. Comparison: Prior chest x-ray of 08/05/18. Minimal parenchymal density remains stable behind left heart. Decreased atelectasis noted with left mid heart. Right lung is felt to be clear. Heart size is mildly enlarged. Bony structures are grossly intact. Impression: 1. Slight parenchymal density remains stable behind left heart. Decreased left mid lung atelectasis. 2. Stable cardiomegaly. No other change is seen from prior chest x-ray. Diagnostic code #2
[2018-08-05] MEDS: Albuterol/Ipratropium 3.0-0.5 MG/3 ML Neb Soln NEB SCH (20:35)
[2018-08-05] MEDS: Melatonin 3 MG Tab PO PRN (20:51)
[2018-08-06] MEDS: Albuterol/Ipratropium 3.0-0.5 MG/3 ML Neb Soln NEB SCH ×4 (03:24→20:15)
[2018-08-06] MEDS: methylPREDNISolone Sodium Succinate 40 MG/1 ML SDV IVPUSH SCH ×3 (04:03→20:53)
[2018-08-06] MEDS: Insulin Lispro 100 Units/ML 3 ML Vial SUBCUT SCH ×4 (06:07→21:00)
[2018-08-06] MEDS: Cefepime 1 GM in Premix Bag 1 BAG IV SCH ×2 (08:22→20:53)
[2018-08-06] MEDS: Enoxaparin 40 MG/0.4 ML Syringe SUBCUT SCH (09:56)
[2018-08-06] MEDS: Aspirin 81 MG Tab.Chew PO SCH (09:56)
[2018-08-06] MEDS: amLODIPine 10 MG Tab PO SCH (09:56)
[2018-08-06] MEDS: Citalopram 20 MG Tab PO SCH (09:56)
[2018-08-06] MEDS: Metoprolol Tartrate 50 MG Tab PO SCH ×2 (10:05→20:53)
--- NOTE | 2018-08-06 13:53 | PCM.PN ---
- General Info Date of Service: 08/06/18 Subjective Update: 08/10/18, more awake, pCO2 at 72, discussed with the caregiver, likely received double the ususl dose of methadone the day prior to admission, will stop sedatives and steroids, use BiPAP only as needed for ventilation(not work of breathing). - Review of Systems General: Reports: Weakness. Denies: Fever HEENT: Denies: Visual Changes Pulmonary: Denies: Shortness of Breath, Pleuritic Chest Pain, Cough Cardiovascular: Denies: Chest Pain, Palpitations Gastrointestinal: Denies: Abdominal Pain, Constipation, Nausea, Vomiting Genitourinary: Denies: Dysuria, Frequency Musculoskeletal: Denies: Neck Pain, Back Pain Skin: Denies: Cyanosis, Jaundice Neurological: Reports: Confusion. Denies: Headache, Seizure, Syncope Psychiatric: Reports: Other (at [facility]) - Patient Data Vitals - Most Recent: Last Vital Signs Temp 98.6 F 08/06/18 12:00 Pulse 65 08/06/18 12:00 Resp 15 08/06/18 12:00 BP 152/68 H 08/06/18 12:00 Pulse Ox 88 L 08/06/18 12:00 Weight - Most Recent: 185 lb 6.54 oz I&O - Last 24 Hours: Intake & Output 08/06/18 08/06/18 08/06/18 03:59 11:59 19:59 Intake Total 1191 Output Total 325 370 50 Balance -325 821 -50 Lab Results Last 24 Hours: Laboratory Results - last 24 hr 08/05/18 08/05/18 08/05/18 Range/Units 16:33 17:41 20:30 WBC (3.98-10.04) K/mm3 RBC (3.98-5.22) M/mm3 Hgb (11.2-15.7) gm/L Hct (34.1-44.9) % MCV (79.4-94.8) fl MCH (25.6-32.2) pg MCHC (32.2-35.5) g/dl RDW Std Deviation (36.4-46.3) fL Plt Count (182-369) K/mm3 MPV (9.4-12.3) fl Neut % (Auto) (34.0-71.1) % Lymph % (Auto) (19.3-51.7) % Dixon % (Auto) (4.7-12.5) % Eos % (Auto) (0.7-5.8) Baso % (Auto) (0.1-1.2) % Neut # (Auto) (1.56-6.13) K/mm3 Lymph # (Auto) (1.18-3.74) K/mm3 Dixon # (Auto) (0.24-0.36) K/mm3 Eos # (Auto) (0.04-0.36) K/mm3 Baso # (Auto) (0.01-0.08) K/mm3 Manual Slide Review Puncture Site Rt radial ABG pH 7.42 (7.35-7.45) ABG pCO2 52.2 H (35.0-45.0) mmHg ABG pO2 53.0 L (80.0-100.0) mmHg ABG HCO3 33.5 H (22.0-26.0) meq/L ABG O2 Saturation 87.7 L (96.0-97.0) % ABG Base Excess 8.2 H (-2-2.0) Michele Test Positive A-a Gradient 164 mmHg O2 Delivery Device Nasal cannula Oxygen Flow Rate 6.0 FiO2 (21.00-100.00) % Blood Gas Comments Sodium (136-145) mEq/L Potassium (3.5-5.1) mEq/L Chloride (98-107) mEq/L Carbon Dioxide (21-32) mEq/L Anion Gap (5-15) BUN (7-18) mg/dL Creatinine (0.55-1.02) mg/dL Est Cr Clr Drug Dosing mL/min Estimated GFR (MDRD) (>60) mL/min BUN/Creatinine Ratio (14-18) Glucose (83-115) mg/dL POC Glucose 178 H 214 H (83-110) mg/dL Hemoglobin A1c (4.50-6.20) % Calcium (8.5-10.1) mg/dL Phosphorus (2.6-4.7) mg/dL Magnesium (1.8-2.4) mg/dl Total Bilirubin (0.2-1.0) mg/dL AST (15-37) U/L ALT (14-59) U/L Alkaline Phosphatase (46-116) U/L Troponin I (0.00-0.056) ng/mL C-Reactive Protein (<1.0) mg/dL Total Protein (6.4-8.2) g/dl Albumin (3.4-5.0) g/dl Globulin gm/dL Albumin/Globulin Ratio (1-2) Triglycerides (<150) mg/dL Cholesterol (<200) mg/dL LDL Cholesterol Direct (<100) mg/dL HDL Cholesterol (40-59) mg/dL 08/06/18 08/06/18 08/06/18 Range/Units 06:05 06:06 07:00 WBC 8.79 (3.98-10.04) K/mm3 RBC 3.88 L (3.98-5.22) M/mm3 Hgb 11.0 L (11.2-15.7) gm/L Hct 36.5 (34.1-44.9) % MCV 94.1 (79.4-94.8) fl MCH 28.4 (25.6-32.2) pg MCHC 30.1 L (32.2-35.5) g/dl RDW Std Deviation 44.0 (36.4-46.3) fL Plt Count 237 (182-369) K/mm3 MPV 10.0 (9.4-12.3) fl Neut % (Auto) 89.7 H (34.0-71.1) % Lymph % (Auto) 6.1 L (19.3-51.7) % Dixon % (Auto) 3.9 L (4.7-12.5) % Eos % (Auto) 0.1 L (0.7-5.8) Baso % (Auto) 0.0 L (0.1-1.2) % Neut # (Auto) 7.88 H (1.56-6.13) K/mm3 Lymph # (Auto) 0.54 L (1.18-3.74) K/mm3 Dixon # (Auto) 0.34 (0.24-0.36) K/mm3 Eos # (Auto) 0.01 L (0.04-0.36) K/mm3 Baso # (Auto) 0.00 L (0.01-0.08) K/mm3 Manual Slide Review Abnormal smear Puncture Site Lt radial ABG pH 7.30 L (7.35-7.45) ABG pCO2 74.1 H* (35.0-45.0) mmHg ABG pO2 60.0 L (80.0-100.0) mmHg ABG HCO3 35.6 H (22.0-26.0) meq/L ABG O2 Saturation 88.1 L (96.0-97.0) % ABG Base Excess 7.5 H (-2-2.0) Michele Test Positive A-a Gradient 103 mmHg O2 Delivery Device Bipap Oxygen Flow Rate FiO2 40.00 (21.00-100.00) % Blood Gas Comments Bipap / Sodium (136-145) mEq/L Potassium (3.5-5.1) mEq/L Chloride (98-107) mEq/L Carbon Dioxide (21-32) mEq/L Anion Gap (5-15) BUN (7-18) mg/dL Creatinine (0.55-1.02) mg/dL Est Cr Clr Drug Dosing mL/min Estimated GFR (MDRD) (>60) mL/min BUN/Creatinine Ratio (14-18) Glucose (83-115) mg/dL POC Glucose 206 H (83-110) mg/dL Hemoglobin A1c (4.50-6.20) % Calcium (8.5-10.1) mg/dL Phosphorus (2.6-4.7) mg/dL Magnesium (1.8-2.4) mg/dl Total Bilirubin (0.2-1.0) mg/dL AST (15-37) U/L ALT (14-59) U/L Alkaline Phosphatase (46-116) U/L Troponin I (0.00-0.056) ng/mL C-Reactive Protein (<1.0) mg/dL Total Protein (6.4-8.2) g/dl Albumin (3.4-5.0) g/dl Globulin gm/dL Albumin/Globulin Ratio (1-2) Triglycerides (<150) mg/dL Cholesterol (<200) mg/dL LDL Cholesterol Direct (<100) mg/dL HDL Cholesterol (40-59) mg/dL 08/06/18 08/06/18 08/06/18 Range/Units 07:00 07:00 07:00 WBC (3.98-10.04) K/mm3 RBC (3.98-5.22) M/mm3 Hgb (11.2-15.7) gm/L Hct (34.1-44.9) % MCV (79.4-94.8) fl MCH (25.6-32.2) pg MCHC (32.2-35.5) g/dl RDW Std Deviation (36.4-46.3) fL Plt Count (182-369) K/mm3 MPV (9.4-12.3) fl Neut % (Auto) (34.0-71.1) % Lymph % (Auto) (19.3-51.7) % Dixon % (Auto) (4.7-12.5) % Eos % (Auto) (0.7-5.8) Baso % (Auto) (0.1-1.2) % Neut # (Auto) (1.56-6.13) K/mm3 Lymph # (Auto) (1.18-3.74) K/mm3 Dixon # (Auto) (0.24-0.36) K/mm3 Eos # (Auto) (0.04-0.36) K/mm3 Baso # (Auto) (0.01-0.08) K/mm3 Manual Slide Review Puncture Site ABG pH (7.35-7.45) ABG pCO2 (35.0-45.0) mmHg ABG pO2 (80.0-100.0) mmHg ABG HCO3 (22.0-26.0) meq/L ABG O2 Saturation (96.0-97.0) % ABG Base Excess (-2-2.0) Michele Test A-a Gradient mmHg O2 Delivery Device Oxygen Flow Rate FiO2 (21.00-100.00) % Blood Gas Comments Sodium 140 (136-145) mEq/L Potassium 4.9 (3.5-5.1) mEq/L Chloride 101 (98-107) mEq/L Carbon Dioxide 35 H (21-32) mEq/L Anion Gap 8.9 (5-15) BUN 34 H (7-18) mg/dL Creatinine 0.9 (0.55-1.02) mg/dL Est Cr Clr Drug Dosing 36.80 mL/min Estimated GFR (MDRD) 60 (>60) mL/min BUN/Creatinine Ratio 37.8 H (14-18) Glucose 208 H (83-115) mg/dL POC Glucose (83-110) mg/dL Hemoglobin A1c 8.00 H (4.50-6.20) % Calcium 8.7 (8.5-10.1) mg/dL Phosphorus 5.2 H (2.6-4.7) mg/dL Magnesium 2.2 (1.8-2.4) mg/dl Total Bilirubin 0.2 (0.2-1.0) mg/dL AST 28 (15-37) U/L ALT 29 (14-59) U/L Alkaline Phosphatase 30 L (46-116) U/L Troponin I < 0.017 (0.00-0.056) ng/mL C-Reactive Protein < 0.2 (<1.0) mg/dL Total Protein 6.9 (6.4-8.2) g/dl Albumin 2.9 L (3.4-5.0) g/dl Globulin 4.0 gm/dL Albumin/Globulin Ratio 0.7 L (1-2) Triglycerides 147 (<150) mg/dL Cholesterol 114 (<200) mg/dL LDL Cholesterol Direct 59 (<100) mg/dL HDL Cholesterol 38.0 L (40-59) mg/dL 08/06/18 Range/Units 11:42 WBC (3.98-10.04) K/mm3 RBC (3.98-5.22) M/mm3 Hgb (11.2-15.7) gm/L Hct (34.1-44.9) % MCV (79.4-94.8) fl MCH (25.6-32.2) pg MCHC (32.2-35.5) g/dl RDW Std Deviation (36.4-46.3) fL Plt Count (182-369) K/mm3 MPV (9.4-12.3) fl Neut % (Auto) (34.0-71.1) % Lymph % (Auto) (19.3-51.7) % Dixon % (Auto) (4.7-12.5) % Eos % (Auto) (0.7-5.8) Baso % (Auto) (0.1-1.2) % Neut # (Auto) (1.56-6.13) K/mm3 Lymph # (Auto) (1.18-3.74) K/mm3 Dixon # (Auto) (0.24-0.36) K/mm3 Eos # (Auto) (0.04-0.36) K/mm3 Baso # (Auto) (0.01-0.08) K/mm3 Manual Slide Review Puncture Site ABG pH (7.35-7.45) ABG pCO2 (35.0-45.0) mmHg ABG pO2 (80.0-100.0) mmHg ABG HCO3 (22.0-26.0) meq/L ABG O2 Saturation (96.0-97.0) % ABG Base Excess (-2-2.0) Michele Test A-a Gradient mmHg O2 Delivery Device Oxygen Flow Rate FiO2 (21.00-100.00) % Blood Gas Comments Sodium (136-145) mEq/L Potassium (3.5-5.1) mEq/L Chloride (98-107) mEq/L Carbon Dioxide (21-32) mEq/L Anion Gap (5-15) BUN (7-18) mg/dL Creatinine (0.55-1.02) mg/dL Est Cr Clr Drug Dosing mL/min Estimated GFR (MDRD) (>60) mL/min BUN/Creatinine Ratio (14-18) Glucose (83-115) mg/dL POC Glucose 223 H (83-110) mg/dL Hemoglobin A1c (4.50-6.20) % Calcium (8.5-10.1) mg/dL Phosphorus (2.6-4.7) mg/dL Magnesium (1.8-2.4) mg/dl Total Bilirubin (0.2-1.0) mg/dL AST (15-37) U/L ALT (14-59) U/L Alkaline Phosphatase (46-116) U/L Troponin I (0.00-0.056) ng/mL C-Reactive Protein (<1.0) mg/dL Total Protein (6.4-8.2) g/dl Albumin (3.4-5.0) g/dl Globulin gm/dL Albumin/Globulin Ratio (1-2) Triglycerides (<150) mg/dL Cholesterol (<200) mg/dL LDL Cholesterol Direct (<100) mg/dL HDL Cholesterol (40-59) mg/dL Avery Results Last 24 Hours: Microbiology 08/04/18 12:14 Aerobic Blood Culture - Preliminary Blood NO GROWTH AFTER 2 DAYS Anaerobic Blood Culture - Preliminary NO GROWTH AFTER 2 DAYS Med Orders - Current: Current Medications Albuterol (Proventil Neb Soln) 2.5 mg NEB Q4HR PRN PRN Reason: Shortness of Breath Last Admin: 08/05/18 17:12 Dose: 2.5 mg Albuterol/Ipratropium (Duoneb 3.0-0.5 Mg/3 Ml) 3 ml NEB Q6HRRT COUNTS INCLUDE 234 BEDS AT THE [facility] Last Admin: 08/06/18 08:10 Dose: 3 ml Amlodipine Besylate (Norvasc) 10 mg PO DAILY COUNTS INCLUDE 234 BEDS AT THE [facility] Last Admin: 08/06/18 09:56 Dose: 10 mg Aspirin (Aspirin) 81 mg PO DAILY COUNTS INCLUDE 234 BEDS AT THE [facility] Last Admin: 08/06/18 09:56 Dose: 81 mg Citalopram Hydrobromide (Celexa) 20 mg PO DAILY COUNTS INCLUDE 234 BEDS AT THE [facility] Last Admin: 08/06/18 09:56 Dose: 20 mg Enoxaparin Sodium (Lovenox) 40 mg SUBCUT DAILY COUNTS INCLUDE 234 BEDS AT THE [facility] Last Admin: 08/06/18 09:56 Dose: 40 mg Levofloxacin/Dextrose 750 mg/ (Premix) 150 mls @ 100 mls/hr IV Q48H COUNTS INCLUDE 234 BEDS AT THE [facility] Last Admin: 08/05/18 08:55 Dose: 100 mls/hr Cefepime HCl 1 gm/ Premix 50 mls @ 100 mls/hr IV Q12H COUNTS INCLUDE 234 BEDS AT THE [facility] Last Admin: 08/06/18 08:22 Dose: 100 mls/hr Vancomycin HCl 1 gm/ Sodium (Chloride) 250 mls @ 250 mls/hr IV DAILY@1900 COUNTS INCLUDE 234 BEDS AT THE [facility] Last Admin: 08/05/18 18:58 Dose: 250 mls/hr Insulin Human Lispro (Humalog) 0 unit SUBCUT QIDACANDBED COUNTS INCLUDE 234 BEDS AT THE [facility]; Protocol Last Admin: 08/06/18 11:46 Dose: 2 unit Melatonin (Melatonin) 3 mg PO BEDTIME PRN PRN Reason: Insomnia Last Admin: 08/05/18 20:51 Dose: 3 mg Methylprednisolone Sodium Succinate (Solu-Medrol) 30 mg IVPUSH Q12H COUNTS INCLUDE 234 BEDS AT THE [facility] Stop: 08/07/18 09:01 Metoprolol Tartrate (Lopressor) 50 mg PO Q12H COUNTS INCLUDE 234 BEDS AT THE [facility] Last Admin: 08/06/18 10:05 Dose: 50 mg Ondansetron HCl (Zofran) 4 mg IV Q4H PRN PRN Reason: Nausea/Vomiting Sodium Chloride (Saline Flush) 10 ml FLUSH ASDIRECTED PRN PRN Reason: Keep Vein Open Last Admin: 08/04/18 11:33 Dose: 10 ml Vancomycin HCl (Pharmacy To Dose - Vancomycin) 0 dose .XX ASDIRECTED PRN PRN Reason: RX TO DOSE VANCO Discontinued Medications Albuterol (Proventil Neb Soln) 2.5 mg NEB ONETIME ONE Stop: 08/04/18 14:43 Last Admin: 08/04/18 15:06 Dose: 2.5 mg Albuterol/Ipratropium (Duoneb 3.0-0.5 Mg/3 Ml) 3 ml NEB ONETIME ONE Stop: 08/04/18 11:17 Last Admin: 08/04/18 11:58 Dose: 3 ml Furosemide (Lasix) 40 mg IVPUSH NOW ONE Stop: 08/04/18 14:52 Last Admin: 08/04/18 15:01 Dose: 40 mg Hydromorphone HCl (Dilaudid) 0.5 mg IVPUSH Q2H PRN PRN Reason: Pain (severe 7-10) Hydromorphone HCl (Dilaudid) 0.5 mg IVPUSH Q2H PRN PRN Reason: Pain (severe 7-10) Ceftriaxone Sodium 1 gm/ (Sodium Chloride) 100 mls @ 200 mls/hr IV ONETIME ONE Stop: 08/04/18 12:49 Last Infusion: 08/04/18 12:55 Dose: 200 mls/hr Lactated Ringer's (Ringers, Lactated) 1,000 mls @ 125 mls/hr IV ASDIRECTED COUNTS INCLUDE 234 BEDS AT THE [facility] Last Admin: 08/04/18 20:40 Dose: 125 mls/hr Cefepime HCl 1 gm/ Premix 50 mls @ 100 mls/hr IV Q8H COUNTS INCLUDE 234 BEDS AT THE [facility] Last Admin: 08/04/18 21:17 Dose: Not Given Levofloxacin/Dextrose 750 mg/ (Premix) 150 mls @ 100 mls/hr IV Q24H COUNTS INCLUDE 234 BEDS AT THE [facility] Last Admin: 08/04/18 21:17 Dose: Not Given Vancomycin HCl 1 gm/ Sodium (Chloride) 250 mls @ 250 mls/hr IV Q24H COUNTS INCLUDE 234 BEDS AT THE [facility] Lactated Ringer's (Ringers, Lactated) 1,000 mls @ 75 mls/hr IV ASDIRECTED COUNTS INCLUDE 234 BEDS AT THE [facility] Last Admin: 08/05/18 20:40 Dose: 75 mls/hr Methylprednisolone Sodium Succinate (Solu-Medrol) 125 mg IVPUSH ONETIME ONE Stop: 08/04/18 14:52 Last Admin: 08/04/18 15:01 Dose: 125 mg Methylprednisolone Sodium Succinate (Solu-Medrol) 60 mg IVPUSH Q6H COUNTS INCLUDE 234 BEDS AT THE [facility] Last Admin: 08/06/18 11:39 Dose: 60 mg Naloxone HCl (Narcan) 1 mg IVPUSH ONETIME ONE Stop: 08/04/18 13:37 Last Admin: 08/04/18 13:51 Dose: 1 mg - Exam Quality Assessment: Supplemental Oxygen General: Alert, Oriented (to self), Cooperative, No Acute Distress HEENT: Pupils Reactive, EOMI Neck: Supple, Trachea Midline Lungs: Normal Respiratory Effort, Crackles Cardiovascular: Regular Rate, Regular Rhythm. No: Gallops GI/Abdominal Exam: Normal Bowel Sounds, Soft, Non-Tender Extremities: Pedal Edema Peripheral Pulses: 2+: Dorsalis Pedis (L), Dorsalis Pedis (R) Skin: Warm, Dry Neurological: No New Focal Deficit, Cranial Nerves Intact - Problem List Review Problem List Initiated/Reviewed/Updated: Yes - My Orders Last 24 Hours: My Active Orders 08/06/18 10:45 Remove Dowling Catheter [Urinary Catheter Removal] [RC] Per Unit Routine 08/06/18 13:28 Up With Assistance [RC] ASDIRECTED 08/06/18 21:00 methylPREDNISolone Sod Succ [Solu-MEDROL] 30 mg IVPUSH Q12H 08/06/18 Lunch Regular Diet [DIET] - Plan Plan:: Respiratory failure - likely to methadone overdose * monitor patient in the ICU. * Continue on BiPAP prn. * Titrate BiPAP settings as necessary * Patient is a DNR and DNI. I discussed with her that if she worsens she will likely if she is not intubated. Patient was clear that she did not want to be intubated after being asked on at least 3 occasions. She also does not want resuscitation. Family is in agreement. Pneumonia * Patient was given Rocephin 1 g in the emergency room. * Patient will be started on vancomycin (pharmacy to dose), levofloxacin 750 mg daily, and cefepime 1 gm every 24 hours. * Blood cultures * CBC significant change Diabetes * SSI. She is only on metformin at home.
[2018-08-06] MEDS: Melatonin 3 MG Tab PO PRN (20:52)
[2018-08-06] MEDS: Albuterol 0.083% 2.5 MG/3 ML Neb Soln NEB PRN (23:19)
[2018-08-07] MEDS ORDERED: Acetaminophen 325 MG Tab PO ONE (01:24)
[2018-08-07] MEDS: Albuterol/Ipratropium 3.0-0.5 MG/3 ML Neb Soln NEB SCH ×4 (02:45→20:45)
[2018-08-07] MEDS: Insulin Lispro 100 Units/ML 3 ML Vial SUBCUT SCH ×4 (06:00→21:01)
[2018-08-07] MEDS: Cefepime 1 GM in Premix Bag 1 BAG IV SCH (08:17)
[2018-08-07] MEDS ORDERED: Levofloxacin/Dextrose 5%-Water 750 MG in Premix Bag 1 BAG IV SCH (09:00)
[2018-08-07] MEDS: amLODIPine 10 MG Tab PO SCH (09:11)
[2018-08-07] MEDS: Metoprolol Tartrate 50 MG Tab PO SCH ×2 (09:11→20:02)
[2018-08-07] MEDS: Aspirin 81 MG Tab.Chew PO SCH (09:11)
[2018-08-07] MEDS: Citalopram 20 MG Tab PO SCH (09:11)
[2018-08-07] MEDS: methylPREDNISolone Sodium Succinate 40 MG/1 ML SDV IVPUSH SCH (09:16)
[2018-08-07] MEDS: Enoxaparin 40 MG/0.4 ML Syringe SUBCUT SCH (09:21)
[2018-08-07] MEDS: Levofloxacin/Dextrose 5%-Water 750 MG in Premix Bag 1 BAG IV SCH (09:31)
[2018-08-07] MEDS ORDERED: Furosemide 40 MG/4 ML VIAL IVPUSH ONE (15:42)
[2018-08-07] MEDS ORDERED: acetaZOLAMIDE 250 MG Tab PO SCH (15:45)
--- NOTE | 2018-08-07 15:47 | PCM.PN ---
- General Info Date of Service: 08/07/18 Admission Dx/Problem (Free Text): Admission Diagnosis/Problem Admission Diagnosis/Problem Respiratory failure with hypoxia and hypercapnia 08/06/18, more awake, pCO2 at 72, discussed with the caregiver, likely received double the ususl dose of methadone the day prior to admission, will stop sedatives and steroids, use BiPAP only as needed for ventilation(not work of breathing). 08/07/18, more awake, alert, no BiPAP overnight, pCO2 at 52, started PT, will administer loop diuretic, weight gain while inpatient. - Review of Systems Systems Review Comment:: General: Reports: Weakness. Denies: Fever HEENT: Denies: Visual Changes Pulmonary: Denies: Shortness of Breath, Pleuritic Chest Pain, Cough Cardiovascular: Denies: Chest Pain, Palpitations Gastrointestinal: Denies: Abdominal Pain, Constipation, Nausea, Vomiting Genitourinary: Denies: Dysuria, Frequency Musculoskeletal: Denies: Neck Pain, Back Pain Skin: Denies: Cyanosis, Jaundice Neurological: Reports: Confusion. Denies: Headache, Seizure, Syncope Psychiatric: Reports: Other (at [facility]) - Patient Data Vitals - Most Recent: Last Vital Signs Temp 98.1 F 08/07/18 08:43 Pulse 67 08/07/18 09:11 Resp 20 08/07/18 08:43 BP 156/60 H 08/07/18 09:11 Pulse Ox 92 L 08/07/18 15:11 Weight - Most Recent: 190 lb 8 oz I&O - Last 24 Hours: Intake & Output 08/07/18 08/07/18 08/07/18 03:59 11:59 19:59 Intake Total 1550 440 887 Output Total 400 Balance 1550 440 487 Lab Results Last 24 Hours: Laboratory Results - last 24 hr 08/06/18 08/06/18 08/06/18 Range/Units 17:10 19:00 20:55 WBC (3.98-10.04) K/mm3 RBC (3.98-5.22) M/mm3 Hgb (11.2-15.7) gm/L Hct (34.1-44.9) % MCV (79.4-94.8) fl MCH (25.6-32.2) pg MCHC (32.2-35.5) g/dl RDW Std Deviation (36.4-46.3) fL Plt Count (182-369) K/mm3 MPV (9.4-12.3) fl Neut % (Auto) (34.0-71.1) % Lymph % (Auto) (19.3-51.7) % Conway % (Auto) (4.7-12.5) % Eos % (Auto) (0.7-5.8) Baso % (Auto) (0.1-1.2) % Neut # (Auto) (1.56-6.13) K/mm3 Lymph # (Auto) (1.18-3.74) K/mm3 Conway # (Auto) (0.24-0.36) K/mm3 Eos # (Auto) (0.04-0.36) K/mm3 Baso # (Auto) (0.01-0.08) K/mm3 Manual Slide Review Puncture Site ABG pH (7.35-7.45) ABG pCO2 (35.0-45.0) mmHg ABG pO2 (80.0-100.0) mmHg ABG HCO3 (22.0-26.0) meq/L ABG O2 Saturation (96.0-97.0) % ABG Base Excess (-2-2.0) Mcihele Test O2 Delivery Device Oxygen Flow Rate FiO2 (21.00-100.00) % Sodium (136-145) mEq/L Potassium (3.5-5.1) mEq/L Chloride (98-107) mEq/L Carbon Dioxide (21-32) mEq/L Anion Gap (5-15) BUN (7-18) mg/dL Creatinine (0.55-1.02) mg/dL Est Cr Clr Drug Dosing mL/min Estimated GFR (MDRD) (>60) mL/min BUN/Creatinine Ratio (14-18) Glucose (83-115) mg/dL POC Glucose 284 H 324 H (83-110) mg/dL Calcium (8.5-10.1) mg/dL Phosphorus (2.6-4.7) mg/dL Magnesium (1.8-2.4) mg/dl Total Bilirubin (0.2-1.0) mg/dL AST (15-37) U/L ALT (14-59) U/L Alkaline Phosphatase (46-116) U/L Creatine Kinase (26-192) U/L Troponin I (0.00-0.056) ng/mL Total Protein (6.4-8.2) g/dl Albumin (3.4-5.0) g/dl Globulin gm/dL Albumin/Globulin Ratio (1-2) TSH 3rd Generation (0.358-3.74) uIU/mL Vancomycin Trough 7.2 L (10.0-20.0) 08/07/18 08/07/18 08/07/18 Range/Units 05:00 05:39 05:39 WBC 7.99 (3.98-10.04) K/mm3 RBC 3.80 L (3.98-5.22) M/mm3 Hgb 10.9 L (11.2-15.7) gm/L Hct 34.9 (34.1-44.9) % MCV 91.8 (79.4-94.8) fl MCH 28.7 (25.6-32.2) pg MCHC 31.2 L (32.2-35.5) g/dl RDW Std Deviation 43.8 (36.4-46.3) fL Plt Count 248 (182-369) K/mm3 MPV 10.5 (9.4-12.3) fl Neut % (Auto) 81.2 H (34.0-71.1) % Lymph % (Auto) 7.9 L (19.3-51.7) % Conway % (Auto) 10.5 (4.7-12.5) % Eos % (Auto) 0 L (0.7-5.8) Baso % (Auto) 0.0 L (0.1-1.2) % Neut # (Auto) 6.49 H (1.56-6.13) K/mm3 Lymph # (Auto) 0.63 L (1.18-3.74) K/mm3 Conway # (Auto) 0.84 H (0.24-0.36) K/mm3 Eos # (Auto) 0.00 L (0.04-0.36) K/mm3 Baso # (Auto) 0.00 L (0.01-0.08) K/mm3 Manual Slide Review Abnormal smear Puncture Site Rt radial ABG pH 7.38 (7.35-7.45) ABG pCO2 57.7 H (35.0-45.0) mmHg ABG pO2 63.0 L (80.0-100.0) mmHg ABG HCO3 33.3 H (22.0-26.0) meq/L ABG O2 Saturation 91.6 L (96.0-97.0) % ABG Base Excess 7.2 H (-2-2.0) Michele Test Positive O2 Delivery Device Nasal cannula Oxygen Flow Rate 4.0 FiO2 0.00 L (21.00-100.00) % Sodium (136-145) mEq/L Potassium (3.5-5.1) mEq/L Chloride (98-107) mEq/L Carbon Dioxide (21-32) mEq/L Anion Gap (5-15) BUN (7-18) mg/dL Creatinine (0.55-1.02) mg/dL Est Cr Clr Drug Dosing mL/min Estimated GFR (MDRD) (>60) mL/min BUN/Creatinine Ratio (14-18) Glucose (83-115) mg/dL POC Glucose (83-110) mg/dL Calcium (8.5-10.1) mg/dL Phosphorus 3.9 (2.6-4.7) mg/dL Magnesium 2.3 (1.8-2.4) mg/dl Total Bilirubin (0.2-1.0) mg/dL AST (15-37) U/L ALT (14-59) U/L Alkaline Phosphatase (46-116) U/L Creatine Kinase (26-192) U/L Troponin I (0.00-0.056) ng/mL Total Protein (6.4-8.2) g/dl Albumin (3.4-5.0) g/dl Globulin gm/dL Albumin/Globulin Ratio (1-2) TSH 3rd Generation (0.358-3.74) uIU/mL Vancomycin Trough (10.0-20.0) 08/07/18 08/07/18 08/07/18 Range/Units 05:39 05:59 11:27 WBC (3.98-10.04) K/mm3 RBC (3.98-5.22) M/mm3 Hgb (11.2-15.7) gm/L Hct (34.1-44.9) % MCV (79.4-94.8) fl MCH (25.6-32.2) pg MCHC (32.2-35.5) g/dl RDW Std Deviation (36.4-46.3) fL Plt Count (182-369) K/mm3 MPV (9.4-12.3) fl Neut % (Auto) (34.0-71.1) % Lymph % (Auto) (19.3-51.7) % Conway % (Auto) (4.7-12.5) % Eos % (Auto) (0.7-5.8) Baso % (Auto) (0.1-1.2) % Neut # (Auto) (1.56-6.13) K/mm3 Lymph # (Auto) (1.18-3.74) K/mm3 Conway # (Auto) (0.24-0.36) K/mm3 Eos # (Auto) (0.04-0.36) K/mm3 Baso # (Auto) (0.01-0.08) K/mm3 Manual Slide Review Puncture Site ABG pH (7.35-7.45) ABG pCO2 (35.0-45.0) mmHg ABG pO2 (80.0-100.0) mmHg ABG HCO3 (22.0-26.0) meq/L ABG O2 Saturation (96.0-97.0) % ABG Base Excess (-2-2.0) Michele Test O2 Delivery Device Oxygen Flow Rate FiO2 (21.00-100.00) % Sodium 138 (136-145) mEq/L Potassium 4.3 (3.5-5.1) mEq/L Chloride 101 (98-107) mEq/L Carbon Dioxide 32 (21-32) mEq/L Anion Gap 9.3 (5-15) BUN 37 H (7-18) mg/dL Creatinine 0.9 (0.55-1.02) mg/dL Est Cr Clr Drug Dosing 36.80 mL/min Estimated GFR (MDRD) 60 (>60) mL/min BUN/Creatinine Ratio 41.1 H (14-18) Glucose 200 H (83-115) mg/dL POC Glucose 198 H 235 H (83-110) mg/dL Calcium 8.6 (8.5-10.1) mg/dL Phosphorus (2.6-4.7) mg/dL Magnesium (1.8-2.4) mg/dl Total Bilirubin 0.3 (0.2-1.0) mg/dL AST 37 (15-37) U/L ALT 34 (14-59) U/L Alkaline Phosphatase 28 L (46-116) U/L Creatine Kinase 128 (26-192) U/L Troponin I < 0.017 (0.00-0.056) ng/mL Total Protein 6.6 (6.4-8.2) g/dl Albumin 2.8 L (3.4-5.0) g/dl Globulin 3.8 gm/dL Albumin/Globulin Ratio 0.7 L (1-2) TSH 3rd Generation 0.732 (0.358-3.74) uIU/mL Vancomycin Trough (10.0-20.0) Avery Results Last 24 Hours: Microbiology 08/04/18 12:14 Aerobic Blood Culture - Preliminary Blood NO GROWTH AFTER 3 DAYS Anaerobic Blood Culture - Preliminary NO GROWTH AFTER 3 DAYS Med Orders - Current: Current Medications Acetazolamide (Diamox) 250 mg PO Q4H [facility] Stop: 08/07/18 19:46 Albuterol (Proventil Neb Soln) 2.5 mg NEB Q4HR PRN PRN Reason: Shortness of Breath Last Admin: 08/06/18 23:19 Dose: 2.5 mg Albuterol/Ipratropium (Duoneb 3.0-0.5 Mg/3 Ml) 3 ml NEB Q6HRRT [facility] Last Admin: 08/07/18 15:09 Dose: 3 ml Amlodipine Besylate (Norvasc) 10 mg PO DAILY [facility] Last Admin: 08/07/18 09:11 Dose: 10 mg Aspirin (Aspirin) 81 mg PO DAILY [facility] Last Admin: 08/07/18 09:11 Dose: 81 mg Citalopram Hydrobromide (Celexa) 20 mg PO DAILY [facility] Last Admin: 08/07/18 09:11 Dose: 20 mg Enoxaparin Sodium (Lovenox) 40 mg SUBCUT DAILY [facility] Last Admin: 08/07/18 09:21 Dose: 40 mg Furosemide (Lasix) 60 mg IVPUSH NOW ONE Stop: 08/07/18 15:43 Levofloxacin/Dextrose 750 mg/ (Premix) 150 mls @ 100 mls/hr IV Q48H [facility] Last Admin: 08/07/18 09:31 Dose: 100 mls/hr Insulin Human Lispro (Humalog) 0 unit SUBCUT QIDACANDBED [facility]; Protocol Last Admin: 08/07/18 11:30 Dose: 2 unit Melatonin (Melatonin) 3 mg PO BEDTIME PRN PRN Reason: Insomnia Last Admin: 08/06/18 20:52 Dose: 3 mg Metoprolol Tartrate (Lopressor) 50 mg PO Q12H [facility] Last Admin: 08/07/18 09:11 Dose: 50 mg Ondansetron HCl (Zofran) 4 mg IV Q4H PRN PRN Reason: Nausea/Vomiting Saccharomyces Boulardii (Florastor) 250 mg PO BID [facility] Sodium Chloride (Saline Flush) 10 ml FLUSH ASDIRECTED PRN PRN Reason: Keep Vein Open Last Admin: 08/04/18 11:33 Dose: 10 ml Discontinued Medications Acetaminophen (Tylenol) 650 mg PO NOW ONE Stop: 08/07/18 01:25 Last Admin: 08/07/18 01:31 Dose: 650 mg Albuterol (Proventil Neb Soln) 2.5 mg NEB ONETIME ONE Stop: 08/04/18 14:43 Last Admin: 08/04/18 15:06 Dose: 2.5 mg Albuterol/Ipratropium (Duoneb 3.0-0.5 Mg/3 Ml) 3 ml NEB ONETIME ONE Stop: 08/04/18 11:17 Last Admin: 08/04/18 11:58 Dose: 3 ml Furosemide (Lasix) 40 mg IVPUSH NOW ONE Stop: 08/04/18 14:52 Last Admin: 08/04/18 15:01 Dose: 40 mg Hydromorphone HCl (Dilaudid) 0.5 mg IVPUSH Q2H PRN PRN Reason: Pain (severe 7-10) Hydromorphone HCl (Dilaudid) 0.5 mg IVPUSH Q2H PRN PRN Reason: Pain (severe 7-10) Ceftriaxone Sodium 1 gm/ (Sodium Chloride) 100 mls @ 200 mls/hr IV ONETIME ONE Stop: 08/04/18 12:49 Last Infusion: 08/04/18 12:55 Dose: 200 mls/hr Lactated Ringer's (Ringers, Lactated) 1,000 mls @ 125 mls/hr IV ASDIRECTED [facility] Last Admin: 08/04/18 20:40 Dose: 125 mls/hr Cefepime HCl 1 gm/ Premix 50 mls @ 100 mls/hr IV Q8H [facility] Last Admin: 08/04/18 21:17 Dose: Not Given Levofloxacin/Dextrose 750 mg/ (Premix) 150 mls @ 100 mls/hr IV Q24H [facility] Last Admin: 08/04/18 21:17 Dose: Not Given Vancomycin HCl 1 gm/ Sodium (Chloride) 250 mls @ 250 mls/hr IV Q24H [facility] Levofloxacin/Dextrose 750 mg/ (Premix) 150 mls @ 100 mls/hr IV Q48H [facility] Last Admin: 08/07/18 09:31 Dose: Not Given Cefepime HCl 1 gm/ Premix 50 mls @ 100 mls/hr IV Q12H [facility] Last Admin: 08/07/18 08:17 Dose: 100 mls/hr Vancomycin HCl 1 gm/ Sodium (Chloride) 250 mls @ 250 mls/hr IV DAILY@1900 [facility] Last Admin: 08/06/18 18:57 Dose: 250 mls/hr Lactated Ringer's (Ringers, Lactated) 1,000 mls @ 75 mls/hr IV ASDIRECTED [facility] Last Admin: 08/05/18 20:40 Dose: 75 mls/hr Vancomycin HCl 500 mg/ Sodium (Chloride) 250 mls @ 166.667 mls/hr IV ONETIME ONE Stop: 08/06/18 23:14 Last Admin: 08/06/18 21:51 Dose: 166.667 mls/hr Vancomycin HCl 1 gm/Vancomycin HCl 250 mg/ Sodium Chloride 250 mls @ 166.512 mls/hr IV Q24H [facility] Methylprednisolone Sodium Succinate (Solu-Medrol) 125 mg IVPUSH ONETIME ONE Stop: 08/04/18 14:52 Last Admin: 08/04/18 15:01 Dose: 125 mg Methylprednisolone Sodium Succinate (Solu-Medrol) 60 mg IVPUSH Q6H [facility] Last Admin: 08/06/18 11:39 Dose: 60 mg Methylprednisolone Sodium Succinate (Solu-Medrol) 30 mg IVPUSH Q12H [facility] Stop: 08/07/18 09:01 Last Admin: 08/07/18 09:16 Dose: 30 mg Naloxone HCl (Narcan) 1 mg IVPUSH ONETIME ONE Stop: 08/04/18 13:37 Last Admin: 08/04/18 13:51 Dose: 1 mg Vancomycin HCl (Pharmacy To Dose - Vancomycin) 0 dose .XX ASDIRECTED PRN PRN Reason: RX TO DOSE VANCO - Exam Physical Findings Comments:: General: Alert, Oriented (to self), Cooperative, No Acute Distress HEENT: Pupils Reactive, EOMI Neck: Supple, Trachea Midline Lungs: Normal Respiratory Effort, Crackles Cardiovascular: Regular Rate, Regular Rhythm. No: Gallops GI/Abdominal Exam: Normal Bowel Sounds, Soft, Non-Tender Extremities: Pedal Edema Peripheral Pulses: 2+: Dorsalis Pedis (L), Dorsalis Pedis (R) Skin: Warm, Dry Neurological: No New Focal Deficit, Cranial Nerves Intact - Problem List & Annotations (1) Respiratory failure SNOMED Code(s): 135408166 Code(s): J96.90 - RESPIRATORY FAILURE, UNSP, UNSP W HYPOXIA OR HYPERCAPNIA Status: Acute Priority: High Current Visit: Yes Qualifiers: Chronicity: acute Respiratory failure complication: hypoxia and hypercapnia Qualified Code(s): J96.01 - Acute respiratory failure with hypoxia ; J96.02 - Acute respiratory failure with hypercapnia (2) Acute encephalopathy SNOMED Code(s): 49878409, 406645013 Code(s): G93.40 - ENCEPHALOPATHY, UNSPECIFIED Status: Acute Priority: High Current Visit: Yes - Problem List Review Problem List Initiated/Reviewed/Updated: Yes - My Orders Last 24 Hours: My Active Orders 08/07/18 05:00 RT Arterial Blood Gases, ABG [RC] AMPROC RT Arterial Blood Gases, ABG [RC] ASDIRECTED 08/07/18 08:21 OT Evaluation and Treatment [CONS] Routine PT Evaluation and Treatment [CONS] Routine 08/07/18 08:22 Patient Status [ADT] Routine 08/07/18 15:42 Furosemide [Lasix] 60 mg IVPUSH NOW ONE 08/07/18 15:45 acetaZOLAMIDE [Diamox] 250 mg PO Q4H 08/07/18 21:00 Saccharomyces Boulardii [Florastor] 250 mg PO BID - Plan Plan:: Respiratory failure: - markedly improved - likely to methadone overdose * Continue on BiPAP only prn. * Titrate BiPAP settings as necessary * Patient is a DNR and DNI. I discussed with her that if she worsens she will likely if she is not intubated. Patient was clear that she did not want to be intubated after being asked on at least 3 occasions. She also does not want resuscitation. Family is in agreement. Pneumonia: low suspicion: * will stop vancomycin, continue levofloxacin. * Blood cultures * CBC normalized Diabetes * SSI. She is only on metformin at home.
[2018-08-07] MEDS: Saccharomyces Boulardii (Probiotic) 250 MG Cap PO SCH (20:02)
[2018-08-07] MEDS: Melatonin 3 MG Tab PO PRN (20:04)
[2018-08-07] MEDS ORDERED: Vancomycin 1 GM, Vancomycin 250 MG in Sodium Chloride 0.9% 250 ML IV SCH (22:00)
[2018-08-08] MEDS: Albuterol/Ipratropium 3.0-0.5 MG/3 ML Neb Soln NEB SCH ×2 (02:24→09:40)
[2018-08-08] MEDS ORDERED: acetaZOLAMIDE 250 MG Tab PO ONE (05:00)
[2018-08-08] MEDS: Insulin Lispro 100 Units/ML 3 ML Vial SUBCUT SCH ×2 (06:33→11:14)
[2018-08-08] MEDS: Metoprolol Tartrate 50 MG Tab PO SCH (08:03)
[2018-08-08] MEDS: amLODIPine 10 MG Tab PO SCH (08:03)
[2018-08-08] MEDS: Aspirin 81 MG Tab.Chew PO SCH (08:03)
[2018-08-08] MEDS: Saccharomyces Boulardii (Probiotic) 250 MG Cap PO SCH (08:03)
[2018-08-08] MEDS: Enoxaparin 40 MG/0.4 ML Syringe SUBCUT SCH (08:04)
[2018-08-08] MEDS: Citalopram 20 MG Tab PO SCH (08:04)
[2018-08-08 08:05] VITALS: BP 158/62
[2018-08-08] MEDS ORDERED: Potassium Chloride 10% 20 MEQ/15 ML Soln 15 ML UD Cup PO ONE (10:02)
--- NOTE | 2018-08-08 11:21 | PCM.DCSUM1 ---
Discharge Summary - Hospital Course HPI Initial Comments: This 82-year-old female who is a resident at [facility] was brought into the emergency room via EMS secondary to respiratory distress. Patient was found lethargic, short of breath, and hypoxic this morning. She has a history of hypertension, COPD, congestive heart failure, dementia, type 2 diabetes on metformin, and prior bowel surgery. Patient was brought in on a nonrebreather facemask and sats on presentation were 89%. Patient is usually on 1 L O2 via nasal cannula. Patient has been coughing more this last week. She is on methadone for chronic back pain. X-ray in the emergency room did show atelectasis or pneumonia in the left mid and left lower lung field. Patient was given Rocephin after blood cultures were obtained. Patient did not meet sepsis criteria and therefore was not given fluid challenge. Her white count was normal at 7000 and her C-reactive protein was 0.2. D-dimer was negative and patient was given Narcan 1 mg IV and made no difference. Head CT was negative for bleeding or acute finding. patient's son who has power of assistant city attorney and several family members are at bedside. 08/06/18, more awake, pCO2 at 72, discussed with the caregiver, likely received double the ususl dose of methadone the day prior to admission, will stop sedatives and steroids, use BiPAP only as needed for ventilation(not work of breathing). 08/07/18, more awake, alert, no BiPAP overnight, pCO2 at 52, started PT, will administer loop diuretic, weight gain while inpatient. 08/08/18, being discharged to SNF in good condition. Diagnosis: Stroke: No - Discharge Data Discharge Date: 08/08/18 Discharge Disposition: DC/Tfer to SNF 03 Condition: Good - Discharge Diagnosis/Problem(s) (1) Respiratory failure SNOMED Code(s): 685431691 ICD Code: J96.90 - RESPIRATORY FAILURE, UNSP, UNSP W HYPOXIA OR HYPERCAPNIA Status: Acute Priority: High Current Visit: Yes Qualifiers: Chronicity: acute Respiratory failure complication: hypoxia and hypercapnia Qualified Code(s): J96.01 - Acute respiratory failure with hypoxia ; J96.02 - Acute respiratory failure with hypercapnia (2) Acute encephalopathy SNOMED Code(s): 70622824, 088009685 ICD Code: G93.40 - ENCEPHALOPATHY, UNSPECIFIED Status: Acute Priority: High Current Visit: Yes - Patient Summary/Data Consults: Consultations 08/04/18 16:21 Consult to Spiritual Care [CONS] Routine Respiratory Care Assess and Treatment [CONS] Routine 08/07/18 08:21 OT Evaluation and Treatment [CONS] Routine PT Evaluation and Treatment [CONS] Routine - Discharge Plan *PRESCRIPTION DRUG MONITORING PROGRAM REVIEWED*: No *COPY OF PRESCRIPTION DRUG MONITORING REPORT IN PATIENT ANEESH: No Home Medications: Home Meds Donepezil HCl [Aricept] 10 mg PO BEDTIME 09/16/15 [History] Fenofibrate Nanocrystallized [Fenofibrate] 48 mg PO DAILY 09/16/15 [History] Rosuvastatin [Crestor] 10 mg PO DAILY 09/16/15 [History] metFORMIN [Glucophage XR] 500 mg PO ACDINNER 09/16/15 [History] Metoprolol/Hydrochlorothiazide [Metoprolol-HCTZ 50-25 MG] 1 tab PO BEDTIME 09/24 [History] Potassium Chloride 40 meq PO DAILY 09/24/16 [History] Budesonide/Formoterol Fumarate [Symbicort 160-4.5 Mcg Inhaler] 2 puff IH BID 11/09 [History] Calcium Carbonate [Calcium] 500 mg PO 1800 05/02/17 [History] Lutein/Minerals/Vit A,C & E [Ocuvite] 1 tab PO DAILY 05/02/17 [History] Multivitamin [Multi-Vitamin Daily] 1 tab PO DAILY 05/02/17 [History] Saccharomyces Boulardii [Florastor] 500 mg PO DAILY #30 cap 05/06/17 [Rx] Furosemide 20 mg PO DAILY #30 tablet 08/06/17 [Rx] Acetaminophen [Tylenol] 650 mg PO TID 08/04/18 [History] Acetaminophen [Tylenol] 650 mg PO TID PRN 08/04/18 [History] Docusate Sodium [Colace] 100 mg PO DAILY PRN 08/04/18 [History] Loperamide HCl [Imodium A-D] 2 mg PO DAILY PRN 08/04/18 [History] Ondansetron [Zofran ODT] 4 mg PO Q4HR PRN 08/04/18 [History] Sodium Chloride/Aloe Vera [[place] Saline Nasal Gel [place]] 1 applic NASBOTH TID PRN 08/04/18 [History] Oxygen Therapy Mode: Nasal Cannula Forms: ED Department Discharge Referrals: Maxwell Smith MD [Primary Care Provider] - - Discharge Summary/Plan Comment DC Time >30 min.: Yes - Patient Data Vitals - Most Recent: Last Vital Signs Temp 97.0 F 08/08/18 10:00 Pulse 56 L 08/08/18 10:00 Resp 15 08/08/18 10:00 BP 158/62 H 08/08/18 10:00 Pulse Ox 93 L 08/08/18 10:00 Weight - Most Recent: 180 lb 1.6 oz I&O - Last 24 hours: Intake & Output 08/07/18 08/08/18 08/08/18 19:59 03:59 11:59 Intake Total 1167 500 Output Total 1250 1850 350 Balance -83 -1350 -350 Lab Results - Last 24 hrs: Laboratory Results - last 24 hr 08/07/18 08/07/18 08/07/18 Range/Units 11:27 17:50 20:16 WBC (3.98-10.04) K/mm3 RBC (3.98-5.22) M/mm3 Hgb (11.2-15.7) gm/L Hct (34.1-44.9) % MCV (79.4-94.8) fl MCH (25.6-32.2) pg MCHC (32.2-35.5) g/dl RDW Std Deviation (36.4-46.3) fL Plt Count (182-369) K/mm3 MPV (9.4-12.3) fl Neut % (Auto) (34.0-71.1) % Lymph % (Auto) (19.3-51.7) % [place] % (Auto) (4.7-12.5) % Eos % (Auto) (0.7-5.8) Baso % (Auto) (0.1-1.2) % Neut # (Auto) (1.56-6.13) K/mm3 Lymph # (Auto) (1.18-3.74) K/mm3 [place] # (Auto) (0.24-0.36) K/mm3 Eos # (Auto) (0.04-0.36) K/mm3 Baso # (Auto) (0.01-0.08) K/mm3 Manual Slide Review Puncture Site ABG pH (7.35-7.45) ABG pCO2 (35.0-45.0) mmHg ABG pO2 (80.0-100.0) mmHg ABG HCO3 (22.0-26.0) meq/L ABG O2 Saturation (96.0-97.0) % ABG Base Excess (-2-2.0) Michele Test O2 Delivery Device Oxygen Flow Rate FiO2 (21.00-100.00) % Sodium (136-145) mEq/L Potassium (3.5-5.1) mEq/L Chloride (98-107) mEq/L Carbon Dioxide (21-32) mEq/L Anion Gap (5-15) BUN (7-18) mg/dL Creatinine (0.55-1.02) mg/dL Est Cr Clr Drug Dosing mL/min Estimated GFR (MDRD) (>60) mL/min BUN/Creatinine Ratio (14-18) Glucose (83-115) mg/dL POC Glucose 235 H 249 H 186 H (83-110) mg/dL Calcium (8.5-10.1) mg/dL Magnesium (1.8-2.4) mg/dl C.difficile 027-NAP1-B1 C. difficile Tox (PCR) 08/08/18 08/08/18 08/08/18 Range/Units 02:15 05:00 05:18 WBC (3.98-10.04) K/mm3 RBC (3.98-5.22) M/mm3 Hgb (11.2-15.7) gm/L Hct (34.1-44.9) % MCV (79.4-94.8) fl MCH (25.6-32.2) pg MCHC (32.2-35.5) g/dl RDW Std Deviation (36.4-46.3) fL Plt Count (182-369) K/mm3 MPV (9.4-12.3) fl Neut % (Auto) (34.0-71.1) % Lymph % (Auto) (19.3-51.7) % [place] % (Auto) (4.7-12.5) % Eos % (Auto) (0.7-5.8) Baso % (Auto) (0.1-1.2) % Neut # (Auto) (1.56-6.13) K/mm3 Lymph # (Auto) (1.18-3.74) K/mm3 [place] # (Auto) (0.24-0.36) K/mm3 Eos # (Auto) (0.04-0.36) K/mm3 Baso # (Auto) (0.01-0.08) K/mm3 Manual Slide Review Puncture Site Rt radial ABG pH 7.33 L (7.35-7.45) ABG pCO2 70.9 H* (35.0-45.0) mmHg ABG pO2 63.0 L (80.0-100.0) mmHg ABG HCO3 36.3 H (22.0-26.0) meq/L ABG O2 Saturation 90.4 L (96.0-97.0) % ABG Base Excess 8.5 H (-2-2.0) Michele Test Positive O2 Delivery Device Nasal cannula Oxygen Flow Rate 2.0 FiO2 0.00 L (21.00-100.00) % Sodium (136-145) mEq/L Potassium (3.5-5.1) mEq/L Chloride (98-107) mEq/L Carbon Dioxide (21-32) mEq/L Anion Gap (5-15) BUN (7-18) mg/dL Creatinine (0.55-1.02) mg/dL Est Cr Clr Drug Dosing mL/min Estimated GFR (MDRD) (>60) mL/min BUN/Creatinine Ratio (14-18) Glucose (83-115) mg/dL POC Glucose (83-110) mg/dL Calcium (8.5-10.1) mg/dL Magnesium 2.1 (1.8-2.4) mg/dl C.difficile 027-NAP1-B1 Presumptive negative C. difficile Tox (PCR) Negative 08/08/18 08/08/18 08/08/18 Range/Units 05:18 05:18 06:23 WBC 10.11 H (3.98-10.04) K/mm3 RBC 3.93 L (3.98-5.22) M/mm3 Hgb 11.3 (11.2-15.7) gm/L Hct 36.1 (34.1-44.9) % MCV 91.9 (79.4-94.8) fl MCH 28.8 (25.6-32.2) pg MCHC 31.3 L (32.2-35.5) g/dl RDW Std Deviation 44.4 (36.4-46.3) fL Plt Count 274 (182-369) K/mm3 MPV 10.2 (9.4-12.3) fl Neut % (Auto) 64.3 (34.0-71.1) % Lymph % (Auto) 16.7 L (19.3-51.7) % [place] % (Auto) 18.5 H (4.7-12.5) % Eos % (Auto) 0.1 L (0.7-5.8) Baso % (Auto) 0.0 L (0.1-1.2) % Neut # (Auto) 6.50 H (1.56-6.13) K/mm3 Lymph # (Auto) 1.69 (1.18-3.74) K/mm3 [place] # (Auto) 1.87 H (0.24-0.36) K/mm3 Eos # (Auto) 0.01 L (0.04-0.36) K/mm3 Baso # (Auto) 0.00 L (0.01-0.08) K/mm3 Manual Slide Review Abnormal smear Puncture Site ABG pH (7.35-7.45) ABG pCO2 (35.0-45.0) mmHg ABG pO2 (80.0-100.0) mmHg ABG HCO3 (22.0-26.0) meq/L ABG O2 Saturation (96.0-97.0) % ABG Base Excess (-2-2.0) Michele Test O2 Delivery Device Oxygen Flow Rate FiO2 (21.00-100.00) % Sodium 139 (136-145) mEq/L Potassium 3.4 L (3.5-5.1) mEq/L Chloride 100 (98-107) mEq/L Carbon Dioxide 34 H (21-32) mEq/L Anion Gap 8.4 (5-15) BUN 38 H (7-18) mg/dL Creatinine 0.9 (0.55-1.02) mg/dL Est Cr Clr Drug Dosing 36.80 mL/min Estimated GFR (MDRD) 60 (>60) mL/min BUN/Creatinine Ratio 42.2 H (14-18) Glucose 136 H (83-115) mg/dL POC Glucose 123 H (83-110) mg/dL Calcium 8.9 (8.5-10.1) mg/dL Magnesium (1.8-2.4) mg/dl C.difficile 027-NAP1-B1 C. difficile Tox (PCR) 08/08/18 Range/Units 10:47 WBC (3.98-10.04) K/mm3 RBC (3.98-5.22) M/mm3 Hgb (11.2-15.7) gm/L Hct (34.1-44.9) % MCV (79.4-94.8) fl MCH (25.6-32.2) pg MCHC (32.2-35.5) g/dl RDW Std Deviation (36.4-46.3) fL Plt Count (182-369) K/mm3 MPV (9.4-12.3) fl Neut % (Auto) (34.0-71.1) % Lymph % (Auto) (19.3-51.7) % [place] % (Auto) (4.7-12.5) % Eos % (Auto) (0.7-5.8) Baso % (Auto) (0.1-1.2) % Neut # (Auto) (1.56-6.13) K/mm3 Lymph # (Auto) (1.18-3.74) K/mm3 [place] # (Auto) (0.24-0.36) K/mm3 Eos # (Auto) (0.04-0.36) K/mm3 Baso # (Auto) (0.01-0.08) K/mm3 Manual Slide Review Puncture Site ABG pH (7.35-7.45) ABG pCO2 (35.0-45.0) mmHg ABG pO2 (80.0-100.0) mmHg ABG HCO3 (22.0-26.0) meq/L ABG O2 Saturation (96.0-97.0) % ABG Base Excess (-2-2.0) Michele Test O2 Delivery Device Oxygen Flow Rate FiO2 (21.00-100.00) % Sodium (136-145) mEq/L Potassium (3.5-5.1) mEq/L Chloride (98-107) mEq/L Carbon Dioxide (21-32) mEq/L Anion Gap (5-15) BUN (7-18) mg/dL Creatinine (0.55-1.02) mg/dL Est Cr Clr Drug Dosing mL/min Estimated GFR (MDRD) (>60) mL/min BUN/Creatinine Ratio (14-18) Glucose (83-115) mg/dL POC Glucose 132 H (83-110) mg/dL Calcium (8.5-10.1) mg/dL Magnesium (1.8-2.4) mg/dl C.difficile 027-NAP1-B1 C. difficile Tox (PCR) OLESYA Results - Last 24 hrs: Microbiology 08/04/18 12:14 Aerobic Blood Culture - Preliminary Blood NO GROWTH AFTER 3 DAYS Anaerobic Blood Culture - Preliminary NO GROWTH AFTER 3 DAYS Med Orders - Current: Current Medications Albuterol (Proventil Neb Soln) 2.5 mg NEB Q4HR PRN PRN Reason: Shortness of Breath Last Admin: 08/06/18 23:19 Dose: 2.5 mg Albuterol/Ipratropium (Duoneb 3.0-0.5 Mg/3 Ml) 3 ml NEB Q6HRRT [facility] Last Admin: 08/08/18 09:40 Dose: 3 ml Amlodipine Besylate (Norvasc) 10 mg PO DAILY [facility] Last Admin: 08/08/18 08:03 Dose: 10 mg Aspirin (Aspirin) 81 mg PO DAILY [facility] Last Admin: 08/08/18 08:03 Dose: 81 mg Citalopram Hydrobromide (Celexa) 20 mg PO DAILY [facility] Last Admin: 08/08/18 08:04 Dose: 20 mg Enoxaparin Sodium (Lovenox) 40 mg SUBCUT DAILY [facility] Last Admin: 08/08/18 08:04 Dose: 40 mg Levofloxacin/Dextrose 750 mg/ (Premix) 150 mls @ 100 mls/hr IV Q48H [facility] Last Admin: 08/07/18 09:31 Dose: 100 mls/hr Insulin Human Lispro (Humalog) 0 unit SUBCUT QIDACANDBED [facility]; Protocol Last Admin: 08/08/18 11:14 Dose: Not Given Melatonin (Melatonin) 3 mg PO BEDTIME PRN PRN Reason: Insomnia Last Admin: 08/07/18 20:04 Dose: 3 mg Metoprolol Tartrate (Lopressor) 50 mg PO Q12H [facility] Last Admin: 08/08/18 08:03 Dose: 50 mg Ondansetron HCl (Zofran) 4 mg IV Q4H PRN PRN Reason: Nausea/Vomiting Saccharomyces Boulardii (Florastor) 250 mg PO BID [facility] Last Admin: 08/08/18 08:03 Dose: 250 mg Sodium Chloride (Saline Flush) 10 ml FLUSH ASDIRECTED PRN PRN Reason: Keep Vein Open Last Admin: 08/04/18 11:33 Dose: 10 ml Discontinued Medications Acetaminophen (Tylenol) 650 mg PO NOW ONE Stop: 08/07/18 01:25 Last Admin: 08/07/18 01:31 Dose: 650 mg Acetazolamide (Diamox) 250 mg PO Q4H [facility] Stop: 08/07/18 19:46 Last Admin: 08/07/18 16:52 Dose: 250 mg Acetazolamide (Diamox) 250 mg PO ONETIME ONE Stop: 08/08/18 05:01 Last Admin: 08/08/18 05:34 Dose: 250 mg Albuterol (Proventil Neb Soln) 2.5 mg NEB ONETIME ONE Stop: 08/04/18 14:43 Last Admin: 08/04/18 15:06 Dose: 2.5 mg Albuterol/Ipratropium (Duoneb 3.0-0.5 Mg/3 Ml) 3 ml NEB ONETIME ONE Stop: 08/04/18 11:17 Last Admin: 08/04/18 11:58 Dose: 3 ml Furosemide (Lasix) 40 mg IVPUSH NOW ONE Stop: 08/04/18 14:52 Last Admin: 08/04/18 15:01 Dose: 40 mg Furosemide (Lasix) 60 mg IVPUSH NOW ONE Stop: 08/07/18 15:43 Last Admin: 08/07/18 14:56 Dose: 60 mg Hydromorphone HCl (Dilaudid) 0.5 mg IVPUSH Q2H PRN PRN Reason: Pain (severe 7-10) Hydromorphone HCl (Dilaudid) 0.5 mg IVPUSH Q2H PRN PRN Reason: Pain (severe 7-10) Ceftriaxone Sodium 1 gm/ (Sodium Chloride) 100 mls @ 200 mls/hr IV ONETIME ONE Stop: 08/04/18 12:49 Last Infusion: 08/04/18 12:55 Dose: 200 mls/hr Lactated Ringer's (Ringers, Lactated) 1,000 mls @ 125 mls/hr IV ASDIRECTED [facility] Last Admin: 08/04/18 20:40 Dose: 125 mls/hr Cefepime HCl 1 gm/ Premix 50 mls @ 100 mls/hr IV Q8H [facility] Last Admin: 08/04/18 21:17 Dose: Not Given Levofloxacin/Dextrose 750 mg/ (Premix) 150 mls @ 100 mls/hr IV Q24H [facility] Last Admin: 08/04/18 21:17 Dose: Not Given Vancomycin HCl 1 gm/ Sodium (Chloride) 250 mls @ 250 mls/hr IV Q24H [facility] Levofloxacin/Dextrose 750 mg/ (Premix) 150 mls @ 100 mls/hr IV Q48H [facility] Last Admin: 08/07/18 09:31 Dose: Not Given Cefepime HCl 1 gm/ Premix 50 mls @ 100 mls/hr IV Q12H [facility] Last Admin: 08/07/18 08:17 Dose: 100 mls/hr Vancomycin HCl 1 gm/ Sodium (Chloride) 250 mls @ 250 mls/hr IV DAILY@1900 [facility] Last Admin: 08/06/18 18:57 Dose: 250 mls/hr Lactated Ringer's (Ringers, Lactated) 1,000 mls @ 75 mls/hr IV ASDIRECTED [facility] Last Admin: 08/05/18 20:40 Dose: 75 mls/hr Vancomycin HCl 500 mg/ Sodium (Chloride) 250 mls @ 166.667 mls/hr IV ONETIME ONE Stop: 08/06/18 23:14 Last Admin: 08/06/18 21:51 Dose: 166.667 mls/hr Vancomycin HCl 1 gm/Vancomycin HCl 250 mg/ Sodium Chloride 250 mls @ 166.512 mls/hr IV Q24H [facility] Methylprednisolone Sodium Succinate (Solu-Medrol) 125 mg IVPUSH ONETIME ONE Stop: 08/04/18 14:52 Last Admin: 08/04/18 15:01 Dose: 125 mg Methylprednisolone Sodium Succinate (Solu-Medrol) 60 mg IVPUSH Q6H [facility] Last Admin: 08/06/18 11:39 Dose: 60 mg Methylprednisolone Sodium Succinate (Solu-Medrol) 30 mg IVPUSH Q12H [facility] Stop: 08/07/18 09:01 Last Admin: 08/07/18 09:16 Dose: 30 mg Naloxone HCl (Narcan) 1 mg IVPUSH ONETIME ONE Stop: 08/04/18 13:37 Last Admin: 08/04/18 13:51 Dose: 1 mg Potassium Chloride (Potassium Chloride Solution) 60 meq PO ONETIME ONE Stop: 08/08/18 10:03 Last Admin: 08/08/18 10:14 Dose: 60 meq Vancomycin HCl (Pharmacy To Dose - Vancomycin) 0 dose .XX ASDIRECTED PRN PRN Reason: RX TO DOSE VANCO - Exam Physical Findings Comments:: General: Alert, Oriented (to self), Cooperative, No Acute Distress HEENT: Pupils Reactive, EOMI Neck: Supple, Trachea Midline Lungs: Normal Respiratory Effort, Crackles Cardiovascular: Regular Rate, Regular Rhythm. No: Gallops GI/Abdominal Exam: Normal Bowel Sounds, Soft, Non-Tender Extremities: Pedal Edema Peripheral Pulses: 2+: Dorsalis Pedis (L), Dorsalis Pedis (R) Skin: Warm, Dry Neurological: No New Focal Deficit, Cranial Nerves Intact
== END 2018-08-08 12:04 | DRG 917 ==
LOC: JD.ED 11:04 → JD.ICU 16:17
PROVIDERS: ADMIT Family Medicine; ATTEND Family Medicine
PROC: 5A09357 Assistance with Respiratory Ventilation, Less than 24 Consecutive Hours, Continuous Positive Airway Pressure (ICD-10-PCS; principal; 2018-08-04)
DX: T40.3X1A Poisoning by methadone, accidental (unintentional), initial encounter (principal); J96.01 Acute respiratory failure with hypoxia; J96.02 Acute respiratory failure with hypercapnia; J44.1 Chronic obstructive pulmonary disease with (acute) exacerbation; G93.40 Encephalopathy, unspecified; I11.0 Hypertensive heart disease with heart failure; I50.9 Heart failure, unspecified; J44.9 Chronic obstructive pulmonary disease, unspecified; F03.90 Unspecified dementia, unspecified severity, without behavioral disturbance, psychotic disturbance, mood disturbance, and anxiety; E78.00 Pure hypercholesterolemia, unspecified; K21.9 Gastro-esophageal reflux disease without esophagitis; M19.90 Unspecified osteoarthritis, unspecified site; M81.0 Age-related osteoporosis without current pathological fracture; E11.9 Type 2 diabetes mellitus without complications; K91.1 Postgastric surgery syndromes; M54.9 Dorsalgia, unspecified; G89.29 Other chronic pain; H91.90 Unspecified hearing loss, unspecified ear; Z99.81 Dependence on supplemental oxygen; Z79.891 Long term (current) use of opiate analgesic; Z79.84 Long term (current) use of oral hypoglycemic drugs; Z91.030 Bee allergy status; Z66 Do not resuscitate; Z88.1 Allergy status to other antibiotic agents; R41.82 Altered mental status, unspecified; R06.03 Acute respiratory distress; R06.02 Shortness of breath; R53.83 Other fatigue; R06.82 Tachypnea, not elsewhere classified; R05 Cough; R09.02 Hypoxemia; R06.2 Wheezing; R40.0 Somnolence; Z79.899 Other long term (current) drug therapy; Z79.82 Long term (current) use of aspirin; Z85.828 Personal history of other malignant neoplasm of skin; Z90.49 Acquired absence of other specified parts of digestive tract; Z90.710 Acquired absence of both cervix and uterus
CPT/HCPCS: 36415; 36600 ×2; 70450; 71045; 80053; 81001; 82803 ×2; 83605; 83880; 84484; 85007; 85027; 85379; 86140; 87040; 93005; 94640 ×2; 96365; 96375; 99285; J0696; J1940; J2310; J2930; J7030; 51702; 80048; 80061; 80202; 82550; 82962; 83036; 83735; 84100; 84443; 85025; 87493; 87641; 94660; 97110-GP; 97116-GP; 97162-GP; 97165-GO; 97530-GO; 97530-GP; 99283; A9270-GY; J0692; J1650; J1815-GY; J1956; J2920; J3370; J7050; J7120; J7620-GY